=== PATIENT | male | born 1955 | race Caucasian/White ===

== ENCOUNTER 2020-10-07 14:16 | Inpatient (IN) | payer OTHER, MEDICARE ==
[2020-10-07] MEDS ORDERED: SODIUM CHLORIDE 0.9% 500 ML 500 ML IV STA (14:44)
[2020-10-07] MEDS ORDERED: VANCOMYCIN 1,000 MG in SODIUM CHLORIDE 0.9% 250 ML IVPB STA (14:44)
[2020-10-07] MEDS ORDERED: VANCOMYCIN IV PER PHARMACY 1 EACH MISC MISCELLANE PRN (14:48)
[2020-10-07] MEDS ORDERED: VANCOMYCIN 2,000 MG in SODIUM CHLORIDE 0.9% 500 ML 500 ML IVPB STA (14:48)
[2020-10-07 15:37] LABS: Basophils # (A) 0.1 k/uL (0-0.2); Basophils % (A) 1 %; Eosinophils % (A) 0 %; HCT 45.3 % (39.0-53.0); HGB 15.1 gm/dL (13.0-17.5); Lymphocytes # (A) 2.2 k/uL (1.0-4.8); Lymphocytes % (A) 24 %; MCH 28.9 pg (25.0-35.0); MCHC 33.3 g/dL (31.0-37.0); MCV 86.9 fL (80.0-100.0); Mean Platelet Volume 7.7; Monocytes # (A) 0.6 k/uL (0-1.0); Monocytes % (A) 7 %; Neutrophils # (A) 6.2 k/uL (1.3-7.7); Neutrophils % (A) 67 %; Platelet Count 166 k/uL (150-450); RBC 5.22 m/uL (4.30-5.90); RDW 14.3 % (11.5-15.5); WBC 9.3 k/uL (3.8-10.6)
[2020-10-07 15:47] LABS: ALT 37 U/L (4-49); AST 39 U/L (17-59); African American GFR (CKD) >90 (>60 ml/min/1.73 sqM); Albumin 3.3 g/dL (3.5-5.0); Alkaline Phosphatase 93 U/L (38-126); Anion Gap 6 mmol/L; Blood Urea Nitrogen 9 mg/dL (9-20); Calcium 8.8 mg/dL (8.4-10.2); Carbon Dioxide 26 mmol/L (22-30); Chloride 105 mmol/L (98-107); Glucose 232 mg/dL (74-99); Magnesium 1.8 mg/dL (1.6-2.3); Non-African American GFR(CKD) >90 (>60 ml/min/1.73 sqM); Potassium 4.2 mmol/L (3.5-5.1); Sodium 137 mmol/L (137-145); Total Bilirubin 1.1 mg/dL (0.2-1.3); Total Protein 6.6 g/dL (6.3-8.2)
[2020-10-07 15:53] LABS: INR 1.3 (<1.2); Partial Thromboplastin Time 25.1 sec (22.0-30.0)
--- NOTE | 2020-10-07 15:55 | XR ---
EXAMINATION TYPE: XR chest 1V portable DATE OF EXAM: 10/07/2020 COMPARISON: Chest x-ray 09/06/2010 HISTORY: Difficulty breathing TECHNIQUE: Single frontal view of the chest is obtained. FINDINGS: The heart is enlarged. There is abnormal density at the right lung base with obscured righ t hemidiaphragm. No pneumothorax. There are overlying leads. Minimal patchy basilar density on the le ft also noted. There is prominence and central vascularity, interstitium. IMPRESSION: Correlate for basilar pneumonia and associated effusion. Cardiomegaly, congestive failur e not excluded.
[2020-10-07 16:09] LABS: D-Dimer 4.25 mg/L FEU (<0.60)
--- NOTE | 2020-10-07 17:05 | CT ---
EXAMINATION TYPE: CT angio chest DATE OF EXAM: 10/07/2020 4:40 PM COMPARISON: Same-day radiograph. HISTORY: Elevated d-dimer. SOB CT DLP: 775 mGycm Automated exposure control for dose reduction was used. CONTRAST: CTA scan of the thorax is performed with IV Contrast, patient injected with 100 mL of Isovue 370, pul monary embolism protocol. MIP images are created and reviewed. FINDINGS: LUNGS: There are moderate right and small left pleural effusions with accompanying hazy opacities in the right middle and lower lobes. No pneumothorax. There is moderate centrilobular emphysema. MEDIASTINUM: There is satisfactory enhancement of the pulmonary artery and its branches, there is no CT evidence for pulmonary embolism. There are several scattered enlarged mediastinal lymph nodes wi th index lesion measuring 1.5 cm in the prevascular station. There is mild cardiomegaly. No pericar dial effusion is seen. There is mild thoracic aorta and moderate to advanced coronary atherosclerotic disease. OTHER: There is trace perihepatic fluid. IMPRESSION: MODERATE RIGHT AND SMALL LEFT PLEURAL EFFUSIONS WITH RIGHT BASILAR ATELECTASIS VERSUS INFILTRATE. FIN DINGS ARE ATYPICAL OF COVID PNEUMONIA. Trace perihepatic fluid. No acute PE. Nonspecific mediastinal lymphadenopathy.
--- NOTE | 2020-10-07 17:43 | ED ---
General Adult HPI - General Chief complaint: Shortness of Breath Stated complaint: L Leg Wound,SOB Time Seen by Provider: 10/07/20 14:29 Source: patient Mode of arrival: wheelchair Limitations: no limitations - History of Present Illness Initial comments: Patient presents with a couple issues. The first is that he was sent here by the health clinic for redness of the lower extremities. He has evidence of sialitis. He has no fevers or chills. He has no chest pain. He also complains of shortness of breath. He has no belly or back pain. He has no nausea or vomiting. He has no focal weakness. He has no lightheadedness or dizziness. - Related Data Home Medications Medication Instructions Recorded Confirmed Albuterol Sulfate [Ventolin HFA] 2 puff INHALATION RT-QID PRN 10/07/20 10/07/20 Apixaban [Eliquis] 5 mg PO BID 10/07/20 10/07/20 Aspirin 81 mg PO DAILY 10/07/20 10/07/20 Atorvastatin Calcium [Lipitor] 20 mg PO HS 10/07/20 10/07/20 Carvedilol [Coreg] 25 mg PO BID 10/07/20 10/07/20 Empagliflozin [Jardiance] 25 mg PO DAILY 10/07/20 10/07/20 Furosemide [Lasix] 20 mg PO Q48H 10/07/20 10/07/20 Furosemide [Lasix] 40 mg PO Q48H 10/07/20 10/07/20 Isosorbide Mononitrate ER [Imdur] 30 mg PO DAILY 10/07/20 10/07/20 glipiZIDE [Glucotrol] 5 mg PO BID 10/07/20 10/07/20 lisinopriL [Zestril] 20 mg PO BID 10/07/20 10/07/20 metFORMIN HCL 1,000 mg PO BID 10/07/20 10/07/20 Allergies Allergy/AdvReac Type Severity Reaction Status Date / Time No Known Allergies Allergy Verified 10/07/20 15:41 Review of Systems ROS Statement: Those systems with pertinent positive or pertinent negative responses have been documented in the HPI. ROS Other: All systems not noted in ROS Statement are negative. Past Medical History Past Medical History: Atrial Fibrillation, Coronary Artery Disease (CAD), Diabetes Mellitus, Hyperlipidemia, Hypertension, Osteoarthritis (OA) History of Any Multi-Drug Resistant Organisms: None Reported Past Surgical History: No Surgical Hx Reported Past Psychological History: No Psychological Hx Reported Smoking Status: Current every day smoker Past Alcohol Use History: None Reported Past Drug Use History: Marijuana General Exam Limitations: no limitations General appearance: alert, in no apparent distress Head exam: Present: atraumatic, normocephalic, normal inspection Eye exam: Present: normal appearance, PERRL, EOMI. Absent: scleral icterus, conjunctival injection, periorbital swelling ENT exam: Present: normal exam, mucous membranes moist Neck exam: Present: normal inspection. Absent: tenderness, meningismus, lymphadenopathy Respiratory exam: Present: normal lung sounds bilaterally. Absent: respiratory distress, wheezes, rales, rhonchi, stridor Cardiovascular Exam: Present: tachycardia, normal heart sounds. Absent: systolic murmur, diastolic murmur, rubs, gallop, clicks GI/Abdominal exam: Present: soft, normal bowel sounds. Absent: distended, tenderness, guarding, rebound, rigid Extremities exam: Present: normal inspection, full ROM, normal capillary refill. Absent: tenderness, pedal edema, joint swelling, calf tenderness Back exam: Present: normal inspection Neurological exam: Present: alert, oriented X3, CN II-XII intact Psychiatric exam: Present: normal affect, normal mood Skin exam: Present: erythema, other (Evidence of infection, and also an open wound of the left leg, evidence of infection on the right leg) Course Vital Signs 10/07/20 10/07/20 10/07/20 14:21 15:33 17:04 Temperature 98.4 F Pulse Rate 126 H 120 H 121 H Respiratory 24 22 20 Rate Blood Pressure 197/113 151/104 153/108 O2 Sat by Pulse 91 L 96 98 Oximetry EKG Findings - EKG Comments: EKG Findings:: Twelve-lead EKG shows ventricular rate 123 bpm, no P waves are appreciated, no ST elevation or depression, interpreted by me as tachycardia. Medical Decision Making - Medical Decision Making Patient has cellulitis in the legs. I sent blood cultures. I ordered IV antibiotics. I obtained a CT of the chest to evaluate for PE. It is negative. Patient will be admitted to the hospital. - Lab Data Result diagrams: 10/07/20 15:16 10/07/20 15:16 Lab Results 10/07/20 10/07/20 10/07/20 Range/Units 15:16 15:16 15:16 WBC 9.3 (3.8-10.6) k/uL RBC 5.22 (4.30-5.90) m/uL Hgb 15.1 (13.0-17.5) gm/dL Hct 45.3 (39.0-53.0) % MCV 86.9 (80.0-100.0) fL MCH 28.9 (25.0-35.0) pg MCHC 33.3 (31.0-37.0) g/dL RDW 14.3 (11.5-15.5) % Plt Count 166 (150-450) k/uL MPV 7.7 Neutrophils % 67 % Lymphocytes % 24 % Monocytes % 7 % Eosinophils % 0 % Basophils % 1 % Neutrophils # 6.2 (1.3-7.7) k/uL Lymphocytes # 2.2 (1.0-4.8) k/uL Monocytes # 0.6 (0-1.0) k/uL Eosinophils # 0.0 (0-0.7) k/uL Basophils # 0.1 (0-0.2) k/uL PT 13.0 H (9.0-12.0) sec INR 1.3 H (<1.2) APTT 25.1 (22.0-30.0) sec D-Dimer 4.25 H (<0.60) mg/L FEU Sodium 137 (137-145) mmol/L Potassium 4.2 (3.5-5.1) mmol/L Chloride 105 (98-107) mmol/L Carbon Dioxide 26 (22-30) mmol/L Anion Gap 6 mmol/L BUN 9 (9-20) mg/dL Creatinine 0.68 (0.66-1.25) mg/dL Est GFR (CKD-EPI)AfAm >90 (>60 ml/min/1.73 sqM) Est GFR (CKD-EPI)NonAf >90 (>60 ml/min/1.73 sqM) Glucose 232 H (74-99) mg/dL Plasma Lactic Acid Quinn (0.7-2.0) mmol/L Calcium 8.8 (8.4-10.2) mg/dL Magnesium 1.8 (1.6-2.3) mg/dL Total Bilirubin 1.1 (0.2-1.3) mg/dL AST 39 (17-59) U/L ALT 37 (4-49) U/L Alkaline Phosphatase 93 (38-126) U/L Troponin I (0.000-0.034) ng/mL NT-Pro-B Natriuret Pep pg/mL Total Protein 6.6 (6.3-8.2) g/dL Albumin 3.3 L (3.5-5.0) g/dL 10/07/20 10/07/20 10/07/20 Range/Units 15:16 15:16 15:16 WBC (3.8-10.6) k/uL RBC (4.30-5.90) m/uL Hgb (13.0-17.5) gm/dL Hct (39.0-53.0) % MCV (80.0-100.0) fL MCH (25.0-35.0) pg MCHC (31.0-37.0) g/dL RDW (11.5-15.5) % Plt Count (150-450) k/uL MPV Neutrophils % % Lymphocytes % % Monocytes % % Eosinophils % % Basophils % % Neutrophils # (1.3-7.7) k/uL Lymphocytes # (1.0-4.8) k/uL Monocytes # (0-1.0) k/uL Eosinophils # (0-0.7) k/uL Basophils # (0-0.2) k/uL PT (9.0-12.0) sec INR (<1.2) APTT (22.0-30.0) sec D-Dimer (<0.60) mg/L FEU Sodium (137-145) mmol/L Potassium (3.5-5.1) mmol/L Chloride (98-107) mmol/L Carbon Dioxide (22-30) mmol/L Anion Gap mmol/L BUN (9-20) mg/dL Creatinine (0.66-1.25) mg/dL Est GFR (CKD-EPI)AfAm (>60 ml/min/1.73 sqM) Est GFR (CKD-EPI)NonAf (>60 ml/min/1.73 sqM) Glucose (74-99) mg/dL Plasma Lactic Acid Quinn 1.6 (0.7-2.0) mmol/L Calcium (8.4-10.2) mg/dL Magnesium (1.6-2.3) mg/dL Total Bilirubin (0.2-1.3) mg/dL AST (17-59) U/L ALT (4-49) U/L Alkaline Phosphatase (38-126) U/L Troponin I 0.025 (0.000-0.034) ng/mL NT-Pro-B Natriuret Pep 3320 pg/mL Total Protein (6.3-8.2) g/dL Albumin (3.5-5.0) g/dL Disposition Clinical Impression: Cellulitis Disposition: ADMITTED IP TO THIS HOSP Condition: Fair Is patient prescribed a controlled substance at d/c from ED?: No Referrals: [facility],Clinic [Primary Care Provider] - 1-2 days
[2020-10-07] MEDS ORDERED: ACETAMINOPHEN TAB 325 MG TAB PO PRN (17:45)
[2020-10-07] MEDS ORDERED: ONDANSETRON 4 MG/2 ML VIAL IVP PRN (17:45)
[2020-10-07] MEDS ORDERED: NALOXONE 0.4 MG/ML 1 ML VIAL IV PRN (17:45)
[2020-10-07] MEDS ORDERED: TEMAZEPAM 15 MG CAP PO PRN (17:45)
[2020-10-07] MEDS ORDERED: MAG HYDROX/AL HYDROX/SIMETH 30 ML CUP PO PRN (17:45)
[2020-10-07] MEDS ORDERED: MORPHINE SULFATE 4 MG/ML SYRINGE IV PRN (17:45)
[2020-10-07] MEDS ORDERED: ALBUTEROL NEBULIZED 2.5 MG/3 ML INHALATION PRN (17:47)
[2020-10-07] MEDS ORDERED: FUROSEMIDE 40 MG TAB PO SCH (18:00)
--- NOTE | 2020-10-07 18:21 | P.HPIM ---
History of Present Illness Pleasant 65-year-old male came in with complains of redness in the left lower x- ray patient has a skin breakdown on the saenz area and has a stage II ulcer in that area. Patient does have local is of temperature and redness patient denied any history of MRSA. Patient does have history of atrial fibrillation patient is sinus rhythm but sinus tachycardic at this time. Patient says his heart rate is always on the high side. Patient denied any shortness of breath does have history of COPD does wear oxygen he doesn't know how much onset he wears does have wheezing on exam denied any cough chest x-ray did not show any significant abnormality except for pleural effusion patient has a left-sided pleural effusion on the CAT scan as well moderate size pleural effusion. Patient is on anticoagulation with Eliquis. Unsure whether this pleural effusion is acute or chronic Review of Systems REVIEW OF SYSTEMS: CONSTITUTIONAL: No fever, no malaise, no fatigue. HEENT: No recent visual problems or hearing problems. Denied any sore throat. CARDIOVASCULAR: No chest pain, orthopnea, PND, no palpitations, no syncope. PULMONARY: No shortness of breath, no cough, no hemoptysis. GASTROINTESTINAL: No diarrhea, no nausea, no vomiting, no abdominal pain. NEUROLOGICAL: No headaches, no weakness, no numbness. HEMATOLOGICAL: Denies any bleeding or petechiae. GENITOURINARY: Denies any burning micturition, frequency, or urgency. MUSCULOSKELETAL/RHEUMATOLOGICAL: Denies any joint pain, swelling, or any muscle pain. ENDOCRINE: Denies any polyuria or polydipsia. The rest of the 14-point review of systems is negative. Past Medical History Past Medical History: Atrial Fibrillation, Coronary Artery Disease (CAD), Diabetes Mellitus, Hyperlipidemia, Hypertension, Osteoarthritis (OA) History of Any Multi-Drug Resistant Organisms: None Reported Past Surgical History: No Surgical Hx Reported Past Psychological History: No Psychological Hx Reported Smoking Status: Current every day smoker Past Alcohol Use History: None Reported Past Drug Use History: Marijuana Medications and Allergies Home Medications Medication Instructions Recorded Confirmed Type Albuterol Sulfate [Ventolin HFA] 2 puff INHALATION RT-QID PRN 10/07/20 10/07/20 History Apixaban [Eliquis] 5 mg PO BID 10/07/20 10/07/20 History Aspirin 81 mg PO DAILY 10/07/20 10/07/20 History Atorvastatin Calcium [Lipitor] 20 mg PO HS 10/07/20 10/07/20 History Carvedilol [Coreg] 25 mg PO BID 10/07/20 10/07/20 History Empagliflozin [Jardiance] 25 mg PO DAILY 10/07/20 10/07/20 History Furosemide [Lasix] 20 mg PO Q48H 10/07/20 10/07/20 History Furosemide [Lasix] 40 mg PO Q48H 10/07/20 10/07/20 History Isosorbide Mononitrate ER [Imdur] 30 mg PO DAILY 10/07/20 10/07/20 History glipiZIDE [Glucotrol] 5 mg PO BID 10/07/20 10/07/20 History lisinopriL [Zestril] 20 mg PO BID 10/07/20 10/07/20 History metFORMIN HCL 1,000 mg PO BID 10/07/20 10/07/20 History Allergies Allergy/AdvReac Type Severity Reaction Status Date / Time No Known Allergies Allergy Verified 10/07/20 15:41 Physical Exam Vitals: Vital Signs Temp Pulse Resp BP Pulse Ox 10/07/20 17:04 121 H 20 153/108 98 10/07/20 15:33 120 H 22 151/104 96 10/07/20 14:21 98.4 F 126 H 24 197/113 91 L Intake and Output 10/07/20 10/07/20 10/07/20 06:59 14:59 22:59 Other: Weight 136.078 kg PHYSICAL EXAMINATION: GENERAL: The patient is alert and oriented x3, not in any acute distress. Well developed, well nourished. HEENT: Pupils are round and equally reacting to light. EOMI. No scleral icterus. No conjunctival pallor. Normocephalic, atraumatic. No pharyngeal erythema. No thyromegaly. CARDIOVASCULAR: S1 and S2 present. No murmurs, rubs, or gallops. PULMONARY: Expiratory wheezing on exam ABDOMEN: Soft, nontender, nondistended, normoactive bowel sounds. No palpable organomegaly. MUSCULOSKELETAL: No joint swelling or deformity. EXTREMITIES: No cyanosis, clubbing, does have bilateral nonpitting pedal edema is to be chronic NEUROLOGICAL: Gross neurological examination did not reveal any focal deficits. SKIN: chronic venous stasis stasis dermatosis with the left-sided redness cellulitis at the stage II ulcer in the anterior saenz area on the left leg. Results CBC & Chem 7: 10/07/20 15:16 10/07/20 15:16 Labs: Abnormal Lab Results - Last 24 Hours (Table) 10/07/20 10/07/20 Range/Units 15:16 15:16 PT 13.0 H (9.0-12.0) sec INR 1.3 H (<1.2) D-Dimer 4.25 H (<0.60) mg/L FEU Glucose 232 H (74-99) mg/dL Albumin 3.3 L (3.5-5.0) g/dL Assessment and Plan Plan: -Cellulitis of the left lower extremity: Patient denied any history of MRSA and patient was started on ceftezolin, patient has an ulcer on the left and patient area which will need local wound care. -COPD with mild acute exacerbation patient has chronic hypercapnic respiratory failure and uses support to 3 L of oxygen at home which will be continued patient will be started on inhaled steroids and continue with the breathing treatments Left-sided pleural effusion etiology is not. Patient may need diagnostic thoracentesis, pulmonology will be consulted -Elevated d-dimer is secondary to infection rule out pulmonary embolism -Type 2 diabetes mellitus elevated blood sugars patient will be resumed on home regimen along with sliding scale insulin patient appears to have uncontrolled blood sugars -Atrial fibrillation patient is presently sinus tachycardic: Patient will be resumed on home medications will monitor continue with anticoagulation, this need to be held if patient needs paracentesis - coronary artery disease -hypertension
--- NOTE | 2020-10-07 19:47 | US ---
EXAMINATION TYPE: US venous doppler duplex LE DATE OF EXAM: 10/07/2020 5:44 PM COMPARISON: NONE CLINICAL HISTORY: pain and swelling. Bilateral leg pain and swelling x 1 year, patient on blood thinn ers SIDE PERFORMED: Bilateral TECHNIQUE: The lower extremity deep venous system is examined utilizing real time linear array sonog gaby with graded compression, doppler sonography and color-flow sonography. VESSELS IMAGED: Common Femoral Vein Deep Femoral Vein Greater Saphenous Vein * Femoral Vein Popliteal Vein Small Saphenous Vein * Proximal Calf Veins (* superficial vessels) Right Leg: Appears negative for DVT Left Leg: Appears negative for DVT IMPRESSION: No evidence of DVT in the bilateral lower extremities.
[2020-10-07] MEDS: IPRATROPIUM-ALBUTEROL 3 ML NEB INHALATION SCH (20:19)
[2020-10-07] MEDS: SYMBICORT 160-4.5 MCG INHALER INHALATION SCH (20:20)
[2020-10-07 23:54] LABS: Glucose,Whole Blood 161 mg/dL (75-99)
[2020-10-08] MEDS ORDERED: VANCOMYCIN 2,000 MG in SODIUM CHLORIDE 0.9% 500 ML 500 ML IVPB SCH ×2
[2020-10-08] MEDS: ATORVASTATIN 20 MG TAB PO SCH ×2 (00:04→21:06)
[2020-10-08] MEDS: APIXABAN 5 MG TAB PO SCH ×2 (00:04→08:06)
[2020-10-08] MEDS: traMADol 50 MG TAB PO PRN ×2 (00:04→20:01)
[2020-10-08] MEDS: carvediloL 12.5 MG TAB PO SCH ×2 (00:04→08:11)
[2020-10-08] MEDS: lisinopriL 20 MG TAB PO SCH ×2 (00:04→08:06)
[2020-10-08] MEDS: INSULIN ASPART (NovoLOG) 100 UNIT/ML VIAL SQ SCH ×5 (00:06→20:25)
[2020-10-08 07:28] LABS: HCT 44.8 % (39.0-53.0); HGB 14.7 gm/dL (13.0-17.5); Hypochromasia Slight; MCHC 32.8 g/dL (31.0-37.0); MCV 88.4 fL (80.0-100.0); Mean Platelet Volume 7.9; Platelet Count 184 k/uL (150-450); RBC 5.07 m/uL (4.30-5.90); RDW 14.2 % (11.5-15.5); WBC 7.5 k/uL (3.8-10.6)
[2020-10-08 07:30] LABS: Glucose,Whole Blood 215 mg/dL (75-99)
[2020-10-08] MEDS: ISOSORBIDE MONONITRATE ER 30 MG TAB.ER.24H PO SCH (08:06)
[2020-10-08] MEDS: metFORMIN 500 MG TAB PO SCH ×2 (08:06→18:10)
[2020-10-08] MEDS: glipiZIDE 5 MG TAB PO SCH ×2 (08:07→18:10)
[2020-10-08] MEDS: SYMBICORT 160-4.5 MCG INHALER INHALATION SCH ×2 (08:16→20:53)
[2020-10-08] MEDS: IPRATROPIUM-ALBUTEROL 3 ML NEB INHALATION SCH ×4 (08:16→20:53)
[2020-10-08] MEDS ORDERED: ASPIRIN 81 MG PO SCH (09:00)
[2020-10-08 11:28] LABS: Glucose,Whole Blood 146 mg/dL (75-99)
[2020-10-08 12:24] LABS: African American GFR (CKD) 91.1 (60.0-200.0); Anion Gap 3.3 mmol/L (4.00-12.00); Calcium 8.7 mg/dL (8.7-10.3); Carbon Dioxide 27.7 mmol/L (21.6-31.8); Non-African American GFR(CKD) 78.6 (60.0-200.0); Potassium 4.3 mmol/L (3.5-5.5)
--- NOTE | 2020-10-08 13:09 | US ---
EXAMINATION TYPE: US chest DATE OF EXAM: 10/08/2020 COMPARISON: NONE CLINICAL HISTORY: Markings for thoracentesis by pulmonary staff. TECHNIQUE: Targeted ultrasound of the posterior lower bilateral hemithoraces EXAM MEASUREMENTS: Right Pleural Effusion pocket size: 13.1 cm Right skin surface to fluid distance: 4.1 cm Left Pleural Effusion pocket size: 3.6 cm Left skin surface to fluid distance: 3.8 cm Right side marked for possible thoracentesis outside the dept. Left side not marked for possible thoracentesis outside the dept. Pulmonologists are able to review the images in the patient?s EMR. IMPRESSIONS: Right and left pleural effusions
--- NOTE | 2020-10-08 13:49 | P.CNPUL ---
History of Present Illness Consult date: 10/08/20 Requesting physician: Yo Joya Reason for consult: dyspnea, COPD, hypoxemia, pleural effusion, abnormal CXR/CT Chief complaint: Shortness of breath. History of present illness: 65-year-old male who presented to the emergency department on 10/07/2020, at 1416. The patient had a number of issues when he went to the emergency room including an infection in his lower extremities, and possible cellulitis, as well as some shortness of breath. He denied any chest pain or chest discomfort. He also denied any nausea, vomiting, diarrhea, or abdominal pain. He denied all genitourinary complaints. Currently, the patient is receiving supplemental oxygen. I believe we were consulted because of a pleural effusion. The patient apparently used to be seen at the [facility] in [place], but more recently was transferred up to the [facility] in [place]. He apparently has not yet established himself with the physician. He has a history of atrial fibrillation, coronary artery disease, diabetes, hyperlipidemia, hypertension, DJD, and COPD. He also has a history of chronic hypoxemic respiratory failure. The patient continues to smoke cigarettes. He is currently on a blood thinner for his atrial fibrillati on. We will order an ultrasound of the chest to see if there is fluid worth draining. Review of Systems REVIEW OF SYSTEMS: CONSTITUTIONAL: [Negative.] NEUROLOGIC: [ Negative.] HEENT: [ Negative.] CARDIAC: [Negative.] PULMONARY: Shortness of breath. GI: [Negative.] : [Negative.] RHEUMATOLOGIC: [ Negative.] IMMUNOLOGIC: [ Negative.] ENDOCRINE: [Negative. ] DERMATOLOGIC: Cellulitis, and nonhealing wounds/ulcers to the lower extremities. Past Medical History Past Medical History: Atrial Fibrillation, Coronary Artery Disease (CAD), Diabetes Mellitus, Hyperlipidemia, Hypertension, Osteoarthritis (OA) History of Any Multi-Drug Resistant Organisms: None Reported Past Surgical History: No Surgical Hx Reported Smoking Status: Current every day smoker Medications and Allergies Home Medications Medication Instructions Recorded Confirmed Type Albuterol Sulfate [Ventolin HFA] 2 puff INHALATION RT-QID PRN 10/07/20 10/07/20 History Apixaban [Eliquis] 5 mg PO BID 10/07/20 10/07/20 History Aspirin 81 mg PO DAILY 10/07/20 10/07/20 History Atorvastatin Calcium [Lipitor] 20 mg PO HS 10/07/20 10/07/20 History Carvedilol [Coreg] 25 mg PO BID 10/07/20 10/07/20 History Empagliflozin [Jardiance] 25 mg PO DAILY 10/07/20 10/07/20 History Furosemide [Lasix] 20 mg PO Q48H 10/07/20 10/07/20 History Furosemide [Lasix] 40 mg PO Q48H 10/07/20 10/07/20 History Isosorbide Mononitrate ER [Imdur] 30 mg PO DAILY 10/07/20 10/07/20 History glipiZIDE [Glucotrol] 5 mg PO BID 10/07/20 10/07/20 History lisinopriL [Zestril] 20 mg PO BID 10/07/20 10/07/20 History metFORMIN HCL 1,000 mg PO BID 10/07/20 10/07/20 History Allergies Allergy/AdvReac Type Severity Reaction Status Date / Time No Known Allergies Allergy Verified 10/07/20 15:41 Physical Exam Osteopathic Statement: *. No significant issues noted on an osteopathic structural exam other than those noted in the History and Physical/Consult. Vitals: Vital Signs Temp Pulse Pulse Resp BP BP Pulse Ox 10/08/20 11:00 97.7 F 117 H 18 95/58 92 L 10/08/20 08:25 100 10/08/20 08:16 100 10/08/20 03:38 97.8 F 117 H 16 127/81 92 L 10/08/20 02:00 16 10/07/20 23:25 93 L 10/07/20 23:23 98.0 F 122 H 16 144/100 89 L 10/07/20 23:07 110 H 20 139/81 96 10/07/20 20:52 116 H 20 131/89 97 10/07/20 20:21 122 H 10/07/20 18:16 98.2 F 118 H 20 149/97 97 10/07/20 17:04 121 H 20 153/108 98 10/07/20 15:33 120 H 22 151/104 96 10/07/20 14:21 98.4 F 126 H 24 197/113 91 L Intake and Output 10/07/20 10/08/20 10/08/20 22:59 06:59 14:59 Intake Total 640 Balance 640 Intake: Intake, IV Titration 50 Amount ceFAZolin 2 gm In Sodium 50 Chloride 0.9% 50 ml @ 100 mls/hr IVPB Q8H [facility] Rx#: [id number] Oral 590 Other: Voiding Method Toilet # Voids 1 Weight 136.078 kg 136.078 kg No acute distress, oriented 3. Currently on 2 L nasal cannula. HEENT examination is grossly unremarkable. Mucous membranes are moist. No oral lesions. Neck supple. Full range of motion. No adenopathy thyromegaly or neck vein distention. Cardiovascular examination reveals irregular rhythm and rate. S1-S2 normal. No S3 or S4. No discernible murmur noted. Heart rate is 117 bpm Lungs reveal crackles at the bases. There is diminished breath sounds at the right base. There is dullness at the right base. No rhonchi. No wheezes. Abdomen soft bowel sounds are heard. No masses or tenderness. Extremities reveal some redness and erythema, and the lesion on the left leg is wrapped. In addition, there is edema to the lower extremities. Skin is without rash or lesion. Neurologic examination is brief but nonfocal. Results - Laboratory Findings CBC and BMP: 10/08/20 07:05 10/08/20 07:05 PT/INR, D-dimer PT 13.0 sec (9.0-12.0) H 10/07/20 15:16 INR 1.3 (<1.2) H 10/07/20 15:16 D-Dimer 4.25 mg/L FEU (<0.60) H 10/07/20 15:16 Abnormal lab findings: Abnormal Labs 10/07/20 10/07/20 10/07/20 15:16 15:16 23:47 PT 13.0 H INR 1.3 H D-Dimer 4.25 H Anion Gap BUN/Creatinine Ratio Glucose 232 H POC Glucose (mg/dL) 161 H Albumin 3.3 L 10/08/20 10/08/20 10/08/20 07:05 07:18 11:17 PT INR D-Dimer Anion Gap 3.30 L BUN/Creatinine Ratio 11.00 L Glucose 239 H POC Glucose (mg/dL) 215 H 146 H Albumin - Diagnostic Findings Chest x-ray: image reviewed CT scan - chest: image reviewed Assessment and Plan Assessment: Moderate right-sided pleural effusion, which may be more chronic in nature as the patient is not overwhelmingly short of breath. Chronic atrial fibrillation, with rapid ventricular response. Rule out congestive heart failure. Probable COPD, from previous heavy tobacco use. Lower extremity cellulitis and nonhealing ulcer/wound. Ongoing tobacco use with nicotine addiction. History of hyperlipidemia. Diabetes mellitus. History of CAD. Essential hypertension. Plan: Plan dated 10/08/2020. The patient's ultrasound showed a 13.1 cm pocket on the right side. I will discontinue his Eliquis. We will plan on doing a thoracentesis tomorrow. We will continue to follow this patient. Currently, he looks relatively stable to me. The effusion may relate to underlying congestive heart failure secondary to his atrial fibrillation. Additional recommendations and suggestions are forthcoming. The patient will need antibiotics, for his cellulitis, and nonh ealing ulcer. Prognosis is guarded. Time with Patient: Greater than 30
--- NOTE | 2020-10-08 14:44 | P.PN ---
Subjective 65-year-old male came in with complains of redness in the left lower x-ray patient has a skin breakdown on the saenz area and has a stage II ulcer in that area. Patient does have local is of temperature and redness patient denied any history of MRSA. Patient does have history of atrial fibrillation patient is sinus rhythm but sinus tachycardic at this time. Patient says his heart rate is always on the high side. Patient denied any shortness of breath does have history of COPD does wear oxygen he doesn't know how much onset he wears does mccabe ve wheezing on exam denied any cough chest x-ray did not show any significant abnormality except for pleural effusion patient has a left-sided pleural effusion on the CAT scan as well moderate size pleural effusion. Patient is on anticoagulation with Eliquis. Unsure whether this pleural effusion is acute or chronic. 10/08/2020 Patient's cellulitis in the left leg significantly improved. Patient had an ultrasound for pleural effusion on the left side. Patient will undergo diagnostic thoracentesis tomorrow anti-correlation is being held patient will be started on IV Lasix although clinically patient doesn't have any JVD because she is pleural effusion and elevated BNP last started him on IV Lasix and the CT that improves his a creatinine and pleural effusion. Patient is hypotensive ON THE LISINOPRIL TO 10 MG DAILY FROM 20 TWICE A DAY AND PATIENT WILL BE SWITCHED TO METOPROLOL INSTEAD OF COREG. Constitutional: Denied any fatigue denied any fever. Cardio vascular: denied any chest pain, palpitations Gastrointestinal denied any nausea vomiting Pulmonary: Denied any shortness of breath cough Neurologic denied any new focal deficits All inpatient medications were reviewed and appropriate changes in these medications as dictated in the interval history and assessment and plan. Objective - Vital Signs Vital signs: Vital Signs Temp 97.7 F 10/08/20 11:00 Pulse 117 H 10/08/20 11:00 Resp 18 10/08/20 11:00 BP 95/58 10/08/20 11:00 Pulse Ox 92 L 10/08/20 11:00 Intake & Output 10/07/20 10/08/20 10/08/20 18:59 06:59 18:59 Intake Total 640 Balance 640 Weight 136.078 kg 136.078 kg Intake: Intake, IV Titration 50 Amount ceFAZolin 2 gm In Sodium 50 Chloride 0.9% 50 ml @ 100 mls/hr IVPB Q8H [facility] Rx#: [id number] Oral 590 Other: Voiding Method Toilet # Voids 1 - Exam PHYSICAL EXAMINATION: GENERAL: The patient is alert and oriented x3, not in any acute distress. Well developed, well nourished. HEENT: Pupils are round and equally reacting to light. EOMI. No scleral icterus. No conjunctival pallor. Normocephalic, atraumatic. No pharyngeal erythema. No thyromegaly. CARDIOVASCULAR: S1 and S2 present. No murmurs, rubs, or gallops. PULMONARY: Wheezing completely resolved good air entry into bilateral lung gallardo ABDOMEN: Soft, nontender, nondistended, normoactive bowel sounds. No palpable organomegaly. MUSCULOSKELETAL: No joint swelling or deformity. EXTREMITIES: No cyanosis, clubbing, does have bilateral nonpitting pedal edema is to be chronic NEUROLOGICAL: Gross neurological examination did not reveal any focal deficits. SKIN: chronic venous stasis stasis dermatosis with the left foot redness and pain improved cellulitis improved - Labs CBC & Chem 7: 10/08/20 07:05 10/08/20 07:05 Labs: Abnormal Lab Results - Last 24 Hours (Table) 10/07/20 10/07/20 10/07/20 Range/Units 15:16 15:16 23:47 PT 13.0 H (9.0-12.0) sec INR 1.3 H (<1.2) D-Dimer 4.25 H (<0.60) mg/L FEU Anion Gap (4.00-12.00) mmol/L BUN/Creatinine Ratio (12.00-20.00) Ratio Glucose 232 H (74-99) mg/dL POC Glucose (mg/dL) 161 H (75-99) mg/dL Albumin 3.3 L (3.5-5.0) g/dL 10/08/20 10/08/20 10/08/20 Range/Units 07:05 07:18 11:17 PT (9.0-12.0) sec INR (<1.2) D-Dimer (<0.60) mg/L FEU Anion Gap 3.30 L (4.00-12.00) mmol/L BUN/Creatinine Ratio 11.00 L (12.00-20.00) Ratio Glucose 239 H (74-99) mg/dL POC Glucose (mg/dL) 215 H 146 H (75-99) mg/dL Albumin (3.5-5.0) g/dL Assessment and Plan Plan: -Cellulitis of the left lower extremity: Patient denied any history of MRSA and patient will be on ceftezolin, patient has an ulcer on the left and patient area which will need local wound care. -COPD with mild acute exacerbation patient has chronic hypercapnic respiratory failure , COPD improved patient is on 2 L of oxygen now Left-sided pleural effusion etiology is not can be secondary to chronic diastolic dysfunction with acute exacerbation. Patient may need diagnostic thoracentesis, pulmonology will be consulted From congestive failure and diastolic dysfunction with possibility of mild acute exacerbation -Elevated d-dimer is secondary to infection rule out pulmonary embolism -Type 2 diabetes mellitus. Well controlled blood sugars and present regimen continued on present regimen -Atrial fibrillation patient is presently sinus tachycardic: Patient was switched to metoprolol - coronary artery disease -hypertension
[2020-10-08 16:56] LABS: Glucose,Whole Blood 93 mg/dL (75-99)
[2020-10-08] MEDS ORDERED: FUROSEMIDE 20 MG TAB PO SCH (18:00)
[2020-10-08 19:55] LABS: Glucose,Whole Blood 144 mg/dL (75-99)
[2020-10-08 20:25] LABS: Glucose,Whole Blood 136 mg/dL (75-99)
[2020-10-08] MEDS: METOPROLOL TARTRATE 50 MG TAB PO SCH (21:06)
[2020-10-08] MEDS: FUROSEMIDE 10 MG/ML 4 ML VIAL IV SCH (21:06)
[2020-10-09] MEDS: IPRATROPIUM-ALBUTEROL 3 ML NEB INHALATION SCH ×4 (05:49→20:03)
[2020-10-09 07:21] LABS: Glucose,Whole Blood 119 mg/dL (75-99)
[2020-10-09] MEDS: INSULIN ASPART (NovoLOG) 100 UNIT/ML VIAL SQ SCH ×4 (07:22→20:36)
[2020-10-09] MEDS: SYMBICORT 160-4.5 MCG INHALER INHALATION SCH ×2 (07:23→20:03)
[2020-10-09] MEDS: METOPROLOL TARTRATE 50 MG TAB PO SCH ×2 (08:19→20:36)
[2020-10-09] MEDS: ISOSORBIDE MONONITRATE ER 30 MG TAB.ER.24H PO SCH (08:20)
[2020-10-09] MEDS: metFORMIN 500 MG TAB PO SCH ×2 (08:20→17:47)
[2020-10-09] MEDS: lisinopriL 10 MG TAB PO SCH (08:20)
[2020-10-09] MEDS: glipiZIDE 5 MG TAB PO SCH ×2 (08:21→17:47)
[2020-10-09] MEDS: FUROSEMIDE 10 MG/ML 4 ML VIAL IV SCH ×2 (08:21→20:37)
[2020-10-09 11:38] LABS: Glucose,Whole Blood 150 mg/dL (75-99)
--- NOTE | 2020-10-09 11:43 | XR ---
EXAMINATION TYPE: XR chest 1V portable DATE OF EXAM: 10/09/2020 COMPARISON: Prior chest x-ray and chest CT 10/07/2020 HISTORY: Pleural effusions TECHNIQUE: Single frontal view of the chest is obtained. FINDINGS: Findings similar to prior exam. The right hemidiaphragm is obscured, there is blunting the costophrenic angle. The heart is enlarged. No evident pneumothorax. Patchy basilar density present r ight greater than left. IMPRESSION: Right pleural effusion and associated atelectasis versus pneumonia greater than left, th ere is underlying emphysema.
--- NOTE | 2020-10-09 12:00 | P.PN ---
Subjective 65-year-old male came in with complains of redness in the left lower x-ray patient has a skin breakdown on the saenz area and has a stage II ulcer in that area. Patient does have local is of temperature and redness patient denied any history of MRSA. Patient does have history of atrial fibrillation patient is sinus rhythm but sinus tachycardic at this time. Patient says his heart rate is always on the high side. Patient denied any shortness of breath does have history of COPD does wear oxygen he doesn't know how much onset he wears does mccabe ve wheezing on exam denied any cough chest x-ray did not show any significant abnormality except for pleural effusion patient has a left-sided pleural effusion on the CAT scan as well moderate size pleural effusion. Patient is on anticoagulation with Eliquis. Unsure whether this pleural effusion is acute or chronic. 10/08/2020 Patient's cellulitis in the left leg significantly improved. Patient had an ultrasound for pleural effusion on the left side. Patient will undergo diagnostic thoracentesis tomorrow anti-correlation is being held patient will be started on IV Lasix although clinically patient doesn't have any JVD because she is pleural effusion and elevated BNP last started him on IV Lasix and the CT that improves his a creatinine and pleural effusion. Patient is hypotensive ON THE LISINOPRIL TO 10 MG DAILY FROM 20 TWICE A DAY AND PATIENT WILL BE SWITCHED TO METOPROLOL INSTEAD OF COREG. 10/09/2020 Patient does have bilateral pleural effusions continue with IV fluids repeat the chest x-ray is being obtained. Patient pleural effusion is significant on the right side.patient will undergo thoracentesis today. Constitutional: Denied any fatigue denied any fever. Cardio vascular: denied any chest pain, palpitations Gastrointestinal denied any nausea vomiting Pulmonary: Denied any shortness of breath cough Neurologic denied any new focal deficits All inpatient medications were reviewed and appropriate changes in these medications as dictated in the interval history and assessment and plan. Objective - Vital Signs Vital signs: Vital Signs Temp 98.2 F 10/09/20 10:53 Pulse 92 10/09/20 11:12 Resp 17 10/09/20 10:53 BP 127/86 10/09/20 10:53 Pulse Ox 95 10/09/20 10:53 Intake & Output 10/08/20 10/09/20 10/09/20 18:59 06:59 18:59 Intake Total 590 Balance 590 Intake: Oral 590 Other: Voiding Method Toilet Toilet Toilet # Voids 2 - Exam PHYSICAL EXAMINATION: GENERAL: The patient is alert and oriented x3, not in any acute distress. Well developed, well nourished. HEENT: Pupils are round and equally reacting to light. EOMI. No scleral icterus. No conjunctival pallor. Normocephalic, atraumatic. No pharyngeal erythema. No thyromegaly. CARDIOVASCULAR: S1 and S2 present. No murmurs, rubs, or gallops. PULMONARY: Wheezing completely resolved good air entry into bilateral lung gallardo ABDOMEN: Soft, nontender, nondistended, normoactive bowel sounds. No palpable organomegaly. MUSCULOSKELETAL: No joint swelling or deformity. EXTREMITIES: No cyanosis, clubbing, does have bilateral nonpitting pedal edema is to be chronic NEUROLOGICAL: Gross neurological examination did not reveal any focal deficits. SKIN: chronic venous stasis stasis dermatosis with the left foot redness and pain improved cellulitis improved - Labs CBC & Chem 7: 10/08/20 07:05 10/08/20 07:05 Labs: Abnormal Lab Results - Last 24 Hours (Table) 10/08/20 10/08/20 10/08/20 Range/Units 07:05 19:54 20:23 Anion Gap 3.30 L (4.00-12.00) mmol/L BUN/Creatinine Ratio 11.00 L (12.00-20.00) Ratio Glucose 239 H (70-110) mg/dL POC Glucose (mg/dL) 144 H 136 H (75-99) mg/dL 10/09/20 10/09/20 Range/Units 07:19 11:29 Anion Gap (4.00-12.00) mmol/L BUN/Creatinine Ratio (12.00-20.00) Ratio Glucose (70-110) mg/dL POC Glucose (mg/dL) 119 H 150 H (75-99) mg/dL Microbiology - Last 24 Hours (Table) 10/07/20 15:16 Blood Culture - Preliminary Blood No Growth after 24 hours 10/07/20 15:16 Blood Culture - Preliminary Blood No Growth after 24 hours Assessment and Plan Plan: -Cellulitis of the left lower extremity: Patient denied any history of MRSA and patient will be on ceftezolin, patient has an ulcer on the left and patient area which will need local wound care.admitted improvement cellulitis -COPD with mild acute exacerbation patient has chronic hypercapnic respiratory failure , COPD improved patient is on 2 L of oxygen now Left-sided pleural effusion probably secondary to chronic diastolic dysfunction with acute exacerbation. Patient may need diagnostic thoracentesis, patient will undergo thoracentesis today both therapeutic and diagnostic From congestive failure and diastolic dysfunction with possibility of mild acute exacerbation -Elevated d-dimer is secondary to infection rule out pulmonary embolism -Type 2 diabetes mellitus. Well controlled blood sugars and present regimen continued on present regimen -Atrial fibrillation patient is presently sinus tachycardic: Patient was switched to metoprolol - coronary artery disease -hypertension
--- NOTE | 2020-10-09 14:35 | XR ---
EXAMINATION TYPE: XR chest 1V portable DATE OF EXAM: 10/09/2020 COMPARISON: Earlier same day. HISTORY: Status post right thoracentesis. TECHNIQUE: Single frontal view of the chest is obtained. FINDINGS: There is decreased right pleural effusion with trace residual and adjacent opacity. No pne umothorax seen. The cardiac silhouette size is mildly enlarged. The osseous structures are intact. IMPRESSION: Decreased right pleural effusion postthoracentesis with trace residual. No pneumothorax.
--- NOTE | 2020-10-09 15:02 | P.PN ---
Subjective Progress Note Date: 10/09/20 Principal diagnosis: Right-sided pleural effusion, dyspnea 65-year-old male who presented to the emergency department on 10/07/2020, at 1416. The patient had a number of issues when he went to the emergency room including an infection in his lower extremities, and possible cellulitis, as well as some shortness of breath. He denied any chest pain or chest discomfort. He also denied any nausea, vomiting, diarrhea, or abdominal pain. He denied all genitourinary complaints. Currently, the patient is receiving supplemental oxygen. I believe we were consulted because of a pleural effusion. The patient apparently used to be seen at the CT in [place], but more recently was transferred up to the CT in [place]. He apparently has not yet established himself with the physician. He has a history of atrial fibrillation, coronary artery disease, diabetes, hyperlipidemia, hypertension, DJD, and COPD. He also has a history of chronic hypoxemic respiratory failure. The patient continues to smoke cigarettes. He is currently on a blood thinner for his atrial fibrillation. We will order an ultrasound of the chest to see if there is fluid worth draining. The patient is seen today 10/09/2020 in follow-up on the regular medical floor. He is currently sitting up at the bedside. Awake and alert in no acute distress. He is having some orthopnea. Maintaining good O2 saturations in the 90s on 2 L/m per nasal cannula. Ultrasound of the chest did reveal a 13 cm pocket on the right. He did undergo thoracentesis today with 2.3 L of cloudy yellow fluid removed. Fluid analysis pending. Follow-up chest x-ray reveals residual effusion. No pneumothorax. Remains on Symbicort, DuoNeb inhalations. Antibiotics in the form of cefazolin. Objective - Vital Signs Vital signs: Vital Signs Temp 98.2 F 10/09/20 10:53 Pulse 92 10/09/20 11:12 Resp 17 10/09/20 10:53 BP 127/86 10/09/20 10:53 Pulse Ox 95 10/09/20 10:53 Intake & Output 10/08/20 10/09/20 10/09/20 18:59 06:59 18:59 Intake Total 590 Balance 590 Intake: Oral 590 Other: Voiding Method Toilet Toilet Toilet # Voids 2 - Exam GENERAL EXAM: Alert, pleasant obese 65-year-old gentleman, on 2 L nasal cannula, comfortable in no apparent distress. HEAD: Normocephalic. EYES: Normal reaction of pupils, equal size. NOSE: Clear with pink turbinates. THROAT: No erythema or exudates. NECK: No masses, no JVD. CHEST: No chest wall deformity. LUNGS: Equal air entry with crackles, dullness in the right base. CVS: S1 and S2 normal with no audible murmur, regular rhythm. ABDOMEN: No hepatosplenomegaly, normal bowel sounds, no guarding or rigidity. SPINE: No scoliosis or deformity SKIN: No rashes CENTRAL NERVOUS SYSTEM: No focal deficits, tone is normal in all 4 extremities. EXTREMITIES: Dressing to the left lower extremity dry and intact. There is no peripheral edema. No clubbing, no cyanosis. Peripheral pulses are intact. - Labs CBC & Chem 7: 10/08/20 07:05 10/08/20 07:05 Labs: Abnormal Lab Results - Last 24 Hours (Table) 10/08/20 10/08/20 10/09/20 Range/Units 19:54 20:23 07:19 POC Glucose (mg/dL) 144 H 136 H 119 H (75-99) mg/dL 10/09/20 Range/Units 11:29 POC Glucose (mg/dL) 150 H (75-99) mg/dL Microbiology - Last 24 Hours (Table) 10/07/20 15:16 Blood Culture - Preliminary Blood No Growth after 24 hours 10/07/20 15:16 Blood Culture - Preliminary Blood No Growth after 24 hours Assessment and Plan Assessment: 1 Moderate right-sided pleural effusion, which may be more chronic in nature, status post thoracentesis with 2.3 L of cloudy yellow fluid removed on 10/09/2020. 2 Chronic atrial fibrillation, with rapid ventricular response. 3 Rule out congestive heart failure. 4 Probable COPD, from previous heavy tobacco use. 5 Lower extremity cellulitis and nonhealing ulcer/wound. 6 Ongoing tobacco use with nicotine addiction. 7 History of hyperlipidemia. 8 Diabetes mellitus. 9 History of CAD. 10 Essential hypertension. Plan: The patient was seen and evaluated by Dr. Irwin Right-sided thoracentesis performed with 2.3 L of cloudy yellow fluid removed Fluid analysis Urinalysis, cytology pending Follow-up chest x-ray with residual effusion, no pneumothorax Resume Eliquis Continue Symbicort, DuoNeb inhalations, IV diuretics Continue cefazolin We will continue to follow I, the cosigning physician, performed a history & physical examination of the patient. Lungs sounds with crackles in the right base, diminished. Maintaining good O2 saturations in the 90s on 2 L/m per nasal cannula. I discussed the assessment and plan of care with my nurse practitioner, Lillian Beaulieu. I attest to the above note as dictated by her.
[2020-10-09 15:15] LABS: Appearance,BF Clear; Color,BF Yellow; Nucleated Cells, Body Fluid 350 /uL; RBC, Body Fluid 968 /uL
[2020-10-09 15:26] LABS: Mononuclear WBC,Body Fluid 88 %; Polynuclear WBC,Body Fluid 12 %; Total Cells Counted,Body Fluid 100
--- NOTE | 2020-10-09 15:39 | PCN ---
PROCEDURE NOTE PROCEDURE PERFORMED: Right-sided thoracentesis. PREOP DIAGNOSIS: Right pleural effusion. POSTOP DIAGNOSIS: Right sided pleural effusion. OPERATORS: Dr. Irwin and Dr. Beaulieu. There was informed consent and universal timeout. Indication Pleural effusion. A time-out was completed verifying correct patient, procedure, site, positioning , and implant (s) or special equipment if applicable. Ultrasound guidance was/was not used and appropriate fluid pocket was identified and marked. Patient was positioned, prepped and draped in usual sterile fashion. Lidocaine was used to anesthetize the area. A Thoracentesis catheter was introduced into the pleural space and fluid was removed. Blood loss was none. A chest x-ray was ordered to evaluate for pneumothorax. Total Fluid Removed: 2.3 L Color of Fluid: Yellow Fluid: Was sent for appropriate laboratory tests. Patient tolerated the procedure well and there were no complications. There was no immediate complication. The patient tolerated the procedure well. The fluid will be sent for analysis. A chest x-ray was ordered to rule out pneumothorax. There was no immediate complication. MMODL / IJN: [id number] /
[2020-10-09 17:35] LABS: Glucose,Whole Blood 67 mg/dL (75-99)
[2020-10-09 17:50] LABS: Glucose,Whole Blood 95 mg/dL (75-99)
[2020-10-09 20:11] LABS: Glucose,Whole Blood 177 mg/dL (75-99)
[2020-10-09] MEDS: ATORVASTATIN 20 MG TAB PO SCH (20:36)
[2020-10-09] MEDS: APIXABAN 5 MG TAB PO SCH (20:36)
[2020-10-10 00:12] LABS: Glucose, BF Source Pleural Fluid; Glucose, Body Fluid 139 mg/dL; LDH, Body Fluid Source Pleural Fluid; Total Protein, Body Fluid 1310 mg/dL
[2020-10-10] MEDS: SYMBICORT 160-4.5 MCG INHALER INHALATION SCH (07:14)
[2020-10-10] MEDS: IPRATROPIUM-ALBUTEROL 3 ML NEB INHALATION SCH ×2 (07:14→11:32)
[2020-10-10 07:17] LABS: Glucose,Whole Blood 155 mg/dL (75-99)
[2020-10-10] MEDS: lisinopriL 10 MG TAB PO SCH (07:52)
[2020-10-10] MEDS: INSULIN ASPART (NovoLOG) 100 UNIT/ML VIAL SQ SCH ×2 (07:52→12:09)
[2020-10-10] MEDS: metFORMIN 500 MG TAB PO SCH (07:53)
[2020-10-10] MEDS: METOPROLOL TARTRATE 50 MG TAB PO SCH (07:53)
[2020-10-10] MEDS: ISOSORBIDE MONONITRATE ER 30 MG TAB.ER.24H PO SCH (07:53)
[2020-10-10] MEDS: FUROSEMIDE 10 MG/ML 4 ML VIAL IV SCH (07:53)
[2020-10-10] MEDS: APIXABAN 5 MG TAB PO SCH (07:53)
[2020-10-10] MEDS: glipiZIDE 5 MG TAB PO SCH (07:54)
[2020-10-10 11:22] LABS: Glucose,Whole Blood 145 mg/dL (75-99)
[2020-10-10 11:44] VITALS: BP 124/89; PULSE 67; RESP 17; TEMP 97.3
--- NOTE | 2020-10-10 15:09 | P.DS ---
Providers Date of admission: 10/10/20 07:51 Attending physician: Ant Álvarez Consults: 10/07/20 18:15 Consult Physician Routine Consulting Provider: Crow Cho Consult Reason/Comments: Right-sided pleural effusion Do you want consulting provider notified?: Yes Primary care physician: [facility] Course: 65-year-old male came in with complains of redness in the left lower x-ray patient has a skin breakdown on the saenz area and has a stage II ulcer in that area. Patient does have local is of temperature and redness patient denied any history of MRSA. Patient does have history of atrial fibrillation patient is sinus rhythm but sinus tachycardic at this time. Patient says his heart rate is always on the high side. Patient denied any shortness of breath does have history of COPD does wear oxygen he doesn't know how much onset he wears does have wheezing on exam denied any cough chest x-ray did not show any significant abnormality except for pleural effusion patient has a left-sided pleural effusion on the CAT scan as well moderate size pleural effusion. Patient is on anticoagulation with Eliquis. Unsure whether this pleural effusion is acute or chronic. 10/08/2020 Patient's cellulitis in the left leg significantly improved. Patient had an ultrasound for pleural effusion on the left side. Patient will undergo diagnostic thoracentesis tomorrow anti-correlation is being held patient will be started on IV Lasix although clinically patient doesn't have any JVD because she is pleural effusion and elevated BNP last started him on IV Lasix and the CT that improves his a creatinine and pleural effusion. Patient is hypotensive ON THE LISINOPRIL TO 10 MG DAILY FROM 20 TWICE A DAY AND PATIENT WILL BE SWITCHED TO METOPROLOL INSTEAD OF COREG. 10/09/2020 Patient does have bilateral pleural effusions continue with IV fluids repeat the chest x-ray is being obtained. Patient pleural effusion is significant on the right side.patient will undergo thoracentesis today. 10/10/2020 Patient underwent paracentesis with removal of around 2.3 L of fluid results of the pleural fluid analysis is still pending. PHYSICAL EXAMINATION: GENERAL: The patient is alert and oriented x3, not in any acute distress. Well developed, well nourished. HEENT: Pupils are round and equally reacting to light. EOMI. No scleral icterus. No conjunctival pallor. Normocephalic, atraumatic. No pharyngeal erythema. No thyromegaly. CARDIOVASCULAR: S1 and S2 present. No murmurs, rubs, or gallops. PULMONARY: Wheezing completely resolved good air entry into bilateral lung gallardo ABDOMEN: Soft, nontender, nondistended, normoactive bowel sounds. No palpable organomegaly. MUSCULOSKELETAL: No joint swelling or deformity. EXTREMITIES: No cyanosis, clubbing, does have bilateral nonpitting pedal edema is to be chronic NEUROLOGICAL: Gross neurological examination did not reveal any focal deficits. SKIN: chronic venous stasis stasis dermatosis with the left foot redness and pain improved cellulitis improved Assessment and Plan Plan: -Cellulitis of the left lower extremity: Significant improvement with ceftezolin, patient will be discharged on Keflex for 4 more days -COPD with mild acute exacerbation patient has chronic hypercapnic respiratory failure , she is not requiring any oxygen at this time Left-sided pleural effusion probably secondary to chronic diastolic dysfunction with acute exacerbation. And underwent a diagnostic and therapeutic thoracentesis with removal of around 2.3 L of fluid after which patient felt much better - congestive failure and diastolic dysfunction with acute exacerbation patient Lasix dose will be increased to 40 twice a day, and repeat basic metabolic profile will be obtained in 2-3 days results to be faxed to PCP -Elevated d-dimer is secondary to infection ruled out pulmonary embolism -Type 2 diabetes mellitus. Well controlled blood sugars -Atrial fibrillation patient is presently sinus tachycardic: Patient was switched to metoprolol - coronary artery disease -hypertension Patient Condition at Discharge: Fair Plan - Discharge Summary New Discharge Prescriptions: New Metoprolol Tartrate [Lopressor] 100 mg PO BID #60 tab Budesonide-Formot 160-4.5 Mcg [Symbicort 160-4.5 Mcg Inhaler] 2 puff INHALATION RT-BID #1 inhaler Cephalexin [Keflex] 500 mg PO Q6HR 4 Days #16 cap Continue Albuterol Sulfate [Ventolin HFA] 2 puff INHALATION RT-QID PRN PRN Reason: Shortness Of Breath Apixaban [Eliquis] 5 mg PO BID Aspirin 81 mg PO DAILY Atorvastatin Calcium [Lipitor] 20 mg PO HS Empagliflozin [Jardiance] 25 mg PO DAILY glipiZIDE [Glucotrol] 5 mg PO BID Isosorbide Mononitrate ER [Imdur] 30 mg PO DAILY metFORMIN HCL 1,000 mg PO BID Changed Furosemide [Lasix] 40 mg PO BID #0 lisinopriL [Zestril] 10 mg PO DAILY #0 Discontinued Carvedilol [Coreg] 25 mg PO BID Furosemide [Lasix] 20 mg PO Q48H Discharge Medication List Albuterol Sulfate [Ventolin HFA] 2 puff INHALATION RT-QID PRN 10/07/20 [History] Apixaban [Eliquis] 5 mg PO BID 10/07/20 [History] Aspirin 81 mg PO DAILY 10/07/20 [History] Atorvastatin Calcium [Lipitor] 20 mg PO HS 10/07/20 [History] Empagliflozin [Jardiance] 25 mg PO DAILY 10/07/20 [History] Isosorbide Mononitrate ER [Imdur] 30 mg PO DAILY 10/07/20 [History] glipiZIDE [Glucotrol] 5 mg PO BID 10/07/20 [History] metFORMIN HCL 1,000 mg PO BID 10/07/20 [History] Budesonide-Formot 160-4.5 Mcg [Symbicort 160-4.5 Mcg Inhaler] 2 puff INHALATION RT-BID #1 inhaler 10/10/20 [Rx] Cephalexin [Keflex] 500 mg PO Q6HR 4 Days #16 cap 10/10/20 [Rx] Furosemide [Lasix] 40 mg PO BID #0 10/10/20 [Rx] Metoprolol Tartrate [Lopressor] 100 mg PO BID #60 tab 10/10/20 [Rx] lisinopriL [Zestril] 10 mg PO DAILY #0 10/10/20 [Rx] Follow up Appointment(s)/Referral(s): [facility],Clinic [Primary Care Provider] - 3 Days (PLEASE CALL FOR APPOINTMENT ON 10/11/20, (OFFICE CLOSED TODAY 10/10/20 FOR ML)) Ambulatory/Diagnostic Orders: Basic Metabolic Panel [LAB.AMB] Time Frame: 3 Days, Location: None Selected Patient Instructions/Handouts: Cellulitis (DC), Type 2 Diabetes in Adults: New Diagnosis (DC), Pleural Effusion (DC), Thoracentesis (DC) Activity/Diet/Wound Care/Special Instructions: Continue dry dressings on the open ulcer on left saenz once per day and as needed if soiled. ok to shower with antibacterial soap. Discharge Disposition: HOME SELF-CARE
== END 2020-10-10 13:35 | disposition home or self-care (01) | DRG 292 ==
LOC: EC 14:16 → 6NMEDSUR 17:45 → OBSVTOIN 10-10 07:51
PROVIDERS: ADMIT Internal Medicine; ATTEND Internal Medicine
PROC: 0W993ZX Drainage of Right Pleural Cavity, Percutaneous Approach, Diagnostic (ICD-10-PCS; principal; 2020-10-09)
DX: I11.0 Hypertensive heart disease with heart failure (principal); J44.1 Chronic obstructive pulmonary disease with (acute) exacerbation; J90 Pleural effusion, not elsewhere classified; I48.20 Chronic atrial fibrillation, unspecified; J96.12 Chronic respiratory failure with hypercapnia; L03.116 Cellulitis of left lower limb; J96.11 Chronic respiratory failure with hypoxia; I50.33 Acute on chronic diastolic (congestive) heart failure; E11.65 Type 2 diabetes mellitus with hyperglycemia; E78.5 Hyperlipidemia, unspecified; F17.210 Nicotine dependence, cigarettes, uncomplicated; I25.10 Atherosclerotic heart disease of native coronary artery without angina pectoris; K11.20 Sialoadenitis, unspecified; Z79.01 Long term (current) use of anticoagulants; Z79.4 Long term (current) use of insulin; Z79.82 Long term (current) use of aspirin; Z79.899 Other long term (current) drug therapy; M19.90 Unspecified osteoarthritis, unspecified site
CPT/HCPCS: 36415; 71045; 71275; 76604; 80048; 80053; 82945; 83605; 83615; 83735; 83880; 84157; 84484; 85025; 85027; 85379; 85610; 85730; 87040; 87070; 87205; 87635; 88108; 88305; 89050; 93005; 93970; 94640; 96365; 96366; 96367; 99285

== ENCOUNTER 2020-11-15 11:59 | Inpatient (IN) | payer OTHER, MEDICARE ==
[2020-11-15 13:29] LABS: Basophils % (A) 0 %; Eosinophils # (A) 0.1 k/uL (0-0.7); Eosinophils % (A) 1 %; HCT 44.6 % (39.0-53.0); HGB 14.4 gm/dL (13.0-17.5); Lymphocytes # (A) 1.7 k/uL (1.0-4.8); Lymphocytes % (A) 21 %; MCH 28.4 pg (25.0-35.0); MCHC 32.4 g/dL (31.0-37.0); MCV 87.6 fL (80.0-100.0); Mean Platelet Volume 8.5; Monocytes # (A) 0.6 k/uL (0-1.0); Monocytes % (A) 8 %; Neutrophils # (A) 5.4 k/uL (1.3-7.7); Neutrophils % (A) 68 %; Platelet Count 151 k/uL (150-450); RBC 5.09 m/uL (4.30-5.90); RDW 15.3 % (11.5-15.5); WBC 7.9 k/uL (3.8-10.6)
--- NOTE | 2020-11-15 13:30 | XR ---
EXAMINATION TYPE: XR chest 2V DATE OF EXAM: 11/15/2020 COMPARISON: 10/09/2020 TECHNIQUE: PA and lateral views submitted. HISTORY: Shortness of breath FINDINGS: Bilateral consolidation and small effusion. Heart enlarged. Diffuse interstitial pattern. Arthropathy of the shoulders. No pneumothorax. IMPRESSION: 1. Bilateral infiltrate and pleural effusion stable. Mild underlying venous congestion not excluded. Correlate clinically.
--- NOTE | 2020-11-15 13:34 | US ---
EXAMINATION TYPE: US scrotum with doppler. Grayscale and color Doppler Duplex imaging performed of t phong scrotum. DATE OF EXAM: 11/15/2020 COMPARISON: NONE CLINICAL HISTORY: scrotal edema. Difficult exam due to scrotal swelling EXAM MEASUREMENTS: TESTICLES: Right Testicle: 5.0 x 3.4 x 3.1 cm Left Testicle: 5.2 x 3.5 x 3.7 cm EPIDIDYMIS HEAD: Right Epididymis: Unable to visualize Left Epididymis: Unable to visualize Doppler performed to assess for testicular vascularity; good bilateral color flow and waveforms are s een. There is no evidence of testicular torsion. Presence of hydroceles: Yes, bilaterally Presence of varicoceles: Not seen Severe scrotal swelling IMPRESSION: 1. Severe scrotal edema. Correlate for infectious etiology. The epididymis could not be visualized. S mall bilateral hydroceles.
[2020-11-15 13:40] LABS: INR 1.2 (<1.2); Prothrombin Time 12.3 sec (9.0-12.0)
[2020-11-15 13:44] LABS: ALT 29 U/L (4-49); AST 34 U/L (17-59); African American GFR (CKD) >90 (>60 ml/min/1.73 sqM); Albumin 3.5 g/dL (3.5-5.0); Alkaline Phosphatase 111 U/L (38-126); Anion Gap 9 mmol/L; Blood Urea Nitrogen 16 mg/dL (9-20); Calcium 8.9 mg/dL (8.4-10.2); Carbon Dioxide 28 mmol/L (22-30); Chloride 98 mmol/L (98-107); Glucose 321 mg/dL (74-99); Magnesium 1.6 mg/dL (1.6-2.3); Non-African American GFR(CKD) >90 (>60 ml/min/1.73 sqM); Potassium 3.7 mmol/L (3.5-5.1); Sodium 135 mmol/L (137-145); Total Protein 6.6 g/dL (6.3-8.2)
[2020-11-15] MEDS ORDERED: FUROSEMIDE 10 MG/ML 4 ML VIAL IV STA (14:35)
[2020-11-15] MEDS ORDERED: HYDROmorphone 0.5 MG/0.5 ML SYRINGE IVP STA (14:36)
[2020-11-15] MEDS ORDERED: NALOXONE 0.4 MG/ML 1 ML VIAL IV PRN (14:37)
--- NOTE | 2020-11-15 14:50 | ED ---
Male Urogenital HPI - General Chief complaint: Urogenital Stated complaint: Swollen testicles Time Seen by Provider: 11/15/20 12:09 Source: patient, family Mode of arrival: wheelchair Limitations: no limitations - History of Present Illness Initial comments: 65-year-old male presenting today for chief complaint of scrotal edema 2 weeks, worsening dyspnea 2 weeks. Patient states that he has had scrotal edema for the past 2 weeks he states they're very large she states her about the size of a softball if not larger. Patient states that he has had some worsening short of breath on exertion even walking a few steps he experiences dyspnea. Patient states he has been sleeping with a few pillows at night. Patient states he is on Lasix and has been compliant. Patient denies any hemoptysis unilateral leg swelling he denies any chest pressure sharp stabbing chest pains or back pain he states he does have some left flank pain that has been on and off for the past 2 weeks as well. Patient denies any fevers chills general malaise or warmness/les ions to the testicles. Patient denies dysuria urgency frequency additional complaints of any recent system negative upon arrival patient appears well and nontoxic however he is hypoxic mildly at 92% with a heart rate of 111 - Related Data Home Medications Medication Instructions Recorded Confirmed Albuterol Sulfate [Ventolin HFA] 2 puff INHALATION RT-QID PRN 10/07/20 10/07/20 Apixaban [Eliquis] 5 mg PO BID 10/07/20 10/07/20 Aspirin 81 mg PO DAILY 10/07/20 10/07/20 Atorvastatin Calcium [Lipitor] 20 mg PO HS 10/07/20 10/07/20 Empagliflozin [Jardiance] 25 mg PO DAILY 10/07/20 10/07/20 Isosorbide Mononitrate ER [Imdur] 30 mg PO DAILY 10/07/20 10/07/20 glipiZIDE [Glucotrol] 5 mg PO BID 10/07/20 10/07/20 metFORMIN HCL 1,000 mg PO BID 10/07/20 10/07/20 Previous Rx's Medication Instructions Recorded Budesonide-Formot 160-4.5 Mcg 2 puff INHALATION RT-BID #1 inhaler 10/10/20 [Symbicort 160-4.5 Mcg Inhaler] Cephalexin [Keflex] 500 mg PO Q6HR 4 Days #16 cap 10/10/20 Furosemide [Lasix] 40 mg PO BID #0 10/10/20 Metoprolol Tartrate [Lopressor] 100 mg PO BID #60 tab 10/10/20 lisinopriL [Zestril] 10 mg PO DAILY #0 10/10/20 Allergies Allergy/AdvReac Type Severity Reaction Status Date / Time No Known Allergies Allergy Verified 11/15/20 12:03 Review of Systems ROS Statement: Those systems with pertinent positive or pertinent negative responses have been documented in the HPI. ROS Other: All systems not noted in ROS Statement are negative. Past Medical History Past Medical History: Atrial Fibrillation, Coronary Artery Disease (CAD), Diabetes Mellitus, Hyperlipidemia, Hypertension, Osteoarthritis (OA) History of Any Multi-Drug Resistant Organisms: None Reported Past Surgical History: No Surgical Hx Reported Past Psychological History: No Psychological Hx Reported Smoking Status: Current every day smoker Past Alcohol Use History: None Reported Past Drug Use History: None Reported General Exam - General Exam Comments Initial Comments: General: The patient is awake and alert, in no distress Eye: +3 mm pupils are equal, round and reactive to light, extra-ocular movements are intact. No nystagmus. There is normal conjunctiva bilaterally. No signs of icterus. Ears, nose, mouth and throat: There are moist mucous membranes and no oral lesions. Neck: The neck is supple, there is no tenderness or JVD. Cardiovascular: There is a regular rate and rhythm. No murmur, rub or gallop is appreciated. Respiratory: Respirations are mildly labored, breath sounds are equal. No wheezes, stridor. Base rales and rhonci noted. Gastrointestinal: Soft, non-distended, non-tender abdomen without masses or organomegaly noted. There is no rebound or guarding present. Anisarca apperance of flanks, L>R. Musculoskeletal: Normal ROM, no tenderness. Strength 5/5. Sensation intact. Radial and DP pulses equal bilaterally 2+. Neurological: A&O x 3. CN II-XII intact grossly, There are no obvious motor or sensory deficits. Coordination appears grossly intact. Speech is normal. Skin: Skin is warm and dry and no rashes or lesions are noted. Large softball size testicles, if not large, non erythematous, no warnth/flesh color. no lesions. Ulceration on LE b/l. No swelling. Tight shiny skin. Psychiatric: Cooperative, appropriate mood & affect, normal judgment. Limitations: no limitations Course Vital Signs 11/15/20 12:03 Temperature 98.5 F Pulse Rate 111 H Respiratory 18 Rate Blood Pressure 137/88 O2 Sat by Pulse 92 L Oximetry Medical Decision Making - Medical Decision Making 65yo male presenting for cc of scrotal edema. concerning for heart failure on exam. on ROS complaining of dyspnea/orthopnea. BNP significantly elevated. b/l effusions. patient troponin (-). EKG no specific findings. Patient case dis cussed with Dr. Rea who is agreeable to admission> Dr. Álvarez accepted and evaluated patient in ER, agreeable to impression of heart failure, would like patient on lasix drip. Patient agreeable to admission. - Lab Data Result diagrams: 11/15/20 12:45 11/15/20 12:45 Lab Results 11/15/20 11/15/20 11/15/20 Range/Units 12:45 12:45 12:45 WBC 7.9 (3.8-10.6) k/uL RBC 5.09 (4.30-5.90) m/uL Hgb 14.4 (13.0-17.5) gm/dL Hct 44.6 (39.0-53.0) % MCV 87.6 (80.0-100.0) fL MCH 28.4 (25.0-35.0) pg MCHC 32.4 (31.0-37.0) g/dL RDW 15.3 (11.5-15.5) % Plt Count 151 (150-450) k/uL MPV 8.5 Neutrophils % 68 % Lymphocytes % 21 % Monocytes % 8 % Eosinophils % 1 % Basophils % 0 % Neutrophils # 5.4 (1.3-7.7) k/uL Lymphocytes # 1.7 (1.0-4.8) k/uL Monocytes # 0.6 (0-1.0) k/uL Eosinophils # 0.1 (0-0.7) k/uL Basophils # 0.0 (0-0.2) k/uL PT 12.3 H (9.0-12.0) sec INR 1.2 H (<1.2) APTT 25.0 (22.0-30.0) sec Sodium 135 L (137-145) mmol/L Potassium 3.7 (3.5-5.1) mmol/L Chloride 98 (98-107) mmol/L Carbon Dioxide 28 (22-30) mmol/L Anion Gap 9 mmol/L BUN 16 (9-20) mg/dL Creatinine 0.67 (0.66-1.25) mg/dL Est GFR (CKD-EPI)AfAm >90 (>60 ml/min/1.73 sqM) Est GFR (CKD-EPI)NonAf >90 (>60 ml/min/1.73 sqM) Glucose 321 H (74-99) mg/dL Calcium 8.9 (8.4-10.2) mg/dL Magnesium 1.6 (1.6-2.3) mg/dL Total Bilirubin 1.0 (0.2-1.3) mg/dL AST 34 (17-59) U/L ALT 29 (4-49) U/L Alkaline Phosphatase 111 (38-126) U/L Troponin I (0.000-0.034) ng/mL NT-Pro-B Natriuret Pep pg/mL Total Protein 6.6 (6.3-8.2) g/dL Albumin 3.5 (3.5-5.0) g/dL 11/15/20 11/15/20 Range/Units 12:45 12:45 WBC (3.8-10.6) k/uL RBC (4.30-5.90) m/uL Hgb (13.0-17.5) gm/dL Hct (39.0-53.0) % MCV (80.0-100.0) fL MCH (25.0-35.0) pg MCHC (31.0-37.0) g/dL RDW (11.5-15.5) % Plt Count (150-450) k/uL MPV Neutrophils % % Lymphocytes % % Monocytes % % Eosinophils % % Basophils % % Neutrophils # (1.3-7.7) k/uL Lymphocytes # (1.0-4.8) k/uL Monocytes # (0-1.0) k/uL Eosinophils # (0-0.7) k/uL Basophils # (0-0.2) k/uL PT (9.0-12.0) sec INR (<1.2) APTT (22.0-30.0) sec Sodium (137-145) mmol/L Potassium (3.5-5.1) mmol/L Chloride (98-107) mmol/L Carbon Dioxide (22-30) mmol/L Anion Gap mmol/L BUN (9-20) mg/dL Creatinine (0.66-1.25) mg/dL Est GFR (CKD-EPI)AfAm (>60 ml/min/1.73 sqM) Est GFR (CKD-EPI)NonAf (>60 ml/min/1.73 sqM) Glucose (74-99) mg/dL Calcium (8.4-10.2) mg/dL Magnesium (1.6-2.3) mg/dL Total Bilirubin (0.2-1.3) mg/dL AST (17-59) U/L ALT (4-49) U/L Alkaline Phosphatase (38-126) U/L Troponin I <0.012 (0.000-0.034) ng/mL NT-Pro-B Natriuret Pep 7150 pg/mL Total Protein (6.3-8.2) g/dL Albumin (3.5-5.0) g/dL Disposition Clinical Impression: CHF exacerbation, Scrotal edema, Pleural effusion, Anisocoria Disposition: ADMITTED IP TO THIS [facility] Condition: Stable Is patient prescribed a controlled substance at d/c from ED?: No Referrals: [facility],Clinic [Primary Care Provider] - 1-2 days Time of Disposition: 14:58 Decision to Admit Reason: Admit from EC Decision Date: 11/15/20 Decision Time: 14:58
[2020-11-15] MEDS: FUROSEMIDE 100 MG in SODIUM CHLORIDE 0.9% 90 ML IV SCH ×2 (15:16→20:59)
[2020-11-15 15:35] LABS: Appearance,Urine Clear (Clear); Bacteria,Urine Rare /hpf; Bilirubin,Urine Negative (Negative); Blood,Urine Negative (Negative); Color,Urine Yellow; Glucose,Urine (UA) 4+ (Negative); Ketones,Urine Negative (Negative); Leukocyte Esterase,Urine Large (Negative); Mucus,Urine Rare /hpf; Nitrite,Urine Negative (Negative); PH, Urine 6.5 (5.0-8.0); Protein,Urine 2+ (Negative); RBC,Urine 5 /hpf (0-5); Squamous Epithelial Cell,Urine 1 /hpf (0-4); WBC,Urine 104 /hpf (0-5)
--- NOTE | 2020-11-15 15:53 | P.HPIM ---
History of Present Illness 65-year-old male came in with comments of scrotal edema which is going on for 2 weeks, patient has extensive anasarca with the edema of the skin extending up to the chest area with extensive swelling of bilateral lower extremities. Patient was treated for right-sided pleural effusion during his last hospital admission and removed about 2 L of fluid at that time. Patient was diagnosed with chronic diastolic dysfunction although echocardiac exam is not available. Patient does have history of COPD. Patient had a scrotal ultrasound which is showing significant swelling chest x-ray bilateral pleural effusions. Patient is also complaining of musculoskeletal chest pains secondary to stretching of skin. Patient is definitely volume overloaded at this time liver enzymes are within normal limits INR is 1.2. She does have history of atrial fibrillation on Eliquis. Does have history of coronary artery disease does have history of COPD continues to smoke. Patient has an elevated BNP of around 7000 Review of Systems REVIEW OF SYSTEMS: CONSTITUTIONAL: No fever, no malaise, no fatigue. HEENT: No recent visual problems or hearing problems. Denied any sore throat. CARDIOVASCULAR: No chest pain, orthopnea, PND, no palpitations, no syncope. PULMONARY: No shortness of breath, no cough, no hemoptysis. GASTROINTESTINAL: No diarrhea, no nausea, no vomiting, no abdominal pain. NEUROLOGICAL: No headaches, no weakness, no numbness. HEMATOLOGICAL: Denies any bleeding or petechiae. GENITOURINARY: Denies any burning micturition, frequency, or urgency. MUSCULOSKELETAL/RHEUMATOLOGICAL: Denies any joint pain, swelling, or any muscle pain. ENDOCRINE: Denies any polyuria or polydipsia. The rest of the 14-point review of systems is negative. Past Medical History Past Medical History: Atrial Fibrillation, Coronary Artery Disease (CAD), Diabetes Mellitus, Hyperlipidemia, Hypertension, Osteoarthritis (OA) History of Any Multi-Drug Resistant Organisms: None Reported Past Surgical History: No Surgical Hx Reported Past Psychological History: No Psychological Hx Reported Smoking Status: Current every day smoker Past Alcohol Use History: None Reported Past Drug Use History: None Reported Medications and Allergies Home Medications Medication Instructions Recorded Confirmed Type Albuterol Sulfate [Ventolin HFA] 2 puff INHALATION RT-QID PRN 10/07/20 10/07/20 History Apixaban [Eliquis] 5 mg PO BID 10/07/20 10/07/20 History Aspirin 81 mg PO DAILY 10/07/20 10/07/20 History Atorvastatin Calcium [Lipitor] 20 mg PO HS 10/07/20 10/07/20 History Empagliflozin [Jardiance] 25 mg PO DAILY 10/07/20 10/07/20 History Isosorbide Mononitrate ER [Imdur] 30 mg PO DAILY 10/07/20 10/07/20 History glipiZIDE [Glucotrol] 5 mg PO BID 10/07/20 10/07/20 History metFORMIN HCL 1,000 mg PO BID 10/07/20 10/07/20 History Budesonide-Formot 160-4.5 Mcg 2 puff INHALATION RT-BID #1 inhaler 10/10/20 Rx [Symbicort 160-4.5 Mcg Inhaler] Cephalexin [Keflex] 500 mg PO Q6HR 4 Days #16 cap 10/10/20 Rx Furosemide [Lasix] 40 mg PO BID #0 10/10/20 10/07/20 Rx Metoprolol Tartrate [Lopressor] 100 mg PO BID #60 tab 10/10/20 Rx lisinopriL [Zestril] 10 mg PO DAILY #0 10/10/20 10/07/20 Rx Allergies Allergy/AdvReac Type Severity Reaction Status Date / Time No Known Allergies Allergy Verified 11/15/20 12:03 Physical Exam Vitals: Vital Signs Temp Pulse Resp BP Pulse Ox 11/15/20 12:03 98.5 F 111 H 18 137/88 92 L Intake and Output 11/15/20 11/15/20 11/15/20 06:59 14:59 22:59 Other: Weight 135.624 kg PHYSICAL EXAMINATION: GENERAL: The patient is alert and oriented x3, not in any acute distress. Well d eveloped, well nourished. HEENT: Pupils are round and equally reacting to light. EOMI. No scleral icterus. No conjunctival pallor. Normocephalic, atraumatic. No pharyngeal erythema. No thyromegaly. CARDIOVASCULAR: S1 and S2 present. No murmurs, rubs, or gallops. PULMONARY: Chest is clear to auscultation, no wheezing or crackles. ABDOMEN: Soft, nontender, nondistended, normoactive bowel sounds. No palpable organomegaly. MUSCULOSKELETAL: No joint swelling or deformity. EXTREMITIES: No cyanosis, clubbing, she and has extensive edema of both legs scrotal edema abdominal wall edema edema extending up to the chest. Patient also has elevated JVD NEUROLOGICAL: Gross neurological examination did not reveal any focal deficits. SKIN: No rashes. Results CBC & Chem 7: 11/15/20 12:45 11/15/20 12:45 Labs: Abnormal Lab Results - Last 24 Hours (Table) 11/15/20 11/15/20 11/15/20 Range/Units 12:45 12:45 15:20 PT 12.3 H (9.0-12.0) sec INR 1.2 H (<1.2) Sodium 135 L (137-145) mmol/L Glucose 321 H (74-99) mg/dL Urine Protein 2+ H (Negative) Urine Glucose (UA) 4+ H (Negative) Ur Leukocyte Esterase Large H (Negative) Urine WBC 104 H (0-5) /hpf Urine Bacteria Rare H (None) /hpf Urine Mucus Rare H (None) /hpf Assessment and Plan Plan: -Volume overload most probably right-sided heart failure along with congestive heart failure chronic diastolic dysfunction. Along an echocardiogram patient will be started on IV Lasix drip. Patient has extensive scrotal edema secondary to volume overload -Atrial fibrillation: Presently lately atrial flutter with 2 is to 1 conduction patient will be resumed on his home regimen. Continue with anticoagulation. Patient will be resumed on his medications once medications are verified -History of COPD without any significant acute exacerbation at this time -type 2 diabetes mellitus: Elevated uncontrolled blood sugars start him on home regimen titrate depending on the blood sugars -Hypomagnesemia magnesium will be replaced -Hypertension -Hyperlipidemia -DVT prophylaxis patient will be started on Eliquis
[2020-11-15 17:36] LABS: Glucose,Whole Blood 315 mg/dL (75-99)
[2020-11-15] MEDS: INSULIN ASPART (NovoLOG) 100 UNIT/ML VIAL SQ SCH ×2 (17:38→20:36)
[2020-11-15] MEDS: MAGNESIUM SULFATE-D5W PMX 1 GM in DEXTROSE/WATER 1 100ML.BAG IVPB SCH ×2 (17:39→18:51)
[2020-11-15 20:27] LABS: Glucose,Whole Blood 127 mg/dL (75-99)
[2020-11-15] MEDS: METOPROLOL TARTRATE 50 MG TAB PO SCH (20:58)
[2020-11-15] MEDS: APIXABAN 5 MG TAB PO SCH (20:59)
[2020-11-15] MEDS: glipiZIDE 5 MG TAB PO SCH (20:59)
[2020-11-16] MEDS: FUROSEMIDE 100 MG in SODIUM CHLORIDE 0.9% 90 ML IV SCH ×2 (05:08→20:02)
[2020-11-16 06:26] LABS: Glucose,Whole Blood 122 mg/dL (75-99)
[2020-11-16] MEDS: INSULIN ASPART (NovoLOG) 100 UNIT/ML VIAL SQ SCH ×4 (06:26→20:09)
[2020-11-16] MEDS: APIXABAN 5 MG TAB PO SCH ×2 (07:51→20:13)
[2020-11-16] MEDS: glipiZIDE 5 MG TAB PO SCH ×2 (07:51→20:12)
[2020-11-16] MEDS: METOPROLOL TARTRATE 50 MG TAB PO SCH ×2 (07:52→20:12)
[2020-11-16 08:48] LABS: African American GFR (CKD) >90 (>60 ml/min/1.73 sqM); Anion Gap 7 mmol/L; Blood Urea Nitrogen 16 mg/dL (9-20); Carbon Dioxide 36 mmol/L (22-30); Chloride 95 mmol/L (98-107); Glucose 168 mg/dL (74-99); Magnesium 1.7 mg/dL (1.6-2.3); Non-African American GFR(CKD) >90 (>60 ml/min/1.73 sqM); Potassium 3.4 mmol/L (3.5-5.1); Sodium 138 mmol/L (137-145)
[2020-11-16] MEDS ORDERED: ALBUTEROL NEBULIZED 2.5 MG/3 ML INHALATION PRN (09:07)
[2020-11-16] MEDS ORDERED: Magnesium Replacement Protocol 1 EACH MISC MISCELLANE PRN (09:52)
[2020-11-16] MEDS ORDERED: Potassium Replacement Protocol 1 EACH MISC MISCELLANE PRN (09:52)
[2020-11-16 10:02] LABS: T4, Free (Free Thyroxine) 1.51 ng/dL (0.78-2.19)
[2020-11-16] MEDS: ASPIRIN 81 MG PO SCH (10:02)
[2020-11-16] MEDS: lisinopriL 10 MG TAB PO SCH (10:02)
[2020-11-16] MEDS: ISOSORBIDE MONONITRATE ER 30 MG TAB.ER.24H PO SCH (10:02)
[2020-11-16] MEDS: SPIRONOLACTONE 25 MG TAB PO SCH (10:02)
[2020-11-16] MEDS: MAGNESIUM SULFATE-D5W PMX 1 GM in DEXTROSE/WATER 1 100ML.BAG IVPB SCH ×2 (10:05→11:44)
[2020-11-16] MEDS: POTASSIUM CHLORIDE ER 20 MEQ TAB.ER PO SCH ×2 (10:05→11:45)
--- NOTE | 2020-11-16 10:05 | ECHOF ---
Referral Reason:Congestive heart failure MEASUREMENTS -------- HEIGHT: 160.0 cm WEIGHT: 135.6 kg BP: RVIDd: 3.8 cm (< 3.3) IVSd: 1.2 cm (0.6 - 1.1) LVIDd: 4.9 cm (3.9 - 5.3) LVPWd: 1.4 cm (0.6 - 1.1) IVSs: 1.6 cm LVIDs: 4.4 cm LVPWs: 2.0 cm LAESV Index (A-L): 30.30 ml/m Ao Diam: 2.6 cm (2.0 - 3.7) AV Cusp: 0.9 cm (1.5 - 2.6) LA Diam: 4.5 cm (2.7 - 3.8) AV maxP.38 mmHg AV meanP.82 mmHg AR PHT: 573 ms RAP: 20.00 mmHg RVSP: 74.08 mmHg FINDINGS -------- Atrial fibrillation. This was a technically good study. The left ventricular size is normal. There is mild concentric left ventricular hypertrophy. There is severe global hypokinesis of LV . Overall left ventricular systolic function is severely impair ed with, an EF between 20 - 25 %. Left ventricular fillimg pressure cannot be estimated due to Atri al fibrillation. The right ventricle is mild to moderately enlarged. LA is midly dilated 29-33ml/m2. RA appears enlarged. Aortic valve is trileaflet and is moderately thickened. There is mild aortic regurgitation. There is moderate aortic stenosis present. Peak/mean gradient across the Aortic Valve is 36.38mmHg / 20. 82mmHg. Cannot rule out vegetation. The mitral valve is normal. Moderate mitral regurgitation is present. The tricuspid valve appears structurally normal. Moderate tricuspid regurgitation present. There is severe pulmonary hypertension. The right ventricular systolic pressure, as measured by Doppler, is 74.08mmHg. There is no pulmonic regurgitation present. The aortic root size is normal. The inferior vena cava is dilated with no significant inspiratory collapse which is consistent estima walter right atrial pressure of >20 mmHg. There is a small, generalized pericardial effusion present. CONCLUSIONS -------- 1. Atrial fibrillation. 2. The left ventricular size is normal. 3. There is mild concentric left ventricular hypertrophy. 4. There is severe global hypokinesis of LV . 5. Overall left ventricular systolic function is severely impaired with, an EF between 20 - 25 %. 6. Left ventricular fillimg pressure cannot be estimated due to Atrial fibrillation. 7. The right ventricle is mild to moderately enlarged. 8. LA is midly dilated 29-33ml/m2. 9. RA appears enlarged. 10. Aortic valve is trileaflet and is moderately thickened. 11. There is mild aortic regurgitation. 12. There is moderate aortic stenosis present. 13. Peak/mean gradient across the Aortic Valve is 36.38mmHg / 20.82mmHg. 14. Cannot rule out vegetation. 15. Moderate mitral regurgitation is present. 16. Moderate tricuspid regurgitation present. 17. There is severe pulmonary hypertension. 18. The right ventricular systolic pressure, as measured by Doppler, is 74.08mmHg. 19. The inferior vena cava is dilated with no significant inspiratory collapse which is consistent es timated right atrial pressure of >20 mmHg. 20. There is a small, generalized pericardial effusion present. BEHAVIOUR SUPPORT TEACHER: Eli Kuo RDCS
--- NOTE | 2020-11-16 11:10 | P.PN ---
Subjective 65-year-old male came in with significant anasarca is on IV Lasix drip echo was obtained which showed ejection fraction of around 20-25% cardiology is following the patient and patient had significant urine output patient is hypokalemic secondary to diuresis which will be replaced. Creatinine went up from 0.600 0.8. Blood sugars are well controlled. Patient is bit tachycardic, appears to be in atrial flutter. Patient is being diuresed at this time anasarca is bit better compared to yesterday. She also feels much better compared to yesterday Constitutional: Denied any fatigue denied any fever. Cardio vascular: denied any chest pain, palpitations Gastrointestinal denied any nausea vomiting Pulmonary: Mentioned in HPI Neurologic denied any new focal deficits All inpatient medications were reviewed and appropriate changes in these me dications as dictated in the interval history and assessment and plan. Objective - Vital Signs Vital signs: Vital Signs Temp 98 F 11/16/20 07:48 Pulse 116 H 11/16/20 07:48 Resp 18 11/16/20 07:48 BP 144/94 11/16/20 07:48 Pulse Ox 97 11/16/20 07:48 Intake & Output 11/15/20 11/16/20 11/16/20 18:59 06:59 18:59 Intake Total 798.667 Output Total 300 Balance 498.667 Weight 135.624 kg 123.5 kg Intake: Intake, IV Titration 138.667 Amount Furosemide 100 mg In 138.667 Sodium Chloride 0.9% 90 ml @ 10 MG/HR 10 mls/hr IV .Q10H PENDING SALE TO [facility] Rx#: [id number] Oral 660 Output: Urine 300 Other: Voiding Method Urinal Urinal # Voids 1 # Bowel Movements 1 - Exam PHYSICAL EXAMINATION: GENERAL: The patient is alert and oriented x3, not in any acute distress. Well developed, well nourished. HEENT: Pupils are round and equally reacting to light. EOMI. No scleral icterus. No conjunctival pallor. Normocephalic, atraumatic. No pharyngeal erythema. No thyromegaly. CARDIOVASCULAR: S1 and S2 present. No murmurs, rubs, or gallops. PULMONARY: Chest is clear to auscultation, no wheezing or crackles. ABDOMEN: Soft, nontender, nondistended, normoactive bowel sounds. No palpable or ganomegaly. MUSCULOSKELETAL: No joint swelling or deformity. EXTREMITIES: No cyanosis, clubbing, she and has extensive edema of both legs scrotal edema abdominal wall edema edema extending up to the chest. Patient also has elevated JVD chest wall edema is better seen in that area is bit better to NEUROLOGICAL: Gross neurological examination did not reveal any focal deficits. SKIN: No rashes. - Labs CBC & Chem 7: 11/15/20 12:45 11/16/20 07:33 Labs: Abnormal Lab Results - Last 24 Hours (Table) 11/15/20 11/15/20 11/15/20 Range/Units 12:45 12:45 15:20 PT 12.3 H (9.0-12.0) sec INR 1.2 H (<1.2) Sodium 135 L (137-145) mmol/L Potassium (3.5-5.1) mmol/L Chloride (98-107) mmol/L Carbon Dioxide (22-30) mmol/L Glucose 321 H (74-99) mg/dL POC Glucose (mg/dL) (75-99) mg/dL TSH (0.465-4.680) mIU/L Urine Protein 2+ H (Negative) Urine Glucose (UA) 4+ H (Negative) Ur Leukocyte Esterase Large H (Negative) Urine WBC 104 H (0-5) /hpf Urine Bacteria Rare H (None) /hpf Urine Mucus Rare H (None) /hpf 11/15/20 11/15/20 11/16/20 Range/Units 17:34 20:25 06:24 PT (9.0-12.0) sec INR (<1.2) Sodium (137-145) mmol/L Potassium (3.5-5.1) mmol/L Chloride (98-107) mmol/L Carbon Dioxide (22-30) mmol/L Glucose (74-99) mg/dL POC Glucose (mg/dL) 315 H 127 H 122 H (75-99) mg/dL TSH (0.465-4.680) mIU/L Urine Protein (Negative) Urine Glucose (UA) (Negative) Ur Leukocyte Esterase (Negative) Urine WBC (0-5) /hpf Urine Bacteria (None) /hpf Urine Mucus (None) /hpf 11/16/20 11/16/20 Range/Units 07:33 07:33 PT (9.0-12.0) sec INR (<1.2) Sodium (137-145) mmol/L Potassium 3.4 L (3.5-5.1) mmol/L Chloride 95 L (98-107) mmol/L Carbon Dioxide 36 H (22-30) mmol/L Glucose 168 H (74-99) mg/dL POC Glucose (mg/dL) (75-99) mg/dL TSH 0.201 L (0.465-4.680) mIU/L Urine Protein (Negative) Urine Glucose (UA) (Negative) Ur Leukocyte Esterase (Negative) Urine WBC (0-5) /hpf Urine Bacteria (None) /hpf Urine Mucus (None) /hpf Assessment and Plan Plan: -Congestive heart failure: Chronic systolic dysfunction with acute exacerbation patient had an echocardiogram which showed ejection fraction of around 20-25% patient will be continued on on IV Lasix drip. Patient has extensive scrotal edema secondary to volume overload -Atrial fibrillation: Presently lately atrial flutter with 2 is to 1 conduction patient will be resumed on his home regimen. Continue with anticoagulation. He shouldn't is presently in a flutter -History of COPD without any significant acute exacerbation at this time -type 2 diabetes mellitus: Sugars are better controlled on present regimen which will be continued -Hypomagnesemia magnesium will be replaced -Hypertension -Hyperlipidemia -DVT prophylaxis patient will be started on Eliquis
[2020-11-16] MEDS ORDERED: ADENOSINE 3 MG/ML 2 ML VIAL IVP ONE ×2 (11:36→11:42)
[2020-11-16 11:57] LABS: Glucose,Whole Blood 207 mg/dL (75-99)
--- NOTE | 2020-11-16 11:57 | P.CONS ---
History of Present Illness - Reason for Consult Consult date: 11/16/20 wound care - History of Present Illness This is a 65-year-old gentleman being seen on [address] for nonhealing ulceration to the left lower extremity. Patient states that the ulcerations have been there for approximately 4 weeks. He has just been covering them. Patient states that the ulceration*as blisters that then break open. Patient does have history of venous insufficiency with lower extremity edema. Patient does not utilize compression garments He states that they are too difficult to put on. Patients past medical history significant for atrial fibrillation, coronary artery disease, diabetes mellitus, hyperlipidemia, hypertension, osteoarthritis, sleep apnea. He is a current every day smoker. Review Of Systems: Constitutional: No fever, no chills, no night sweats. No weight change. No weakness, fatigue or lethargy. No daytime sleepiness. Integumentary:reports wounds, no lesions. No rash or pruritus. No unusual bruising. No change in hair or nails. Physical exam: General Appearance: Alert, cooperative, no distress, appears stated age. Skin: Left lower extremity anterior aspect is a full-thickness ulceration with fat layer exposure etiology venous insufficiency, ulceration has significant slough throughout the wound bed measuring approximately 1.5 x 1.5 x 0.1 cm serious moderate drainage noted at site, periwound shows erythema dry scaly. Left posterior lower extremity full-thickness ulceration with fat layer exposure, wound edges are attached to the wound base, minimal stenosis gr anulation noted to the wound bed, Slough and nonviable tissue throughout the wound base, no tunneling or undermining noted measuring approximately 2x2 x 0.1 cm moderate amount of serous drainage noted all other Skin color, texture, tugor normal, no rashes or lesions. Neurologic: Alert oriented x3 Assessment/plan: 1. Nonhealing ulceration left lower extremity calf with fat layer exposure. Apply honey alginate, saline moistened gauze, dry gauze, rolled gauze and secure with paper tape change Saturday. Apply Maximus wrap. Elevate legs above heart 30 minutes 3 times a day. Avoid standing for long periods of time. Patient would benefit from outpatient advance wound care we would be happy to see him in the wound care center upon discharge. 2. Nonhealing ulceration with fatty layer exposure left lower extremity anterior aspect. As noted above 3. Diabetes with skin ulcer 4. Nicotine dependence. Smoking cessation discussed 5. Venous insufficiency. Discussed with patient the importance of compression. Thank you for the consultation any questions please contact the wound care center DNP note has been reviewed and discussed with Dr. Kaufman and the impression and plan of care has been directed as dictated. Past Medical History Past Medical History: Atrial Fibrillation, Coronary Artery Disease (CAD), Diabetes Mellitus, Hyperlipidemia, Hypertension, Osteoarthritis (OA), Sleep Apnea/CPAP/BIPAP History of Any Multi-Drug Resistant Organisms: None Reported Past Surgical History: No Surgical Hx Reported Past Psychological History: No Psychological Hx Reported Smoking Status: Current every day smoker Past Alcohol Use History: None Reported Past Drug Use History: None Reported Medications and Allergies Home Medications Medication Instructions Recorded Confirmed Type Albuterol Sulfate [Ventolin HFA] 2 puff INHALATION RT-QID PRN 10/07/20 11/15/20 History Apixaban [Eliquis] 5 mg PO BID 10/07/20 11/15/20 History Aspirin 81 mg PO DAILY 10/07/20 11/15/20 History Atorvastatin Calcium [Lipitor] 20 mg PO HS 10/07/20 11/15/20 History Empagliflozin [Jardiance] 25 mg PO DAILY 10/07/20 11/15/20 History Isosorbide Mononitrate ER [Imdur] 30 mg PO DAILY 10/07/20 11/15/20 History metFORMIN HCL 1,000 mg PO BID 10/07/20 11/15/20 History Budesonide-Formot 160-4.5 Mcg 2 puff INHALATION RT-BID #1 inhaler 10/10/20 Rx [Symbicort 160-4.5 Mcg Inhaler] Furosemide [Lasix] 40 mg PO BID #0 10/10/20 11/15/20 Rx Metoprolol Tartrate [Lopressor] 100 mg PO BID #60 tab 10/10/20 11/15/20 Rx lisinopriL [Zestril] 10 mg PO DAILY #0 10/10/20 11/15/20 Rx glipiZIDE [Glucotrol] 10 mg PO BID-W/MEALS 11/15/20 11/15/20 History Allergies Allergy/AdvReac Type Severity Reaction Status Date / Time No Known Allergies Allergy Verified 11/15/20 12:03 Physical Exam Vitals: Vital Signs Temp Pulse Pulse Resp BP BP Pulse Ox 11/16/20 07:48 98 F 116 H 18 144/94 97 11/16/20 03:26 117 H 17 126/83 98 11/16/20 00:00 118 H 17 111/74 94 L 11/15/20 20:00 98.3 F 119 H 20 116/82 94 L 11/15/20 17:58 110 H 16 105/79 97 11/15/20 16:43 97 16 124/82 99 11/15/20 12:03 98.5 F 111 H 18 137/88 92 L Intake and Output 11/15/20 11/16/20 11/16/20 22:59 06:59 14:59 Intake Total 57.167 741.5 240 Output Total 300 Balance -242.833 741.5 240 Intake: Intake, IV Titration 57.167 81.5 Amount Furosemide 100 mg In 57.167 81.5 Sodium Chloride 0.9% 90 ml @ 10 MG/HR 10 mls/hr IV .Q10H [facility] Rx#: [id number] Oral 660 240 Output: Urine 300 Other: Voiding Method Urinal Urinal Urinal # Voids 1 3 # Bowel Movements 1 Weight 135.624 kg 123.5 kg Results CBC & Chem 7: 11/15/20 12:45 11/16/20 07:33 Labs: Abnormal Lab Results - Last 24 Hours (Table) 11/15/20 11/15/20 11/15/20 Range/Units 12:45 12:45 15:20 PT 12.3 H (9.0-12.0) sec INR 1.2 H (<1.2) Sodium 135 L (137-145) mmol/L Potassium (3.5-5.1) mmol/L Chloride (98-107) mmol/L Carbon Dioxide (22-30) mmol/L Glucose 321 H (74-99) mg/dL POC Glucose (mg/dL) (75-99) mg/dL TSH (0.465-4.680) mIU/L Urine Protein 2+ H (Negative) Urine Glucose (UA) 4+ H (Negative) Ur Leukocyte Esterase Large H (Negative) Urine WBC 104 H (0-5) /hpf Urine Bacteria Rare H (None) /hpf Urine Mucus Rare H (None) /hpf 02/11/15/20 11/16/20 Range/Units 17:34 20:25 06:24 PT (9.0-12.0) sec INR (<1.2) Sodium (137-145) mmol/L Potassium (3.5-5.1) mmol/L Chloride (98-107) mmol/L Carbon Dioxide (22-30) mmol/L Glucose (74-99) mg/dL POC Glucose (mg/dL) 315 H 127 H 122 H (75-99) mg/dL TSH (0.465-4.680) mIU/L Urine Protein (Negative) Urine Glucose (UA) (Negative) Ur Leukocyte Esterase (Negative) Urine WBC (0-5) /hpf Urine Bacteria (None) /hpf Urine Mucus (None) /hpf 11/16/20 11/16/20 Range/Units 07:33 07:33 PT (9.0-12.0) sec INR (<1.2) Sodium (137-145) mmol/L Potassium 3.4 L (3.5-5.1) mmol/L Chloride 95 L (98-107) mmol/L Carbon Dioxide 36 H (22-30) mmol/L Glucose 168 H (74-99) mg/dL POC Glucose (mg/dL) (75-99) mg/dL TSH 0.201 L (0.465-4.680) mIU/L Urine Protein (Negative) Urine Glucose (UA) (Negative) Ur Leukocyte Esterase (Negative) Urine WBC (0-5) /hpf Urine Bacteria (None) /hpf Urine Mucus (None) /hpf
--- NOTE | 2020-11-16 12:48 | P.CRDCN ---
History of Present Illness History of present illness: HISTORY OF PRESENTING ILLNESS This is a pleasant [65]-year-old male past medical history significant for atrial fibrillation, coronary artery disease, type 2 diabetes, hyperlipidemia, hypertension, COPD, and current every day smoker(smokes one pack every 3 days). Patient states that he's been diagnosed with a heart murmur and had an TX in the 1970s. He denies ever having a cardiac catheterization or stent placement. He denies being told he has had heart failure. He was being seen at [facility] and recently transitioned to the [facility]. 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 We have been asked to see in consultation for congestive heart failure. Patient is seen and examined resting in chair. States he's been having scrotal edema which has increased over the last 2 weeks and shortness of breath on exertion he is experiencing shortness of breath doing daily activ ities. He states 2 weeks ago his scrotum "looked normal". Patient states he has been sleeping in a chair stating he cannot sleep laying flat in his bed due to shortness of breath. He states this has been going on for years. He's currently on 3 L O2 and wears 3-5 L O2 at home. Patient states he's been drinking 4 L of water a day because he's been having increased thirst. He is currently on Eliquis, Lasix and states he has been compliant. Patient endorses bilateral lower extremity swelling and pain. Patient denies change in diet, does not eat foods high in sodium. Denies alcohol use, chest pain, palpitations, fever, abdominal pain, nausea, vomiting, dysuria. Laboratory data reviewed, [Renal f unction normal, troponin negative, BNP 7150 (Previous 3320 on 09/2020), INR 1.2, K 3.4, Mag, 1.7, Blood glucose 321, TSH 0.20, Free T4, 1.51] Vital signs [BP 144/94, heart rate is 116, afebrile, 97% on 3 L O2.] He is maintained on a Lasix drip and has had a 12kg weight decrease from yesterday. Last admission 10/07/2020, Patient presented with shortness of breath and redness in the lower extremity. Workup revealed a moderate right-sided pleural effusion. Pulmonary was consulted and a thoracentesis was performed with 2.3 L removed. Patient's Lasix was increased to 40mg BID. DIAGNOSTICS EKG reveals [Atrial tachycardia with 2:1 conduction, non specific ST-T wave changes ]. Telemetry tracings indicate [Atrial tachycardia vs atypical Atrial flutter ]. Chest xray [Bilateral infiltrate and pleural effusion stable. Mild underlying venous congestion. Heart enlarged]. Current cardiac medications include [Lasix drip, Eliquis 5mg BID, atorvastatin 20mg nightly, Lisinopril 10mg daily, Lopressor 100mg BID]. TTE 11/15/20 revealed EF between 20-25%, mild concentric ventricular hypertrophy, severe global hypokinesis of LV, Atrial fibrillation, Right ventricle is mild to moderately enlarged, RA appears enlarged, mild arotic regurgitation, moderate aortic stenosis, severe pulmonary hypertension, moderate mitral regurgitation and moderate tricuspid regurgitation. Cannot rule out vegetation. REVIEW OF SYSTEMS At the time of my exam: CONSTITUTIONAL: Denies fever or chills. CARDIOVASCULAR: Endorses shortness of breath, orthopnea, Denies chest pain, PND or palpitations. RESPIRATORY: Denies cough. GASTROINTESTINAL: Denies abdominal pain, diarrhea, constipation, nausea or vomiting. MUSCULOSKELETAL: Denies myalgias. NEUROLOGIC: Denies numbness, tingling, headache or weakness. ENDOCRINE: Endorses fatigue, increased weight change and polydipsia. Denies polyurina. GENITOURINARY: Denies burning, hematuria or urgency with micturation. HEMATOLOGIC: Denies history of anemia or bleeding. PHYSICAL EXAMINATION Blood pressure [144/94] heart rate [116] afebrile and maintaining oxygen saturation on [3L O2]. CONSTITUTIONAL: No apparent distress. HEENT: Head is normocephalic. Pupils are equal, round. Sclerae anicteric. Mucous membranes of the mouth are moist. + JVD. No carotid bruit. CHEST EXAMINATION: RLL diminished with mild crackles. No chest wall tenderness is noted on palpation or with deep breathing. HEART EXAMINATION: Regular rate and rhythm. S1, S2 heard. No murmurs, gallops or rub. ABDOMEN: Edema present,Soft, nontender. Positive bowel sounds. EXTREMITIES: 2+ radial pulses, 1+ bilateral dorsipedal pulses, +2 bilateral lower extremity pitting edema. NEUROLOGIC EXAMINATION: Patient is awake, alert and oriented x3. ASSESSMENT [Chronic Persistent Atrial Fibrillation Heart Failure with Reduced Ejection fraction Coronary Artery Disease Type 2 Diabetes Hyperlipidemia Hypertension COPD Atrial Tachycardia Cardiomyopathy- Suspect tachycardia induced, unsure if non-ischemic or ischemic PLAN [-Continue Diuresis with Lasix -Resume Lisinopril -Start Spirnolactone -Continue ASA and Atorvastatin -Continue Eliquis -Replace electrolytes per protocol, follow electrolytes in the morning -I/Os, Daily weights, 1.5 L fluid restriction -Will obtain records from [facility] and [facility] ] Nurse Practitioner note has been reviewed, I agree with a documented findings and plan of care. Patient was seen and examined. Past Medical History Past Medical History: Atrial Fibrillation, Coronary Artery Disease (CAD), Diabetes Mellitus, Hyperlipidemia, Hypertension, Osteoarthritis (OA), Sleep Apnea/CPAP/BIPAP History of Any Multi-Drug Resistant Organisms: None Reported Past Surgical History: No Surgical Hx Reported Past Psychological History: No Psychological Hx Reported Smoking Status: Current every day smoker Past Alcohol Use History: None Reported Past Drug Use History: None Reported Medications and Allergies Home Medications Medication Instructions Recorded Confirmed Type Albuterol Sulfate [Ventolin HFA] 2 puff INHALATION RT-QID PRN 10/07/20 11/15/20 History Apixaban [Eliquis] 5 mg PO BID 10/07/20 11/15/20 History Aspirin 81 mg PO DAILY 10/07/20 11/15/20 History Atorvastatin Calcium [Lipitor] 20 mg PO HS 10/07/20 11/15/20 History Empagliflozin [Jardiance] 25 mg PO DAILY 10/07/20 11/15/20 History Isosorbide Mononitrate ER [Imdur] 30 mg PO DAILY 10/07/20 11/15/20 History metFORMIN HCL 1,000 mg PO BID 10/07/20 11/15/20 History Budesonide-Formot 160-4.5 Mcg 2 puff INHALATION RT-BID #1 inhaler 10/10/20 11/15/20 Rx [Symbicort 160-4.5 Mcg Inhaler] Furosemide [Lasix] 40 mg PO BID #0 10/10/20 11/15/20 Rx Metoprolol Tartrate [Lopressor] 100 mg PO BID #60 tab 10/10/20 11/15/20 Rx lisinopriL [Zestril] 10 mg PO DAILY #0 10/10/20 11/15/20 Rx glipiZIDE [Glucotrol] 10 mg PO BID-W/MEALS 11/15/20 11/15/20 History Allergies Allergy/AdvReac Type Severity Reaction Status Date / Time No Known Allergies Allergy Verified 11/15/20 12:03 Physical Exam Vitals: Vital Signs Temp Pulse Pulse Resp BP BP Pulse Ox 11/16/20 07:48 98 F 116 H 18 144/94 97 11/16/20 03:26 117 H 17 126/83 98 11/16/20 00:00 118 H 17 111/74 94 L 11/15/20 20:00 98.3 F 119 H 20 116/82 94 L 11/15/20 17:58 110 H 16 105/79 97 11/15/20 16:43 97 16 124/82 99 11/15/20 12:03 98.5 F 111 H 18 137/88 92 L Intake and Output 11/15/20 11/16/20 11/16/20 22:59 06:59 14:59 Intake Total 57.167 741.5 Output Total 300 Balance -242.833 741.5 Intake: Intake, IV Titration 57.167 81.5 Amount Furosemide 100 mg In 57.167 81.5 Sodium Chloride 0.9% 90 ml @ 10 MG/HR 10 mls/hr IV .Q10H [facility] Rx#: [id number] Oral 660 Output: Urine 300 Other: Voiding Method Urinal Urinal # Voids 1 # Bowel Movements 1 Weight 135.624 kg 123.5 kg Results 11/15/20 12:45 11/16/20 07:33 Cardiac Enzymes 11/15/20 11/15/20 Range/Units 12:45 12:45 AST 34 (17-59) U/L Troponin I <0.012 (0.000-0.034) ng/mL Coagulation 11/15/20 Range/Units 12:45 PT 12.3 H (9.0-12.0) sec APTT 25.0 (22.0-30.0) sec CBC 11/15/20 Range/Units 12:45 WBC 7.9 (3.8-10.6) k/uL RBC 5.09 (4.30-5.90) m/uL Hgb 14.4 (13.0-17.5) gm/dL Hct 44.6 (39.0-53.0) % Plt Count 151 (150-450) k/uL Comprehensive Metabolic Panel 11/15/20 Range/Units 12:45 Sodium 135 L (137-145) mmol/L Potassium 3.7 (3.5-5.1) mmol/L Chloride 98 (98-107) mmol/L Carbon Dioxide 28 (22-30) mmol/L BUN 16 (9-20) mg/dL Creatinine 0.67 (0.66-1.25) mg/dL Glucose 321 H (74-99) mg/dL Calcium 8.9 (8.4-10.2) mg/dL AST 34 (17-59) U/L ALT 29 (4-49) U/L Alkaline Phosphatase 111 (38-126) U/L Total Protein 6.6 (6.3-8.2) g/dL Albumin 3.5 (3.5-5.0) g/dL Current Medications Generic Name Dose Route Start Last Admin Trade Name Freq PRN Reason Stop Dose Admin Apixaban 5 mg 11/15/20 21:00 11/16/20 07:51 Apixaban 5 Mg Tab PO 5 mg BID SAMANTHA Administration Glipizide 5 mg 11/15/20 21:00 11/16/20 07:51 Glipizide 5 Mg Tab PO 5 mg BID SAMANTHA Administration Furosemide 100 mg/ Sodium 100 mls @ 10 mls/hr 11/15/20 15:30 11/16/20 05:08 Chloride IV 10 mg/hr .Q10H SAMANTHA 10 mls/hr Administration 10 MG/HR Insulin Aspart 0 unit 11/15/20 17:30 11/16/20 06:26 Insulin Aspart (Novolog) 100 Unit/Ml Vial SQ Not Given ACHS [facility] Protocol Metoprolol Tartrate 100 mg 11/15/20 21:00 11/16/20 07:52 Metoprolol Tartrate 50 Mg Tab PO 100 mg BID SAMANTHA Administration Naloxone HCl 0.2 mg 11/15/20 14:37 Naloxone 0.4 Mg/Ml 1 Ml Vial IV Q2M PRN Opioid Reversal Intake and Output 11/15/20 11/16/20 11/16/20 22:59 06:59 14:59 Intake Total 57.167 741.5 Output Total 300 Balance -242.833 741.5 Intake: Intake, IV Titration 57.167 81.5 Amount Furosemide 100 mg In 57.167 81.5 Sodium Chloride 0.9% 90 ml @ 10 MG/HR 10 mls/hr IV .Q10H [facility] Rx#: [id number] Oral 660 Output: Urine 300 Other: Voiding Method Urinal Urinal # Voids 1 # Bowel Movements 1 Weight 135.624 kg 123.5 kg 11/15/20 12:45 11/15/20 12:45
[2020-11-16 16:31] LABS: Glucose,Whole Blood 171 mg/dL (75-99)
[2020-11-16 20:09] LABS: Glucose,Whole Blood 136 mg/dL (75-99)
[2020-11-16] MEDS: ATORVASTATIN 20 MG TAB PO SCH (20:13)
[2020-11-16] MEDS: SYMBICORT 160-4.5 MCG INHALER INHALATION SCH (20:49)
[2020-11-16] MEDS: HYDROcodone/APAP 5-325MG 1 EACH TAB PO PRN (23:24)
[2020-11-17] MEDS: HYDROcodone/APAP 5-325MG 1 EACH TAB PO PRN ×2 (06:01→19:00)
[2020-11-17 06:07] LABS: Glucose,Whole Blood 152 mg/dL (75-99)
[2020-11-17] MEDS: INSULIN ASPART (NovoLOG) 100 UNIT/ML VIAL SQ SCH ×4 (06:24→20:55)
[2020-11-17] MEDS: SYMBICORT 160-4.5 MCG INHALER INHALATION SCH ×2 (08:00→21:34)
[2020-11-17] MEDS: METOPROLOL TARTRATE 50 MG TAB PO SCH ×2 (09:04→20:55)
[2020-11-17] MEDS: ASPIRIN 81 MG PO SCH (09:04)
[2020-11-17] MEDS: APIXABAN 5 MG TAB PO SCH ×2 (09:04→20:55)
[2020-11-17] MEDS: SPIRONOLACTONE 25 MG TAB PO SCH (09:04)
[2020-11-17] MEDS: glipiZIDE 5 MG TAB PO SCH ×2 (09:04→20:55)
[2020-11-17] MEDS: lisinopriL 10 MG TAB PO SCH (09:04)
[2020-11-17] MEDS: ISOSORBIDE MONONITRATE ER 30 MG TAB.ER.24H PO SCH (09:04)
[2020-11-17 09:44] LABS: Potassium 3.7 mmol/L (3.5-5.1)
[2020-11-17 09:45] LABS: African American GFR (CKD) >90 (>60 ml/min/1.73 sqM); Anion Gap 6 mmol/L; Blood Urea Nitrogen 18 mg/dL (9-20); Carbon Dioxide 39 mmol/L (22-30); Chloride 92 mmol/L (98-107); Glucose 183 mg/dL (74-99); Magnesium 1.7 mg/dL (1.6-2.3); Non-African American GFR(CKD) >90 (>60 ml/min/1.73 sqM); Sodium 137 mmol/L (137-145)
--- NOTE | 2020-11-17 10:45 | P.PN ---
Subjective 65-year-old male came in with significant anasarca is on IV Lasix drip echo was obtained which showed ejection fraction of around 20-25% cardiology is following the patient and patient had significant urine output patient is hypokalemic secondary to diuresis which will be replaced. Creatinine went up from 0.600 0.8. Blood sugars are well controlled. Patient is bit tachycardic, appears to be in atrial flutter. Patient is being diuresed at this time anasarca is bit better compared to yesterday. She also feels much better compared to yesterday 11/17/2020 Patient continues to diet is well 3 history of significant scrotal edema although pedal edema and abdominal wall edema significantly improved her TSH is mildly low but T4 is within normal limits probably sick euthyroid syndrome. Patient remains tachycardic. Patient blood pressure is low because of which the Lasix drip was cut down to 5 mg/h Constitutional: Denied any fatigue denied any fever. Cardio vascular: denied any chest pain, palpitations Gastrointestinal denied any nausea vomiting Pulmonary: Mentioned in HPI Neurologic denied any new focal deficits All inpatient medications were reviewed and appropriate changes in these medications as dictated in the interval history and assessment and plan. Objective - Vital Signs Vital signs: Vital Signs Temp 98.4 F 11/17/20 09:00 Pulse 119 H 11/17/20 09:00 Resp 18 11/17/20 09:00 BP 99/66 11/17/20 09:00 Pulse Ox 98 11/17/20 09:00 Intake & Output 11/16/20 11/17/20 11/17/20 18:59 06:59 18:59 Intake Total 480 100 240 Balance 480 100 240 Weight 123.5 kg 117.6 kg Intake: Intake, IV Titration 100 Amount Furosemide 100 mg In 100 Sodium Chloride 0.9% 90 ml @ 10 MG/HR 10 mls/hr IV .Q10H [facility] Rx#: [id number] Oral 480 240 Other: Voiding Method Urinal Urinal # Voids 3 1 - Exam PHYSICAL EXAMINATION: GENERAL: The patient is alert and oriented x3, not in any acute distress. Well developed, well nourished. HEENT: Pupils are round and equally reacting to light. EOMI. No scleral icterus. No conjunctival pallor. Normocephalic, atraumatic. No pharyngeal erythema. No thyromegaly. CARDIOVASCULAR: S1 and S2 present. No murmurs, rubs, or gallops. PULMONARY: Chest is clear to auscultation, no wheezing or crackles. ABDOMEN: Soft, nontender, nondistended, normoactive bowel sounds. No palpable organomegaly. MUSCULOSKELETAL: No joint swelling or deformity. EXTREMITIES: No cyanosis, clubbing, still has scrotal edema but significant improvement in pedal edema and abdominal wall chest wall edema. Secondary to skin stretching improved NEUROLOGICAL: Gross neurological examination did not reveal any focal deficits. SKIN: No rashes. - Labs CBC & Chem 7: 11/15/20 12:45 11/17/20 08:18 Labs: Abnormal Lab Results - Last 24 Hours (Table) 11/16/20 11/16/20 11/16/20 Range/Units 07:33 11:55 16:29 Chloride (98-107) mmol/L Carbon Dioxide (22-30) mmol/L Glucose (74-99) mg/dL POC Glucose (mg/dL) 207 H 171 H (75-99) mg/dL Hemoglobin A1c 11.1 H (4.0-6.0) % 11/16/20 11/17/20 11/17/20 Range/Units 20:08 06:07 08:18 Chloride 92 L (98-107) mmol/L Carbon Dioxide 39 H (22-30) mmol/L Glucose 183 H (74-99) mg/dL POC Glucose (mg/dL) 136 H 152 H (75-99) mg/dL Hemoglobin A1c (4.0-6.0) % Assessment and Plan Plan: -Congestive heart failure: Chronic systolic dysfunction with acute exacerbation patient had an echocardiogram which showed ejection fraction of around 20-25% patient will be continued on on IV Lasix drip. Patient has extensive scrotal edema secondary to volume overload -Atrial fibrillation: Presently lately atrial flutter with 2 is to 1 conduction patient will be resumed on his home regimen. Continue with anticoagulation. He shouldn't is presently in a flutter -History of COPD without any significant acute exacerbation at this time -type 2 diabetes mellitus: Sugars are better controlled on present regimen which will be continued -Hypomagnesemia magnesium was replaced -Hypertension -Hyperlipidemia -DVT prophylaxis patient will be started on Eliquis
[2020-11-17 11:33] LABS: Glucose,Whole Blood 126 mg/dL (75-99)
[2020-11-17] MEDS: FUROSEMIDE 100 MG in SODIUM CHLORIDE 0.9% 90 ML IV SCH (12:12)
--- NOTE | 2020-11-17 12:45 | P.PN ---
Subjective This is a pleasant 65-year-old male past medical history significant for atrial fibrillation, coronary artery disease, type 2 diabetes, hyperlipidemia, hypertension, COPD, and current every day smoker(smokes one pack every 3 days). Patient states that he's been diagnosed with a heart murmur and had an PR in the 1970s. He denies ever having a cardiac catheterization or stent placement. He denies being told he has had heart failure, but has been told he had "weak heart muscle". He has been told about a cardioversion option in the past. He was being seen at [facility] and recently transitioned to the [facility]. He does not follow with a cyber analyst. We have been asked to see in consultation for congestive heart failure. Patient is seen and examined resting in chair. Endorses SOB has improved from admission. No significant change in scrotal edema. Patient with 6kg weight decrease from yesterday. Denies chest pain, palpitations, fever, abdominal pain, nausea, vomiting, dysuria. Laboratory data reviewed, Renal function normal, Na 137, K 3.7, Mag, 1.7, Hgb A1C- 11.1, TSH 0.20, Free T4, 1.51 Vital signs BP 9 9/66, heart rate is 119, afebrile, 98% on 3 L O2. He is maintained on a Lasix drip. Per RN overnight, Lasix drip decreased to 5mg/hr for hypotension BP 90s/60s. DIAGNOSTICS EKG reveals [Atrial tachycardia with 2:1 conduction, non specific ST-T wave changes . Telemetry tracings indicate Atrial tachycardia vs atypical Atrial flutter . Chest xray: Bilateral infiltrate and pleural effusion stable. Mild underlying venous congestion. Heart enlarged. Current cardiac medications include Lasix drip, Eliquis 5mg BID, atorvastatin 20mg nightly, Lisinopril 10mg daily, Lopressor 100mg BID. TTE 11/15/20 revealed EF between 20-25%, mild concentric ventricular hypertrophy, severe global hypokinesis of LV, Atrial fibrillation, Right ventricle is mild to moderately enlarged, RA appears enlarged, mild arotic regurgitation, moderate aortic stenosis, severe pulmonary hypertension, moderate mitral regurgitation and moderate tricuspid regurgitation. Cannot rule out vegetation. REVIEW OF SYSTEMS At the time of my exam: CONSTITUTIONAL: Denies fever or chills. CARDIOVASCULAR: Endorses shortness of breath-improving, orthopnea, Denies chest pain, PND or palpitations. RESPIRATORY: Denies cough. GASTROINTESTINAL: Denies abdominal pain, diarrhea, constipation, nausea or vomiting. MUSCULOSKELETAL: Denies myalgias. NEUROLOGIC: Denies numbness, tingling, headache or weakness. ENDOCRINE: Endorses fatigue, increased weight change and polydipsia. Denies polyurina. GENITOURINARY: Denies burning, hematuria or urgency with micturation. HEMATOLOGIC: Denies history of anemia or bleeding. PHYSICAL EXAMINATION Blood pressure [144/94] heart rate [116] afebrile and maintaining oxygen saturation on [3L O2]. CONSTITUTIONAL: No apparent distress. HEENT: Head is normocephalic. Pupils are equal, round. Sclerae anicteric. Mucous membranes of the mouth are moist. + JVD. No carotid bruit. CHEST EXAMINATION: Bilateral bases diminished, other lung gallardo clear to auscultation bilaterally No chest wall tenderness is noted on palpation or with deep breathing. HEART EXAMINATION: Regular rate and rhythm. S1, S2 heard. systolic ejection murmur best heard, right sternal border. gallops or rub. ABDOMEN: Edema present,Soft, nontender. Positive bowel sounds. EXTREMITIES: 2+ radial pulses, 1+ bilateral dorsipedal pulses, +2 bilateral lower extremity pitting edema- R > L . Non healing ulceration LLE calf- covered with gauze and tape. NEUROLOGIC EXAMINATION: Patient is awake, alert and oriented x3. ASSESSMENT Chronic Persistent Atrial Fibrillation Heart Failure with Reduced Ejection fraction Coronary Artery Disease Venous Insufficiency Type 2 Diabetes Hyperlipidemia Hypertension COPD Atrial Tachycardia Cardiomyopathy- Suspect tachycardia induced, unsure if non-ischemic or ischemic PLAN -Continuing to try to obtain records from [facility] and [facility]- We are unsure of what his previous Echo results, rhythm patient has been in and what ischemic workup the patient has had in the past and want to confirm with old records for cardiac plan. Because patient has a reduced EF 20-25%, severe global hyp okiniesis of LV, and patient continues to be in atrial tachycardia vs atypical atrial flutter patient could be a candidate for ablation in the future. -Continue diuresis- IV Lasix drip discontinued and Lasix 40mg TID started -Continue Lisinopril, Spirnolactone, ASA Atorvastatin, and Eliquis -Replace electrolytes per protocol, follow renal function and electrolytes in the morning -I/Os, Daily weights, 1.5 L fluid restriction Objective - Vital Signs Vital signs: Vital Signs Temp 98.4 F 11/17/20 09:00 Pulse 119 H 11/17/20 09:00 Resp 18 11/17/20 09:00 BP 99/66 11/17/20 09:00 Pulse Ox 98 11/17/20 09:00 Intake & Output 11/16/20 11/17/20 11/17/20 18:59 06:59 18:59 Intake Total 480 100 240 Balance 480 100 240 Weight 123.5 kg 117.6 kg Intake: Intake, IV Titration 100 Amount Furosemide 100 mg In 100 Sodium Chloride 0.9% 90 ml @ 10 MG/HR 10 mls/hr IV .Q10H [facility] Rx#: [id number] Oral 480 240 Other: Voiding Method Urinal # Voids 3 1 - Labs CBC & Chem 7: 11/15/20 12:45 11/17/20 08:18 Labs: Abnormal Lab Results - Last 24 Hours (Table) 11/16/20 11/16/20 11/16/20 Range/Units 07:33 07:33 11:55 POC Glucose (mg/dL) 207 H (75-99) mg/dL Hemoglobin A1c 11.1 H (4.0-6.0) % TSH 0.201 L (0.465-4.680) mIU/L 11/16/20 11/16/20 11/17/20 Range/Units 16:29 20:08 06:07 POC Glucose (mg/dL) 171 H 136 H 152 H (75-99) mg/dL Hemoglobin A1c (4.0-6.0) % TSH (0.465-4.680) mIU/L
[2020-11-17 16:44] LABS: Glucose,Whole Blood 256 mg/dL (75-99)
[2020-11-17] MEDS: FUROSEMIDE 10 MG/ML 4 ML VIAL IV SCH ×2 (17:12→23:06)
[2020-11-17 20:47] LABS: Glucose,Whole Blood 175 mg/dL (75-99)
[2020-11-17] MEDS: ATORVASTATIN 20 MG TAB PO SCH (20:55)
[2020-11-18] MEDS: HYDROcodone/APAP 5-325MG 1 EACH TAB PO PRN ×3 (04:45→18:45)
[2020-11-18 06:28] LABS: Glucose,Whole Blood 131 mg/dL (75-99)
[2020-11-18] MEDS: INSULIN ASPART (NovoLOG) 100 UNIT/ML VIAL SQ SCH ×4 (06:29→20:13)
[2020-11-18 07:46] LABS: African American GFR (CKD) >90 (>60 ml/min/1.73 sqM); Anion Gap 6 mmol/L; Blood Urea Nitrogen 23 mg/dL (9-20); Calcium 9.2 mg/dL (8.4-10.2); Carbon Dioxide 35 mmol/L (22-30); Chloride 95 mmol/L (98-107); Glucose 131 mg/dL (74-99); Non-African American GFR(CKD) >90 (>60 ml/min/1.73 sqM); Potassium 3.4 mmol/L (3.5-5.1); Sodium 136 mmol/L (137-145)
[2020-11-18] MEDS ORDERED: Potassium Replacement Protocol 1 EACH MISC MISCELLANE PRN (07:48)
[2020-11-18] MEDS: ASPIRIN 81 MG PO SCH (08:20)
[2020-11-18] MEDS: FUROSEMIDE 10 MG/ML 4 ML VIAL IV SCH ×3 (08:20→23:03)
[2020-11-18] MEDS: METOPROLOL TARTRATE 50 MG TAB PO SCH ×2 (08:21→20:13)
[2020-11-18] MEDS: lisinopriL 10 MG TAB PO SCH (08:21)
[2020-11-18] MEDS: POTASSIUM CHLORIDE ER 20 MEQ TAB.ER PO SCH ×2 (08:21→11:27)
[2020-11-18] MEDS: APIXABAN 5 MG TAB PO SCH ×2 (08:21→20:12)
[2020-11-18] MEDS: ISOSORBIDE MONONITRATE ER 30 MG TAB.ER.24H PO SCH (08:21)
[2020-11-18] MEDS: glipiZIDE 5 MG TAB PO SCH ×2 (08:21→20:13)
[2020-11-18] MEDS: SPIRONOLACTONE 25 MG TAB PO SCH (08:21)
[2020-11-18] MEDS: SYMBICORT 160-4.5 MCG INHALER INHALATION SCH ×2 (08:42→19:24)
[2020-11-18 11:47] LABS: Glucose,Whole Blood 139 mg/dL (75-99)
--- NOTE | 2020-11-18 14:00 | P.PN ---
Subjective Subjective This is a pleasant 65-year-old male past medical history significant for atrial fibrillation, coronary artery disease, type 2 diabetes, hyperlipidemia, hypertension, COPD, and current every day smoker(smokes one pack every 3 days). Patient states that he's been diagnosed with a heart murmur and had an NH in the 1970s. He denies ever having a cardiac catheterization or stent placement. He denies being told he has had heart failure, but has been told he had "weak heart muscle". He has been told about a cardioversion option in the past. He was being seen at [facility] and recently transitioned to the [facility]. 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 We have been asked to see in consultation for congestive heart failure. 11/18/20: Patient is seen and examined resting in chair. Endorses continued scrotal swelling and pain. States shortness of breath has greatly improved. No significant change in scrotal edema. Improvement in lower extremity edema: 1+ pitting edema in bilateral lower extremities. Patient with no weight change from yesterday. Denies chest pain, palpitations, fever, abdominal pain, nausea, vomiting, dysuria. Laboratory data reviewed, Renal function normal, Na 136, K 3.4 (replaced this AM), sCr 0.73 Vital signs BP 100/54, heart rate is 116, afebrile, 98% on room EKG reveals [Atrial tachycardia with 2:1 conduction, non specific ST-T wave changes . Telemetry tracings indicate Atrial tachycardia vs atypical Atrial flutter . Chest xray: Bilateral infiltrate and pleural effusion stable. Mild underlying venous congestion. Heart enlarged. Current cardiac medications include Lasix drip, Eliquis 5mg BID, atorvastatin 20mg nightly, Lisinopril 10mg daily, Lopressor 100mg BID. TTE 11/15/20 revealed EF between 20-25%, mild concentric ventricular hypertrophy, severe global hypokinesis of LV, Atrial fibrillation, Right ventricle is mild to moderately enlarged, RA appears enlarged, mild arotic regurgitation, moderate aortic stenosis, severe pulmonary hypertension, moderate mitral regurgitation and moderate tricuspid regurgitation. Cannot rule out vegetation. PHYSICAL EXAMINATION CONSTITUTIONAL: No apparent distress. HEENT: Head is normocephalic. Pupils are equal, round. Sclerae anicteric. Mucous membranes of the mouth are moist. + JVD. No carotid bruit. CHEST EXAMINATION: Lungs clear to auscultation bilaterally. No chest wall tenderness is noted on palpation or with deep breathing. HEART EXAMINATION: Regular rate and rhythm. S1, S2 heard. systolic ejection murmur best heard, left sternal border. gallops or rub. ABDOMEN: Soft, nontender. Positive bowel sounds. EXTREMITIES: 2+ radial pulses, 1+ bilateral dorsipedal pulses, +1 bilateral lower extremity pitting edema- R > L . Non healing ulceration LLE calf- covered with gauze and tape. NEUROLOGIC EXAMINATION: Patient is awake, alert and oriented x3. ASSESSMENT Congestive Heart Failure - HFrEF- Suspect tachycardia induced, unsure if non- ischemic or ischemic Venous Insufficiency Type 2 Diabetes Hyperlipidemia Hypertension COPD Atrial Tachycardia PLAN -Continue diuresis- IV Lasix 40mg TID -Unable to receive records from [facility] and [facility]- We are unsure of what his previous Echo results, rhythm patient has been in and what ischemic workup the patient has had in the past and want to confirm with old records for cardiac plan. Because patient has a reduced EF 20-25%, severe global hypokiniesis of LV, and patient continues to be in atrial tachycardia vs atypical atrial flutter patient could be a candidate for ablation in the future. -Continue Lisinopril, Spirnolactone, ASA Atorvastatin, and Eliquis -Replace electrolytes per protocol, follow renal function and electrolytes in the morning -I/Os, Daily weights, 1.5 L fluid restriction Objective - Vital Signs Vital signs: Vital Signs Temp 98.4 F 11/18/20 08:20 Pulse 118 H 11/18/20 08:20 Resp 18 11/18/20 08:20 BP 105/65 11/18/20 08:20 Pulse Ox 97 11/18/20 08:20 Intake & Output 11/17/20 11/18/20 11/18/20 18:59 06:59 18:59 Intake Total 720 240 Output Total 600 Balance 720 -360 Weight 117.8 kg Intake: Oral 720 240 Output: Urine 600 Other: Voiding Method Urinal Urinal - Labs CBC & Chem 7: 11/15/20 12:45 11/18/20 07:13 Labs: Abnormal Lab Results - Last 24 Hours (Table) 11/17/20 11/17/20 11/17/20 Range/Units 08:18 11:31 16:42 Sodium (137-145) mmol/L Potassium (3.5-5.1) mmol/L Chloride 92 L (98-107) mmol/L Carbon Dioxide 39 H (22-30) mmol/L BUN (9-20) mg/dL Glucose 183 H (74-99) mg/dL POC Glucose (mg/dL) 126 H 256 H (75-99) mg/dL 11/17/20 11/18/20 11/18/20 Range/Units 20:46 06:26 07:13 Sodium 136 L (137-145) mmol/L Potassium 3.4 L (3.5-5.1) mmol/L Chloride 95 L (98-107) mmol/L Carbon Dioxide 35 H (22-30) mmol/L BUN 23 H (9-20) mg/dL Glucose 131 H (74-99) mg/dL POC Glucose (mg/dL) 175 H 131 H (75-99) mg/dL
--- NOTE | 2020-11-18 16:28 | P.PN ---
Subjective 65-year-old male came in with significant anasarca is on IV Lasix drip echo was obtained which showed ejection fraction of around 20-25% cardiology is following the patient and patient had significant urine output patient is hypokalemic secondary to diuresis which will be replaced. Creatinine went up from 0.600 0.8. Blood sugars are well controlled. Patient is bit tachycardic, appears to be in atrial flutter. Patient is being diuresed at this time anasarca is bit better compared to yesterday. She also feels much better compared to yesterday 11/17/2020 Patient continues to diet is well 3 history of significant scrotal edema although pedal edema and abdominal wall edema significantly improved her TSH is mildly low but T4 is within normal limits probably sick euthyroid syndrome. Patient remains tachycardic. Patient blood pressure is low because of which the Lasix drip was cut down to 5 mg/h 11/18/2020 Patient is on IV Lasix now this can you done IV Lasix drip. Patient still has significant swelling of the scrotum. Serum sodium started going down. Patient meets tachycardic Constitutional: Denied any fatigue denied any fever. Cardio vascular: denied any chest pain, palpitations Gastrointestinal denied any nausea vomiting Pulmonary: Mentioned in HPI Neurologic denied any new focal deficits All inpatient medications were reviewed and appropriate changes in these medications as dictated in the interval history and assessment and plan. Objective - Vital Signs Vital signs: Vital Signs Temp 97.5 F L 11/18/20 15:44 Pulse 117 H 11/18/20 15:44 Resp 18 11/18/20 15:44 BP 112/70 11/18/20 15:44 Pulse Ox 95 11/18/20 15:44 Intake & Output 11/17/20 11/18/20 11/18/20 18:59 06:59 18:59 Intake Total 720 240 720 Output Total 600 Balance 720 -360 720 Weight 117.8 kg 117.8 kg Intake: Oral 720 240 720 Output: Urine 600 Other: Voiding Method Urinal Urinal Urinal - Exam PHYSICAL EXAMINATION: GENERAL: The patient is alert and oriented x3, not in any acute distress. Well developed, well nourished. HEENT: Pupils are round and equally reacting to light. EOMI. No scleral icterus. No conjunctival pallor. Normocephalic, atraumatic. No pharyngeal erythema. No thyromegaly. CARDIOVASCULAR: S1 and S2 present. No murmurs, rubs, or gallops. PULMONARY: Chest is clear to auscultation, no wheezing or crackles. ABDOMEN: Soft, nontender, nondistended, normoactive bowel sounds. No palpable organomegaly. MUSCULOSKELETAL: No joint swelling or deformity. EXTREMITIES: No cyanosis, clubbing, still has scrotal edema but significant improvement in pedal edema and abdominal wall chest wall edema. Secondary to skin stretching improved NEUROLOGICAL: Gross neurological examination did not reveal any focal deficits. SKIN: No rashes. - Labs CBC & Chem 7: 11/15/20 12:45 11/18/20 07:13 Labs: Abnormal Lab Results - Last 24 Hours (Table) 11/17/20 11/17/20 11/18/20 Range/Units 16:42 20:46 06:26 Sodium (137-145) mmol/L Potassium (3.5-5.1) mmol/L Chloride (98-107) mmol/L Carbon Dioxide (22-30) mmol/L BUN (9-20) mg/dL Glucose (74-99) mg/dL POC Glucose (mg/dL) 256 H 175 H 131 H (75-99) mg/dL 11/18/20 11/18/20 Range/Units 07:13 11:30 Sodium 136 L (137-145) mmol/L Potassium 3.4 L (3.5-5.1) mmol/L Chloride 95 L (98-107) mmol/L Carbon Dioxide 35 H (22-30) mmol/L BUN 23 H (9-20) mg/dL Glucose 131 H (74-99) mg/dL POC Glucose (mg/dL) 139 H (75-99) mg/dL Assessment and Plan Plan: -Congestive heart failure: Chronic systolic dysfunction with acute exacerbation patient had an echocardiogram which showed ejection fraction of around 20-25% patient will be continued on on IV . Patient has extensive scrotal edema secondary to volume overload -Atrial fibrillation: Presently lately atrial flutter with 2 is to 1 conduction patient will be resumed on his home regimen. Continue with anticoagulation. He shouldn't is presently in a flutter -History of COPD without any significant acute exacerbation at this time -type 2 diabetes mellitus: Sugars are better controlled on present regimen which will be continued -Hypomagnesemia magnesium was replaced -Hypertension -Hyperlipidemia -DVT prophylaxis patient will be started on Eliquis
[2020-11-18 17:04] LABS: Glucose,Whole Blood 213 mg/dL (75-99)
[2020-11-18 20:01] LABS: Glucose,Whole Blood 173 mg/dL (75-99)
[2020-11-18] MEDS: ATORVASTATIN 20 MG TAB PO SCH (20:13)
[2020-11-19 06:17] LABS: Glucose,Whole Blood 203 mg/dL (75-99)
[2020-11-19] MEDS: INSULIN ASPART (NovoLOG) 100 UNIT/ML VIAL SQ SCH ×4 (06:28→20:23)
[2020-11-19 08:13] LABS: African American GFR (CKD) >90 (>60 ml/min/1.73 sqM); Anion Gap 6 mmol/L; Blood Urea Nitrogen 23 mg/dL (9-20); Calcium 9.4 mg/dL (8.4-10.2); Carbon Dioxide 35 mmol/L (22-30); Chloride 96 mmol/L (98-107); Glucose 172 mg/dL (74-99); Magnesium 1.9 mg/dL (1.6-2.3); Non-African American GFR(CKD) >90 (>60 ml/min/1.73 sqM); Potassium 3.9 mmol/L (3.5-5.1); Sodium 137 mmol/L (137-145)
[2020-11-19] MEDS: SYMBICORT 160-4.5 MCG INHALER INHALATION SCH ×2 (08:43→21:37)
[2020-11-19] MEDS: FUROSEMIDE 10 MG/ML 4 ML VIAL IV SCH ×3 (09:15→22:55)
[2020-11-19] MEDS: SPIRONOLACTONE 25 MG TAB PO SCH (09:16)
[2020-11-19] MEDS: ASPIRIN 81 MG PO SCH (09:16)
[2020-11-19] MEDS: ISOSORBIDE MONONITRATE ER 30 MG TAB.ER.24H PO SCH (09:16)
[2020-11-19] MEDS: glipiZIDE 5 MG TAB PO SCH ×2 (09:16→20:28)
[2020-11-19] MEDS: METOPROLOL TARTRATE 50 MG TAB PO SCH ×2 (09:16→20:28)
[2020-11-19] MEDS: APIXABAN 5 MG TAB PO SCH ×2 (09:16→20:28)
[2020-11-19] MEDS: lisinopriL 10 MG TAB PO SCH (10:48)
[2020-11-19] MEDS: HYDROcodone/APAP 5-325MG 1 EACH TAB PO PRN ×2 (10:48→20:31)
[2020-11-19 11:48] LABS: Glucose,Whole Blood 158 mg/dL (75-99)
--- NOTE | 2020-11-19 12:35 | P.PN ---
Subjective Progress Note Date: 11/19/20 65-year-old male came in with significant anasarca is on IV Lasix drip echo was obtained which showed ejection fraction of around 20-25% cardiology is following the patient and patient had significant urine output patient is hypokalemic secondary to diuresis which will be replaced. Creatinine went up from 0.600 0.8. Blood sugars are well controlled. Patient is bit tachycardic, appears to be in atrial flutter. Patient is being diuresed at this time anasarca is bit better compared to yesterday. She also feels much better compared to yesterday 11/17/2020 Patient continues to diet is well 3 history of significant scrotal edema although pedal edema and abdominal wall edema significantly improved her TSH is mildly low but T4 is within normal limits probably sick euthyroid syndrome. Patient remains tachycardic. Patient blood pressure is low because of which the Lasix drip was cut down to 5 mg/h 11/18/2020 Patient is on IV Lasix now this can you done IV Lasix drip. Patient still has significant swelling of the scrotum. Serum sodium started going down. Patient meets tachycardic 11/19/2020 Patient continues on IV push Lasix, drip is been discontinued. Scrotal edema is improving, good urine output, which is significantly down since time of admission. Electrolytes within normal limits, creatinine stable. Constitutional: Denied any fatigue denied any fever. Cardio vascular: denied any chest pain, palpitations Gastrointestinal denied any nausea vomiting Pulmonary: Mentioned in HPI Neurologic denied any new focal deficits All inpatient medications were reviewed and appropriate changes in these medications as dictated in the interval history and assessment and plan. Objective - Vital Signs Vital signs: Vital Signs Temp 96.4 F L 11/19/20 09:00 Pulse 119 H 11/19/20 09:00 Resp 18 11/19/20 09:00 BP 114/72 11/19/20 09:00 Pulse Ox 96 11/19/20 09:00 Intake & Output 11/18/20 11/19/20 11/19/20 18:59 06:59 18:59 Intake Total 1080 1020 360 Output Total 500 Balance 1080 520 360 Weight 117.8 kg 118.8 kg Intake: Oral 1080 1020 360 Output: Urine 500 Other: Voiding Method Urinal Toilet Toilet Urinal Urinal # Voids 1 - Exam HYSICAL EXAMINATION: GENERAL: The patient is alert and oriented x3, not in any acute distress. Well developed, well nourished. HEENT: Pupils are round and equally reacting to light. EOMI. No scleral icterus. No conjunctival pallor. Normocephalic, atraumatic. No pharyngeal erythema. No thyromegaly. CARDIOVASCULAR: S1 and S2 present. No murmurs, rubs, or gallops. PULMONARY: Chest is clear to auscultation, no wheezing or crackles. ABDOMEN: Soft, nontender, nondistended, normoactive bowel sounds. No palpable organomegaly. MUSCULOSKELETAL: No joint swelling or deformity. GENITOURINARY: Improving scrotal edema EXTREMITIES: No cyanosis, clubbing, still has scrotal edema but significant improvement in pedal edema and abdominal wall chest wall edema. Secondary to skin stretching improved NEUROLOGICAL: Gross neurological examination did not reveal any focal deficits. SKIN: No rashes. - Labs CBC & Chem 7: 11/15/20 12:45 11/19/20 06:45 Labs: Abnormal Lab Results - Last 24 Hours (Table) 11/18/20 11/18/20 11/19/20 Range/Units 16:50 20:00 06:16 Chloride (98-107) mmol/L Carbon Dioxide (22-30) mmol/L BUN (9-20) mg/dL Glucose (74-99) mg/dL POC Glucose (mg/dL) 213 H 173 H 203 H (75-99) mg/dL 11/19/20 11/19/20 Range/Units 06:45 11:45 Chloride 96 L (98-107) mmol/L Carbon Dioxide 35 H (22-30) mmol/L BUN 23 H (9-20) mg/dL Glucose 172 H (74-99) mg/dL POC Glucose (mg/dL) 158 H (75-99) mg/dL Assessment and Plan Assessment: -Congestive heart failure: Chronic systolic dysfunction with acute exacerbation patient had an echocardiogram which showed ejection fraction of around 20-25% patient will be continued, maintain IV Lasix, is off drip. -Atrial fibrillation: Presently lately atrial flutter with 2 is to 1 conduction patient will be resumed on his home regimen. Maintain anticoagulation. -type 2 diabetes mellitus: Sugars are better controlled on present regimen which will be continued -Hypomagnesemia,repleted -Hyperlipidemia -DVT prophylaxis patient will be started on Eliquis
--- NOTE | 2020-11-19 12:37 | PN ---
PROGRESS NOTE Mr. Santana is a 65-year-old male with a history of cardiomyopathy who presented with worsening dyspnea and severe scrotal edema. He is feeling better this morning, although he continued to be dyspneic. He denies any chest pain. He denies any dizziness. He denies any palpitations. I reviewed the data from the [facility]. In the [facility] in 2018 had normal systolic function. In June of 2020, he had severe cardiomyopathy and he had arrhythmia that probably is atrial tachycardia. He denies any dizziness or palpitation. He denies any nausea. He continues to have difficulty laying supine. He continues to be at this time on Eliquis 5 mg twice a day, aspirin once a day, Lipitor 20 mg daily, furosemide 40 mg IV Q 8 hours, isosorbide mononitrate 30 mg daily, lisinopril 10 mg daily, metoprolol tartrate 100 mg twice a day, spironolactone 25 mg daily. PHYSICAL EXAMINATION: VITAL SIGNS: Blood pressure 114/70 with the heart rate that remains 115-120. LUNGS: With few crackles at the bases no wheezes. HEART: Tachycardic S1, S2. No S3 with systolic murmur. ABDOMEN: Soft, nontender. EXTREMITIES: +1 edema. LAB DATA: Lab data revealed BUN and creatinine 23 and 0.71. Potassium is 3.9. His magnesium is 1.9. His urine output remains good. IMPRESSION: 1. Evidence of severe cardiomyopathy of unclear etiology that has been diagnosed in June, could be related to tachycardia induced cardiomyopathy. 2. Atrial tachycardia with 2:1 conduction. 3. Severe congestive heart failure with severely impaired systolic function. 4. History of chronic tobacco use. 5. Nonhealing ulcer in the lower extremity. RECOMMENDATION: From the cardiac standpoint, I will continue IV diuretics for another 24 hours. The patient would require cardiac catheterization to rule out obstructive coronary disease. If there is no obstructive disease then consider ablation to try to restore sinus mechanism and improve left ventricular systolic function. The patient at this time could not lay supine. We will see how he is doing by tomorrow. Otherwise, that may need to be postponed until he is stabilized. I have discussed those findings with the patient and he is in full understanding and agreement. MMODL / IJN: [id number] /
[2020-11-19 16:57] LABS: Glucose,Whole Blood 189 mg/dL (75-99)
[2020-11-19 20:06] LABS: Glucose,Whole Blood 146 mg/dL (75-99)
[2020-11-19] MEDS: ATORVASTATIN 20 MG TAB PO SCH (20:28)
[2020-11-20] MEDS: HYDROcodone/APAP 5-325MG 1 EACH TAB PO PRN ×3 (04:13→21:16)
[2020-11-20 06:09] LABS: Glucose,Whole Blood 136 mg/dL (75-99)
[2020-11-20] MEDS: INSULIN ASPART (NovoLOG) 100 UNIT/ML VIAL SQ SCH ×4 (06:10→20:15)
[2020-11-20 07:50] LABS: African American GFR (CKD) >90 (>60 ml/min/1.73 sqM); Anion Gap 9 mmol/L; Blood Urea Nitrogen 27 mg/dL (9-20); Calcium 9.6 mg/dL (8.4-10.2); Carbon Dioxide 29 mmol/L (22-30); Chloride 99 mmol/L (98-107); Glucose 114 mg/dL (74-99); Non-African American GFR(CKD) >90 (>60 ml/min/1.73 sqM); Potassium 3.9 mmol/L (3.5-5.1); Sodium 137 mmol/L (137-145)
[2020-11-20] MEDS: FUROSEMIDE 10 MG/ML 4 ML VIAL IV SCH ×3 (07:55→23:35)
[2020-11-20] MEDS: ISOSORBIDE MONONITRATE ER 30 MG TAB.ER.24H PO SCH (07:55)
[2020-11-20] MEDS: SPIRONOLACTONE 25 MG TAB PO SCH (07:55)
[2020-11-20] MEDS: glipiZIDE 5 MG TAB PO SCH ×2 (07:55→21:16)
[2020-11-20] MEDS: ASPIRIN 81 MG PO SCH (07:55)
[2020-11-20] MEDS: lisinopriL 10 MG TAB PO SCH (07:55)
[2020-11-20] MEDS: METOPROLOL TARTRATE 50 MG TAB PO SCH ×2 (07:55→21:16)
[2020-11-20] MEDS: APIXABAN 5 MG TAB PO SCH (07:55)
[2020-11-20] MEDS: SYMBICORT 160-4.5 MCG INHALER INHALATION SCH ×2 (08:06→19:03)
[2020-11-20] MEDS ORDERED: NITROGLYCERIN SL TABS 0.4 MG TAB SUBLINGUAL PRN (10:27)
[2020-11-20] MEDS ORDERED: ATORVASTATIN 80 MG TAB PO STA (10:27)
[2020-11-20] MEDS ORDERED: SODIUM CHLORIDE 0.9% 1,000 ML in EMPTY BAG 1 BAG IV ONE (10:27)
[2020-11-20] MEDS ORDERED: ASPIRIN 325 MG TAB PO STA (10:27)
[2020-11-20] MEDS ORDERED: ALPRAZolam 0.25 MG TAB PO PRN (10:27)
[2020-11-20 11:40] LABS: Glucose,Whole Blood 149 mg/dL (75-99)
--- NOTE | 2020-11-20 11:40 | PN ---
PROGRESS NOTE Mr. Santana is a 65-year-old male who presented with symptoms of his severe fluid overload, was found to have severe cardiomyopathy and evidence of atrial tachycardia with 2:1 conduction. He is feeling better today. He continues to be in atrial tachycardia with 2:1 conduction. He had severely impaired systolic function by echocardiography at the [facility] in June of last year and was being evaluated to undergo cardiac catheterization. He denies any dizziness or palpitation. He denies any nausea. He continues to be on Eliquis 5 mg twice a day, aspirin once a day, Lipitor 20 mg daily, furosemide 40 mg IV q.8 hours, isosorbide mononitrate 30 mg daily, lisinopril 10 mg daily, metoprolol 100 mg twice a day, spironolactone 25 mg daily. PHYSICAL EXAMINATION: Blood pressure 107/60 with a heart rate of 118. LUNGS: No rales. HEART: Tachycardic S1, S2. No S3 with systolic murmur. ABDOMEN: Soft and nontender. EXTREMITIES: +2 edema bilaterally. LAB DATA: Lab data revealed BUN and creatinine 27 and 0.71, potassium 3.9. IMPRESSION: 1. Severe cardiomyopathy of unclear etiology. 2. Atrial tachycardia with 2:1 conduction. 3. Symptoms of congestive heart failure with impaired systolic function. 4. History of chronic tobacco use. 5. Nonhealing ulcer of the lower extremity. RECOMMENDATION: I discussed with the patient the issue of cardiac catheterization and the rationale behind it. He is in agreement. We will proceed with the cardiac catheterization tomorrow to further assess his status and guide his treatment. The risks as well as the complication were discussed with him. If there is no evidence of obstructive coronary disease, then we will proceed with evaluation for restoring sinus mechanism probably by ablation or cardioversion depending on his status. MMODL / IJN: [id number] /
--- NOTE | 2020-11-20 12:16 | P.PN ---
Subjective Progress Note Date: 11/20/20 65-year-old male came in with significant anasarca is on IV Lasix drip echo was obtained which showed ejection fraction of around 20-25% cardiology is following the patient and patient had significant urine output patient is hypokalemic secondary to diuresis which will be replaced. Creatinine went up from 0.600 0.8. Blood sugars are well controlled. Patient is bit tachycardic, appears to be in atrial flutter. Patient is being diuresed at this time anasarca is bit better compared to yesterday. She also feels much better compared to yesterday 11/17/2020 Patient continues to diet is well 3 history of significant scrotal edema although pedal edema and abdominal wall edema significantly improved her TSH is mildly low but T4 is within normal limits probably sick euthyroid syndrome. Patient remains tachycardic. Patient blood pressure is low because of which the Lasix drip was cut down to 5 mg/h 11/18/2020 Patient is on IV Lasix now this can you done IV Lasix drip. Patient still has significant swelling of the scrotum. Serum sodium started going down. Patient meets tachycardic 11/19/2020 Patient continues on IV push Lasix, drip is been discontinued. Scrotal edema is improving, good urine output, which is significantly down since time of admission. Electrolytes within normal limits, creatinine stable. 11/20/2020 Scrotal swelling improving, continues diuresis with IV Lasix 40 twice a day. On 3 L nasal cannula saturating above 90%. Creatinine stable 0.71. Constitutional: Denied any fatigue denied any fever. Cardio vascular: denied any chest pain, palpitations Gastrointestinal denied any nausea vomiting Pulmonary: Mentioned in HPI : scrotal edema improving Neurologic denied any new focal deficits All inpatient medications were reviewed and appropriate changes in these medications as dictated in the interval history and assessment and plan. Objective - Vital Signs Vital signs: Vital Signs Temp 96.6 F L 11/20/20 07:43 Pulse 118 H 11/20/20 07:43 Resp 18 11/20/20 07:43 BP 107/65 11/20/20 07:43 Pulse Ox 98 11/20/20 07:43 Intake & Output 11/19/20 11/20/20 11/20/20 18:59 06:59 18:59 Intake Total 960 780 480 Balance 960 780 480 Weight 118.7 kg Intake: Oral 960 780 480 Other: Voiding Method Toilet Toilet Toilet Urinal Urinal # Voids 1 # Bowel Movements 1 - Exam HYSICAL EXAMINATION: GENERAL: The patient is alert and oriented x3, not in any acute distress. Well developed, well nourished. HEENT: Pupils are round and equally reacting to light. EOMI. No scleral icterus. No conjunctival pallor. Normocephalic, atraumatic. No pharyngeal erythema. No thyromegaly. CARDIOVASCULAR: S1 and S2 present. No murmurs, rubs, or gallops. PULMONARY: Chest is clear to auscultation, no wheezing or crackles. ABDOMEN: Soft, nontender, nondistended, normoactive bowel sounds. No palpable organomegaly. MUSCULOSKELETAL: No joint swelling or deformity. GENITOURINARY: Improving scrotal edema EXTREMITIES: No cyanosis, clubbing, still has scrotal edema but significant improvement in pedal edema and abdominal wall chest wall edema. Secondary to skin stretching improved NEUROLOGICAL: Gross neurological examination did not reveal any focal deficits. SKIN: No rashes. - Labs CBC & Chem 7: 11/15/20 12:45 11/20/20 07:03 Labs: Abnormal Lab Results - Last 24 Hours (Table) 11/19/20 11/19/20 11/20/20 Range/Units 16:55 20:04 06:07 BUN (9-20) mg/dL Glucose (74-99) mg/dL POC Glucose (mg/dL) 189 H 146 H 136 H (75-99) mg/dL 11/20/20 11/20/20 Range/Units 07:03 11:39 BUN 27 H (9-20) mg/dL Glucose 114 H (74-99) mg/dL POC Glucose (mg/dL) 149 H (75-99) mg/dL Assessment and Plan Assessment: -Congestive heart failure: Chronic systolic dysfunction with acute exacerbation patient had an echocardiogram which showed ejection fraction of around 20-25% patient will be continued, maintain IV Lasix, is off drip. -Atrial tachycardia: Presently lately atrial flutter with 2 is to 1 conduction patient will be resumed on his home regimen. Maintain anticoagulation. -type 2 diabetes mellitus: Sugars are better controlled on present regimen which will be continued -Hypomagnesemia,repleted -Hyperlipidemia -DVT prophylaxis patient will be started on Eliquis
[2020-11-20 17:01] LABS: Glucose,Whole Blood 223 mg/dL (75-99)
[2020-11-20 20:12] LABS: Glucose,Whole Blood 116 mg/dL (75-99)
[2020-11-20] MEDS: ATORVASTATIN 20 MG TAB PO SCH (21:15)
[2020-11-20] MEDS: ALPRAZolam 0.5 MG TAB PO PRN (21:16)
[2020-11-21] MEDS ORDERED: SODIUM CHLORIDE 0.9% 1,000 ML IV SCH ×2 (00:01→08:45)
[2020-11-21] MEDS ORDERED: ATORVASTATIN 80 MG TAB PO ONE (06:00)
[2020-11-21] MEDS ORDERED: ASPIRIN 325 MG TAB PO ONE (06:00)
[2020-11-21 06:02] LABS: Glucose,Whole Blood 146 mg/dL (75-99)
[2020-11-21] MEDS: INSULIN ASPART (NovoLOG) 100 UNIT/ML VIAL SQ SCH ×4 (06:38→21:39)
[2020-11-21] MEDS ORDERED: HEPARIN SODIUM,PORCINE 2,500 UNIT in SODIUM CHLORIDE 0.9% 250 ML IRRIGATION PRN (07:00)
[2020-11-21] MEDS ORDERED: HEPARIN SODIUM,PORCINE 10,000 UNIT in SODIUM CHLORIDE 0.9% 1,000 ML IRRIGATION PRN (07:00)
[2020-11-21] MEDS ORDERED: VERAPAMIL 2.5 MG/ML 2 ML AMP ONE (07:10)
[2020-11-21] MEDS ORDERED: LIDOCAINE 1% INJ 10MG/ML (20 ML MDV) ONE (07:10)
[2020-11-21] MEDS ORDERED: IV FLUID CONTINUATION 1,000 ML IV ONE (07:16)
[2020-11-21] MEDS ORDERED: fentaNYL (PF) 50 MCG/ML 2 ML AMP ONE (07:40)
[2020-11-21] MEDS ORDERED: HEPARIN SODIUM 1,000 UN/ML (10ML VL) ONE (07:40)
[2020-11-21] MEDS ORDERED: MIDAZOLAM 2 MG/2 ML VIAL IVP ONE ×2 (07:55→07:57)
[2020-11-21] MEDS ORDERED: LIDOCAINE 1% INJ 10MG/ML (20 ML MDV) SQ ONE (07:55)
[2020-11-21] MEDS ORDERED: fentaNYL (PF) 50 MCG/ML 2 ML AMP IVP ONE (07:55)
[2020-11-21] MEDS ORDERED: VERAPAMIL SYRINGE (5 MG/10 ML) INTRAARTER ONE (07:57)
[2020-11-21] MEDS: FUROSEMIDE 10 MG/ML 4 ML VIAL IV SCH ×3 (08:10→23:17)
[2020-11-21] MEDS: glipiZIDE 5 MG TAB PO SCH ×2 (08:11→21:38)
[2020-11-21] MEDS ORDERED: HEPARIN SODIUM 1,000 UN/ML (10ML VL) IV ONE (08:15)
[2020-11-21] MEDS ORDERED: IOPAMIDOL-370 125ML BTL INJ ONE (08:20)
[2020-11-21 08:22] LABS: O2 Sat Blood Gas 64.3 %
[2020-11-21 08:25] LABS: O2 Sat Blood Gas 62.9 %
[2020-11-21] MEDS ORDERED: RX INFO: IV CONTRAST WAS GIVEN 1 EACH MISC MISCELLANE PRN (08:38)
[2020-11-21] MEDS: SYMBICORT 160-4.5 MCG INHALER INHALATION SCH ×2 (08:43→20:56)
[2020-11-21] MEDS: SPIRONOLACTONE 25 MG TAB PO SCH (09:01)
[2020-11-21] MEDS: METOPROLOL TARTRATE 50 MG TAB PO SCH ×2 (09:01→21:38)
[2020-11-21] MEDS: lisinopriL 10 MG TAB PO SCH ×2 (09:01→21:38)
[2020-11-21] MEDS: AMIODARONE 200 MG TAB PO SCH ×2 (09:01→21:38)
[2020-11-21] MEDS: HYDROcodone/APAP 5-325MG 1 EACH TAB PO PRN ×3 (09:10→21:43)
--- NOTE | 2020-11-21 09:18 | CC ---
CARDIAC CATHETERIZATION REPORT Mr. Santana is a 65-year-old male with known history of chronic tobacco use, who presented with symptoms of congestive heart failure was found to have evidence of atrial tachycardia with 2:1 conduction as well as evidence of severe cardiomyopathy. His cardiomyopathy was documented in June of last year at the [facility]. In view of that, recommendation was made regarding cardiac catheterization. The procedure, risks, and complications were discussed with the patient who is in full understanding and agreement. PROCEDURE: Patient was brought to laborer hoisting in a fasting semi-sedated state after receiving fentanyl and Benadryl and achieving moderate conscious sedated state. Using Xylocaine anesthesia and Seldinger technique a 6-[place]anese sheath was introduced in the right radial artery. The right basilic intravenous access was exchanged to a 6-Guyanese sheath over a wire. Subsequently right heart catheterization was performed using [place]-Demetria catheter. Multiple pressures and samples were obtained. Cardiac output by thermodilution was calculated. Following that, selective right and left coronary angiography performed using 5-Guyanese 3.5 bend right and left Josue catheter. Multiple views of the coronary artery including hemiaxial views obtained. Following that, the 5-Guyanese tight pigtail catheter was introduced in the left ventricle and pressures were calculated. Following that, catheter and sheath were removed. Hemostasis was obtained with deployment of a TR band on the right radial artery and removal of the right basilic vein access and compression was placed. Following that, patient was returned to his room in stable condition. There was no immediate complication. Of note, the patient received 5000 units of intravenous heparin as well as intra-arterial verapamil. There was no immediate complication. FINDINGS: HEMODYNAMICS: Right atrial saturation is 64%. Pulmonary arterial saturation 63%. Femoral arterial saturation 94%. Pulmonary systolic pressure of 50 with a diastolic of 22 with a mean of 34 mmHg. Pulmonary capillary wedge pressure V-wave of 22 with a mean of 20 mmHg. Right ventricle systolic pressure is 50 with an end-diastolic of 10. Right atrial V-wave of 11 with a mean of 10 mmHg. Left ventricular end-diastolic pressure is 14-20 mmHg. Cardiac output by thermodilution 5 L/minute with an index 2.1 L/minute. FLUOROSCOPY: There was severe calcification involving the left anterior descending artery. LEFT MAIN: This is a large-sized vessel, bifurcating into left circumflex, left anterior descending artery. Left main coronary artery has no evidence of high- grade stenosis . LEFT ANTERIOR DESCENDING ARTERY: This is a large-sized vessel reaching to the apex with a wraparound apex segment giving rise to 2 large diagonal branches. The left anterior descending artery in the mid segment has 20% to 30% plaque. The rest of the vessel has no high-grade stenosis. LEFT CIRCUMFLEX: This is a large dominant vessel giving rise to 2 small obtuse marginal branches. The third obtuse marginal branch is large in caliber, Subsequently bifurcating PDA and posterolateral segment and branches. The left circumflex proximally has a 20% plaque. The rest of the vessel has no high-grade stenosis. RIGHT CORONARY ARTERY: This is a nondominant vessel, small in caliber, giving rise to an acute marginal branch that branches distally. A small branch is subtotally occluded with minimal antegrade flow. The rest of the vessel has intimal disease without any evidence of high-grade stenosis. LEFT VENTRICULOGRAM: Left ventriculogram was not performed. CONCLUSION: 1. Calcified coronary arteries. 2. Mild triple-vessel coronary disease. 3. Moderate pulmonary hypertension. RECOMMENDATION: In view of finding anatomy, I recommend continue medical therapy with aggressive coronary risk modifications that has been initiated and patient will be evaluated to undergo a MARSHALL guided cardioversion trying to restore sinus mechanism to improve his cardiomyopathy. Otherwise, if it is not successful, then he will be evaluated for ablation. Those findings and recommendation were discussed with the patient and he is in full understanding and agreement. Duration of deep sedation is 27 minutes. MMODL / IJN: [id number] / MTDD
[2020-11-21 10:33] LABS: African American GFR (CKD) >90 (>60 ml/min/1.73 sqM); Anion Gap 9 mmol/L; Blood Urea Nitrogen 28 mg/dL (9-20); Calcium 9.2 mg/dL (8.4-10.2); Carbon Dioxide 28 mmol/L (22-30); Chloride 101 mmol/L (98-107); Glucose 115 mg/dL (74-99); Non-African American GFR(CKD) >90 (>60 ml/min/1.73 sqM); Potassium 3.9 mmol/L (3.5-5.1); Sodium 138 mmol/L (137-145)
[2020-11-21 11:47] LABS: Glucose,Whole Blood 127 mg/dL (75-99)
--- NOTE | 2020-11-21 14:19 | P.PN ---
Subjective This is a pleasant 65-year-old male past medical history significant for atrial fibrillation, coronary artery disease, type 2 diabetes, hyperlipidemia, hypertension, COPD, and current every day smoker(smokes one pack every 3 days). Patient states that he's been diagnosed with a heart murmur and had an [place] in the 1970s. He denies ever having a cardiac catheterization or stent placement. He denies being told he has had heart failure, but has been told he had "weak heart muscle". He has been told about a cardioversion option in the past. He was being seen at [facility] and recently transitioned to the [facility]. He does not follow with a online facilitator. We have been asked to see in consultation for congestive heart failure. 11/21/20: Patient is seen and examined resting in chair after cardiac catheterization with Dr. Forrest. He continues to be in atrial tachycardia with 2:1 conduction. Old records from [place] in 06/2020 revealed severely impaired systolic function and was being evaluated to undergo cardiac catheterization. States shortness of breath has greatly improved. Improvement in lower extremity edema and scrotal edema. Breathing improved, on room air. Denies chest pain, palpitations, fever, abdominal pain, nausea, vomiting, dysuria. He continues to be on Eliquis 5mg BID, aspirin once a day, lipitor 20mg daily, furosemide 40mg IV Q8hr, isosorbide mononitrate 30mg daily, lisinopril 10mg daily, metoprolol 100mg BID, sprionolactone 25mg daily. Laboratory data reviewed, Sodium 138, potassium 3.9, sCr 0.69. Vital signs, BP 103/76 HR 110, RR 14, spO2 95% on room air, afebrile. Cardiac Cath today revealed calcified coronary arteries, non-obstructive mild triple vessel coronary disease, moderately pulmonary hypertension. PHYSICAL EXAMINATION CONSTITUTIONAL: No apparent distress. HEENT: Head is normocephalic. Pupils are equal, round. Sclerae anicteric. Mucous membranes of the mouth are moist. no JVD No carotid bruit. CHEST EXAMINATION: Lungs clear to auscultation bilaterally. No chest wall tenderness is noted on palpation or with deep breathing. HEART EXAMINATION: Tachycardic, S1, S2 heard. no gallops or rub. ABDOMEN: Soft, nontender. Positive bowel sounds. EXTREMITIES: 2+ radial pulses, 1+ bilateral dorsipedal pulses, +2 bilateral lower extremity pitting edema- R > L . Non healing ulceration LLE calf- covered with gauze and tape. NEUROLOGIC EXAMINATION: Patient is awake, alert and oriented x3. ASSESSMENT Congestive Heart Failure - HFrEF- unclear etiology, Suspect tachycardia induced, unsure if non-ischemic or ischemic Venous Insufficiency Type 2 Diabetes Hyperlipidemia Hypertension COPD Atrial Tachycardia with 2:1 conduction Coronary Artery Disease, mild nonobstructive triple-vessel disease PLAN -Plan for MARSHALL guided cardioversion tomorrow to restore sinus mechanism to improve his cardiomyopathy. If unsuccessful, then he will be evaluated for an ablation. -Start amiodarone 400mg BID -Continue diuresis- IV Lasix 40mg TID -Continue Lisinopril, Spirnolactone, ASA, Atorvastatin, and Eliquis -Replace electrolytes per protocol, follow renal function and electrolytes in the morning -I/Os, Daily weights, 1.5 L fluid restriction Objective - Vital Signs Vital signs: Vital Signs Temp 98.0 F 11/21/20 08:38 Pulse 110 H 11/21/20 13:14 Resp 14 11/21/20 13:14 BP 103/76 11/21/20 12:23 Pulse Ox 95 11/21/20 11:23 Intake & Output 11/20/20 11/21/20 11/21/20 18:59 06:59 18:59 Intake Total 840 50 Output Total 300 Balance 540 50 Weight 118.3 kg Intake: IV 50 Oral 840 Output: Urine 300 Other: Voiding Method Toilet Toilet Toilet Urinal Urinal Urinal # Voids 2 - Labs CBC & Chem 7: 11/15/20 12:45 11/21/20 08:48 Labs: Abnormal Lab Results - Last 24 Hours (Table) 11/20/20 11/20/20 11/21/20 Range/Units 16:57 20:10 06:01 BUN (9-20) mg/dL Glucose (74-99) mg/dL POC Glucose (mg/dL) 223 H 116 H 146 H (75-99) mg/dL 11/21/20 11/21/20 Range/Units 08:48 11:37 BUN 28 H (9-20) mg/dL Glucose 115 H (74-99) mg/dL POC Glucose (mg/dL) 127 H (75-99) mg/dL
[2020-11-21] MEDS: ALPRAZolam 0.5 MG TAB PO PRN ×2 (15:11→21:43)
[2020-11-21 16:51] LABS: Glucose,Whole Blood 180 mg/dL (75-99)
[2020-11-21 20:00] LABS: Glucose,Whole Blood 138 mg/dL (75-99)
[2020-11-21] MEDS: ATORVASTATIN 20 MG TAB PO SCH (21:38)
[2020-11-21] MEDS: APIXABAN 5 MG TAB PO SCH (21:38)
[2020-11-22 05:58] LABS: Glucose,Whole Blood 161 mg/dL (75-99)
[2020-11-22] MEDS ORDERED: ePHEDrine SULFATE/0.9% NACL/PF 50 MG/5 ML SYRINGE IV ONE (07:08)
[2020-11-22] MEDS ORDERED: LIDOCAINE 1% INJ 10MG/ML (20 ML MDV) ONE (07:08)
[2020-11-22] MEDS ORDERED: PROPOFOL 10 MG/ML 20 ML VIAL IV ONE (07:08)
[2020-11-22] MEDS ORDERED: LACTATED RINGERS 1,000 ML IV ONE (07:14)
[2020-11-22] MEDS ORDERED: BENZOCAINE SPRAY 1 CAN MUCOUS MEM ONE (07:15)
[2020-11-22] MEDS: INSULIN ASPART (NovoLOG) 100 UNIT/ML VIAL SQ SCH ×4 (07:29→20:20)
[2020-11-22] MEDS: FUROSEMIDE 10 MG/ML 4 ML VIAL IV SCH ×4 (07:29→20:23)
[2020-11-22] MEDS: SYMBICORT 160-4.5 MCG INHALER INHALATION SCH ×2 (07:34→18:54)
--- NOTE | 2020-11-22 08:31 | P.PN ---
Subjective Progress Note Date: 11/21/20 65-year-old male came in with significant anasarca is on IV Lasix drip echo was obtained which showed ejection fraction of around 20-25% cardiology is following the patient and patient had significant urine output patient is hypokalemic secondary to diuresis which will be replaced. Creatinine went up from 0.600 0.8. Blood sugars are well controlled. Patient is bit tachycardic, appears to be in atrial flutter. Patient is being diuresed at this time anasarca is bit better compared to yesterday. She also feels much better compared to yesterday 11/17/2020 Patient continues to diet is well 3 history of significant scrotal edema although pedal edema and abdominal wall edema significantly improved her TSH is mildly low but T4 is within normal limits probably sick euthyroid syndrome. Patient remains tachycardic. Patient blood pressure is low because of which the Lasix drip was cut down to 5 mg/h 11/18/2020 Patient is on IV Lasix now this can you done IV Lasix drip. Patient still has significant swelling of the scrotum. Serum sodium started going down. Patient meets tachycardic 11/19/2020 Patient continues on IV push Lasix, drip is been discontinued. Scrotal edema is improving, good urine output, which is significantly down since time of admission. Electrolytes within normal limits, creatinine stable. 11/20/2020 Scrotal swelling improving, continues diuresis with IV Lasix 40 twice a day. On 3 L nasal cannula saturating above 90%. Creatinine stable 0.71. 11/21/2020 Patient is seen and evaluated in follow-up early maintained on IV Lasix and continues to have scrotal edema which is slightly improved. Patient states he has been urinating often and the testicular swelling has gotten better. Current sodium is 138, potassium is 3.9, BUN is 28, creatinine is 0.69. Patient is being seen and evaluated by cardiology and underwent cardiac catheterization which showed calcified coronary arteries, mild triple-vessel coronary artery disease, moderate pulmonary hypertension. Patient is scheduled to undergo MARSHALL guided cardioversion in the morning with the possibility of ablation if cardioversion is unsuccessful. Patient is up and walking the room with no increased shortness of breath, chest pain, or palpitations noted. Constitutional: Denied any fatigue denied any fever. Cardio vascular: denied any chest pain, palpitations Gastrointestinal denied any nausea vomiting Pulmonary: Denies shortness of breath or cough : scrotal edema improving Neurologic denied any new focal deficits All inpatient medications were reviewed and appropriate changes in these medications as dictated in the interval history and assessment and plan. Objective - Vital Signs Vital signs: Vital Signs Temp 98.0 F 11/21/20 08:38 Pulse 105 H 11/21/20 09:08 Resp 16 11/21/20 09:08 BP 95/80 11/21/20 09:08 Pulse Ox 100 11/21/20 09:08 Intake & Output 11/20/20 11/21/20 11/21/20 18:59 06:59 18:59 Intake Total 840 50 Output Total 300 Balance 540 50 Weight 118.3 kg Intake: IV 50 Oral 840 Output: Urine 300 Other: Voiding Method Toilet Toilet Urinal Urinal # Voids 2 - Exam GENERAL: The patient is alert and oriented x3, not in any acute distress. Well developed, well nourished. Temp is 98F, pulse is 110, respirations are 14, blood pressure is 116/79, oxygen saturation is 100% on 3 L via nasal cannula. HEENT: Pupils are round and equally reacting to light. EOMI. No scleral icterus. No conjunctival pallor. Normocephalic, atraumatic. No pharyngeal erythema. No thyromegaly. CARDIOVASCULAR: S1 and S2 muffled PULMONARY: Diminished breath sounds bilaterally with some scattered rhonchi noted ABDOMEN: Soft, nontender, nondistended, normoactive bowel sounds. No palpable organomegaly. MUSCULOSKELETAL: No joint swelling or deformity. GENITOURINARY: Improving scrotal edema EXTREMITIES: No cyanosis, clubbing, still has scrotal edema but significant improvement in pedal edema and abdominal wall chest wall edema. Secondary to skin stretching improved NEUROLOGICAL: Gross neurological examination did not reveal any focal deficits. SKIN: No rashes. - Labs CBC & Chem 7: 11/15/20 12:45 11/21/20 08:48 Labs: Abnormal Lab Results - Last 24 Hours (Table) 11/20/20 11/20/20 11/21/20 Range/Units 16:57 20:10 06:01 BUN (9-20) mg/dL Glucose (74-99) mg/dL POC Glucose (mg/dL) 223 H 116 H 146 H (75-99) mg/dL 11/21/20 11/21/20 Range/Units 08:48 11:37 BUN 28 H (9-20) mg/dL Glucose 115 H (74-99) mg/dL POC Glucose (mg/dL) 127 H (75-99) mg/dL Assessment and Plan Assessment: -Congestive heart failure: Chronic systolic dysfunction with acute exacerbation, most recent EF is 20-25% -Atrial tachycardia: Presently atrial flutter with 2 to 1 conduction -type 2 diabetes mellitus -Hypomagnesemia -Hyperlipidemia -DVT prophylaxis Recommendations and discussion: Recommend to continue with current medications, management, and symptomatic treatment. Patient is maintained on IV Lasix push and will continue at this time. Diuresing well. Patient underwent cardiac catheterization as mentioned previously and is scheduled to undergo MARSHALL with cardioversion with the possibility of ablation and cardiology following closely. Patient's most recent echo showed an ejection fraction of 20-25%. Due to multiple complex medical issues, prognosis is guarded. Further recommendations to follow.
[2020-11-22] MEDS: lisinopriL 10 MG TAB PO SCH ×2 (08:32→23:22)
[2020-11-22] MEDS ORDERED: ASPIRIN 81 MG PO SCH (09:00)
[2020-11-22] MEDS: METOPROLOL TARTRATE 50 MG TAB PO SCH ×2 (09:05→23:22)
[2020-11-22] MEDS: SODIUM CHLORIDE 0.9% 1,000 ML IV SCH (09:06)
[2020-11-22] MEDS: AMIODARONE 200 MG TAB PO SCH ×2 (09:09→20:22)
[2020-11-22] MEDS: glipiZIDE 5 MG TAB PO SCH ×2 (09:09→20:22)
[2020-11-22] MEDS: SPIRONOLACTONE 25 MG TAB PO SCH (09:09)
[2020-11-22] MEDS: APIXABAN 5 MG TAB PO SCH ×2 (09:09→20:22)
[2020-11-22] MEDS: HYDROcodone/APAP 5-325MG 1 EACH TAB PO PRN ×2 (09:12→20:23)
--- NOTE | 2020-11-22 09:36 | ECHOT ---
TRANSESOPHAGEAL ECHOCARDIOGRAM INDICATION: Atrial tachycardia. PROCEDURE: After explaining the procedure to the patient, its risks and the complications, his blood pressure, heart rate, O2 saturation were monitored. The throat was sprayed with Cetacaine. He received sedation per Anesthesia Department. Subsequently, the probe was introduced into the esophagus without difficulty. Images were obtained. The probe was removed. There was no immediate complication. FINDINGS: Biatrial enlargement was noted. Left atrial appendage is normal. Left ventricular size is dilated with severe global hypokinesis, estimated ejection fraction 20% to 25%. The aortic valve revealed mild fibrocalcific change with aortic cusp with preserved opening. The mitral valve appears to be normal. Tricuspid valve is normal. Descending thoracic aorta appears to be normal. No pericardial effusion was noted. Contrast bubble study revealed no shunting across the interatrial septum. Doppler pulse wave and color Doppler obtained and revealed moderate mitral and tricuspid regurgitation with mild aortic regurgitation. There was no shunting by color Doppler study. CONCLUSION: 1. Biatrial enlargement. 2. Dilated left ventricle with severe global hypokinesis. 3. Moderate mitral and tricuspid regurgitation with mild aortic regurgitation. 4. Mild aortic sclerosis. 5. Normal appearance of the descending thoracic aorta. MMODL / IJN: [id number] /
--- NOTE | 2020-11-22 09:40 | CE ---
CARDIAC ELECTROPHYSIOLOGY REPORT CARDIOVERSION PROCEDURE NOTE: INDICATION: Atrial tachycardia. PROCEDURE: After explaining the procedure to the patient, its risks and the complications, his blood pressure, heart rate, O2 saturation was monitored. After obtaining sedated state and performing transesophageal echocardiogram, a synchronized biphasic cardioversion using 200 joules was performed with presybeterian of normal sinus rhythm. There was no immediate complication. ARTI / DARIUS: [id number] /
[2020-11-22 10:48] LABS: African American GFR (CKD) >90 (>60 ml/min/1.73 sqM); Anion Gap 8 mmol/L; Blood Urea Nitrogen 33 mg/dL (9-20); Calcium 9.3 mg/dL (8.4-10.2); Carbon Dioxide 29 mmol/L (22-30); Chloride 101 mmol/L (98-107); Glucose 186 mg/dL (74-99); Non-African American GFR(CKD) 85 (>60 ml/min/1.73 sqM); Potassium 4.3 mmol/L (3.5-5.1); Sodium 138 mmol/L (137-145)
[2020-11-22 10:51] VITALS: BMI 31.6
[2020-11-22 11:53] LABS: Glucose,Whole Blood 142 mg/dL (75-99)
--- NOTE | 2020-11-22 15:02 | P.PN ---
Subjective This is a pleasant 65-year-old male past medical history significant for atrial fibrillation, coronary artery disease, type 2 diabetes, hyperlipidemia, hypertension, COPD, and current every day smoker(smokes one pack every 3 days). Patient states that he's been diagnosed with a heart murmur and had an [place] in the 1970s. He denies ever having a cardiac catheterization or stent placement. He denies being told he has had heart failure, but has been told he had "weak heart muscle". He has been told about a cardioversion option in the past. He was being seen at [facility] and recently transitioned to the [facility]. 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 We have been asked to see in consultation for congestive heart failure. 2D Echo on 11/15/20 revealed EF 20-25%, moderate aortic stenosis, mild aortic regurgitation, moderate mitral regurtiation, moderate tricuspid regurgitation, severe pulmonary hypertension, 11/21/20: Patient underwent cardiac catheterization with Dr. Forrest. Cardiac Cath today revealed calcified coronary arteries, non-obstructive mild triple vessel coronary disease, moderately pulmonary hypertension. He continued to be in atrial tachycardia with 2:1 conduction. Old records from [place] in 06/2020 revealed severely impaired systolic function and was being evaluated to undergo cardiac catheterization. 11/22/20: Patient underwent successful MARSHALL cardioversion with Dr. Forrest. Patient is seen and examined in the chair, resting comfortably, in no acute distress. States he "feels woozy". This AM 0800 patient's BP 85/59 heart rate 70s. Patient given 250 mL normal saline bolus with improvement in blood pressure 91/54. Continued improvement in lower extremity edema and scrotal edema. Denies chest pain, palpitations, fever, abdominal pain, nausea, vomiting, dysuria. Laboratory data reviewed, Sodium 138, potassium 4.3, sCr 0.94. Vital signs, BP 100/58 HR 76, RR 16, spO2 98% on 2L O2 nasal cannula, afebrile. Telemetry- patient in normal sinus rhythm HR 70s. He continues to be on Eliquis 5mg BID, lipitor 20mg nightly, furosemide 40mg IV Q8hr, lisinopril 10mg daily, metoprolol tartrate 100mg BID, sprionolactone 25mg daily. PHYSICAL EXAMINATION CONSTITUTIONAL: No apparent distress. HEENT: Head is normocephalic. Pupils are equal, round. Sclerae anicteric. Mucous membranes of the mouth are moist. no JVD No carotid bruit. CHEST EXAMINATION: Lungs clear to auscultation bilaterally. No chest wall tenderness is noted on palpation or with deep breathing. HEART EXAMINATION: Regular rate and rhythm, S1, S2 heard. systolic murmur heard at apex. no gallops or rub. ABDOMEN: Soft, nontender. Positive bowel sounds. EXTREMITIES: 2+ radial pulses, 1+ bilateral dorsipedal pulses, +1 bilateral l ower extremity pitting edema- R > L . Right Radial cath site- clean dry and open to air. SKIN: Non healing ulceration LLE calf- open to air. NEUROLOGIC EXAMINATION: Patient is awake, alert and oriented x3. ASSESSMENT Congestive Heart Failure - HFrEF- unclear etiology, Suspect tachycardia induced Venous Insufficiency Type 2 Diabetes Hyperlipidemia History of Hypertension- Hypotensive this morning. Most likely related to anesthesia from MARSHALL cardioversion. COPD Atrial Tachycardia with 2:1 conduction s/p MARSHALL cardioverison with successful conversion to sinus mechanism on 11/21/20 Coronary Artery Disease, mild nonobstructive triple-vessel disease PLAN -Continue ACEI- Lisinopril as tolerated- (held this AM due to hypotension) -Continue beta arleth- metoprolol tartrate as tolerated (held this AM due to hypotension) -Stopped Amiodarone 400mg BID and Started Amiodarone 200mg BID -Continue Eliquis 5mg BID -Stopped aspirin -Continue Statin- Lipitor 20mg nightly -Continue diuresis- IV Lasix 40mg TID as tolerated (held this AM due to hypotension) -Replace electrolytes per protocol, follow renal function and electrolytes in the morning -I/Os, Daily weights, 1.5 L fluid restriction Objective - Vital Signs Vital signs: Vital Signs Temp 97.0 F L 11/22/20 12:00 Pulse 76 11/22/20 13:36 Resp 16 11/22/20 13:36 BP 100/58 11/22/20 12:00 Pulse Ox 98 11/22/20 12:00 Intake & Output 11/21/20 11/22/20 11/22/20 18:59 06:59 18:59 Intake Total 1670 10 480 Output Total 625 Balance 1670 -615 480 Weight 115 kg 115 kg Intake: IV 50 10 Invasive Line 4 10 Oral 1620 480 Output: Urine 625 Other: Voiding Method Toilet Toilet Toilet Urinal Urinal Urinal # Voids 2 1 2 - Labs CBC & Chem 7: 11/15/20 12:45 11/22/20 10:00 Labs: Abnormal Lab Results - Last 24 Hours (Table) 11/21/20 11/21/20 11/22/20 Range/Units 16:48 19:59 05:56 BUN (9-20) mg/dL Glucose (74-99) mg/dL POC Glucose (mg/dL) 180 H 138 H 161 H (75-99) mg/dL 11/22/20 11/22/20 Range/Units 10:00 11:52 BUN 33 H (9-20) mg/dL Glucose 186 H (74-99) mg/dL POC Glucose (mg/dL) 142 H (75-99) mg/dL
--- NOTE | 2020-11-22 16:13 | P.PN ---
Subjective Progress Note Date: 11/22/20 65-year-old male came in with significant anasarca is on IV Lasix drip echo was obtained which showed ejection fraction of around 20-25% cardiology is following the patient and patient had significant urine output patient is hypokalemic secondary to diuresis which will be replaced. Creatinine went up from 0.600 0.8. Blood sugars are well controlled. Patient is bit tachycardic, appears to be in atrial flutter. Patient is being diuresed at this time anasarca is bit better compared to yesterday. She also feels much better compared to yesterday 11/17/2020 Patient continues to diet is well 3 history of significant scrotal edema although pedal edema and abdominal wall edema significantly improved her TSH is mildly low but T4 is within normal limits probably sick euthyroid syndrome. Patient remains tachycardic. Patient blood pressure is low because of which the Lasix drip was cut down to 5 mg/h 11/18/2020 Patient is on IV Lasix now this can you done IV Lasix drip. Patient still has significant swelling of the scrotum. Serum sodium started going down. Patient meets tachycardic 11/19/2020 Patient continues on IV push Lasix, drip is been discontinued. Scrotal edema is improving, good urine output, which is significantly down since time of admission. Electrolytes within normal limits, creatinine stable. 11/20/2020 Scrotal swelling improving, continues diuresis with IV Lasix 40 twice a day. On 3 L nasal cannula saturating above 90%. Creatinine stable 0.71. 11/21/2020 Patient is seen and evaluated in follow-up early maintained on IV Lasix and continues to have scrotal edema which is slightly improved. Patient states he has been urinating often and the testicular swelling has gotten better. Current sodium is 138, potassium is 3.9, BUN is 28, creatinine is 0.69. Patient is being seen and evaluated by cardiology and underwent cardiac catheterization which showed calcified coronary arteries, mild triple-vessel coronary artery disease, moderate pulmonary hypertension. Patient is scheduled to undergo MARSHALL guided cardioversion in the morning with the possibility of ablation if cardioversion is unsuccessful. Patient is up and walking the room with no increased shortness of breath, chest pain, or palpitations noted. 11/22/2020 Patient is seen in follow-up this morning and currently underwent a MARSHALL with cardioversion with Dr. Forrest showing biatrial enlargement, dilated left ventricle with severe global hypokinesis, moderate mitral and tricuspid regurgitation with mild aortic regurgitation, mild aortic sclerosis, normal appearance of the descending thoracic aorta. Patient underwent synchronized biphasic cardioversion using 200 J with mosque of normal sinus. Patient is seen currently sitting up in the chair stating he is short of breath and having some dizziness and is currently maintained on 2 L of oxygen via nasal cannula. Blood pressures on the lower side. IV Lasix was held. Patient continues to have scrotal swelling although states has improved. Instructed the patient to elevate the testicles while at rest. Constitutional: Denied any fatigue denied any fever. Cardio vascular: denied any chest pain, palpitations Gastrointestinal denied any nausea vomiting Pulmonary: Reports shortness of breath : scrotal edema improving Neurologic denied any new focal deficits, reports some dizziness with standing All inpatient medications were reviewed and appropriate changes in these medications as dictated in the interval history and assessment and plan. Active Medications Hydrocodone Bitart/Acetaminophen (Hydrocodone/Apap 5-325mg 1 Each Tab) 1 each PO Q6HR PRN PRN Reason: Pain Last Admin: 11/22/20 09:12 Dose: 1 each Documented by: Albuterol Sulfate (Albuterol Nebulized 2.5 Mg/3 Ml) 2.5 mg INHALATION RT-QID PRN PRN Reason: Shortness Of Breath Alprazolam (Alprazolam 0.25 Mg Tab) 0.25 mg PO Q6HR PRN PRN Reason: Mild Anxiety Alprazolam (Alprazolam 0.5 Mg Tab) 0.5 mg PO Q6HR PRN PRN Reason: Moderate Anxiety Last Admin: 11/21/20 21:43 Dose: 0.5 mg Documented by: Amiodarone HCl (Amiodarone 200 Mg Tab) 200 mg PO BID [facility] Last Admin: 11/22/20 09:09 Dose: 200 mg Documented by: Apixaban (Apixaban 5 Mg Tab) 5 mg PO BID [facility] Last Admin: 11/22/20 09:09 Dose: 5 mg Documented by: Atorvastatin Calcium (Atorvastatin 20 Mg Tab) 20 mg PO [facility] Last Admin: 11/21/20 21:38 Dose: 20 mg Documented by: Budesonide/Formoterol Fumarate (Symbicort 160-4.5 Mcg Inhaler) 2 puff INHALATION RT-BID [facility] Last Admin: 11/22/20 07:34 Dose: Not Given Documented by: Furosemide (Furosemide 10 Mg/Ml 4 Ml Vial) 40 mg IV Q8HR [facility] Last Admin: 11/22/20 09:06 Dose: Not Given Documented by: Glipizide (Glipizide 5 Mg Tab) 5 mg PO BID [facility] Last Admin: 11/22/20 09:09 Dose: 5 mg Documented by: Sodium Chloride (Saline 0.9%) 1,000 mls @ 20 mls/hr IV .Q24H [facility] Last Admin: 11/22/20 09:06 Dose: Not Given Documented by: Insulin Aspart (Insulin Aspart (Novolog) 100 Unit/Ml Vial) 0 unit SQ ACHS [facility]; Protocol Last Admin: 11/22/20 13:50 Dose: Not Given Documented by: Lisinopril (Lisinopril 10 Mg Tab) 10 mg PO BID [facility] Last Admin: 11/22/20 08:32 Dose: Not Given Documented by: Metoprolol Tartrate (Metoprolol Tartrate 50 Mg Tab) 100 mg PO BID [facility] Last Admin: 11/22/20 09:05 Dose: Not Given Documented by: Miscellaneous Information (Potassium Replacement Protocol 1 Each Misc) 1 each MISCELLANE DAILY PRN; Protocol PRN Reason: Per Protocol Miscellaneous Information (Magnesium Replacement Protocol 1 Each Misc) 1 each MISCELLANE DAILY PRN; Protocol PRN Reason: Per Protocol Miscellaneous Information (Potassium Replacement Protocol 1 Each Misc) 1 each MISCELLANE DAILY PRN; Protocol PRN Reason: Per Protocol Miscellaneous Information (Rx Info: Iv Contrast Was Given 1 Each Misc) 1 each MISCELLANE DAILY PRN PRN Reason: Per Protocol Stop: 11/23/20 08:38 Naloxone HCl (Naloxone 0.4 Mg/Ml 1 Ml Vial) 0.2 mg IV Q2M PRN PRN Reason: Opioid Reversal Nitroglycerin (Nitroglycerin Sl Tabs 0.4 Mg Tab) 0.4 mg SUBLINGUAL Q5M PRN PRN Reason: Chest Pain Empagliflozin [ Jardiance] 25 Mg Tablet 25 mg PO DAILY [facility] Last Admin: 11/22/20 08:47 Dose: Not Given Documented by: Spironolactone (Spironolactone 25 Mg Tab) 25 mg PO DAILY [facility] Last Admin: 11/22/20 09:09 Dose: 25 mg Documented by: Objective - Vital Signs Vital signs: Vital Signs Temp 96.9 F L 11/21/20 16:00 Pulse 75 11/22/20 08:15 Resp 18 11/22/20 08:15 BP 91/54 11/22/20 08:15 Pulse Ox 100 11/22/20 08:15 Intake & Output 11/21/20 11/22/20 11/22/20 18:59 06:59 18:59 Intake Total 1670 10 500 Output Total 625 Balance 1670 -615 500 Weight 115 kg Intake: IV 50 10 500 Invasive Line 4 10 Oral 1620 Output: Urine 625 Other: Voiding Method Toilet Toilet Urinal Urinal # Voids 2 1 - Exam GENERAL: The patient is alert and oriented x3, not in any acute distress. Well developed, well nourished. Temp is 97.0F, pulse is 76, respirations are 16, blood pressure is 100/58, oxygen saturation is 98% on 2 L via nasal cannula. HEENT: Pupils are round and equally reacting to light. EOMI. No scleral icterus. No conjunctival pallor. Normocephalic, atraumatic. No pharyngeal erythema. No thyromegaly. CARDIOVASCULAR: S1 and S2 muffled PULMONARY: Diminished breath sounds bilaterally with some scattered rhonchi noted ABDOMEN: Soft, nontender, nondistended, normoactive bowel sounds. No palpable organomegaly. MUSCULOSKELETAL: No joint swelling or deformity. GENITOURINARY: Improving scrotal edema EXTREMITIES: No cyanosis, clubbing, still has scrotal edema but significant improvement in pedal edema and abdominal wall chest wall edema. Secondary to skin stretching improved NEUROLOGICAL: Gross neurological examination did not reveal any focal deficits. SKIN: No rashes. - Labs CBC & Chem 7: 11/15/20 12:45 11/22/20 10:00 Labs: Abnormal Lab Results - Last 24 Hours (Table) 11/21/20 11/21/20 11/21/20 Range/Units 08:48 11:37 16:48 BUN 28 H (9-20) mg/dL Glucose 115 H (74-99) mg/dL POC Glucose (mg/dL) 127 H 180 H (75-99) mg/dL 11/21/20 11/22/20 Range/Units 19:59 05:56 BUN (9-20) mg/dL Glucose (74-99) mg/dL POC Glucose (mg/dL) 138 H 161 H (75-99) mg/dL Assessment and Plan Assessment: -Congestive heart failure: Chronic systolic dysfunction with acute exacerbation, most recent EF is 20-25% -Status post MARSHALL with synchronized cardioversion with 200 J to normal sinus rhythm -Atrial tachycardia: Presently atrial flutter with 2 to 1 conduction, improved secondary to above -type 2 diabetes mellitus -Hypomagnesemia -Hyperlipidemia -DVT prophylaxis Recommendations and discussion: Recommend to continue with current medications, management, and symptomatic treatment. Patient is maintained on IV Lasix push and will continue at this time. IV Lasix being held due to low blood pressures. Diuresing well. Testicular swelling also improving. Patient recently underwent cardiac catheterization as mentioned previously and underwent MARSHALL with successful cardioversion. cardiology following closely. Due to multiple complex medical issues, prognosis is guarded. Further recommendations to follow. Possible discharge in 24-48 hours.
[2020-11-22 16:53] LABS: Glucose,Whole Blood 258 mg/dL (75-99)
[2020-11-22 19:38] LABS: Glucose,Whole Blood 145 mg/dL (75-99)
[2020-11-22] MEDS: ATORVASTATIN 20 MG TAB PO SCH (20:23)
[2020-11-22] MEDS: ALPRAZolam 0.5 MG TAB PO PRN (23:25)
[2020-11-23 06:00] LABS: Glucose,Whole Blood 88 mg/dL (75-99)
[2020-11-23] MEDS: INSULIN ASPART (NovoLOG) 100 UNIT/ML VIAL SQ SCH ×4 (06:54→20:35)
[2020-11-23 07:42] LABS: Calcium 9.4 mg/dL (8.4-10.2); Potassium 4.1 mmol/L (3.5-5.1)
[2020-11-23] MEDS: SYMBICORT 160-4.5 MCG INHALER INHALATION SCH ×2 (07:51→19:55)
[2020-11-23] MEDS: FUROSEMIDE 10 MG/ML 4 ML VIAL IV SCH (09:13)
[2020-11-23] MEDS: APIXABAN 5 MG TAB PO SCH ×2 (09:14→20:22)
[2020-11-23] MEDS: HYDROcodone/APAP 5-325MG 1 EACH TAB PO PRN ×2 (09:14→16:30)
[2020-11-23] MEDS: SPIRONOLACTONE 25 MG TAB PO SCH (09:14)
[2020-11-23] MEDS: AMIODARONE 200 MG TAB PO SCH ×2 (09:14→20:22)
[2020-11-23] MEDS: glipiZIDE 5 MG TAB PO SCH ×2 (09:14→20:22)
[2020-11-23] MEDS: SODIUM CHLORIDE 0.9% 1,000 ML IV SCH (09:15)
[2020-11-23] MEDS: lisinopriL 10 MG TAB PO SCH ×2 (09:21→20:22)
[2020-11-23] MEDS: METOPROLOL TARTRATE 50 MG TAB PO SCH ×2 (09:21→20:21)
[2020-11-23 11:59] LABS: Glucose,Whole Blood 217 mg/dL (75-99)
--- NOTE | 2020-11-23 12:33 | P.PN ---
<JuanbethanylorenaloreTabitha - Last Filed: 11/23/20 12:08> Subjective This is a pleasant 65-year-old male past medical history significant for atrial fibrillation, coronary artery disease, type 2 diabetes, hyperlipidemia, hypertension, COPD, and current every day smoker(smokes one pack every 3 days). Patient states that he's been diagnosed with a heart murmur and had an [place] in the 1970s. He denies ever having a cardiac catheterization or stent placement. He denies being told he has had heart failure, but has been told he had "weak heart muscle". He has been told about a cardioversion option in the past. He was being seen at [facility] and recently transitioned to the [facility]. 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 We have been asked to see in consultation for congestive heart failure. 2D Echo on 11/15/20 revealed EF 20-25%, moderate aortic stenosis, mild aortic regurgitation, moderate mitral regurtiation, moderate tricuspid regurgitation, severe pulmonary hypertension, 11/21/20: Patient underwent cardiac catheterization with Dr. Forrest. Cardiac Cath today revealed calcified coronary arteries, non-obstructive mild triple vessel coronary disease, moderately pulmonary hypertension. He continued to be in atri al tachycardia with 2:1 conduction. Old records from [place] in 06/2020 revealed severely impaired systolic function and was being evaluated to undergo cardiac catheterization. 11/22/20: Patient underwent successful MARSHALL cardioversion with Dr. Forrest. Patient is seen and examined in the chair, resting comfortably, in no acute distress. States he "feels woozy". This AM 0800 patient's BP 85/59 heart rate 70s. Patient given 250 mL normal saline bolus with improvement in blood pressure 91/54. 11/23/20: Patient seen and examined in the bedside chair, resting comfortably, in no acute distress. Patient states he is feeling well, intermittent shortness of breath with ambulating. Continues to have bilateral LE 2+ pitting edema and scrotal edema. Laboratory data reviewed, Sodium 168, potassium 4.1, sCr 1.05.BP improved today, continues to be hypotensive. BP 105/64 HR 82, afebrile, 100% of 4L nasal cannula. Telemetry reviewed- patient continues to be in sinus rhythm HR 70s-80s- 11/22 morning patient had a short run of atrial tachycardia, 1.5 sec pause. He continues to be on Eliquis 5mg BID, lipitor 20mg nightly, furosemide 40mg IV Q8hr, lisinopril 10mg daily, metoprolol tartrate 100mg BID, sprionolactone 25mg daily. PHYSICAL EXAMINATION CONSTITUTIONAL: No apparent distress. HEENT: Head is normocephalic. Pupils are equal, round. Sclerae anicteric. Mucous membranes of the mouth are moist. no JVD No carotid bruit. CHEST EXAMINATION: Lungs clear to auscultation bilaterally. No chest wall tenderness is noted on palpation or with deep breathing. HEART EXAMINATION: Regular rate and rhythm, S1, S2 heard. systolic murmur heard at apex. no gallops or rub. ABDOMEN: Soft, nontender. Positive bowel sounds. EXTREMITIES: 2+ radial pulses, 1+ bilateral dorsipedal pulses, +1-2 bilateral lower extremity pitting edema- R > L . Right Radial cath site- clean dry, skin intact and open to air. SKIN: Non healing ulceration LLE saenz- with purulent/serosanguinous drainage open to air. NEUROLOGIC EXAMINATION: Patient is awake, alert and oriented x3. ASSESSMENT Congestive Heart Failure - HFrEF- unclear etiology, Suspect tachycardia induced Venous Insufficiency Type 2 Diabetes Hyperlipidemia History of Hypertension- Hypotensive during this admission COPD on chronic O2 at home Atrial Tachycardia with 2:1 conduction s/p MARSHALL cardioverison with successful conversion to sinus mechanism on 11/21/20 Coronary Artery Disease, mild nonobstructive triple-vessel disease PLAN -Continue ACEI- Lisinopril as tolerated- (held this AM due to hypotension- updated hold parameters if patient's SBP <90) -Continue beta arleth- metoprolol tartrate as tolerated (held this AM due to hypotension updated hold parameters if patient's SBP <90, HR <55) -Continue Amiodarone 200mg BID -Continue Eliquis 5mg BID -Continue Statin- Lipitor 20mg nightly -Continue diuresis- IV Lasix 40mg TID today as tolerated- will continue to assess need for further diuresis. -Replace electrolytes per protocol, follow renal function and electrolytes in the morning -I/Os, Daily weights, 1.5 L fluid restriction Objective - Vital Signs Vital signs: Vital Signs Temp 98.4 F 11/23/20 11:27 Pulse 82 11/23/20 11:27 Resp 18 11/23/20 11:27 BP 105/64 11/23/20 11:27 Pulse Ox 100 11/23/20 11:27 Intake & Output 11/22/20 11/23/20 11/23/20 18:59 06:59 18:59 Intake Total 600 418 240 Balance 600 418 240 Weight 115 kg 117.8 kg Intake: Oral 600 418 240 Other: Voiding Method Toilet Toilet Toilet Urinal Urinal Urinal # Voids 2 1 - Labs CBC & Chem 7: 11/15/20 12:45 11/23/20 06:31 Labs: Abnormal Lab Results - Last 24 Hours (Table) 11/22/20 11/22/20 11/23/20 Range/Units 16:52 19:36 06:31 Sodium 136 L (137-145) mmol/L BUN 41 H (9-20) mg/dL Glucose 108 H (74-99) mg/dL POC Glucose (mg/dL) 258 H 145 H (75-99) mg/dL 11/23/20 Range/Units 11:57 Sodium (137-145) mmol/L BUN (9-20) mg/dL Glucose (74-99) mg/dL POC Glucose (mg/dL) 217 H (75-99) mg/dL <Jimbo Pryor - Last Filed: 11/23/20 14:05> Subjective Acute on chronic systolic heart failure. Tranistion to oral diuretics and if st ill with good urine outpt, likely DC home tomorrow. Jimbo Pryor, Objective - Vital Signs Vital signs: Vital Signs Temp 98.4 F 11/23/20 11:27 Pulse 82 11/23/20 11:27 Resp 18 11/23/20 11:27 BP 105/64 11/23/20 11:27 Pulse Ox 100 11/23/20 11:27 Intake & Output 11/22/20 11/23/20 11/23/20 18:59 06:59 18:59 Intake Total 600 418 240 Balance 600 418 240 Weight 115 kg 117.8 kg Intake: Oral 600 418 240 Other: Voiding Method Toilet Toilet Toilet Urinal Urinal Urinal # Voids 2 1 - Labs CBC & Chem 7: 11/15/20 12:45 11/23/20 06:31 Labs: Abnormal Lab Results - Last 24 Hours (Table) 11/22/20 11/22/20 11/23/20 Range/Units 16:52 19:36 06:31 Sodium 136 L (137-145) mmol/L BUN 41 H (9-20) mg/dL Glucose 108 H (74-99) mg/dL POC Glucose (mg/dL) 258 H 145 H (75-99) mg/dL 11/23/20 Range/Units 11:57 Sodium (137-145) mmol/L BUN (9-20) mg/dL Glucose (74-99) mg/dL POC Glucose (mg/dL) 217 H (75-99) mg/dL
--- NOTE | 2020-11-23 15:10 | P.PN ---
Subjective Progress Note Date: 11/23/20 65-year-old male came in with significant anasarca is on IV Lasix drip echo was obtained which showed ejection fraction of around 20-25% cardiology is following the patient and patient had significant urine output patient is hypokalemic secondary to diuresis which will be replaced. Creatinine went up from 0.600 0.8. Blood sugars are well controlled. Patient is bit tachycardic, appears to be in atrial flutter. Patient is being diuresed at this time anasarca is bit better compared to yesterday. She also feels much better compared to yesterday 11/17/2020 Patient continues to diet is well 3 history of significant scrotal edema although pedal edema and abdominal wall edema significantly improved her TSH is mildly low but T4 is within normal limits probably sick euthyroid syndrome. Patient remains tachycardic. Patient blood pressure is low because of which the Lasix drip was cut down to 5 mg/h 11/18/2020 Patient is on IV Lasix now this can you done IV Lasix drip. Patient still has significant swelling of the scrotum. Serum sodium started going down. Patient meets tachycardic 11/19/2020 Patient continues on IV push Lasix, drip is been discontinued. Scrotal edema is improving, good urine output, which is significantly down since time of admission. Electrolytes within normal limits, creatinine stable. 11/20/2020 Scrotal swelling improving, continues diuresis with IV Lasix 40 twice a day. On 3 L nasal cannula saturating above 90%. Creatinine stable 0.71. 11/21/2020 Patient is seen and evaluated in follow-up early maintained on IV Lasix and continues to have scrotal edema which is slightly improved. Patient states he has been urinating often and the testicular swelling has gotten better. Current sodium is 138, potassium is 3.9, BUN is 28, creatinine is 0.69. Patient is being seen and evaluated by cardiology and underwent cardiac catheterization which showed calcified coronary arteries, mild triple-vessel coronary artery disease, moderate pulmonary hypertension. Patient is scheduled to undergo MARSHALL guided cardioversion in the morning with the possibility of ablation if cardioversion is unsuccessful. Patient is up and walking the room with no increased shortness of breath, chest pain, or palpitations noted. 11/22/2020 Patient is seen in follow-up this morning and currently underwent a MARSHALL with cardioversion with Dr. Forrest showing biatrial enlargement, dilated left ventricle with severe global hypokinesis, moderate mitral and tricuspid regurgitation with mild aortic regurgitation, mild aortic sclerosis, normal appearance of the descending thoracic aorta. Patient underwent synchronized biphasic cardioversion using 200 J with buddhist of normal sinus. Patient is seen currently sitting up in the chair stating he is short of breath and having some dizziness and is currently maintained on 2 L of oxygen via nasal cannula. Blood pressures on the lower side. IV Lasix was held. Patient continues to have scrotal swelling although states has improved. Instructed the patient to elevate the testicles while at rest. 11/23/2020 Patient is seen and evaluated in follow-up currently sitting up at the side of the bed continues to have lower extremity edema although slightly improved. Patient continues to have extreme testicular swelling noted although states has improved. Patient is urinating with no difficulties. Patient maintained on IV Lasix and will continue at this time with the possibility of transitioning to oral Lasix tomorrow. This was discussed with cardiology. Patient is currently found on exam on room air and states that he uses oxygen intermittently. Patient continues to have some dyspnea with exertion and will put it back on as needed. Patient's left lower extremity medial wound with drainage noted and will obtain wound culture. Patient states he has been on antibiotics for this area patient does have wound care following and has been doing dressing changes. Patient denies any chest pain, shortness of breath at rest, or palpitations noted. Patient is afebrile. No reports of nausea or vomiting and patient is tolerating diet. Discussed with patient about discharge planning and states he lives at home alone although has people that come and check on him. Case management following and arranging for home care in the outpatient setting Constitutional: Denied any fatigue denied any fever. Cardio vascular: denied any chest pain, palpitations Gastrointestinal denied any nausea vomiting Pulmonary: Reports shortness of breath : scrotal edema improving Neurologic denied any new focal deficits All inpatient medications were reviewed and appropriate changes in these medications as dictated in the interval history and assessment and plan. Active Medications Hydrocodone Bitart/Acetaminophen (Hydrocodone/Apap 5-325mg 1 Each Tab) 1 each PO Q6HR PRN PRN Reason: Pain Last Admin: 11/23/20 09:14 Dose: 1 each Documented by: Albuterol Sulfate (Albuterol Nebulized 2.5 Mg/3 Ml) 2.5 mg INHALATION RT-QID PRN PRN Reason: Shortness Of Breath Alprazolam (Alprazolam 0.25 Mg Tab) 0.25 mg PO Q6HR PRN PRN Reason: Mild Anxiety Alprazolam (Alprazolam 0.5 Mg Tab) 0.5 mg PO Q6HR PRN PRN Reason: Moderate Anxiety Last Admin: 11/22/20 23:25 Dose: 0.5 mg Documented by: Amiodarone HCl (Amiodarone 200 Mg Tab) 200 mg PO BID REPLACED BY [facility] Last Admin: 11/23/20 09:14 Dose: 200 mg Documented by: Apixaban (Apixaban 5 Mg Tab) 5 mg PO BID REPLACED BY [facility] Last Admin: 11/23/20 09:14 Dose: 5 mg Documented by: Atorvastatin Calcium (Atorvastatin 20 Mg Tab) 20 mg PO HS REPLACED BY [facility] Last Admin: 11/22/20 20:23 Dose: 20 mg Documented by: Budesonide/Formoterol Fumarate (Symbicort 160-4.5 Mcg Inhaler) 2 puff INHALATION RT-BID REPLACED BY [facility] Last Admin: 11/23/20 07:51 Dose: 2 puff Documented by: Furosemide (Furosemide 40 Mg Tab) 40 mg PO BID@0900,1600 REPLACED BY [facility] Glipizide (Glipizide 5 Mg Tab) 5 mg PO BID REPLACED BY [facility] Last Admin: 11/23/20 09:14 Dose: 5 mg Documented by: Sodium Chloride (Saline 0.9%) 1,000 mls @ 20 mls/hr IV .Q24H REPLACED BY [facility] Last Admin: 11/23/20 09:15 Dose: 20 mls/hr Documented by: Insulin Aspart (Insulin Aspart (Novolog) 100 Unit/Ml Vial) 0 unit SQ ACHS REPLACED BY [facility]; Protocol Last Admin: 11/23/20 12:44 Dose: 4 unit Documented by: Lisinopril (Lisinopril 10 Mg Tab) 10 mg PO BID REPLACED BY [facility] Last Admin: 11/23/20 09:21 Dose: Not Given Documented by: Metoprolol Tartrate (Metoprolol Tartrate 50 Mg Tab) 100 mg PO BID REPLACED BY [facility] Last Admin: 11/23/20 09:21 Dose: Not Given Documented by: Miscellaneous Information (Potassium Replacement Protocol 1 Each Misc) 1 each MISCELLANE DAILY PRN; Protocol PRN Reason: Per Protocol Miscellaneous Information (Magnesium Replacement Protocol 1 Each Misc) 1 each MISCELLANE DAILY PRN; Protocol PRN Reason: Per Protocol Miscellaneous Information (Potassium Replacement Protocol 1 Each Misc) 1 each MISCELLANE DAILY PRN; Protocol PRN Reason: Per Protocol Naloxone HCl (Naloxone 0.4 Mg/Ml 1 Ml Vial) 0.2 mg IV Q2M PRN PRN Reason: Opioid Reversal Nitroglycerin (Nitroglycerin Sl Tabs 0.4 Mg Tab) 0.4 mg SUBLINGUAL Q5M PRN PRN Reason: Chest Pain Empagliflozin [ Jardiance] 25 Mg Tablet 25 mg PO DAILY REPLACED BY [facility] Last Admin: 11/23/20 09:20 Dose: Not Given Documented by: Spironolactone (Spironolactone 25 Mg Tab) 25 mg PO DAILY REPLACED BY [facility] Last Admin: 11/23/20 09:14 Dose: 25 mg Documented by: Objective - Vital Signs Vital signs: Vital Signs Temp 98.4 F 11/23/20 11:27 Pulse 82 11/23/20 11:27 Resp 18 11/23/20 11:27 BP 105/64 11/23/20 11:27 Pulse Ox 100 11/23/20 11:27 Intake & Output 11/22/20 11/23/20 11/23/20 18:59 06:59 18:59 Intake Total 600 418 240 Balance 600 418 240 Weight 115 kg 117.8 kg Intake: Oral 600 418 240 Other: Voiding Method Toilet Toilet Toilet Urinal Urinal Urinal # Voids 2 1 - Exam GENERAL: The patient is alert and oriented x3, not in any acute distress. Well developed, well nourished. Temp is 98.2F, pulse is 80, respirations are 18, blood pressure is 90/58, oxygen saturation is 99% on 4 L via nasal cannula. HEENT: Pupils are round and equally reacting to light. EOMI. No scleral icterus. No conjunctival pallor. Normocephalic, atraumatic. No pharyngeal erythema. No thyromegaly. CARDIOVASCULAR: S1 and S2 muffled PULMONARY: Diminished breath sounds bilaterally with some scattered rhonchi noted ABDOMEN: Soft, nontender, nondistended, normoactive bowel sounds. No palpable organomegaly. MUSCULOSKELETAL: No joint swelling or deformity. GENITOURINARY: Improving scrotal edema EXTREMITIES: No cyanosis, clubbing, still has scrotal edema but significant improvement in pedal edema. Left lower extremity medial aspect of the saenz has a quarter-sized wound that appears to have scabbed over although the center is draining purulent matter NEUROLOGICAL: Gross neurological examination did not reveal any focal deficits. SKIN: No rashes. - Labs CBC & Chem 7: 11/15/20 12:45 11/23/20 06:31 Labs: Abnormal Lab Results - Last 24 Hours (Table) 11/22/20 11/22/20 11/23/20 Range/Units 16:52 19:36 06:31 Sodium 136 L (137-145) mmol/L BUN 41 H (9-20) mg/dL Glucose 108 H (74-99) mg/dL POC Glucose (mg/dL) 258 H 145 H (75-99) mg/dL 11/23/20 Range/Units 11:57 Sodium (137-145) mmol/L BUN (9-20) mg/dL Glucose (74-99) mg/dL POC Glucose (mg/dL) 217 H (75-99) mg/dL Assessment and Plan Assessment: -Congestive heart failure: Chronic systolic dysfunction with acute exacerbation, most recent EF is 20-25% -Status post MARSHALL with synchronized cardioversion with 200 J to normal sinus rhythm -Atrial tachycardia: Presently atrial flutter with 2 to 1 conduction, improved secondary to above -Left leg wound medial aspect with scabbing noted and purulent drainage from the center -type 2 diabetes mellitus -Hypomagnesemia -Hyperlipidemia -DVT prophylaxis Recommendations and discussion: Recommend to continue with current medications, management, and symptomatic treatment. Patient is maintained on IV Lasix push and will continue at this time. Diuresing well. Testicular swelling also improving. Discussed with cardiology about transitioning to oral Lasix and will continue to monitor vital signs and labs closely and monitor swelling as well. Patient recently underwent cardiac catheterization as mentioned previously and underwent MARSHALL with successful cardioversion. Cardiology following closely. Patient does have a wound on the medial aspect of the left saenz and will obtain a culture as there is purulent drainage noted in the center. Due to multiple complex medical issues, prognosis is guarded. Further recommendations to follow. Possible discharge in 24 hours.
[2020-11-23] MEDS: FUROSEMIDE 40 MG TAB PO SCH (16:22)
[2020-11-23 16:29] LABS: Glucose,Whole Blood 336 mg/dL (75-99)
[2020-11-23 20:13] LABS: Glucose,Whole Blood 110 mg/dL (75-99)
[2020-11-23] MEDS: ATORVASTATIN 20 MG TAB PO SCH (20:22)
[2020-11-24 06:10] LABS: Glucose,Whole Blood 195 mg/dL (75-99)
[2020-11-24] MEDS: HYDROcodone/APAP 5-325MG 1 EACH TAB PO PRN (06:22)
[2020-11-24] MEDS: INSULIN ASPART (NovoLOG) 100 UNIT/ML VIAL SQ SCH ×2 (06:24→12:55)
[2020-11-24] MEDS: SYMBICORT 160-4.5 MCG INHALER INHALATION SCH (07:41)
[2020-11-24 08:35] VITALS: RESP 19
[2020-11-24] MEDS: glipiZIDE 5 MG TAB PO SCH (08:57)
[2020-11-24] MEDS: AMIODARONE 200 MG TAB PO SCH (08:57)
[2020-11-24] MEDS: FUROSEMIDE 40 MG TAB PO SCH (08:57)
[2020-11-24] MEDS: APIXABAN 5 MG TAB PO SCH (08:58)
[2020-11-24] MEDS: SPIRONOLACTONE 25 MG TAB PO SCH (08:58)
[2020-11-24] MEDS: SODIUM CHLORIDE 0.9% 1,000 ML IV SCH (08:58)
[2020-11-24] MEDS: METOPROLOL TARTRATE 50 MG TAB PO SCH (09:03)
[2020-11-24 11:41] LABS: Glucose,Whole Blood 145 mg/dL (75-99)
--- NOTE | 2020-11-24 13:46 | P.DS ---
Providers Date of admission: 11/15/20 14:23 Expected date of discharge: 11/24/20 Attending physician: Ant Álvarez Consults: 11/15/20 14:38 Consult Physician Routine Consulting Provider: Jake York Consult Reason/Comments: scrotal edema, CHF Do you want consulting provider notified?: Yes Primary care physician: [facility] Hospital Course: Final diagnosis -Congestive heart failure: Chronic systolic dysfunction with acute exacerbation, most recent EF is 20-25% -Status post MARSHALL with synchronized cardioversion with 200 J to normal sinus rhythm -Atrial tachycardia: Presently atrial flutter with 2 to 1 conduction, improved secondary to above -Left leg wound medial aspect with scabbing noted and purulent drainage from the center -type 2 diabetes mellitus -Hypomagnesemia -Hyperlipidemia -DVT prophylaxis -Full code Discharge disposition Patient is being discharged in a stable condition with guarded prognosis to home and will continue with home care with [facility] and outpatient setting. Patient will follow-up with Dr. Ruiz in the outpatient setting upon discharge. Patient also instructed to follow-up with Dr. Lon conde in 1-2 weeks. Total time taken is greater than 35 minutes. Hospital course This is a 65-year-old male who was recently admitted with significant anasarca along with tachycardia and atrial flutter and was being closely monitored. She was seen and evaluated by cardiology and maintained on IV Lasix with recent transition to oral Lasix and will continue upon discharge. Patient continues to have testicular swelling and instructed the patient to continue to elevate while at rest along with lower extremities. Wound culture was obtained on the left saenz medial wound and is currently pending. Patient has been receiving wound care and will continue the outpatient setting. Patient will be going home with home care upon discharge. Patient normally follows at [facility] although is requesting to seek treatment and providers here in [place]. Patient provided with information and refer to Dr. Ruiz for follow-up on discharge. Will also follow-up with Dr. Forrest cardiology as he has been doing so. During hospitalization patient underwent a MARSHALL with cardioversion and was successful and is currently normal sinus. Patient is instructed to obtain a blood pressure cuff and monitor blood pressure daily and keep a diary for primary care follow- up. Patient also instructed to avoid tobacco and alcohol use. Currently no reports of chest pain, shortness of breath, or palpitations. Patient is afebrile. No reports of nausea or vomiting and patient is tolerating diet. Patient will be going home today. Guarded prognosis. On exam vital signs are stable. Cardio S1, S2 are muffled. Respiratory system shows diminished breath sounds at the bases with no wheezing or rhonchi noted. Abdomen is soft and nontender. Nervous system shows no focal deficits. Please refer to medication reconciliation sheet for a list of medications. Patient Condition at Discharge: Stable Plan - Discharge Summary Discharge Rx Participant: Yes New Discharge Prescriptions: New Spironolactone [Aldactone] 25 mg PO DAILY 30 Days #30 tab Amiodarone [Cordarone] 200 mg PO BID 30 Days #60 tab glipiZIDE [Glucotrol] 5 mg PO BID 30 Days #60 tab HYDROcodone/APAP 5-325MG [[place] 5-325] 1 each PO Q6HR PRN #10 tab PRN Reason: Pain Continue Albuterol Sulfate [Ventolin HFA] 2 puff INHALATION RT-QID PRN PRN Reason: Shortness Of Breath Apixaban [Eliquis] 5 mg PO BID Atorvastatin Calcium [Lipitor] 20 mg PO HS Empagliflozin [Jardiance] 25 mg PO DAILY metFORMIN HCL 1,000 mg PO BID Metoprolol Tartrate [Lopressor] 100 mg PO BID #60 tab Budesonide-Formot 160-4.5 Mcg [Symbicort 160-4.5 Mcg Inhaler] 2 puff INHALATION RT-BID #1 inhaler Furosemide [Lasix] 40 mg PO BID #0 Changed lisinopriL [Zestril] 10 mg PO BID 30 Days #60 cap Discontinued Aspirin 81 mg PO DAILY Isosorbide Mononitrate ER [Imdur] 30 mg PO DAILY glipiZIDE [Glucotrol] 10 mg PO BID-W/MEALS Discharge Medication List Albuterol Sulfate [Ventolin HFA] 2 puff INHALATION RT-QID PRN 10/07/20 [History] Apixaban [Eliquis] 5 mg PO BID 10/07/20 [History] Atorvastatin Calcium [Lipitor] 20 mg PO HS 10/07/20 [History] Empagliflozin [Jardiance] 25 mg PO DAILY 10/07/20 [History] metFORMIN HCL 1,000 mg PO BID 10/07/20 [History] Budesonide-Formot 160-4.5 Mcg [Symbicort 160-4.5 Mcg Inhaler] 2 puff INHALATION RT-BID #1 inhaler 10/10/20 [Rx] Furosemide [Lasix] 40 mg PO BID #0 10/10/20 [Rx] Metoprolol Tartrate [Lopressor] 100 mg PO BID #60 tab 10/10/20 [Rx] Amiodarone [Cordarone] 200 mg PO BID 30 Days #60 tab 11/24/20 [Rx] HYDROcodone/APAP 5-325MG [[place] 5-325] 1 each PO Q6HR PRN #10 tab 11/24/20 [Rx] Spironolactone [Aldactone] 25 mg PO DAILY 30 Days #30 tab 11/24/20 [Rx] glipiZIDE [Glucotrol] 5 mg PO BID 30 Days #60 tab 11/24/20 [Rx] lisinopriL [Zestril] 10 mg PO BID 30 Days #60 cap 11/24/20 [Rx] Follow up Appointment(s)/Referral(s): Bacilio Forrest MD [STAFF PHYSICIAN] - 2 Weeks (office will call with appointment date and time) Tho Ruiz MD [REFERRING] - 1-2 Days Sonia Ron [NON-STAFF] - Patient Instructions/Handouts: *Surgery [facility] - After Heart Catheterization - Rn New Graduate Instructions, Heart Failure (DC) Activity/Diet/Wound Care/Special Instructions: [facility] - please send patient home with some wound care supplies to get him through for a few days until home care can see him Activity Limited until follow-up Follow-up with primary care provider upon discharge Cardiology outpatient Continue to elevate lower extremities and testicles while at rest Repeat labs in 2-3 days to monitor kidney functions Continue with home care in the outpatient setting Continue to follow fluid restriction of 1500 mL per day Continue with diabetic heart healthy diet Monitor blood sugars before meals and at bedtime and keep the diary for primary care follow-up Discharge Disposition: HOME WITH HOME HEALTH SERVICES
[2020-11-24 13:50] VITALS: BP 127/79; PULSE 55; TEMP 98.1
--- NOTE | 2020-11-24 14:04 | P.PN ---
Subjective This is a pleasant 65-year-old male past medical history significant for atrial fibrillation, coronary artery disease, type 2 diabetes, hyperlipidemia, hypertension, COPD, and current every day smoker(smokes one pack every 3 days). Patient states that he's been diagnosed with a heart murmur and had an ID in the 1970s. He denies ever having a cardiac catheterization or stent placement. He denies being told he has had heart failure, but has been told he had "weak heart muscle". He has been told about a cardioversion option in the past. He was being seen at [facility] and recently transitioned to the [facility]. 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 We have been asked to see in consultation for congestive heart failure. 2D Echo on 11/15/20 revealed EF 20-25%, moderate aortic stenosis, mild aortic regurgitation, moderate mitral regurtiation, moderate tricuspid regurgitation, severe pulmonary hypertension, 11/21/20: Patient underwent cardiac catheterization with Dr. Forrest. Cardiac Cath today revealed calcified coronary arteries, non-obstructive mild triple vessel coronary disease, moderately pulmonary hypertension. He continued to be in atrial tachycardia with 2:1 conduction. Old records from [place] in 06/2020 revealed severely impaired systolic function and was being evaluated to undergo cardiac catheterization. 11/22/20: Patient underwent successful MARSHALL cardioversion with Dr. Forrest. Patient is seen and examined in the chair, resting comfortably, in no acute distress. States he "feels woozy". This AM 0800 patient's BP 85/59 heart rate 70s. Patient given 250 mL normal saline bolus with improvement in blood pressure 91/54. 11/24/20: Patient seen and examined in the bedside chair, resting comfortably, in no acute distress. Patient states he is feeling well, no complaints. Patient is hypotensive, MAP maintained >65. Telemetry reviewed- patient continues to be in sinus rhythm HR 60s-70s, occassionally sinus bradycardia in 50s, but patient is asymptomatic. He is maintained on Eliquis 5mg BID, lipitor 20mg nightly, furosemide 40mg PO BID, lisinopril 10mg daily, metoprolol tartrate 100mg BID, sprionolactone 25mg daily. PHYSICAL EXAMINATION CONSTITUTIONAL: No apparent distress. HEENT: Head is normocephalic. Pupils are equal, round. Sclerae anicteric. Mucous membranes of the mouth are moist. no JVD No carotid bruit. CHEST EXAMINATION: Lungs clear to auscultation bilaterally. No chest wall te nderness is noted on palpation or with deep breathing. HEART EXAMINATION: Regular rate and rhythm, S1, S2 heard. systolic murmur heard at apex. no gallops or rub. ABDOMEN: Soft, nontender. Positive bowel sounds. EXTREMITIES: 2+ radial pulses, 1+ bilateral dorsipedal pulses, +1-2 bilateral lower extremity pitting edema- R > L . Right Radial cath site- clean dry, skin intact and open to air. SKIN: Non healing ulceration LLE saenz- with purulent/serosanguinous drainage open to air. NEUROLOGIC EXAMINATION: Patient is awake, alert and oriented x3. ASSESSMENT Acute on chronic Congestive Heart Failure - HFrEF- unclear etiology, Suspect tachycardia induced Venous Insufficiency Type 2 Diabetes Hyperlipidemia History of Hypertension- Hypotensive during this admission COPD Atrial Tachycardia with 2:1 conduction s/p MARSHALL cardioverison with successful conversion to sinus mechanism on 11/21/20 Coronary Artery Disease, mild nonobstructive triple-vessel disease PLAN -Ok to discharge from cardiology perspective. Would continue Lisinopril 10mg BID, metoprolol tartrate 100mg BID with patient not symptomatic and with MAP >65. Continue spironolactone 25mg daily, Amiodarone 200mg BID, Eliquis 5mg BID, Statin- Lipitor 20mg nightly, PO Lasix 40mg BID -Patient will follow up with Dr. Forrest outpatient. Objective - Vital Signs Vital signs: Vital Signs Temp 97.1 F L 11/24/20 08:00 Pulse 54 L 11/24/20 09:01 Resp 19 11/24/20 08:00 BP 95/55 11/24/20 08:00 Pulse Ox 94 L 11/24/20 08:00 Intake & Output 11/23/20 11/24/20 11/24/20 18:59 06:59 18:59 Intake Total 480 240 Output Total 300 Balance 480 -60 Weight 116.3 kg Intake: Oral 480 240 Output: Urine 300 Other: Voiding Method Toilet Toilet Toilet Urinal Urinal Urinal # Voids 1 5 - Labs CBC & Chem 7: 11/15/20 12:45 11/23/20 06:31 Labs: Abnormal Lab Results - Last 24 Hours (Table) 11/23/20 11/23/20 11/24/20 Range/Units 16:28 20:12 06:08 POC Glucose (mg/dL) 336 H 110 H 195 H (75-99) mg/dL 11/24/20 Range/Units 11:38 POC Glucose (mg/dL) 145 H (75-99) mg/dL Microbiology - Last 24 Hours (Table) 11/23/20 16:25 Gram Stain - Preliminary Leg - Left Wound Culture - Preliminary 11/23/20 16:25 Anaerobic Culture - Preliminary Leg - Left
[2020-11-24] MEDS: lisinopriL 10 MG TAB PO SCH (14:12)
== END 2020-11-24 14:34 | disposition home health service (06) | DRG 287 ==
LOC: EC 11:59 → 3SCARD 14:23
PROVIDERS: ADMIT Internal Medicine; ATTEND Internal Medicine
DX: I11.0 Hypertensive heart disease with heart failure (principal); L97.922 Non-pressure chronic ulcer of unspecified part of left lower leg with fat layer exposed; I47.1 Supraventricular tachycardia; I48.19 Other persistent atrial fibrillation; I48.92 Unspecified atrial flutter; I45.89 Other specified conduction disorders; I50.43 Acute on chronic combined systolic (congestive) and diastolic (congestive) heart failure; I70.0 Atherosclerosis of aorta; I87.2 Venous insufficiency (chronic) (peripheral); J44.9 Chronic obstructive pulmonary disease, unspecified; E11.622 Type 2 diabetes mellitus with other skin ulcer; E78.5 Hyperlipidemia, unspecified; E83.42 Hypomagnesemia; Z71.6 Tobacco abuse counseling; F17.210 Nicotine dependence, cigarettes, uncomplicated; H57.02 Anisocoria; Z20.822 Contact with and (suspected) exposure to COVID-19; I08.3 Combined rheumatic disorders of mitral, aortic and tricuspid valves; I25.10 Atherosclerotic heart disease of native coronary artery without angina pectoris; I25.2 Old myocardial infarction; I27.29 Other secondary pulmonary hypertension; I42.9 Cardiomyopathy, unspecified; Z99.81 Dependence on supplemental oxygen; I95.9 Hypotension, unspecified; M19.90 Unspecified osteoarthritis, unspecified site; N50.89 Other specified disorders of the male genital organs; Z79.01 Long term (current) use of anticoagulants; Z79.51 Long term (current) use of inhaled steroids; Z79.82 Long term (current) use of aspirin; Z79.84 Long term (current) use of oral hypoglycemic drugs; Z79.899 Other long term (current) drug therapy
CPT/HCPCS: 36415; 71046; 76870; 80048; 80053; 81001; 82810; 83036; 83735; 83880; 84439; 84443; 84484; 85018; 85025; 85610; 85730; 87070; 87075; 87205; 87635; 92960; 93005; 93306; 93312; 93320; 93325; 93460; 93975; 94640; 94760; 96365; 96366; 96372; 96375; 99285

== ENCOUNTER 2020-12-03 18:52 | Emergency (ER) | payer MEDICARE, OTHER ==
[2020-12-03 19:04] VITALS: RESP 18; TEMP 98.7
[2020-12-03] MEDS ORDERED: NITROGLYCERIN SL TABS 0.4 MG TAB SUBLINGUAL STA (19:48)
[2020-12-03 19:57] LABS: Anisocytosis Slight; Basophils # (A) 0.1 k/uL (0-0.2); Basophils % (A) 1 %; Eosinophils # (A) 0.1 k/uL (0-0.7); Eosinophils % (A) 1 %; HCT 41.7 % (39.0-53.0); HGB 13.6 gm/dL (13.0-17.5); Lymphocytes # (A) 2.3 k/uL (1.0-4.8); Lymphocytes % (A) 25 %; MCH 28.2 pg (25.0-35.0); MCHC 32.7 g/dL (31.0-37.0); MCV 86.4 fL (80.0-100.0); Mean Platelet Volume 7.7; Monocytes # (A) 0.6 k/uL (0-1.0); Monocytes % (A) 6 %; Neutrophils # (A) 6.1 k/uL (1.3-7.7); Neutrophils % (A) 66 %; Platelet Count 170 k/uL (150-450); RBC 4.83 m/uL (4.30-5.90); RDW 16.4 % (11.5-15.5); WBC 9.2 k/uL (3.8-10.6)
[2020-12-03 20:06] LABS: Potassium 4.2 mmol/L (3.5-5.1)
[2020-12-03 20:07] LABS: ALT 20 U/L (4-49); AST 26 U/L (17-59); African American GFR (CKD) >90 (>60 ml/min/1.73 sqM); Albumin 3.6 g/dL (3.5-5.0); Alkaline Phosphatase 90 U/L (38-126); Anion Gap 7 mmol/L; Blood Urea Nitrogen 12 mg/dL (9-20); Calcium 8.9 mg/dL (8.4-10.2); Carbon Dioxide 26 mmol/L (22-30); Chloride 106 mmol/L (98-107); Glucose 103 mg/dL (74-99); Magnesium 1.8 mg/dL (1.6-2.3); Non-African American GFR(CKD) >90 (>60 ml/min/1.73 sqM); Sodium 139 mmol/L (137-145); Total Bilirubin 0.8 mg/dL (0.2-1.3); Total Protein 6.6 g/dL (6.3-8.2)
--- NOTE | 2020-12-03 20:08 | XR ---
EXAMINATION TYPE: XR chest 2V DATE OF EXAM: 12/03/2020 COMPARISON: 11/15/2020 HISTORY: Chest pain TECHNIQUE: FINDINGS: Heart is enlarged. There is mild pulmonary vascular congestion. There is blunting of the co stophrenic angles and more on the right side. There are chest leads. Bony thorax is intact. IMPRESSION: Mild congestive heart failure. Chronic bilateral pleural effusions without change. Stable cardiomegaly.
--- NOTE | 2020-12-03 20:15 | ED ---
Chest Pain HPI - General Chief Complaint: Chest Pain Stated Complaint: Chest pain Time Seen by Provider: 12/03/20 19:33 Source: patient Mode of arrival: wheelchair Limitations: no limitations - History of Present Illness Initial Comments: Patient is a 65-year-old male, history of heart disease, recent cardioversion for A. fib, presenting to the emergency Department with complaints of chest pain and shortness of breath that started earlier this afternoon. Patient states initially his pain started in his left arm, stated it lasted about 15 minutes an d then subsided. Then patient returned about an hour ago along with shortness of breath so he decided to come in to the ER. He was recently discharged from this hospital after undergoing a cardioversion for A. fib. Patient states ever since then he has been short of breath with exertion, fatigue and just feels overall drained. Patient states he feels a little bit more short of breath than usual, he is supposed to be on 3 L of oxygen during the day. Patient states currently his chest pain is about 1/10. He denies any recent fever or chills, no belly pain, no nausea or vomiting. He denies any other complaints at this time. Upon arrival to the ER, his pulse is 51, 94% on room air, 98.8 temp, 161/83 BP. - Related Data Home Medications Medication Instructions Recorded Confirmed Albuterol Sulfate [Ventolin HFA] 2 puff INHALATION RT-QID PRN 10/07/20 11/15/20 Apixaban [Eliquis] 5 mg PO BID 10/07/20 11/15/20 Atorvastatin Calcium [Lipitor] 20 mg PO HS 10/07/20 11/15/20 Empagliflozin [Jardiance] 25 mg PO DAILY 10/07/20 11/15/20 metFORMIN HCL 1,000 mg PO BID 10/07/20 11/15/20 Previous Rx's Medication Instructions Recorded Budesonide-Formot 160-4.5 Mcg 2 puff INHALATION RT-BID #1 inhaler 10/10/20 [Symbicort 160-4.5 Mcg Inhaler] Furosemide [Lasix] 40 mg PO BID #0 10/10/20 Metoprolol Tartrate [Lopressor] 100 mg PO BID #60 tab 10/10/20 Amiodarone [Cordarone] 200 mg PO BID 30 Days #60 tab 11/24/20 HYDROcodone/APAP 5-325MG [[place] 1 each PO Q6HR PRN #10 tab 11/24/20 5-325] Spironolactone [Aldactone] 25 mg PO DAILY 30 Days #30 tab 11/24/20 glipiZIDE [Glucotrol] 5 mg PO BID 30 Days #60 tab 11/24/20 lisinopriL [Zestril] 10 mg PO BID 30 Days #60 cap 11/24/20 Allergies Allergy/AdvReac Type Severity Reaction Status Date / Time No Known Allergies Allergy Verified 12/03/20 19:04 Review of Systems ROS Statement: Those systems with pertinent positive or pertinent negative responses have been documented in the HPI. ROS Other: All systems not noted in ROS Statement are negative. EKG Findings - EKG Comments: EKG Findings:: Sinus bradycardia, nonspecific ST and T-wave abnormalities, no signs of acute ischemia. This is similar to a previous EKG on 11/22/2020. Ventricular rate 58, MA interval 172, QTC 464. Past Medical History Past Medical History: Atrial Fibrillation, Coronary Artery Disease (CAD), Diabetes Mellitus, Hyperlipidemia, Hypertension, Osteoarthritis (OA), Sleep Apnea/CPAP/BIPAP History of Any Multi-Drug Resistant Organisms: None Reported Past Surgical History: No Surgical Hx Reported Past Psychological History: No Psychological Hx Reported Smoking Status: Current every day smoker Past Alcohol Use History: None Reported Past Drug Use History: None Reported General Exam - General Exam Comments Initial Comments: GENERAL: Patient is well-developed and well-nourished. Patient is nontoxic and in no acute distress. HEAD: Atraumatic, normocephalic. EYES: Pupils equal round and reactive to light, extraocular movements intact, sclera anicteric, conjunctiva are normal. Eyelids were unremarkable. ENT: TMs normal, nares patent, oropharynx clear without exudates. Moist mucous membranes. NECK: Normal range of motion, supple without lymphadenopathy or JVD. LUNGS: Unlabored respirations. Breath sounds clear to auscultation bilaterally and equal. No wheezes rales or rhonchi. HEART: Regular rate and rhythm without murmurs, rubs or gallops. ABDOMEN: Soft, nontender, normoactive bowel sounds. No guarding, no rebound. No masses appreciated. : Deferred MUSCULOSKELETAL: Normal extremities with adequate strength and normal range of motion, no pitting or edema. No clubbing or cyanosis. NEUROLOGICAL: Patient is alert and oriented x 3. Motor and sensory are also intact. Cranial nerves II through XII grossly intact. Symmetrical smile. Normal speech, normal gait. PSYCH: Normal mood, normal affect. SKIN: Warm, Dry, normal turgor. Mild cellulitis of the left lower leg, this is chronic in nature per patient. Limitations: no limitations Course Vital Signs 12/03/20 12/03/20 12/03/20 19:00 21:33 22:45 Temperature 98.7 F Pulse Rate 51 L 59 L 61 Respiratory 18 18 18 Rate Blood Pressure 161/83 176/79 158/68 O2 Sat by Pulse 94 L 94 L 95 Oximetry Chest Pain [facility] Patient is a 65-year-old male with history of heart disease, recent cardioversion for A. fib, presenting for chest pain as been intermittent since this afternoon as well as increase in shortness of breath. He is supposed to be on 3 L of oxygen at home, he tries to keep it on. He has been fatigued, having does not since his discharge 2 weeks ago after the cardioversion. His heel shaver is Dr. Forrest. His vital signs are stable upon arrival. EKG shows no signs of an acute ischemia. Lab work reveals a normal white count, stable hemoglobin. D-dimer is elevated at 2.39, kidney function is stable, troponin is normal, BNP is 5600. CT chest and she'll reveals no evidence of PE, pleural effusions with pulmonary infiltrates and atelectasis without change. Patient's vital signs remained stable. Patient did have an increase in chest pain throughout his stay, did give him some morphine which did help. I discussed with patient I given his current symptoms I strongly recommended admission for cardiac consult. Patient states he just wants to go home and rest. He states he has a follow-up with his heel shaver in a few days. I discussed the risk of going home including , patient still is not wanting to stay in the hospital and wishes to go home. Patient will sign out AMA. I strongly urged patient to follow up with his heel shaver. Strict return parameters were discussed with the patient and he verbalized understanding. Case discussed with Dr. Esposito. Disposition Clinical Impression: Chest pain, Weakness, Dyspnea Disposition: Left Against Medical Advice Instructions (If sedation given, give patient instructions): Chest Pain (ED) Additional Instructions: Please return to the Emergency Department if symptoms worsen or any other concerns. Is patient prescribed a controlled substance at d/c from ED?: No Referrals: [facility],Clinic [Primary Care Provider] - 1-2 days
[2020-12-03 20:23] LABS: INR 1.2 (<1.2); Partial Thromboplastin Time 26.2 sec (22.0-30.0); Prothrombin Time 12.3 sec (9.0-12.0)
[2020-12-03 20:29] LABS: D-Dimer 2.39 mg/L FEU (<0.60)
[2020-12-03] MEDS ORDERED: MORPHINE SULFATE 2 MG/ML SYRINGE IVP ONE (21:20)
--- NOTE | 2020-12-03 21:22 | CT ---
EXAMINATION TYPE: CT chest angio for PE DATE OF EXAM: 12/03/2020 COMPARISON: 10/07/2020 HISTORY: Chest pain, dyspnea and elevated d-dimer. CT DLP: 829.6 mGycm Automated exposure control for dose reduction was used. CONTRAST: Performed with IV Contrast, patient injected with 100ml mL of Isovue 370. Images obtained from the thoracic inlet to the diaphragm with IV contrast and 3-D post processed imag es. There are bilateral pleural effusions and larger on the right side. Thoracic aorta is intact. There i s no aneurysm or dissection. There is normal contrast opacification of the pulmonary arteries. There are no filling defects. There is infiltrate and atelectasis right lower lobe. There is mild atelectas is left posterior lung base. There are a few bilateral bronchial lymph nodes that measure up to 1 cm. There are a few mediastinal lymph nodes that measure up to 1.5 cm. The bony thorax is intact. IMPRESSION: Pleural effusions with basilar pulmonary infiltrates and atelectasis without change. Mild mediastinal adenopathy. Mild bronchial adenopathy. Adenopathy unchanged. No evidence of pulmonary embolism.
[2020-12-03 22:56] VITALS: BP 158/68; PULSE 61
== END 2020-12-03 22:45 | disposition left against medical advice (07) ==
LOC: EC 18:52
DX: R53.1 Weakness (principal); R07.9 Chest pain, unspecified; R06.00 Dyspnea, unspecified; E11.9 Type 2 diabetes mellitus without complications; E78.5 Hyperlipidemia, unspecified; F17.200 Nicotine dependence, unspecified, uncomplicated; I11.0 Hypertensive heart disease with heart failure; I25.10 Atherosclerotic heart disease of native coronary artery without angina pectoris; I48.91 Unspecified atrial fibrillation; I50.9 Heart failure, unspecified; M19.90 Unspecified osteoarthritis, unspecified site; Z79.01 Long term (current) use of anticoagulants; Z79.51 Long term (current) use of inhaled steroids; Z79.84 Long term (current) use of oral hypoglycemic drugs
CPT/HCPCS: 36415; 93005; 85379; 83880; 80053; 83735; 84484; 85025; 85610; 85730; 71046; 71275; 99285; 96374; J2270; Q9967

== ENCOUNTER 2022-01-12 15:14 | Inpatient (IN) | payer OTHER, MEDICARE ==
[2022-01-12 15:22] LABS: Glucose,Whole Blood 305 mg/dL (75-99)
[2022-01-12] MEDS ORDERED: SODIUM CHLORIDE 0.9% 1,000 ML IV ONE ×2 (15:22→16:19)
[2022-01-12] MEDS ORDERED: AMIODARONE 360 MG in DEXTROSE 5% IN WATER 200 ML IV ONE ×2 (15:45)
[2022-01-12] MEDS ORDERED: DEXTROSE 5% IN WATER 100 ML with AMIODARONE 150 MG IV ONE (15:45)
[2022-01-12 15:47] LABS: Appearance,Urine Clear (Clear); Bacteria,Urine Rare /hpf; Bilirubin,Urine Negative (Negative); Blood,Urine Moderate (Negative); Color,Urine Yellow; Glucose,Urine (UA) 4+ (Negative); Leukocyte Esterase,Urine Negative (Negative); Mucus,Urine Moderate /hpf; Nitrite,Urine Negative (Negative); PH, Urine 5.5 (5.0-8.0); Protein,Urine 1+ (Negative); RBC,Urine 3 /hpf (0-5); Squamous Epithelial Cell,Urine 1 /hpf (0-4); Urobilinogen,Urine <2.0 mg/dL (<2.0); WBC,Urine 1 /hpf (0-5)
[2022-01-12 15:50] LABS: Specific Gravity,Urine 1.048 (1.001-1.035)
[2022-01-12 15:54] LABS: Ketones,Urine 4+ (Negative)
[2022-01-12 16:01] LABS: Basophils % (A) 0 %; Eosinophils % (A) 0 %; HCT 46.1 % (39.0-53.0); HGB 14.9 gm/dL (13.0-17.5); Lymphocytes # (A) 1.5 k/uL (1.0-4.8); Lymphocytes % (A) 7 %; MCH 29.4 pg (25.0-35.0); MCHC 32.2 g/dL (31.0-37.0); MCV 91.2 fL (80.0-100.0); Monocytes # (A) 0.8 k/uL (0-1.0); Monocytes % (A) 4 %; Neutrophils # (A) 18.1 k/uL (1.3-7.7); Neutrophils % (A) 87 %; Platelet Count 310 k/uL (150-450); RBC 5.05 m/uL (4.30-5.90); RDW 13.4 % (11.5-15.5); WBC 20.7 k/uL (3.8-10.6)
[2022-01-12 16:03] LABS: Amphetamine Screen,Urine Not Detected (NotDetected); Barbiturate Screen,Urine Not Detected (NotDetected); Benzodiazepines Screen,Urine Not Detected (NotDetected); Cocaine Screen,Urine Detected (NotDetected); Methadone Screen, Urine Not Detected (NotDetected); Opiate Screen,Urine Not Detected (NotDetected); Oxycodone Screen, Urine Not Detected (NotDetected); Phencyclidine Screen,Urine Not Detected (NotDetected); Tricyclic Antidepressant,Urine Not Detected (NotDetected); Urn Cannabinoid Scrn Not Detected (NotDetected)
[2022-01-12 16:10] LABS: ALT 46 U/L (4-49); AST 74 U/L (17-59); Acetaminophen <10.0 ug/mL; African American GFR (CKD) >90 (>60 ml/min/1.73 sqM); Albumin 3.4 g/dL (3.5-5.0); Alcohol <10 mg/dL; Alkaline Phosphatase 95 U/L (38-126); Blood Urea Nitrogen 33 mg/dL (9-20); Calcium 9.3 mg/dL (8.4-10.2); Carbon Dioxide 25 mmol/L (22-30); Glucose 319 mg/dL (74-99); INR 1.2 (<1.2); Non-African American GFR(CKD) >90 (>60 ml/min/1.73 sqM); Partial Thromboplastin Time 23.1 sec (22.0-30.0); Salicylate <1.0 mg/dL; Total Bilirubin 1.4 mg/dL (0.2-1.3); Total Protein 6.9 g/dL (6.3-8.2)
--- NOTE | 2022-01-12 16:22 | ED ---
Altered Mental Status HPI - General Chief Complaint: Altered Mental Status Stated Complaint: Unresponsive Time Seen by Provider: 01/12/22 15:14 Source: EMS Mode of arrival: EMS Limitations: altered mental status - History of Present Illness Initial Comments: 66-year-old male presents to the emergency Department minimally responsive. EMS provided the history and state that his family called EMS. They do live with him. They state that he had been altered for the past 3 days. EMS was unable to get any additional history as to his last known well. They did report that last week he had a fall. Unknown if there is head injury. EMS was sent to the house and assisted him in getting up. Patient was refusing to come to the hospital. EMS noted that he had a rapid heart rate of 160. He appeared have significant left-sided deficits. No history of stroke. He is a known diabetic. Unknown when he took his last medications. No known fevers. The remainder of the HPI is limited due to the patient's current status - Related Data Home Medications Medication Instructions Recorded Confirmed No Known Home Medications 01/12/22 01/12/22 Allergies Allergy/AdvReac Type Severity Reaction Status Date / Time No Known Allergies Allergy Verified 01/12/22 17:53 Review of Systems ROS Statement: Those systems with pertinent positive or pertinent negative responses have been documented in the HPI. ROS Other: All systems not noted in ROS Statement are negative. Past Medical History Past Medical History: Atrial Fibrillation, Coronary Artery Disease (CAD), Diabetes Mellitus, Hyperlipidemia, Hypertension, Osteoarthritis (OA), Sleep Apnea/CPAP/BIPAP History of Any Multi-Drug Resistant Organisms: None Reported Past Surgical History: No Surgical Hx Reported Past Psychological History: No Psychological Hx Reported Smoking Status: Current every day smoker Past Alcohol Use History: None Reported Past Drug Use History: None Reported - Past Family History Father Family Medical History: Diabetes Mellitus Additional Family Medical History / Comment(s): Father lost his leg to DM complications General Exam Limitations: altered mental status General appearance: lethargic, other (left heminelgect and hemiparesis) Head exam: Present: atraumatic, normocephalic, normal inspection ENT exam: Present: mucous membranes dry Neck exam: Present: normal inspection. Absent: tenderness, meningismus, lymphadenopathy Respiratory exam: Present: normal lung sounds bilaterally Cardiovascular Exam: Present: tachycardia, irregular rhythm GI/Abdominal exam: Present: soft Extremities exam: Absent: other (0/5 strength left upper and left lower extremity) Neurological exam: Present: altered, other (facial droop right. Follows both commands. significant dysarthria) Psychiatric exam: Present: flat affect Skin exam: Present: warm, dry, intact, normal color. Absent: rash Course Vital Signs 01/12/22 01/12/22 01/12/22 15:16 16:23 17:03 Temperature 98 F Pulse Rate 154 H 138 H 140 H Respiratory 22 23 22 Rate Blood Pressure 102/87 126/109 115/105 O2 Sat by Pulse 95 90 L 99 Oximetry 01/12/22 01/12/22 01/12/22 18:24 19:00 19:52 Temperature Pulse Rate 154 H 141 H 140 H Respiratory 24 24 24 Rate Blood Pressure 129/105 123/102 86/71 O2 Sat by Pulse 91 L 97 94 L Oximetry 01/12/22 01/12/22 20:00 20:35 Temperature Pulse Rate 138 H 141 H Respiratory 24 24 Rate Blood Pressure 107/94 108/90 O2 Sat by Pulse 96 98 Oximetry - Reevaluation(s) Reevaluation #1: Spoke with Dr. Irwin 01/12/22 16:22 Reevaluation #2: Dr. Irwin at bedside to evaluate patient 01/12/22 1645 Reevaluation #3: Spoke with Dr. Menendez. Spoke with ex-, only NOK listed. 01/12/22 17:05 Medical Decision Making - Medical Decision Making Upon arrival patient is placed into trauma 1. A thorough physical exam is performed. Patient does have a left kar-neglect and left-sided deficits with right facial droop. Last known well was 72 hours ago and therefore code stroke was not activated at this time. IV is established and laboratory studies are conducted. MT interval EKG demonstrates A. fib with a rapid ventricular rate. Review the patient's labs demonstrate that he is supposed to take amiodarone. Patient is placed on amiodarone drip. He is sent over for a CT of his head which demonstrates a right middle cerebral artery subacute infarct with some mass effect. Possible left posterior parietal subacute infarct. These results are communicated to me by the radiologist. I did call and speak with Dr. Irwin about the results. He does present to bedside to evaluate the patient. He does recommend rectal aspirin. I called and spoke with Dr. Menendez in regards to the patient. Imaging is reviewed by him. He recommends admission to our facility with neurology consultation. Patient is not TPA or craniectomy candidate at this time. I did review the patient's laboratory studies which demonstrate a white count of 20.7. Glucose high at 305. Troponin 0.102. UDS is positive for cocaine. Pharmacy staff is able to verify that the patient has not taken his medications in 3 months. Next of kin listed as the patient's ex-. She does present to the hospital and states that they still have a stable relationship. They have no children together, the patient's parents are . He does have siblings however the one brother is in fpc. No available additional family at this time. Ex- believes that the patient would not want to be on a ventilator however patient's is continued as a full code for now until additional family is able to be found. Patient is protecting his airway and therefore does not require intubation at this time. He is able to follow commands and has good strength on his right side. Patient is aware of the findings and will be admitted to the hospital for further neurology evaluation. I called and spoke with Dr. Phillip who admitted the patient and Dr. Irwin who will be the metalizer. - Lab Data Result diagrams: 01/14/22 07:42 01/14/22 07:42 Lab Results 01/12/22 01/12/22 01/12/22 Range/Units 15:20 15:28 15:28 WBC 20.7 H (3.8-10.6) k/uL RBC 5.05 (4.30-5.90) m/uL Hgb 14.9 (13.0-17.5) gm/dL Hct 46.1 (39.0-53.0) % MCV 91.2 (80.0-100.0) fL MCH 29.4 (25.0-35.0) pg MCHC 32.2 (31.0-37.0) g/dL RDW 13.4 (11.5-15.5) % Plt Count 310 (150-450) k/uL MPV 8.0 Neutrophils % 87 % Lymphocytes % 7 % Monocytes % 4 % Eosinophils % 0 % Basophils % 0 % Neutrophils # 18.1 H (1.3-7.7) k/uL Lymphocytes # 1.5 (1.0-4.8) k/uL Monocytes # 0.8 (0-1.0) k/uL Eosinophils # 0.0 (0-0.7) k/uL Basophils # 0.0 (0-0.2) k/uL PT 13.0 H (9.0-12.0) sec INR 1.2 H (<1.2) APTT 23.1 (22.0-30.0) sec Sodium (137-145) mmol/L Potassium (3.5-5.1) mmol/L Chloride (98-107) mmol/L Carbon Dioxide (22-30) mmol/L Anion Gap mmol/L BUN (9-20) mg/dL Creatinine (0.66-1.25) mg/dL Est GFR (CKD-EPI)AfAm (>60 ml/min/1.73 sqM) Est GFR (CKD-EPI)NonAf (>60 ml/min/1.73 sqM) Glucose (74-99) mg/dL POC Glucose (mg/dL) 305 H (75-99) mg/dL POC Glu Employee Communications Specialist ID [place] Calcium (8.4-10.2) mg/dL Total Bilirubin (0.2-1.3) mg/dL AST (17-59) U/L ALT (4-49) U/L Alkaline Phosphatase (38-126) U/L Ammonia (<30) umol/L Troponin I (0.000-0.034) ng/mL Total Protein (6.3-8.2) g/dL Albumin (3.5-5.0) g/dL TSH (0.465-4.680) mIU/L Free T4 (0.78-2.19) ng/dL Urine Color Urine Appearance (Clear) Urine pH (5.0-8.0) Ur Specific [place] (1.001-1.035) Urine Protein (Negative) Urine Glucose (UA) (Negative) Urine Ketones (Negative) Urine Blood (Negative) Urine Nitrite (Negative) Urine Bilirubin (Negative) Urine Urobilinogen (<2.0) mg/dL Ur Leukocyte Esterase (Negative) Urine RBC (0-5) /hpf Urine WBC (0-5) /hpf Ur Squamous Epith Cells (0-4) /hpf Urine Bacteria (None) /hpf Urine Mucus (None) /hpf Salicylates mg/dL Urine Opiates Screen (NotDetected) Ur Oxycodone Screen (NotDetected) Urine Methadone Screen (NotDetected) Ur Propoxyphene Screen (NotDetected) Acetaminophen ug/mL Ur Barbiturates Screen (NotDetected) U Tricyclic Antidepress (NotDetected) Ur Phencyclidine Scrn (NotDetected) Ur Amphetamines Screen (NotDetected) U Methamphetamines Scrn (NotDetected) U Benzodiazepines Scrn (NotDetected) Urine Cocaine Screen (NotDetected) U Marijuana (THC) Screen (NotDetected) Serum Alcohol mg/dL 01/12/22 01/12/22 01/12/22 Range/Units 15:28 15:28 15:28 WBC (3.8-10.6) k/uL RBC (4.30-5.90) m/uL Hgb (13.0-17.5) gm/dL Hct (39.0-53.0) % MCV (80.0-100.0) fL MCH (25.0-35.0) pg MCHC (31.0-37.0) g/dL RDW (11.5-15.5) % Plt Count (150-450) k/uL MPV Neutrophils % % Lymphocytes % % Monocytes % % Eosinophils % % Basophils % % Neutrophils # (1.3-7.7) k/uL Lymphocytes # (1.0-4.8) k/uL Monocytes # (0-1.0) k/uL Eosinophils # (0-0.7) k/uL Basophils # (0-0.2) k/uL PT (9.0-12.0) sec INR (<1.2) APTT (22.0-30.0) sec Sodium 141 (137-145) mmol/L Potassium 4.9 (3.5-5.1) mmol/L Chloride 106 (98-107) mmol/L Carbon Dioxide 25 (22-30) mmol/L Anion Gap 10 mmol/L BUN 33 H (9-20) mg/dL Creatinine 0.70 (0.66-1.25) mg/dL Est GFR (CKD-EPI)AfAm >90 (>60 ml/min/1.73 sqM) Est GFR (CKD-EPI)NonAf >90 (>60 ml/min/1.73 sqM) Glucose 319 H (74-99) mg/dL POC Glucose (mg/dL) (75-99) mg/dL POC Glu Employee Communications Specialist ID Calcium 9.3 (8.4-10.2) mg/dL Total Bilirubin 1.4 H (0.2-1.3) mg/dL AST 74 H (17-59) U/L ALT 46 (4-49) U/L Alkaline Phosphatase 95 (38-126) U/L Ammonia 13 (<30) umol/L Troponin I (0.000-0.034) ng/mL Total Protein 6.9 (6.3-8.2) g/dL Albumin 3.4 L (3.5-5.0) g/dL TSH <0.015 L (0.465-4.680) mIU/L Free T4 2.18 (0.78-2.19) ng/dL Urine Color Yellow Urine Appearance Clear (Clear) Urine pH 5.5 (5.0-8.0) Ur Specific [place] 1.048 H (1.001-1.035) Urine Protein 1+ H (Negative) Urine Glucose (UA) 4+ H (Negative) Urine Ketones 4+ H (Negative) Urine Blood Moderate H (Negative) Urine Nitrite Negative (Negative) Urine Bilirubin Negative (Negative) Urine Urobilinogen <2.0 (<2.0) mg/dL Ur Leukocyte Esterase Negative (Negative) Urine RBC 3 (0-5) /hpf Urine WBC 1 (0-5) /hpf Ur Squamous Epith Cells 1 (0-4) /hpf Urine Bacteria Rare H (None) /hpf Urine Mucus Moderate H (None) /hpf Salicylates <1.0 mg/dL Urine Opiates Screen Not Detected (NotDetected) Ur Oxycodone Screen Not Detected (NotDetected) Urine Methadone Screen Not Detected (NotDetected) Ur Propoxyphene Screen Not Detected (NotDetected) Acetaminophen <10.0 ug/mL Ur Barbiturates Screen Not Detected (NotDetected) U Tricyclic Antidepress Not Detected (NotDetected) Ur Phencyclidine Scrn Not Detected (NotDetected) Ur Amphetamines Screen Not Detected (NotDetected) U Methamphetamines Scrn Not Detected (NotDetected) U Benzodiazepines Scrn Not Detected (NotDetected) Urine Cocaine Screen Detected H (NotDetected) U Marijuana (THC) Screen Not Detected (NotDetected) Serum Alcohol <10 mg/dL 01/12/22 Range/Units 15:28 WBC (3.8-10.6) k/uL RBC (4.30-5.90) m/uL Hgb (13.0-17.5) gm/dL Hct (39.0-53.0) % MCV (80.0-100.0) fL MCH (25.0-35.0) pg MCHC (31.0-37.0) g/dL RDW (11.5-15.5) % Plt Count (150-450) k/uL MPV Neutrophils % % Lymphocytes % % Monocytes % % Eosinophils % % Basophils % % Neutrophils # (1.3-7.7) k/uL Lymphocytes # (1.0-4.8) k/uL Monocytes # (0-1.0) k/uL Eosinophils # (0-0.7) k/uL Basophils # (0-0.2) k/uL PT (9.0-12.0) sec INR (<1.2) APTT (22.0-30.0) sec Sodium (137-145) mmol/L Potassium (3.5-5.1) mmol/L Chloride (98-107) mmol/L Carbon Dioxide (22-30) mmol/L Anion Gap mmol/L BUN (9-20) mg/dL Creatinine (0.66-1.25) mg/dL Est GFR (CKD-EPI)AfAm (>60 ml/min/1.73 sqM) Est GFR (CKD-EPI)NonAf (>60 ml/min/1.73 sqM) Glucose (74-99) mg/dL POC Glucose (mg/dL) (75-99) mg/dL POC Glu Employee Communications Specialist ID Calcium (8.4-10.2) mg/dL Total Bilirubin (0.2-1.3) mg/dL AST (17-59) U/L ALT (4-49) U/L Alkaline Phosphatase (38-126) U/L Ammonia (<30) umol/L Troponin I 0.102 H* (0.000-0.034) ng/mL Total Protein (6.3-8.2) g/dL Albumin (3.5-5.0) g/dL TSH (0.465-4.680) mIU/L Free T4 (0.78-2.19) ng/dL Urine Color Urine Appearance (Clear) Urine pH (5.0-8.0) Ur Specific [place] (1.001-1.035) Urine Protein (Negative) Urine Glucose (UA) (Negative) Urine Ketones (Negative) Urine Blood (Negative) Urine Nitrite (Negative) Urine Bilirubin (Negative) Urine Urobilinogen (<2.0) mg/dL Ur Leukocyte Esterase (Negative) Urine RBC (0-5) /hpf Urine WBC (0-5) /hpf Ur Squamous Epith Cells (0-4) /hpf Urine Bacteria (None) /hpf Urine Mucus (None) /hpf Salicylates mg/dL Urine Opiates Screen (NotDetected) Ur Oxycodone Screen (NotDetected) Urine Methadone Screen (NotDetected) Ur Propoxyphene Screen (NotDetected) Acetaminophen ug/mL Ur Barbiturates Screen (NotDetected) U Tricyclic Antidepress (NotDetected) Ur Phencyclidine Scrn (NotDetected) Ur Amphetamines Screen (NotDetected) U Methamphetamines Scrn (NotDetected) U Benzodiazepines Scrn (NotDetected) Urine Cocaine Screen (NotDetected) U Marijuana (THC) Screen (NotDetected) Serum Alcohol mg/dL - EKG Data EKG Comments: EKG demonstrates A. fib with a rapid ventricular rate of 145. QRS 90. QTC of 373. Rate dependent ST depression Critical Care Time Critical Care Time: Yes Critical Care Time: 35 minutes for multiple consultations to neurology, neurosurgery, icu admission Disposition Clinical Impression: Acute encephalopathy, Atrial fibrillation with RVR, CVA (cerebral vascular accident), Hemiparesis, Leukocytosis, NSTEMI (non-ST elevated myocardial infarc tion), Cocaine use, Hyperglycemia Disposition: ADMITTED IP TO THIS [facility] Condition: Serious Is patient prescribed a controlled substance at d/c from ED?: No Decision to Admit Reason: Admit from EC Decision Date: 01/12/22 Decision Time: 18:11
--- NOTE | 2022-01-12 16:27 | CT ---
EXAMINATION TYPE: CT brain wo con DATE OF EXAM: 01/12/2022 COMPARISON: None HISTORY: Altered mental status CT DLP: 1107.4 mGycm Automated exposure control for dose reduction was used. Helical imaging through the brain. FINDINGS: Abnormal low attenuation, loss of dasilva-white differentiation present in the distribution of the right middle cerebral artery, there is mass effect on the right lateral ventricle, effacement of overlying sulci, low attenuation also present in the head of the caudate, difficult to exclude dense MCA sign. Cortical atrophy is present. There is no evident hemorrhage. 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 Calvarium is intact. Orbits show symmetric appearance. IMPRESSION: RIGHT MIDDLE CEREBRAL ARTERY SUBACUTE INFARCT WITH SOME MASS EFFECT, POSSIBLE LEFT POSTERIOR PARIETAL SUBACUTE INFARCT, CONSIDER EMBOLIC PHENOMENON. CHRONIC SMALL VESSEL ISCHEMIC CHANGES, CEREBROVASCULA R ACCIDENT DESCRIBED, PRELIMINARY REPORT COMMUNICATED TO DR. RAMAN by phone at the time of interpr etation
[2022-01-12 16:30] LABS: Anion Gap 10 mmol/L; Chloride 106 mmol/L (98-107); Potassium 4.9 mmol/L (3.5-5.1); Sodium 141 mmol/L (137-145)
--- NOTE | 2022-01-12 16:31 | XR ---
EXAMINATION TYPE: XR chest 2V DATE OF EXAM: 01/12/2022 COMPARISON: Chest x-ray 12/03/2020 HISTORY: Altered mental status TECHNIQUE: Frontal and lateral views of the chest are obtained. FINDINGS: The heart remains enlarged. There is improved aeration as compared to prior exam. No evide nt pneumothorax or pleural effusion. There are overlying leads. Patient is rotated. There may be some distal tracheal narrowing. There are coronary artery calcifications. IMPRESSION: There is improvement in aeration. Difficult to exclude tracheal narrowing. Rotated exam, suspect cardiomegaly.
[2022-01-12 17:20] LABS: T4, Free (Free Thyroxine) 2.18 ng/dL (0.78-2.19)
[2022-01-12] MEDS ORDERED: ASPIRIN 300 MG SUPP RECTAL STA (17:25)
--- NOTE | 2022-01-12 17:26 | CT ---
EXAMINATION TYPE: CT angio head neck CT DLP: 820.8 mGycm, Automated exposure control for dose reduction was used. DATE OF EXAM: 01/12/2022 5:06 PM COMPARISON: CT brain 2. CLINICAL INDICATION:Male, 66 years old with history of cva; TECHNIQUE: Axially acquired helical CT angiogram of the head and neck was obtained with contrast util izing 75 cc of Isovue-370 administered intravenously. Axial images are supplemented with 3D reconstru ctions which were post-processed at an independent workstation. NASCET criteria used. FINDINGS: CTA HEAD: No evidence of acute intracranial hemorrhage, mass effect, or midline shift. The ventricles, sulci, a nd cisterns are unremarkable. Redemonstration of right MCA territory infarct not significantly change d given differences in imaging technique. There is abrupt cut off of the right MCA M1 segment near/at its bifurcation best appreciated on serie s 405 image 21. Few other smaller likely distal branches are opacified. The visualized portions of the internal carotid arteries, anterior cerebral arteries, and posterior c erebral arteries are patent. The basilar and vertebral arteries are patent. CTA NECK: Right Carotid System: The common carotid artery and external carotid artery are patent. The carotid bifurcation demonstrate s calcified and noncalcified plaquing resulting in greater than greater than 90 % stenosis. The remai codie portions of the internal carotid artery demonstrate normal size without significant narrowing. Left Carotid System: The common carotid artery and external carotid artery are patent. The carotid bifurcation demonstrate s calcified and noncalcified plaquing resulting in greater than 90% stenosis and near occlusion. The remaining portions of the internal carotid artery demonstrate normal size without significant narrowi ng. Vertebral arteries are patent without evidence hemodynamically significant stenosis. There is a three-vessel aortic arch. The origins of the great vessels are patent. No evidence of hemo dynamically significant stenosis. There is a heterogenous appearing thyroid gland with multiple nodules. IMPRESSION: 1. Right MCA M1 segment abrupt cut off/filling defect from thrombus with associated right MCA territo ry infarct which is not significantly changed from prior CT brain. 2. Bilateral calcified and noncalcified plaquing at the carotid bifurcations resulting in greater 80% stenosis on the right and near occlusion on the left. 3. No evidence of dissection of the cervical internal carotid arteries or vertebral arteries. 4. Multinodular thyroid gland. Consider outpatient thyroid ultrasound if clinically warranted.
[2022-01-12] MEDS ORDERED: ATORVASTATIN 80 MG TAB PO STA (17:28)
--- NOTE | 2022-01-12 17:55 | P.CNNES ---
History of Present Illness Consult date: 01/12/22 Requesting physician: Latonya Alvarado Reason for Consult: stroke History of Present Illness: This is a 66-year-old gentleman with medical history of atrial fibrillation, coronary artery disease, diabetes mellitus, hypertension, hyperlipidemia, sleep apnea who presented emergency department on 01/12/2022 by EMS since the patient is minimally responsive. History is obtained from the ED team. Per the ED physician, the family notified the EMS that the patient has been altered for the last 3 days is seems she had a fall last week unknown if there is a head injury. Patient has been refusing to come to the hospital. Per the ED physician as well as the nurse is seems the patient has not filled up his the eliquis was for his atrial fibrillation (his pharmacy was contacted). During this hospital stay his urine drug screen was positive for cocaine. Per EMR patient supposed to be on was 5 mg 1 tablet twice a day, Lipitor 20 mg daily at bedtime. Also diabetic and blood pressure medication and it's reported that he supposed to be on amiodarone 200 mg 1 tablet twice a day. His CT of the head is reported as right middle cerebral artery subacute infarction was some mass effect, possible left posterior parietal subacute infarct, consider embolic phenomenon. Chronic small vessel ischemic changes at. As well as the patient has chronic inferior left occipital infarct with ex vacuo. Personally reviewed the CT of the head and I agree with the report by also felt that there could be the subacute over the left frontal as well as a small region. CT angiography of the head and neck was reported as right MCA M1 segment abrupt cutoff/filling defect from the thrombus with associated right MCA territory infarct which is not significant change from prior CT. Bilateral calcified and noncalcified plaque in at the carotid bifurcation resulting in greater than 80% stenosis in the right and near occlusion on the left. No evidence of dissection of the cervical internal carotid artery vertebral arteries. Multinodular thyroid gland. Patient did not receive IV PA since his last normal was at least 3 days out. And the risk outweigh the benefits of giving IV tpa. Other workup in the ED consisted of: Initial vital signs is a blood pressure of 102/87, heart rate of 154, respiratory of 22, temperature of 98.0 Fahrenheit axillary and pulse ox of 95% on 2 L of nasal cannula. Initial white blood cells 20.7 and it's the neutrophilic otherwise rest the rest of the CBC with differential is unremarkable The glucose on presentation is 319, AST of 74 ALT of 46, ammonia is 13. A TSH is less than the 0.015 but the free T4 is 2.18 Troponin is 0.102. Otherwise rest of chemistry panel is unremarkable. Urine drug changes positive for cocaine otherwise the rest is nondetected. The serum alcohol was less than 10. Review of Systems Review of system is limited by the prone positive and negative aspiration I Past Medical History Past Medical History: Atrial Fibrillation, Coronary Artery Disease (CAD), Diabetes Mellitus, Hyperlipidemia, Hypertension, Osteoarthritis (OA), Sleep Apnea/CPAP/BIPAP History of Any Multi-Drug Resistant Organisms: None Reported Past Surgical History: No Surgical Hx Reported Past Psychological History: No Psychological Hx Reported Smoking Status: Current every day smoker Past Alcohol Use History: None Reported Past Drug Use History: None Reported Medications and Allergies Home Medications Medication Instructions Recorded Confirmed Type No Known Home Medications 01/12/22 01/12/22 History Allergies Allergy/AdvReac Type Severity Reaction Status Date / Time No Known Allergies Allergy Verified 01/12/22 17:53 Physical Examination - Vital Signs Vital Signs: Vital Signs Temp Pulse Resp BP Pulse Ox 01/12/22 17:03 140 H 22 115/105 99 01/12/22 16:23 138 H 23 126/109 90 L 01/12/22 15:16 98 F 154 H 22 102/87 95 Intake and Output 01/12/22 01/12/22 01/12/22 06:59 14:59 22:59 Other: Weight 104.326 kg GENERAL: The patient is lying in bed and does not seem in acute distress. CHEST: The heart rate is regular rate rhythm. No murmurs to auscultation. LUNG: Clear to auscultation bilaterally no wheezing noted throughout. Not labored breathing. ABDOMEN/GI: Bowel sounds present in all 4 quadrants. No tenderness to palpation throughout. NEUROLOGICAL: Limited because of his condition. Higher mental function: The patient is drowsy but awakeable to voice. He is following simple commands. He is not vocalizing. Cranial nerves: The pupils are round (2mm), equal and reactive to light. Right gaze prefrence and does not cross midline. Left lower facial droop. Otherwise rest of cranial nerves could not be assessed. Motor: Gait is deferred. The strength is hard to assess individual muscle because of his condition. But moving the entire right better than left. Lifting the right above gravity. Is able to wiggle his toes on left foot but no movement appreciated. Decrease tone over the left. Normal bulk. Cerebellum: Unable to assess. Sensation: Unable to assess light touch. Reflexes (right/left): 1+ throughout. Plantars are mute bilaterally. Results - Laboratory Findings CBC and BMP: 01/12/22 15:28 01/12/22 15:28 Abnormal Lab Findings: Abnormal Labs 01/12/22 01/12/22 01/12/22 15:20 15:28 15:28 WBC 20.7 H Neutrophils # 18.1 H PT 13.0 H INR 1.2 H BUN Glucose POC Glucose (mg/dL) 305 H Total Bilirubin AST Troponin I Albumin TSH Ur Specific [place] Urine Protein Urine Glucose (UA) Urine Ketones Urine Blood Urine Bacteria Urine Mucus Urine Cocaine Screen 01/12/22 01/12/22 01/12/22 15:28 15: 15:28 WBC Neutrophils # PT INR BUN 33 H Glucose 319 H POC Glucose (mg/dL) Total Bilirubin 1.4 H AST 74 H Troponin I 0.102 H* Albumin 3.4 L TSH <0.015 L Ur Specific [place] 1.048 H Urine Protein 1+ H Urine Glucose (UA) 4+ H Urine Ketones 4+ H Urine Blood Moderate H Urine Bacteria Rare H Urine Mucus Moderate H Urine Cocaine Screen Detected H Assessment and Plan Assessment: Subacute ischemic stroke (over the right MCA predominately. Also reported as left parietal and I felt frontal). On examination has left sided weakness, right gaze preference, left facial droop. Last normal is at least 3 days ago. Etiology is embolic (has history of atrial fibrillation and seems non-compliant with medication) and in addition cocaine can induce stroke since can cause vasoconstriction. Right M1 occlusion Right carotid stenosis >80% per CTA and near occlusion on left. Atrial fibrillation and is suppose to be on Eliquis but per pharmacy has not filled up his medication for 3 months. History of old stroke over left occipital Positive for cocaine use Hypertension Hyperlipidemia Diabetes mellitus Sleep apnea Medication noncompliance Plan: I gave the patient aspirin 300 mg 1 time. If the patient is able to swallow then the will start the patient on the aspirin 325 and Plavix 75 mg daily. Loaded patient with Plavix 300mg once. I give the patient the loading dose of Lipitor 80 mg loading dose. We'll start the patient on the Lipitor 80 mg daily. Ordered 2-D echo, carotid duplex, lipid panel. I'll obtain a CT of the head repeat for tomorrow. Consulted vascular surgery team for the carotid stenosis Every 2 neuro- hour checks On cardiac monitoring PT OT and [employer] are consulted Avoid any hypotensive episode. Recommend patient to be in the ICU for close neurological monitoring We'll defer the rest of the medical management to the primary team For DVT flexes I started the patient on subcu heparin 5000 units every 12 hours. Patient condition is very guarded to critical. The plan discussed with the patient the ED physician and nurse. Thank you for consultation. Art Irwin M.D. Neuro-hospitalist Time with Patient: Greater than 30
[2022-01-12] MEDS ORDERED: NALOXONE 0.4 MG/ML 1 ML VIAL IV PRN (18:11)
[2022-01-12] MEDS: SODIUM CHLORIDE 0.9% 1,000 ML IV SCH (18:24)
[2022-01-12] MEDS ORDERED: CLOPIDOGREL 75 MG TAB PO STA (18:30)
[2022-01-12 20:46] LABS: Glucose,Whole Blood 270 mg/dL (75-99)
[2022-01-12] MEDS: HEPARIN SODIUM,PORCINE/PF 5,000 UNIT/0.5 ML SYRINGE SQ SCH (21:33)
[2022-01-12] MEDS ORDERED: AMIODARONE 450 MG in DEXTROSE 5% IN WATER 250 ML IV SCH ×2 (22:00)
[2022-01-12 23:31] LABS: Glucose,Whole Blood 289 mg/dL (75-99)
[2022-01-12 23:48] LABS: Chol/HDL Ratio 4.72 Ratio; LDL Cholesterol,Calculated 74.3 mg/dL (0.0-131.0)
[2022-01-13] MEDS ORDERED: INSULIN ASPART (NovoLOG) 100 UNIT/ML VIAL SQ SCH
[2022-01-13] MEDS: SODIUM CHLORIDE 0.9% 1,000 ML IV SCH ×5 (00:47→22:56)
--- NOTE | 2022-01-13 03:23 | P.HPIM ---
History of Present Illness H&P Date: 01/12/22 The patient is a 66-year-old male with a PMH of coronary artery disease, A. fib, severe systolic CHF with EF 20-25% on MARSHALL on 12/11, type II DM, hyperlipidemia, hypertension who was brought into the emergency room for altered mental status. The history was obtained from the ED physician in the chart as the patient was arousable but not answering any questions at the time of interview. As the ED p hysician, the patient's family had activated EMS and had reported to the EMS that the patient had been confused and sleeping over the past 2-3 days. The patient had reportedly had a fall at home without any known head injury. There were reports that the patient had reportedly not filled his Eliquis for his A. fib and had in general been noncompliant with his medications. The patient was also noted to have a significant left sided deficit by EMS. In the emergency room, he underwent an extensive evaluation with a head and neck CTA showing a right MCA infarct, no evidence of dissection, and bilateral carotid stenosis greater than 80% on the right and near occlusion on the left. CT brain had revealed the right MCA subacute infarct with some mass effect as well as a possible left posterior parietal subacute infarct suspected secondary to embolic phenomenon. Neurology was consulted and recommended Aspirin, Plavix, Lipitor, and further stroke evaluation. EKG had revealed A. fib with RVR 145 bpm with laboratory evaluation remarkable for troponin 0.102, urine toxicology positive for cocaine, and WBC count 20.7. Review of systems: Unable to obtain Physical examination: General: non toxic, no distress, appears at stated age, obese Derm: no unusual rashes/lesions no unusual ecchymoses, warm, dry Head: atraumatic, normocephalic, symmetric Eyes: EOMI, no lid lag, anicteric sclera, pupils equal round reactive to light ENT: Nose and ears atraumatic, no thrush, no pharyngeal erythema Neck: No thyromegaly, no cervical lymphadenopathy, trachea midline, supple Mouth: no lip lesion, mucus membranes moist Cardiovascular: Irregularly irregular, no murmur, positive posterior tibial pul se bilateral, no edema, capillary refill less than 2 seconds Lungs: Some scattered rhonchi, without wheezing or rales, no accessory muscle use Abdominal: soft, nontender to palpation, no guarding, no appreciable organomegaly, normal bowel sounds Ext: no gross muscle atrophy, no contractures, Neuro: Moving all extremities, awakens to tactile stimuli and makes eye contact, not answering any questions Assessment/plan Subacute MCA suspected embolic infarct with mass effect in patient noncompliant with anticoagulation for A. fib -Neurology recommendations appreciated -Continue with aspirin, Plavix, statin -Neurochecks -Echocardiogram -Vascular surgery consulted for carotid stenosis -PT and speech evaluations Afib with RVR -Amiodarone infusion -Cardiac monitoring -Cardiology consulted Chronic conditions: Coronary artery disease, A. fib, type II DM, hypertension, hyperlipidemia -Defer Eliquis anticoagulation to Cardioloy in setting of possible triple therapy -Insulin sliding scale and blood glucose monitoring -Continue with remaining home medications DVT prophylaxis -Eliquis The patient is admitted with an anticipated greater than 2 midnight stay for evaluation of Afib CODE STATUS: Full Code Discussed with: ROSENDO Anticipated discharge date: 01/[address]: [facility] Past Medical History Past Medical History: Atrial Fibrillation, Coronary Artery Disease (CAD), Diabetes Mellitus, Hyperlipidemia, Hypertension, Osteoarthritis (OA), Sleep Apnea/CPAP/BIPAP History of Any Multi-Drug Resistant Organisms: None Reported Past Surgical History: No Surgical Hx Reported Additional Past Surgical History / Comment(s): Ex- states Pt went for a "heart procedure a few years ago" but does not recall what was done Past Anesthesia/Blood Transfusion Reactions: No Reported Reaction Past Psychological History: No Psychological Hx Reported Smoking Status: Current every day smoker Past Alcohol Use History: None Reported Past Drug Use History: None Reported - Past Family History Father Family Medical History: Diabetes Mellitus Additional Family Medical History / Comment(s): Father lost his leg to DM complications Medications and Allergies Home Medications Medication Instructions Recorded Confirmed Type No Known Home Medications 01/12/22 01/12/22 History Allergies Allergy/AdvReac Type Severity Reaction Status Date / Time No Known Allergies Allergy Verified 01/12/22 17:53 Physical Exam Vitals: Vital Signs Temp Pulse Resp BP Pulse Ox 01/12/22 23:02 141 H 25 H 121/75 94 L 01/12/22 22:00 97.8 F 144 H 27 H 125/100 95 01/12/22 20:35 141 H 24 108/90 98 01/12/22 20:00 138 H 24 107/94 96 01/12/22 19:52 140 H 24 86/71 94 L 01/12/22 19:00 141 H 24 123/102 97 01/12/22 18:24 154 H 24 129/105 91 L 01/12/22 17:03 140 H 22 115/105 99 01/12/22 16:23 138 H 23 126/109 90 L 01/12/22 15:16 98 F 154 H 22 102/87 95 Intake and Output 01/12/22 01/12/22 01/13/22 14:59 22:59 06:59 Intake Total 130 130 Output Total 100 75 Balance 30 55 Intake: IV 130 130 0.9 130 130 Output: Urine 100 75 Other: Voiding Method Indwelling Catheter Indwelling Catheter Weight 107.6 kg Results CBC & Chem 7: 01/12/22 15:28 01/12/22 15:28 Labs: Abnormal Lab Results - Last 24 Hours (Table) 01/12/22 01/12/22 01/12/22 Range/Units 15:20 15:28 15:28 WBC 20.7 H (3.8-10.6) k/uL Neutrophils # 18.1 H (1.3-7.7) k/uL PT 13.0 H (9.0-12.0) sec INR 1.2 H (<1.2) BUN (9-20) mg/dL Glucose (74-99) mg/dL POC Glucose (mg/dL) 305 H (75-99) mg/dL Total Bilirubin (0.2-1.3) mg/dL AST (17-59) U/L Troponin I (0.000-0.034) ng/mL Albumin (3.5-5.0) g/dL TSH (0.465-4.680) mIU/L Ur Specific [place] (1.001-1.035) Urine Protein (Negative) Urine Glucose (UA) (Negative) Urine Ketones (Negative) Urine Blood (Negative) Urine Bacteria (None) /hpf Urine Mucus (None) /hpf Urine Cocaine Screen (NotDetected) 01/12/22 01/12/22 01/12/22 Range/Units 15:28 15:28 15:28 WBC (3.8-10.6) k/uL Neutrophils # (1.3-7.7) k/uL PT (9.0-12.0) sec INR (<1.2) BUN 33 H (9-20) mg/dL Glucose 319 H (74-99) mg/dL POC Glucose (mg/dL) (75-99) mg/dL Total Bilirubin 1.4 H (0.2-1.3) mg/dL AST 74 H (17-59) U/L Troponin I 0.102 H* (0.000-0.034) ng/mL Albumin 3.4 L (3.5-5.0) g/dL TSH <0.015 L (0.465-4.680) mIU/L Ur Specific [place] 1.048 H (1.001-1.035) Urine Protein 1+ H (Negative) Urine Glucose (UA) 4+ H (Negative) Urine Ketones 4+ H (Negative) Urine Blood Moderate H (Negative) Urine Bacteria Rare H (None) /hpf Urine Mucus Moderate H (None) /hpf Urine Cocaine Screen Detected H (NotDetected) 01/12/22 01/12/22 Range/Units 20:44 23:29 WBC (3.8-10.6) k/uL Neutrophils # (1.3-7.7) k/uL PT (9.0-12.0) sec INR (<1.2) BUN (9-20) mg/dL Glucose (74-99) mg/dL POC Glucose (mg/dL) 270 H 289 H (75-99) mg/dL Total Bilirubin (0.2-1.3) mg/dL AST (17-59) U/L Troponin I (0.000-0.034) ng/mL Albumin (3.5-5.0) g/dL TSH (0.465-4.680) mIU/L Ur Specific [place] (1.001-1.035) Urine Protein (Negative) Urine Glucose (UA) (Negative) Urine Ketones (Negative) Urine Blood (Negative) Urine Bacteria (None) /hpf Urine Mucus (None) /hpf Urine Cocaine Screen (NotDetected) Thrombosis Risk Factor Assmnt - Choose All That Apply Any of the Below Risk Factors Present?: Yes Each Factor Represents 1 point: Medical pt on bed rest, Obesity (BMI >25) Other Risk Factors: Yes Each Risk Factor Represents 2 Points: Age 61-74 years, Patient confined to bed Each Risk Factor Represents 5 Points: Stroke (< 1 month) Thrombosis Risk Factor Assessment Total Risk Factor Score: 11 Thrombosis Risk Factor Assessment Level: High Risk
[2022-01-13 06:39] LABS: Basophils # (A) 0.1 k/uL (0-0.2); Basophils % (A) 0 %; Eosinophils % (A) 0 %; HCT 48.8 % (39.0-53.0); HGB 15.1 gm/dL (13.0-17.5); Hypochromasia Slight; Lymphocytes # (A) 1.4 k/uL (1.0-4.8); Lymphocytes % (A) 6 %; MCH 29.3 pg (25.0-35.0); MCV 94.6 fL (80.0-100.0); Mean Platelet Volume 8.1; Monocytes # (A) 1.1 k/uL (0-1.0); Monocytes % (A) 5 %; Neutrophils # (A) 21.6 k/uL (1.3-7.7); Neutrophils % (A) 88 %; Platelet Count 270 k/uL (150-450); RBC 5.16 m/uL (4.30-5.90); WBC 24.4 k/uL (3.8-10.6)
[2022-01-13 06:41] LABS: Glucose,Whole Blood 211 mg/dL (75-99)
[2022-01-13] MEDS: INSULIN ASPART (NovoLOG) 100 UNIT/ML VIAL SQ SCH ×4 (06:47→20:11)
[2022-01-13 06:56] LABS: ALT 43 U/L (4-49); AST 61 U/L (17-59); African American GFR (CKD) >90 (>60 ml/min/1.73 sqM); Albumin 3.1 g/dL (3.5-5.0); Alkaline Phosphatase 84 U/L (38-126); Anion Gap 9 mmol/L; Blood Urea Nitrogen 28 mg/dL (9-20); Calcium 8.9 mg/dL (8.4-10.2); Carbon Dioxide 25 mmol/L (22-30); Chloride 113 mmol/L (98-107); Glucose 249 mg/dL (74-99); Non-African American GFR(CKD) >90 (>60 ml/min/1.73 sqM); Potassium 4.6 mmol/L (3.5-5.1); Sodium 147 mmol/L (137-145); Total Bilirubin 1.2 mg/dL (0.2-1.3); Total Protein 6.7 g/dL (6.3-8.2)
--- NOTE | 2022-01-13 07:50 | US ---
EXAMINATION TYPE: US carotid duplex BILAT DATE OF EXAM: 01/13/2022 COMPARISON: CTA 01/12/2022 CLINICAL HISTORY: carotid stenosis. stroke. ICU patient, unable to get history EXAM MEASUREMENTS: RIGHT: Peak Systolic Velocity (PSV) cm/sec ----- Right CCA: 17.4 ----- Right ICA: 0.0 ----- Right ECA: 139.2 ICA/CCA ratio: 0.0 RIGHT: End Diastole cm/sec ----- Right CCA: 0.0 ----- Right ICA: 0.0 ----- Right ECA: 9.1 LEFT: Peak Systolic Velocity (PSV) cm/sec ----- Left CCA: 43.3 ----- Left ICA: 122.1 ----- Left ECA: 106.0 ICA/CCA ratio: 2.8 LEFT: End Diastole cm/sec ----- Left CCA: 10.3 ----- Left ICA: 52.7 ----- Left ECA: 5.8 VERTEBRALS (direction of flow): Right Vertebral: Antegrade Left Vertebral: Antegrade Rhythm: Arrhythmia Severe plaque in bilateral bulbs. Unable to obtain flow in right ICA. Bilateral wall thickening. E levated right ECA velocity. Grayscale, color Doppler, spectral Doppler imaging performed of the carotid arteries. IMPRESSION: Right internal carotid artery occlusion. Cardiac arrhythmia is noted incidentally. Criteria for Assigning % of Stenosis / Diameter reduction (Estimation based on the indirect measurements of the internal carotid artery velocities (ICA PSV). 1. Normal (no stenosis)=ICA PSV < 125 cm/s: ratio < 2.0: ICA EDV<40 cm/s. 2. Less than 50% stenosis=ICA PSV < 125 cm/s: ratio < 2.0: ICA EDV<40 cm/s. 3. 50 to 69% stenosis=ICA PSV of 125 to 230 cm/s: ration 2.0 ? 4.0: ICA EDV 40-100 cm/s. 4. Greater than 70% stenosis to near occlusion= ICA PSV > 230 cm/s: ratio > 4.0: ICA EDV > 100 cm/s. 5. Near occlusion= ICA PSV velocities may be low or undetectable: variable ratio and ICA EDV. 6. Total occlusion=unable to detect flow.
[2022-01-13] MEDS ORDERED: ASPIRIN 325 MG TAB PO SCH (09:00)
[2022-01-13] MEDS: CLOPIDOGREL 75 MG TAB PO SCH (09:13)
[2022-01-13] MEDS: HEPARIN SODIUM,PORCINE/PF 5,000 UNIT/0.5 ML SYRINGE SQ SCH ×2 (09:14→20:11)
--- NOTE | 2022-01-13 09:46 | P.CNPUL ---
History of Present Illness Consult date: 01/13/22 Requesting physician: Marcela Freed Reason for consult: other (Critical care management) Chief complaint: Altered mental status History of present illness: This is a 66-year-old male patient with a history of atrial fibrillation, coronary artery disease, diabetes mellitus, hypertension, hyper lipidemia, chronic and ongoing tobacco dependence. He was brought into the emergency room yesterday after being found minimally responsive. Apparently had altered mental status for the past 3 days. EMS was sent to the house to assist getting him up after a fall. The patient was refusing to come to the hospital. EMS and noted a rapid heart rate of 160 and significant left-sided deficits. He was brought in for the same. Computed tomography scan of the brain revealed a right middle cerebral artery subacute infarct with some mass effect, possible left posterior parietal subacute infarct, consider embolic phenomenon. Chronic small vessel ischemic changes, CVA as described. CT angiogram revealed a right MCA M1 segment of breath cough/filling defect from thrombus with associated right MCA territory infarct. Bilateral calcification and noncalcified slight plaquing in the carotid bifurcations resulting in greater than 80% stenosis on the right and near occlusion on the left. Chest x-ray reveals cardiomegaly. No evidence of pneumothorax or pleural effusion. EKG revealed atrial fibrillation with a rapid ventricular response. Reticulocyte Dopplers revealed a right internal carotid artery occlusion. White count 24.4. Hemoglobin 815.1. Platelets 270. Sodium 147. Potassium 4.6. Chloride 113. BUN 28. Creatinine 0.59. Glucose 249. Troponin 0.10, 0.07. Echocardiogram pending. Urine drug screen positive for cocaine. The patient is seen today in consultation in the ICU. He is minimally responsive. He has significant left-sided weakness, right gaze preference, left facial droop. He is currently on partial rebreather mask at 35%. He remains in atrial fibrillation. He is currently on amiodarone at 0.5 mg/m. Review of Systems ROS unobtainable: due to mental status Past Medical History Past Medical History: Atrial Fibrillation, Coronary Artery Disease (CAD), Diabetes Mellitus, Hyperlipidemia, Hypertension, Osteoarthritis (OA), Sleep Apnea/CPAP/BIPAP History of Any Multi-Drug Resistant Organisms: None Reported Past Surgical History: No Surgical Hx Reported Additional Past Surgical History / Comment(s): Ex- states Pt went for a "heart procedure a few years ago" but does not recall what was done Past Anesthesia/Blood Transfusion Reactions: No Reported Reaction Past Psychological History: No Psychological Hx Reported Smoking Status: Current every day smoker Past Alcohol Use History: None Reported Past Drug Use History: None Reported - Past Family History Father Family Medical History: Diabetes Mellitus Additional Family Medical History / Comment(s): Father lost his leg to DM complications Medications and Allergies Home Medications Medication Instructions Recorded Confirmed Type No Known Home Medications 01/12/22 01/12/22 History Allergies Allergy/AdvReac Type Severity Reaction Status Date / Time No Known Allergies Allergy Verified 01/12/22 17:53 Physical Exam Vitals: Vital Signs Temp Pulse Resp BP Pulse Ox 01/13/22 09:00 138 H 28 H 126/90 92 L 01/13/22 08:00 99.2 F 158 H 29 H 118/84 91 L 01/13/22 07:00 145 H 27 H 118/84 93 L 01/13/22 06:00 98.4 F 133 H 25 H 158/92 92 L 01/13/22 05:00 147 H 28 H 131/96 94 L 01/13/22 04:00 97.6 F 133 H 28 H 112/92 96 01/13/22 03:00 129 H 26 H 115/93 93 L 01/13/22 02:00 130 H 25 H 141/99 92 L 01/13/22 01:00 146 H 27 H 139/81 91 L 01/13/22 00:23 94 L 01/13/22 00:01 97.9 F 137 H 24 121/75 94 L 01/12/22 23:02 141 H 25 H 121/75 94 L 01/12/22 22:00 97.8 F 144 H 27 H 125/100 95 01/12/22 20:35 141 H 24 108/90 98 01/12/22 20:00 138 H 24 107/94 96 01/12/22 19:52 140 H 24 86/71 94 L 01/12/22 19:00 141 H 24 123/102 97 01/12/22 18:24 154 H 24 129/105 91 L 01/12/22 17:03 140 H 22 115/105 99 01/12/22 16:23 138 H 23 126/109 90 L 01/12/22 15:16 98 F 154 H 22 102/87 95 Intake and Output 01/12/22 01/13/22 01/13/22 22:59 06:59 14:59 Intake Total 130 1170 293.2 Output Total 100 670 180 Balance 30 500 113.2 Intake: IV 130 1170 0.9 130 1170 Intake, IV Titration 293.2 Amount Amiodarone 450 mg In 33.2 Dextrose 5% in Water 250 ml @ 0.5 MG/MIN 16.667 mls/hr IV .Q15H [facility] Rx#: [id number] Sodium Chloride 0.9% 1, 260 000 ml @ 130 mls/hr IV . Q7H42M [facility] Rx#:[id number] Output: Urine 100 670 180 Other: Voiding Method Indwelling Catheter Indwelling Catheter Weight 107.6 kg 107.6 kg GENERAL EXAM: Arousable, drowsy 66-year-old male patient, on partial rebreather mask 35%, comfortable in no apparent distress. HEAD: Normocephalic. The left-sided lower facial droop. EYES: Normal reaction of pupils, equal size, 2 mm. Right gaze preference NOSE: Clear with pink turbinates. THROAT: No erythema or exudates. NECK: No masses, no JVD. CHEST: No chest wall deformity. LUNGS: Equal air entry with no crackles, wheeze, rhonchi or dullness. CVS: S1 and S2 normal with no audible murmur, regular rhythm. ABDOMEN: No hepatosplenomegaly, normal bowel sounds, no guarding or rigidity. SPINE: No scoliosis or deformity SKIN: No rashes CENTRAL NERVOUS SYSTEM: No focal deficits, tone is normal in all 4 extremities. EXTREMITIES: Left-sided weakness. There is no peripheral edema. No clubbing, no cyanosis. Peripheral pulses are intact. Results - Laboratory Findings CBC and BMP: 01/13/22 06:03 01/13/22 06:03 PT/INR, D-dimer PT 13.0 sec (9.0-12.0) H 01/12/22 15:28 INR 1.2 (<1.2) H 01/12/22 15:28 Abnormal lab findings: Abnormal Labs 01/12/22 01/12/22 01/12/22 15:20 15:28 15:28 WBC 20.7 H Neutrophils # 18.1 H Monocytes # PT 13.0 H INR 1.2 H Sodium Chloride BUN Creatinine Glucose POC Glucose (mg/dL) 305 H Total Bilirubin AST Troponin I Albumin HDL Cholesterol TSH Ur Specific [place] Urine Protein Urine Glucose (UA) Urine Ketones Urine Blood Urine Bacteria Urine Mucus Urine Cocaine Screen 01/12/22 01/12/22 01/12/22 15:28 15:28 15:28 WBC Neutrophils # Monocytes # PT INR Sodium Chloride BUN 33 H Creatinine Glucose 319 H POC Glucose (mg/dL) Total Bilirubin 1.4 H AST 74 H Troponin I 0.102 H* Albumin 3.4 L HDL Cholesterol TSH <0.015 L Ur Specific [place] 1.048 H Urine Protein 1+ H Urine Glucose (UA) 4+ H Urine Ketones 4+ H Urine Blood Moderate H Urine Bacteria Rare H Urine Mucus Moderate H Urine Cocaine Screen Detected H 01/12/22 01/12/22 01/12/22 18:38 20:44 23:29 WBC Neutrophils # Monocytes # PT INR Sodium Chloride BUN Creatinine Glucose POC Glucose (mg/dL) 270 H 289 H Total Bilirubin AST Troponin I Albumin HDL Cholesterol 26.90 L TSH Ur Specific [place] Urine Protein Urine Glucose (UA) Urine Ketones Urine Blood Urine Bacteria Urine Mucus Urine Cocaine Screen 01/12/22 01/13/22 01/13/22 23:53 06:03 06:03 WBC 24.4 H Neutrophils # 21.6 H Monocytes # 1.1 H PT INR Sodium 147 H Chloride 113 H BUN 28 H Creatinine 0.59 L Glucose 249 H POC Glucose (mg/dL) Total Bilirubin AST 61 H Troponin I 0.070 H* Albumin 3.1 L HDL Cholesterol TSH Ur Specific [place] Urine Protein Urine Glucose (UA) Urine Ketones Urine Blood Urine Bacteria Urine Mucus Urine Cocaine Screen 01/13/22 06:40 WBC Neutrophils # Monocytes # PT INR Sodium Chloride BUN Creatinine Glucose POC Glucose (mg/dL) 211 H Total Bilirubin AST Troponin I Albumin HDL Cholesterol TSH Ur Specific [place] Urine Protein Urine Glucose (UA) Urine Ketones Urine Blood Urine Bacteria Urine Mucus Urine Cocaine Screen - Diagnostic Findings Chest x-ray: image reviewed Assessment and Plan Assessment: 1 Acute subacute ischemic stroke involving the right MCA predominantly also some question of left parietal involvement. 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 Irwin spoke to the patient's ex- today No other family members numbers available He'll remain a full code May require intubation if unable to protect his airway Continue partial rebreather mask 35% O2 saturations in the 90s Cardiology consult for Fran baez RVR Vascular consult regarding carotid stenosis To be on Plavix, statin and aspirin if able to swallow We'll continue monitor closely here in the ICU We'll continue to follow and make further recommendations based on his clinical status I have personally seen and examined the patient, performed the documentation and the assessment and plan as written. Number of minutes spent on the visit: 20.
[2022-01-13] MEDS: DILTIAZEM 125 MG in SODIUM CHLORIDE 0.9% 100 ML IV SCH ×2 (09:53→16:26)
[2022-01-13] MEDS: ASPIRIN 300 MG SUPP RECTAL SCH (10:44)
--- NOTE | 2022-01-13 11:53 | P.CRDCN ---
History of Present Illness Consult date: 01/13/22 Consult reason: atrial fibrillation History of present illness: The patient is a 66-year-old male who previously followed with Dr. Forrest, who is currently admitted to the hospital with an acute CVA. The patient had been disoriented and confused over the course of 3 days prior to presenting to the hospital with left hemiparesis. He was found to have a subacute right MCA infarct, likely embolic, with some mass effect. He does have a history of EtOH and drug abuse, as well as noncompliance with his medication regimen. His local pharmacy was contacted today he had not been taking his Eliquis. CT of the brain shows subacute right MCA infarct with mass effect Chest x-ray shows coronary calcifications and cardiomegaly. No acute pulmonary disease EKG shows atrial fibrillation with RVR Telemetry since admission shows A. fib with RVR CT angiogram head and neck shows right MCA M1 segment occluded with thrombus with right MCA territory infarct Bilateral calcified plaquing of carotid bifurcations with greater than 80% stenosis on the right greater than 90% on the left REVIEW OF SYSTEMS: Limited due to mental status. Patient reports right shoulder and right leg pain. Denies difficulty breathing. PHYSICAL EXAMINATION: This 66year old male in moderate distress at the time of my examination. Appears agitated with labored breathing HEENT: Head is atraumatic, normocephalic. Conjunctivae are clear. Mucous membranes of the mouth are moist. Neck is supple. There is no jugular venous distention. CHEST EXAMINATION: Lungs are course to auscultation. No chest wall tenderness is noted on palpation. HEART EXAMINATION: Irrregular rate and rhythm. S1, S2 heard. unable to appreciate any murmurs or rubs with elevated heart rate. ABDOMEN: Soft. Bowel sounds are heard. No organomegaly noted. EXTREMITIES: +1 peripheral pulses with no evidence of peripheral edema and no calf tenderness noted. left-sided hemiparesis NEUROLOGIC EXAMINATION: Patient is confused. Alert and oriented 1 FINAL ASSESSMENT AND PLAN: Subacute MCA infarct, likely embolic A. fib with RVR, elevated heart rates, on Cardizem drip Coronary artery disease Hypertension Diabetes mellitus Dyslipidemia Medication noncompliance PLAN: Titrate Cardizem drip up to 15 mg per hour Anticoagulation to be determined by neurology based upon repeat neurological i ing Recommend palliative care with patient's multiple comorbid conditions and current clinical status Further recommendations will be based upon clinical course I am dictating on behalf of Dr Neel Chapman's history/physical and assessment/plan. Past Medical History Past Medical History: Atrial Fibrillation, Coronary Artery Disease (CAD), Diabetes Mellitus, Hyperlipidemia, Hypertension, Osteoarthritis (OA), Sleep Apnea/CPAP/BIPAP History of Any Multi-Drug Resistant Organisms: None Reported Past Surgical History: No Surgical Hx Reported Additional Past Surgical History / Comment(s): Ex- states Pt went for a "heart procedure a few years ago" but does not recall what was done Past Anesthesia/Blood Transfusion Reactions: No Reported Reaction Past Psychological History: No Psychological Hx Reported Smoking Status: Current every day smoker Past Alcohol Use History: None Reported Past Drug Use History: None Reported - Past Family History Father Family Medical History: Diabetes Mellitus Additional Family Medical History / Comment(s): Father lost his leg to DM c omplications Medications and Allergies Home Medications Medication Instructions Recorded Confirmed Type No Known Home Medications 01/12/22 01/12/22 History Allergies Allergy/AdvReac Type Severity Reaction Status Date / Time No Known Allergies Allergy Verified 01/12/22 17:53 Physical Exam Vitals: Vital Signs Temp Pulse Resp BP Pulse Ox 01/13/22 10:00 135 H 28 H 140/85 92 L 01/13/22 09:00 138 H 28 H 126/90 92 L 01/13/22 08:00 99.2 F 158 H 29 H 118/84 91 L 01/13/22 07:00 145 H 27 H 118/84 93 L 01/13/22 06:00 98.4 F 133 H 25 H 158/92 92 L 01/13/22 05:00 147 H 28 H 131/96 94 L 01/13/22 04:00 97.6 F 133 H 28 H 112/92 96 01/13/22 03:00 129 H 26 H 115/93 93 L 01/13/22 02:00 130 H 25 H 141/99 92 L 01/13/22 01:00 146 H 27 H 139/81 91 L 01/13/22 00:23 94 L 01/13/22 00:01 97.9 F 137 H 24 121/75 94 L 01/12/22 23:02 141 H 25 H 121/75 94 L 01/12/22 22:00 97.8 F 144 H 27 H 125/100 95 04/22/22 20:35 141 H 24 108/90 98 01/12/22 20:00 138 H 24 107/94 96 01/12/22 19:52 140 H 24 86/71 94 L 01/12/22 19:00 141 H 24 123/102 97 01/12/22 18:24 154 H 24 129/105 91 L 01/12/22 17:03 140 H 22 115/105 99 01/12/22 16:23 138 H 23 126/109 90 L 01/12/22 15:16 98 F 154 H 22 102/87 95 Intake and Output 01/12/22 01/13/22 01/13/22 22:59 06:59 14:59 Intake Total 130 1170 433.2 Output Total 100 670 250 Balance 30 500 183.2 Intake: IV 130 1170 0.9 130 1170 Intake, IV Titration 433.2 Amount Amiodarone 450 mg In 33.2 Dextrose 5% in Water 250 ml @ 0.5 MG/MIN 16.667 mls/hr IV .Q15H [facility] Rx#: [id number] Diltiazem 125 mg In 10 Sodium Chloride 0.9% 100 ml @ 10 MG/HR 10 mls/hr IV .[id number] [facility] Rx#: [id number] Sodium Chloride 0.9% 1, 390 000 ml @ 130 mls/hr IV . Q7H42M [facility] Rx#:[id number] Output: Urine 100 670 250 Other: Voiding Method Indwelling Catheter Indwelling Catheter Weight 107.6 kg 107.6 kg Results 01/13/22 06:03 01/13/22 06:03 Cardiac Enzymes 01/12/22 01/12/22 01/12/22 Range/Units 15:28 15:28 23:53 AST 74 H (17-59) U/L Troponin I 0.102 H* 0.070 H* (0.000-0.034) ng/mL 01/13/22 Range/Units 06:03 AST 61 H (17-59) U/L Troponin I (0.000-0.034) ng/mL Coagulation 01/12/22 Range/Units 15:28 PT 13.0 H (9.0-12.0) sec APTT 23.1 (22.0-30.0) sec Lipids 01/12/22 Range/Units 18:38 Triglycerides 129.00 (0.00-149.00) mg/dL Cholesterol 127.00 (0.00-200.00) mg/dL HDL Cholesterol 26.90 L (40.00-60.00) mg/dL Cholesterol/HDL Ratio 4.72 Ratio CBC 01/12/22 01/13/22 Range/Units 15:28 06:03 WBC 20.7 H 24.4 H (3.8-10.6) k/uL RBC 5.05 5.16 (4.30-5.90) m/uL Hgb 14.9 15.1 (13.0-17.5) gm/dL Hct 46.1 48.8 (39.0-53.0) % Plt Count 310 270 (150-450) k/uL Comprehensive Metabolic Panel 01/12/22 01/13/22 Range/Units 15:28 06:03 Sodium 141 147 H (137-145) mmol/L Potassium 4.9 4.6 (3.5-5.1) mmol/L Chloride 106 113 H (98-107) mmol/L Carbon Dioxide 25 25 (22-30) mmol/L BUN 33 H 28 H (9-20) mg/dL Creatinine 0.70 0.59 L (0.66-1.25) mg/dL Glucose 319 H 249 H (74-99) mg/dL Calcium 9.3 8.9 (8.4-10.2) mg/dL AST 74 H 61 H (17-59) U/L ALT 46 43 (4-49) U/L Alkaline Phosphatase 95 84 (38-126) U/L Total Protein 6.9 6.7 (6.3-8.2) g/dL Albumin 3.4 L 3.1 L (3.5-5.0) g/dL Current Medications Generic Name Dose Route Start Last Admin Trade Name Freq PRN Reason Stop Dose Admin Aspirin 300 mg 01/13/22 10:30 01/13/22 10:44 Aspirin 300 Mg Supp RECTAL 300 mg DAILY [facility] Administration Clopidogrel Bisulfate 75 mg 01/13/22 09:00 01/13/22 09:13 Clopidogrel 75 Mg Tab PO Not Given DAILY [facility] Heparin Sodium (Porcine) 5,000 unit 01/12/22 21:00 01/13/22 09:14 Heparin Sodium,Porcine/Pf 5,000 Unit/0.5 Ml Syringe SQ 5,000 unit Q12HR [facility] Administration Sodium Chloride 1,000 mls @ 130 mls/hr 01/12/22 16:30 01/13/22 04:00 Saline 0.9% IV 130 mls/hr .Q7H42M [facility] Administration Diltiazem HCl 125 mg/ Sodium 125 mls @ 10 mls/hr 01/13/22 10:00 01/13/22 09:53 Chloride IV 10 mg/hr .[id number] [facility] 10 mls/hr Administration 10 MG/HR Insulin Aspart 0 unit 01/13/22 07:30 01/13/22 06:47 Insulin Aspart (Novolog) 100 Unit/Ml Vial SQ 4 unit ACHS [facility] Administration Protocol Naloxone HCl 0.2 mg 01/12/22 18:11 Naloxone 0.4 Mg/Ml 1 Ml Vial IV Q2M PRN Opioid Reversal Intake and Output 01/12/22 01/13/22 01/13/22 22:59 06:59 14:59 Intake Total 130 1170 433.2 Output Total 100 670 250 Balance 30 500 183.2 Intake: IV 130 1170 0.9 130 1170 Intake, IV Titration 433.2 Amount Amiodarone 450 mg In 33.2 Dextrose 5% in Water 250 ml @ 0.5 MG/MIN 16.667 mls/hr IV .Q15H [facility] Rx#: [id number] Diltiazem 125 mg In 10 Sodium Chloride 0.9% 100 ml @ 10 MG/HR 10 mls/hr IV .[id number] [facility] Rx#: [id number] Sodium Chloride 0.9% 1, 390 000 ml @ 130 mls/hr IV . Q7H42M [facility] Rx#:[id number] Output: Urine 100 670 250 Other: Voiding Method Indwelling Catheter Indwelling Catheter Weight 107.6 kg 107.6 kg 01/13/22 06:03 01/13/22 06:03
[2022-01-13 11:55] LABS: Glucose,Whole Blood 193 mg/dL (75-99)
--- NOTE | 2022-01-13 14:24 | P.PN ---
Subjective Progress Note Date: 01/13/22 The patient is seen at bedside and per nurse he follows very few simple command and not verbalizing. He has failed his swallow test. Objective - Vital Signs Vital signs: Vital Signs Temp 99.2 F 01/13/22 08:00 Pulse 151 H 01/13/22 12:00 Resp 36 H 01/13/22 12:00 BP 142/111 01/13/22 12:00 Pulse Ox 90 L 01/13/22 12:00 Intake & Output 01/12/22 01/13/22 01/13/22 18:59 06:59 18:59 Intake Total 1300 713.2 Output Total 770 450 Balance 530 263.2 Weight 104.326 kg 107.6 kg 107.6 kg Intake: IV 1300 0.9 1300 Intake, IV Titration 713.2 Amount Amiodarone 450 mg In 33.2 Dextrose 5% in Water 250 ml @ 0.5 MG/MIN 16.667 mls/hr IV .Q15H SAMANTHA Rx#: [id number] Diltiazem 125 mg In 30 Sodium Chloride 0.9% 100 ml @ 10 MG/HR 10 mls/hr IV .[id number] SAMANTHA Rx#: [id number] Sodium Chloride 0.9% 1, 650 000 ml @ 130 mls/hr IV . Q7H42M SAMANTHA Rx#:[id number] Output: Urine 770 450 Other: Voiding Method Indwelling Catheter Indwelling Catheter - Exam GENERAL: The patient is lying in bed and does not seem in acute distress. NEUROLOGICAL: Limited because of his condition. Higher mental function: The patient is drowsy but awakeable to voice. He is following simple commands. He is not vocalizing. He is mute. Cranial nerves: The pupils are round (2mm), equal and reactive to light. Right gaze prefrence and does not cross midline. Left lower facial droop. Otherwise rest of cranial nerves could not be assessed. Motor: Gait is deferred. The strength is hard to assess individual muscle because of his condition. But moving the entire right side above gravity (upper > lower). Not moving left side. Decrease tone over the left. Normal bulk. Cerebellum: Unable to assess. Sensation: Unable to assess light touch. Reflexes (right/left): 1+ throughout. Plantars are mute bilaterally. NIH Stroke Scale Score: Level of consciousness 1 LOC questions 2 LOC commands 1 Best gaze 2 Visual gallardo 3 Facial palsy 2 Left motor arm 4 Right motor arm 0 Left motor leg 4 Right motor leg 0 Limb ataxia UA left Sensory 1 Best language 3 Dysarthria Unable to assess Extinction and inattention 1 Total NIHSS score: 25 WORK-UP: Lipid Panel: TG 129, Cholestrol 127, LDL 74 and HDL 26. TSH: <0.015 Free T4: 2.[address] of the head is reported as right middle cerebral artery subacute infarction was some mass effect, possible left posterior parietal subacute infarct, consider embolic phenomenon. Chronic small vessel ischemic changes at. As well as the patient has chronic inferior left occipital infarct with ex vacuo. Personally reviewed the CT of the head and I agree with the report by also felt that there could be the subacute over the left frontal as well as a small region. CT angiography of the head and neck was reported as right MCA M1 segment abrupt cutoff/filling defect from the thrombus with associated right MCA territory infarct which is not significant change from prior CT. Bilateral calcified and noncalcified plaque in at the carotid bifurcation resulting in greater than 80% stenosis in the right and near occlusion on the left. No evidence of dissection of the cervical internal carotid artery vertebral arteries. Multinodular thyroid gland. Carotid duplex: Is reported as right ICA occlusion. Cardiac arrhythmia is noted incidentally. - Labs CBC & Chem 7: 01/13/22 06:03 01/13/22 06:03 Labs: Abnormal Lab Results - Last 24 Hours (Table) 01/12/22 01/12/22 01/12/22 Range/Units 15:20 15:28 15:28 WBC 20.7 H (3.8-10.6) k/uL Neutrophils # 18.1 H (1.3-7.7) k/uL Monocytes # (0-1.0) k/uL PT 13.0 H (9.0-12.0) sec INR 1.2 H (<1.2) Sodium (137-145) mmol/L Chloride (98-107) mmol/L BUN (9-20) mg/dL Creatinine (0.66-1.25) mg/dL Glucose (74-99) mg/dL POC Glucose (mg/dL) 305 H (75-99) mg/dL Total Bilirubin (0.2-1.3) mg/dL AST (17-59) U/L Troponin I (0.000-0.034) ng/mL Albumin (3.5-5.0) g/dL HDL Cholesterol (40.00-60.00) mg/dL TSH (0.465-4.680) mIU/L Ur Specific [place] (1.001-1.035) Urine Protein (Negative) Urine Glucose (UA) (Negative) Urine Ketones (Negative) Urine Blood (Negative) Urine Bacteria (None) /hpf Urine Mucus (None) /hpf Urine Cocaine Screen (NotDetected) 01/12/22 01/12/22 01/12/22 Range/Units 15:28 15:28 15:28 WBC (3.8-10.6) k/uL Neutrophils # (1.3-7.7) k/uL Monocytes # (0-1.0) k/uL PT (9.0-12.0) sec INR (<1.2) Sodium (137-145) mmol/L Chloride (98-107) mmol/L BUN 33 H (9-20) mg/dL Creatinine (0.66-1.25) mg/dL Glucose 319 H (74-99) mg/dL POC Glucose (mg/dL) (75-99) mg/dL Total Bilirubin 1.4 H (0.2-1.3) mg/dL AST 74 H (17-59) U/L Troponin I 0.102 H* (0.000-0.034) ng/mL Albumin 3.4 L (3.5-5.0) g/dL HDL Cholesterol (40.00-60.00) mg/dL TSH <0.015 L (0.465-4.680) mIU/L Ur Specific [place] 1.048 H (1.001-1.035) Urine Protein 1+ H (Negative) Urine Glucose (UA) 4+ H (Negative) Urine Ketones 4+ H (Negative) Urine Blood Moderate H (Negative) Urine Bacteria Rare H (None) /hpf Urine Mucus Moderate H (None) /hpf Urine Cocaine Screen Detected H (NotDetected) 01/12/22 01/12/22 01/12/22 Range/Units 18:38 20:44 23:29 WBC (3.8-10.6) k/uL Neutrophils # (1.3-7.7) k/uL Monocytes # (0-1.0) k/uL PT (9.0-12.0) sec INR (<1.2) Sodium (137-145) mmol/L Chloride (98-107) mmol/L BUN (9-20) mg/dL Creatinine (0.66-1.25) mg/dL Glucose (74-99) mg/dL POC Glucose (mg/dL) 270 H 289 H (75-99) mg/dL Total Bilirubin (0.2-1.3) mg/dL AST (17-59) U/L Troponin I (0.000-0.034) ng/mL Albumin (3.5-5.0) g/dL HDL Cholesterol 26.90 L (40.00-60.00) mg/dL TSH (0.465-4.680) mIU/L Ur Specific [place] (1.001-1.035) Urine Protein (Negative) Urine Glucose (UA) (Negative) Urine Ketones (Negative) Urine Blood (Negative) Urine Bacteria (None) /hpf Urine Mucus (None) /hpf Urine Cocaine Screen (NotDetected) 01/12/22 01/13/22 01/13/22 Range/Units 23:53 06:03 06:03 WBC 24.4 H (3.8-10.6) k/uL Neutrophils # 21.6 H (1.3-7.7) k/uL Monocytes # 1.1 H (0-1.0) k/uL PT (9.0-12.0) sec INR (<1.2) Sodium 147 H (137-145) mmol/L Chloride 113 H (98-107) mmol/L BUN 28 H (9-20) mg/dL Creatinine 0.59 L (0.66-1.25) mg/dL Glucose 249 H (74-99) mg/dL POC Glucose (mg/dL) (75-99) mg/dL Total Bilirubin (0.2-1.3) mg/dL AST 61 H (17-59) U/L Troponin I 0.070 H* (0.000-0.034) ng/mL Albumin 3.1 L (3.5-5.0) g/dL HDL Cholesterol (40.00-60.00) mg/dL TSH (0.465-4.680) mIU/L Ur Specific [place] (1.001-1.035) Urine Protein (Negative) Urine Glucose (UA) (Negative) Urine Ketones (Negative) Urine Blood (Negative) Urine Bacteria (None) /hpf Urine Mucus (None) /hpf Urine Cocaine Screen (NotDetected) 01/13/22 01/13/22 Range/Units 06:40 11:54 WBC (3.8-10.6) k/uL Neutrophils # (1.3-7.7) k/uL Monocytes # (0-1.0) k/uL PT (9.0-12.0) sec INR (<1.2) Sodium (137-145) mmol/L Chloride (98-107) mmol/L BUN (9-20) mg/dL Creatinine (0.66-1.25) mg/dL Glucose (74-99) mg/dL POC Glucose (mg/dL) 211 H 193 H (75-99) mg/dL Total Bilirubin (0.2-1.3) mg/dL AST (17-59) U/L Troponin I (0.000-0.034) ng/mL Albumin (3.5-5.0) g/dL HDL Cholesterol (40.00-60.00) mg/dL TSH (0.465-4.680) mIU/L Ur Specific [place] (1.001-1.035) Urine Protein (Negative) Urine Glucose (UA) (Negative) Urine Ketones (Negative) Urine Blood (Negative) Urine Bacteria (None) /hpf Urine Mucus (None) /hpf Urine Cocaine Screen (NotDetected) Assessment and Plan Assessment: Subacute ischemic stroke (over the right MCA predominately. Also reported as left parietal and I felt frontal). On examination has left sided weakness, right gaze preference, left facial droop. Last normal is at least 3 days ago. Etiology is embolic (has history of atrial fibrillation and seems non-compliant with medication) and in addition cocaine can induce stroke since can cause vas oconstriction. Right M1 occlusion. No thrombectomy since outside window and risk outweigh benefit. Acute dysphagia due to above Right carotid stenosis >80% per CTA and near occlusion on left. But on carotid it is reported as Right ICA occlusion. Atrial fibrillation and is suppose to be on Eliquis but per pharmacy has not filled up his medication for 3 months. History of old stroke over left occipital Positive for cocaine use Hypertension Hyperlipidemia Diabetes mellitus Sleep apnea Medication noncompliance Plan: Because of his dysphagia will continue ASA 300mg rectally. Once able to swallow or NG/PEG tube can resume with ASA 325mg and Plavix 75mg daily and Lipitor 80mg qhs. Patient to have repeat CT head later today (around 5pm). If there is moderate to significant midline shift or compression then patient to receive IV Mannitol one dose and consider 3% hypertonic saline. Pending 2D echo. 2-D echo is pending. Consulted vascular surgery team for the carotid stenosis Every 2 neuro- hour checks On cardiac monitoring PT OT and HANDLE ASSEMBLER are consulted Avoid any hypotensive episode. Cardiology team is consulted by ICU team. We'll defer the rest of the medical management to the primary team For DVT prophylaxis: On subcu heparin 5000 units every 12 hours. Patient condition is critical. Prognosis appears poor. The plan discussed with the patient's ICU attending and nurse. Art Irwin M.D. Neuro-hospitalist Time with Patient: Less than 30
--- NOTE | 2022-01-13 14:27 | P.PN ---
Subjective Progress Note Date: 01/13/22 History of Present Illness H&P Date: 01/12/22 The patient is a 66-year-old male with a PMH of coronary artery disease, A. fib, severe systolic CHF with EF 20-25% on MARSHALL on 12/11, type II DM, hyperlipidemia, hypertension who was brought into the emergency room for altered mental status. The history was obtained from the ED physician in the chart as the patient was arousable but not answering any questions at the time of interview. As the ED physician, the patient's family had activated EMS and had reported to the EMS that the patient had been confused and sleeping over the past 2-3 days. The patient had reportedly had a fall at home without any known head injury. There were reports that the patient had reportedly not filled his Eliquis for his A. fib and had in general been noncompliant with his medications. The patient was also noted to have a significant left sided deficit by EMS. In the emergency room, he underwent an extensive evaluation with a head and neck CTA showing a right MCA infarct, no evidence of dissection, and bilateral carotid stenosis greater than 80% on the right and near occlusion on the left. CT brain had revealed the right MCA subacute infarct with some mass effect as well as a possible left posterior parietal subacute infarct suspected secondary to embolic phenomenon. Neurology was consulted and recommended Aspirin, Plavix, Lipitor, and further stroke evaluation. EKG had revealed A. fib with RVR 145 bpm with laboratory evaluation remarkable for troponin Interval history: Patient was examined at the bedside. He is lethargic and responds only by opening his eyes. Still and A. fib with RVR. He is currently on Ventimask satting 91%. Physical examination: General: Appears ill and older than her stated age. Patient is lethargic Derm: no unusual rashes/lesions no unusual ecchymoses, warm, dry Head: atraumatic, normocephalic, symmetric Eyes: EOMI, no lid lag, anicteric sclera, pupils equal round reactive to light ENT: Nose and ears atraumatic, no thrush, no pharyngeal erythema Neck: No thyromegaly, no cervical lymphadenopathy, trachea midline, supple Mouth: no lip lesion, mucus membranes moist Cardiovascular: Tachycardic, Irregularly irregular, no murmur, positive posterior tibial pulse bilateral, no edema, capillary refill less than 2 seconds Lungs: Some scattered rhonchi, without wheezing or rales, no accessory muscle use Abdominal: soft, nontender to palpation, no guarding, no appreciable organomegaly, normal bowel sounds Ext: no gross muscle atrophy, no contractures, Neuro: Unable to assess the patient secondary to his altered mental status. He is weak on the left-sided Assessment and plan: Subacute MCA suspected embolic infarct with mass effect in patient noncompliant with anticoagulation for A. fib -Neurology recommendations appreciated -Continue with aspirin, Plavix, statin -Neurochecks -Echocardiogram -Vascular surgery consulted for carotid stenosis -PT and speech evaluations Right carotid stenosis greater than 80% near-complete occlusion of the side Afib with RVR -Amiodarone infusion -Cardiac monitoring -Cardiology consulted Cocaine abuse Chronic medical condition: Coronary artery disease, A. fib, type II DM, hypertension, hyperlipidemia -Defer Eliquis anticoagulation to Cardioloy in setting of possible triple therapy -Insulin sliding scale and blood glucose monitoring DVT prophylaxis -Subcutaneous heparin CODE STATUS: Full Code Discussed with: RN Overall prognosis very poor. Objective - Vital Signs Vital signs: Vital Signs Temp 99.2 F 01/13/22 08:00 Pulse 163 H 01/13/22 14:00 Resp 29 H 01/13/22 14:00 BP 114/94 01/13/22 14:00 Pulse Ox 91 L 01/13/22 14:00 Intake & Output 01/12/22 01/13/22 01/13/22 18:59 06:59 18:59 Intake Total 1300 993.2 Output Total 770 525 Balance 530 468.2 Weight 104.326 kg 107.6 kg 107.6 kg Intake: IV 1300 0.9 1300 Intake, IV Titration 993.2 Amount Amiodarone 450 mg In 33.2 Dextrose 5% in Water 250 ml @ 0.5 MG/MIN 16.667 mls/hr IV .Q15H SAMANTHA Rx#: [id number] Diltiazem 125 mg In 50 Sodium Chloride 0.9% 100 ml @ 15 MG/HR 15 mls/hr IV .Q8H20M SAMANTHA Rx#: [id number] Sodium Chloride 0.9% 1, 910 000 ml @ 130 mls/hr IV . Q7H42M SAMANTHA Rx#:[id number] Output: Urine 770 525 Other: Voiding Method Indwelling Catheter Indwelling Catheter - Labs CBC & Chem 7: 01/13/22 06:03 01/13/22 06:03 Labs: Abnormal Lab Results - Last 24 Hours (Table) 01/12/22 01/12/22 01/12/22 Range/Units 15:20 15:28 15:28 WBC 20.7 H (3.8-10.6) k/uL Neutrophils # 18.1 H (1.3-7.7) k/uL Monocytes # (0-1.0) k/uL PT 13.0 H (9.0-12.0) sec INR 1.2 H (<1.2) Sodium (137-145) mmol/L Chloride (98-107) mmol/L BUN (9-20) mg/dL Creatinine (0.66-1.25) mg/dL Glucose (74-99) mg/dL POC Glucose (mg/dL) 305 H (75-99) mg/dL Total Bilirubin (0.2-1.3) mg/dL AST (17-59) U/L Troponin I (0.000-0.034) ng/mL Albumin (3.5-5.0) g/dL HDL Cholesterol (40.00-60.00) mg/dL TSH (0.465-4.680) mIU/L Ur Specific [place] (1.001-1.035) Urine Protein (Negative) Urine Glucose (UA) (Negative) Urine Ketones (Negative) Urine Blood (Negative) Urine Bacteria (None) /hpf Urine Mucus (None) /hpf Urine Cocaine Screen (NotDetected) 01/12/22 01/12/22 01/12/22 Range/Units 15:28 15:28 15:28 WBC (3.8-10.6) k/uL Neutrophils # (1.3-7.7) k/uL Monocytes # (0-1.0) k/uL PT (9.0-12.0) sec INR (<1.2) Sodium (137-145) mmol/L Chloride (98-107) mmol/L BUN 33 H (9-20) mg/dL Creatinine (0.66-1.25) mg/dL Glucose 319 H (74-99) mg/dL POC Glucose (mg/dL) (75-99) mg/dL Total Bilirubin 1.4 H (0.2-1.3) mg/dL AST 74 H (17-59) U/L Troponin I 0.102 H* (0.000-0.034) ng/mL Albumin 3.4 L (3.5-5.0) g/dL HDL Cholesterol (40.00-60.00) mg/dL TSH <0.015 L (0.465-4.680) mIU/L Ur Specific [place] 1.048 H (1.001-1.035) Urine Protein 1+ H (Negative) Urine Glucose (UA) 4+ H (Negative) Urine Ketones 4+ H (Negative) Urine Blood Moderate H (Negative) Urine Bacteria Rare H (None) /hpf Urine Mucus Moderate H (None) /hpf Urine Cocaine Screen Detected H (NotDetected) 01/12/22 01/12/22 01/12/22 Range/Units 18:38 20:44 23:29 WBC (3.8-10.6) k/uL Neutrophils # (1.3-7.7) k/uL Monocytes # (0-1.0) k/uL PT (9.0-12.0) sec INR (<1.2) Sodium (137-145) mmol/L Chloride (98-107) mmol/L BUN (9-20) mg/dL Creatinine (0.66-1.25) mg/dL Glucose (74-99) mg/dL POC Glucose (mg/dL) 270 H 289 H (75-99) mg/dL Total Bilirubin (0.2-1.3) mg/dL AST (17-59) U/L Troponin I (0.000-0.034) ng/mL Albumin (3.5-5.0) g/dL HDL Cholesterol 26.90 L (40.00-60.00) mg/dL TSH (0.465-4.680) mIU/L Ur Specific [place] (1.001-1.035) Urine Protein (Negative) Urine Glucose (UA) (Negative) Urine Ketones (Negative) Urine Blood (Negative) Urine Bacteria (None) /hpf Urine Mucus (None) /hpf Urine Cocaine Screen (NotDetected) 01/12/22 01/13/22 01/13/22 Range/Units 23:53 06:03 06:03 WBC 24.4 H (3.8-10.6) k/uL Neutrophils # 21.6 H (1.3-7.7) k/uL Monocytes # 1.1 H (0-1.0) k/uL PT (9.0-12.0) sec INR (<1.2) Sodium 147 H (137-145) mmol/L Chloride 113 H (98-107) mmol/L BUN 28 H (9-20) mg/dL Creatinine 0.59 L (0.66-1.25) mg/dL Glucose 249 H (74-99) mg/dL POC Glucose (mg/dL) (75-99) mg/dL Total Bilirubin (0.2-1.3) mg/dL AST 61 H (17-59) U/L Troponin I 0.070 H* (0.000-0.034) ng/mL Albumin 3.1 L (3.5-5.0) g/dL HDL Cholesterol (40.00-60.00) mg/dL TSH (0.465-4.680) mIU/L Ur Specific [place] (1.001-1.035) Urine Protein (Negative) Urine Glucose (UA) (Negative) Urine Ketones (Negative) Urine Blood (Negative) Urine Bacteria (None) /hpf Urine Mucus (None) /hpf Urine Cocaine Screen (NotDetected) 01/13/22 01/13/22 Range/Units 06:40 11:54 WBC (3.8-10.6) k/uL Neutrophils # (1.3-7.7) k/uL Monocytes # (0-1.0) k/uL PT (9.0-12.0) sec INR (<1.2) Sodium (137-145) mmol/L Chloride (98-107) mmol/L BUN (9-20) mg/dL Creatinine (0.66-1.25) mg/dL Glucose (74-99) mg/dL POC Glucose (mg/dL) 211 H 193 H (75-99) mg/dL Total Bilirubin (0.2-1.3) mg/dL AST (17-59) U/L Troponin I (0.000-0.034) ng/mL Albumin (3.5-5.0) g/dL HDL Cholesterol (40.00-60.00) mg/dL TSH (0.465-4.680) mIU/L Ur Specific [place] (1.001-1.035) Urine Protein (Negative) Urine Glucose (UA) (Negative) Urine Ketones (Negative) Urine Blood (Negative) Urine Bacteria (None) /hpf Urine Mucus (None) /hpf Urine Cocaine Screen (NotDetected)
[2022-01-13] MEDS ORDERED: DEXMEDETOMIDINE/0.9% NACL(PMX) 400 MCG in EMPTY BAG 1 BAG IV SCH (16:45)
[2022-01-13 17:31] LABS: Glucose,Whole Blood 217 mg/dL (75-99)
--- NOTE | 2022-01-13 18:17 | CT ---
EXAMINATION TYPE: CT brain wo con DATE OF EXAM: 01/13/2022 COMPARISON: 01/12/2022 HISTORY: ams CT DLP: 1350.4 mGycm Automated exposure control for dose reduction was used. There is large area of hypodensity involving the right cerebral hemisphere in the temporal lobe and e xtending into the parietal and posterior frontal lobes. There is effacement of the sulci. There is sl ight effacement of the right lateral ventricle. There is no evidence of intracranial hemorrhage. The calvarium is intact. There is evidence of old infarct in the medial left occipital lobe with hypodens ity measuring 3.5 x 2 cm. IMPRESSION: Large right hemisphere hypodensity and edema that could be subacute infarct with increasing mass effe ct compared to CT yesterday. No hemorrhage. There is low-density in the medial left occipital lobe co rtex consistent with old infarct with fluid density. Unchanged.
[2022-01-13 20:10] LABS: Glucose,Whole Blood 184 mg/dL (75-99)
[2022-01-13] MEDS ORDERED: ATORVASTATIN 80 MG TAB PO SCH (21:00)
[2022-01-13] MEDS ORDERED: propofoL 100 ML IV ONE (22:16)
--- NOTE | 2022-01-13 22:59 | XR ---
EXAMINATION TYPE: XR chest 1V portable DATE OF EXAM: 01/13/2022 COMPARISON: Yesterday HISTORY: Respiratory failure. TECHNIQUE: Single view FINDINGS: The endotracheal tube is 5 cm from the lauren. There is pulmonary interstitial and airspace edema in the lower lung gallardo. IMPRESSION: There are chest leads. Costophrenic angles are clear. Bony thorax is intact. IMPRESSION: There is some pulmonary interstitial and airspace edema which is the same or slightly worse than yest nitza.
[2022-01-13 23:56] LABS: ABG Base Excess 3.7 mmol/L; ABG HCO3 31 mmol/L (21-25); ABG Oxygen Saturation 99.3 % (94-97); ABG PCO2 68 mmHg (35-45); ABG PH 7.26 (7.35-7.45); ABG PO2 213 mmHg (83-108); ABG TCO2 33 mmol/L (19-24); Allen Test Performed? Yes
[2022-01-14 00:10] LABS: Glucose,Whole Blood 171 mg/dL (75-99)
[2022-01-14] MEDS: DILTIAZEM 125 MG in SODIUM CHLORIDE 0.9% 100 ML IV SCH ×4 (00:14→23:10)
[2022-01-14] MEDS: INSULIN ASPART (NovoLOG) 100 UNIT/ML VIAL SQ SCH ×5 (00:17→19:16)
[2022-01-14] MEDS: NOREPINEPHRINE 4 MG in SODIUM CHLORIDE 0.9% 250 ML IV SCH ×3 (02:05→16:06)
[2022-01-14 05:44] LABS: ABG Base Excess 3.8 mmol/L; ABG HCO3 30 mmol/L (21-25); ABG Oxygen Saturation 95.6 % (94-97); ABG PCO2 57 mmHg (35-45); ABG PH 7.33 (7.35-7.45); ABG PO2 82 mmHg (83-108); ABG TCO2 32 mmol/L (19-24); Allen Test Performed? Yes
[2022-01-14 05:49] LABS: Glucose,Whole Blood 195 mg/dL (75-99)
[2022-01-14] MEDS: ACETAMINOPHEN TAB 325 MG TAB PO PRN (05:55)
--- NOTE | 2022-01-14 07:05 | XR ---
EXAMINATION TYPE: XR chest 1V portable DATE OF EXAM: 01/14/2022 5:50 AM COMPARISON: Chest radiographs from 01/14/2023 TECHNIQUE: XR chest 1V portable Frontal view of the chest. CLINICAL INDICATION:Male, 66 years old with history of Tube placement; FINDINGS: Lungs/Pleura: Similar multifocal airspace opacities most pronounced in the right lower lung. No evide nce of pneumothorax or pleural effusion. Pulmonary vascularity: Unremarkable. Heart/mediastinum: Cardiomediastinal silhouette is enlarged and stable. Musculoskeletal: No acute osseous pathology. Lines/Tubes: Endotracheal tube with distal tip xx cm above the lauren Nasogastric tube with its distal tip and side-port projecting under the diaphragm. IMPRESSION: 1. Similar multifocal airspace opacities. 2. Stable support tubes.
--- NOTE | 2022-01-14 07:45 | P.GSCN ---
History of Present Illness Consult date: 01/14/22 Reason for Consult: Carotid stenosis. History of present illness: Patient is a 66-year-old male who presented to the emergency room on January 12. The patient lives at home with family. They reported a change in mental status. The patient apparently was refusing hospital care prior to this. He was found to be suffering left sided deficit. Apparently his symptoms have been ongoing for the 2-3 days prior to emergency room presentation. In the ER a computed tomography scan was performed demonstrating right middle cerebral artery occlusi on and associated ischemic changes. He was also found to have atrial fibrillation with rapid ventricular response. He did undergo CT angiogram which demonstrated severe bilateral carotid stenosis although the plaque was heavily calcified. Subsequently he did undergo carotid duplex imaging which d emonstrated findings consistent with a right ICA occlusion and by flow velocities no significant disease on the left. During the last 12 hours the patient became more somnolent and was apparently unable to protect his airway and the patient was subsequently intubated and remains intubated at this time. As such no direct history or physical examination of the patient is possible. Past Medical History Past Medical History: Atrial Fibrillation, Coronary Artery Disease (CAD), Diabetes Mellitus, Hyperlipidemia, Hypertension, Osteoarthritis (OA), Sleep Apnea/CPAP/BIPAP History of Any Multi-Drug Resistant Organisms: None Reported Past Surgical History: No Surgical Hx Reported Additional Past Surgical History / Comment(s): Ex- states Pt went for a "heart procedure a few years ago" but does not recall what was done Past Anesthesia/Blood Transfusion Reactions: No Reported Reaction Past Psychological History: No Psychological Hx Reported Smoking Status: Current every day smoker Past Alcohol Use History: None Reported Past Drug Use History: None Reported - Past Family History Father Family Medical History: Diabetes Mellitus Additional Family Medical History / Comment(s): Father lost his leg to DM complications Medications and Allergies Home Medications Medication Instructions Recorded Confirmed Type No Known Home Medications 01/12/22 01/12/22 History Allergies Allergy/AdvReac Type Severity Reaction Status Date / Time No Known Allergies Allergy Verified 01/12/22 17:53 Surgical - Exam Osteopathic Statement: *. No significant issues noted on an osteopathic structural exam other than those noted in the History and Physical/Consult. Vital Signs Temp Pulse Resp BP Pulse Ox 98 F 154 H 22 102/87 95 01/12/22 15:16 01/12/22 15:16 01/12/22 15:16 01/12/22 15:16 01/12/22 15:16 Patient is intubated and sedated. No useful history nor physical examination can be performed. Results - Labs 01/13/22 06:03 01/13/22 06:03 Abnormal Lab Results - Last 24 Hours (Table) 01/13/22 01/13/22 01/13/22 Range/Units 11:54 17:29 20:08 ABG pH (7.35-7.45) ABG pCO2 (35-45) mmHg ABG pO2 (83-108) mmHg ABG HCO3 (21-25) mmol/L ABG Total CO2 (19-24) mmol/L ABG O2 Saturation (94-97) % POC Glucose (mg/dL) 193 H 217 H 184 H (75-99) mg/dL 01/13/22 01/14/22 01/14/22 Range/Units 23:32 00:08 05:42 ABG pH 7.26 L 7.33 L (7.35-7.45) ABG pCO2 68 H 57 H (35-45) mmHg ABG pO2 213 H 82 L (83-108) mmHg ABG HCO3 31 H 30 H (21-25) mmol/L ABG Total CO2 33 H 32 H (19-24) mmol/L ABG O2 Saturation 99.3 H (94-97) % POC Glucose (mg/dL) 171 H (75-99) mg/dL 01/14/22 Range/Units 05:46 ABG pH (7.35-7.45) ABG pCO2 (35-45) mmHg ABG pO2 (83-108) mmHg ABG HCO3 (21-25) mmol/L ABG Total CO2 (19-24) mmol/L ABG O2 Saturation (94-97) % POC Glucose (mg/dL) 195 H (75-99) mg/dL Microbiology - Last 24 Hours (Table) 01/12/22 16:00 Blood Culture - Preliminary Blood No Growth after 24 hours 01/12/22 15:45 Blood Culture - Preliminary Blood No Growth after 24 hours - Imaging Additional studies: I personally reviewed the CTA and carotid duplex imaging studies. Assessment and Plan Assessment: #1: Severe bilateral carotid occlusive disease. The exact extent cannot be fully determined by the CTA and duplex studies as the plaque is extremely calcified although it appears the right ICA is occluded. #2: Recent downturn in overall medical condition requiring intubation. #3: History of atrial fibrillation with rapid ventricular response. #4: History of diabetes mellitus. Plan: Currently the patient is not a candidate for vascular intervention. Should the patient's overall medical condition improve we will be more than happy to reevaluate this patient. Time with Patient: Less than 30
[2022-01-14 08:07] LABS: Albumin 2.5 g/dL (3.5-5.0); Calcium 8.6 mg/dL (8.4-10.2); Magnesium 2.5 mg/dL (1.6-2.3); Potassium 4.6 mmol/L (3.5-5.1); Total Bilirubin 1.5 mg/dL (0.2-1.3); Total Protein 5.7 g/dL (6.3-8.2)
[2022-01-14 08:11] LABS: Basophils # (A) 0.1 k/uL (0-0.2); Basophils % (A) 0 %; Eosinophils % (A) 0 %; HCT 44.7 % (39.0-53.0); HGB 14.1 gm/dL (13.0-17.5); Hypochromasia Moderate; Lymphocytes # (A) 1.2 k/uL (1.0-4.8); Lymphocytes % (A) 4 %; MCH 30.7 pg (25.0-35.0); MCHC 31.6 g/dL (31.0-37.0); MCV 97.1 fL (80.0-100.0); Mean Platelet Volume 7.9; Monocytes # (A) 1.1 k/uL (0-1.0); Monocytes % (A) 4 %; Neutrophils # (A) 29.7 k/uL (1.3-7.7); Neutrophils % (A) 92 %; Platelet Count 236 k/uL (150-450); RBC 4.61 m/uL (4.30-5.90); RDW 13.7 % (11.5-15.5); WBC 32.4 k/uL (3.8-10.6)
[2022-01-14] MEDS: HEPARIN SODIUM,PORCINE/PF 5,000 UNIT/0.5 ML SYRINGE SQ SCH ×2 (09:08→20:15)
[2022-01-14] MEDS: CLOPIDOGREL 75 MG TAB PO SCH (09:08)
[2022-01-14] MEDS: CHLORHEXIDINE GLUCONATE 15 ML CUP MUCOUS MEM SCH ×2 (09:08→20:15)
[2022-01-14] MEDS ORDERED: DEXTROSE 5% IN WATER 1,000 ML IV ONE ×2 (09:16→19:00)
[2022-01-14] MEDS: ASPIRIN 300 MG SUPP RECTAL SCH (09:30)
[2022-01-14] MEDS ORDERED: CISATRACURIUM 2 MG/ML 5 ML VIAL IV ONE (10:34)
--- NOTE | 2022-01-14 11:15 | PCN ---
PROCEDURE NOTE PULMONARY/CRITICAL CARE PROGRESS NOTE: Placement of left subclavian triple-lumen catheter. PREOPERATIVE DIAGNOSIS: Administration of fluids and pressors. POSTOPERATIVE DIAGNOSIS: Administration of fluids and pressors. OPERATORS: 1. Dr. Irwin. 2. Dr. Beaulieu. PROCEDURE DESCRIPTION: There was informed consent and universal timeout was completed verifying correct patient, procedure, site, positioning, and implant(s) or special equipment if applicable. The patient was placed in a dependent position appropriate for triple-lumen catheter placement based on the vein to be cannulated. The patient's left shoulder was prepped and draped in sterile fashion. 1% Lidocaine was used to anesthetize the surrounding skin area. A triple-lumen 9F Cordis catheter was introduced into the left subclavian vein using Seldinger technique. The catheter was threaded smoothly over the guidewire and appropriate blood return was obtained. There was good blood return from all three ports. Each lumen of the catheter was evacuated of air and flushed with sterile saline. The catheter was then sutured in place to the skin and a sterile dressing applied by the nurse. Perfusion to the extremity distal to the point of catheter insertion was checked and found to be adequate. There was no immediate complication. MMODL / IJN: [id number] /
--- NOTE | 2022-01-14 11:15 | PCN ---
PROCEDURE NOTE PROCEDURE: Placement of right radial arterial line. OPERATORS: 1. Dr. Irwin. 2. Dr. Beaulieu. PREOPERATIVE DIAGNOSIS: Frequent blood draws and blood gas monitoring. POSTOPERATIVE DIAGNOSIS: Frequent blood draws and blood gas monitoring. PROCEDURE DESCRIPTION: There was informed consent and universal timeout was completed verifying correct patient, procedure, site, positioning, and implant(s) or special equipment if applicable. Arian's test was performed to ensure adequate perfusion. The patient's right wrist was prepped and draped in sterile fashion. 1% Lidocaine was used to anesthetize the area. An 18G Arrow arterial line was introduced into the right radial artery. The catheter was threaded over the guidewire and the needle was removed with appropriate pulsatile blood return. There was good blood return and waveform. Blood loss was minimal. The catheter was then sutured in place to the skin and a sterile dressing applied by the nurse. Perfusion to the extremity distal to the point of catheter insertion was checked and found to be adequate. The patient tolerated the procedure well and there were no immediate complications. MMODL / IJN: [id number] /
[2022-01-14 11:31] LABS: Glucose,Whole Blood 271 mg/dL (75-99)
--- NOTE | 2022-01-14 11:57 | P.PN ---
Subjective Progress Note Date: 01/14/22 This is a 66-year-old male patient with a history of atrial fibrillation, coronary artery disease, diabetes mellitus, hypertension, hyper lipidemia, chronic and ongoing tobacco dependence. He was brought into the emergency room yesterday after being found minimally responsive. Apparently had altered mental status for the past 3 days. EMS was sent to the house to assist getting him up after a fall. The patient was refusing to come to the hospital. EMS and noted a rapid heart rate of 160 and significant left-sided deficits. He was brought in for the same. Computed tomography scan of the brain revealed a right middle cerebral artery subacute infarct with some mass effect, possible left posterior parietal subacute infarct, consider embolic phenomenon. Chronic small vessel ischemic changes, CVA as described. CT angiogram revealed a right MCA M1 segment of breath cough/filling defect from thrombus with associated right MCA territory infarct. Bilateral calcification and noncalcified slight plaquing in the carotid bifurcations resulting in greater than 80% stenosis on the right and near occlusion on the left. Chest x-ray reveals cardiomegaly. No evidence of pneumothorax or pleural effusion. EKG revealed atrial fibrillation with a rapid ventricular response. Reticulocyte Dopplers revealed a right internal carotid artery occlusion. White count 24.4. Hemoglobin 815.1. Platelets 270. Sodium 147. Potassium 4.6. Chloride 113. BUN 28. Creatinine 0.59. Glucose 249. Troponin 0.10, 0.07. Echocardiogram pending. Urine drug screen positive for cocaine. The patient is seen today in consultation in the ICU. He is minimally responsive. He has significant left-sided weakness, right gaze preference, left facial droop. He is currently on partial rebreather mask at 35%. He remains in atrial fibrillation. He is currently on amiodarone at 0.5 mg/m. The patient is seen today 01/14/2022 in follow-up in the intensive care unit. He ended up continuing to deteriorate required intubation at approximately 10:30 last evening. He is currently on assist control mode at a rate of 26, tidal out of 450, FiO2 50% and a PEEP of 5. Morning blood gases revealed a PaO2 of 82, pCO2 57, pH 7.33. He remains in atrial fibrillation with a rapid ventricular response. He's on a Cardizem drip at 15 mg per hour. Sedated with propofol at 35 mcg/kg/m. He has normal saline running at 130 ML's per hour. He'll be initiated on vital AF at 10 MLS per hour. Chest x-ray continues to show multifocal airspace opacities more pronounced in the right lower lobe. No evidence of pneumothorax or pleural effusion. Endotracheal tube in position. Blood and sputum cultures are pending. White count 32.4. Hemoglobin 14.1. Platelets 236. Sodium 151. Potassium 4.6. Chloride 1:15. Bicarb 32. BUN 42. Creatinine 1.18. Glucose 248. AST 78. ALT 43. He is currently now 1.7 L positive balance. He is on heparin for DVT prophylaxis. The patient is febrile today with a temperature of 101.3. Suspected aspiration pneumonia. Zosyn was added. Objective - Vital Signs Vital signs: Vital Signs Temp 101.3 F H 01/14/22 08:00 Pulse 135 H 01/14/22 09:00 Resp 28 H 01/14/22 09:00 BP 93/66 01/14/22 09:00 Pulse Ox 93 L 01/14/22 09:00 Intake & Output 01/13/22 01/14/22 01/14/22 18:59 06:59 18:59 Intake Total 6625.749 8383.391 334.541 Output Total 730 960 75 Balance 841.000 849.391 259.541 Weight 107.6 kg 108.7 kg Intake: IV 1430 130 0.9 1430 130 Intake, IV Titration 1571.000 379.391 204.541 Amount Amiodarone 450 mg In 33.2 Dextrose 5% in Water 250 ml @ 0.5 MG/MIN 16.667 mls/hr IV .Q15H [facility] Rx#: [id number] Dexmedetomidine/0.9% NaCl 16.633 37.526 (Pmx) 400 mcg In Empty Bag 1 bag @ 0.4 MCG/KG/HR 10.76 mls/hr IV .Q9H18M [facility] Rx#:[id number] Diltiazem 125 mg In 91.167 137.459 104.541 Sodium Chloride 0.9% 100 ml @ 15 MG/HR 15 mls/hr IV .Q8H20M [facility] Rx#: [id number] Sodium Chloride 0.9% 1, 1430 130 000 ml @ 130 mls/hr IV . Q7H42M [facility] Rx#:[id number] propofoL 1,000 mg In 74.406 100 Empty Bag 1 bag @ 5 MCG/ KG/MIN 3.228 mls/hr IV . Q24H [facility]A Rx#:[id number] Output: Gastric Drainage 400 Urine 730 560 75 Other: Voiding Method Indwelling Catheter Indwelling Catheter - Exam GENERAL EXAM: Intubated, sedated 66-year-old male patient, on FiO2 of 50% and a PEEP of 5, comfortable in no apparent distress. HEAD: Normocephalic. EYES: Sluggish reaction of pupils, equal size. NOSE: Clear with pink turbinates. THROAT: Oral endotracheal and gastric tube secured in place. No erythema or exudates. NECK: No masses, no JVD. CHEST: No chest wall deformity. LUNGS: Equal air entry with bilateral rhonchi. CVS: S1 and S2 normal with no audible murmur, irregular rhythm. ABDOMEN: No hepatosplenomegaly, normal bowel sounds, no guarding or rigidity. SPINE: No scoliosis or deformity SKIN: No rashes CENTRAL NERVOUS SYSTEM: Sedated, tone is normal in all 4 extremities. EXTREMITIES: There is no peripheral edema. No clubbing, no cyanosis. Peripheral pulses are intact. - Labs CBC & Chem 7: 01/14/22 07:42 01/14/22 07:42 Labs: Abnormal Lab Results - Last 24 Hours (Table) 01/13/22 01/13/22 01/13/22 Range/Units 11:54 17:29 20:08 WBC (3.8-10.6) k/uL Neutrophils # (1.3-7.7) k/uL Monocytes # (0-1.0) k/uL ABG pH (7.35-7.45) ABG pCO2 (35-45) mmHg ABG pO2 (83-108) mmHg ABG HCO3 (21-25) mmol/L ABG Total CO2 (19-24) mmol/L ABG O2 Saturation (94-97) % Sodium (137-145) mmol/L Chloride (98-107) mmol/L Carbon Dioxide (22-30) mmol/L BUN (9-20) mg/dL Glucose (74-99) mg/dL POC Glucose (mg/dL) 193 H 217 H 184 H (75-99) mg/dL Magnesium (1.6-2.3) mg/dL Total Bilirubin (0.2-1.3) mg/dL AST (17-59) U/L Total Protein (6.3-8.2) g/dL Albumin (3.5-5.0) g/dL 01/13/22 01/14/22 01/14/22 Range/Units 23:32 00:08 05:42 WBC (3.8-10.6) k/uL Neutrophils # (1.3-7.7) k/uL Monocytes # (0-1.0) k/uL ABG pH 7.26 L 7.33 L (7.35-7.45) ABG pCO2 68 H 57 H (35-45) mmHg ABG pO2 213 H 82 L (83-108) mmHg ABG HCO3 31 H 30 H (21-25) mmol/L ABG Total CO2 33 H 32 H (19-24) mmol/L ABG O2 Saturation 99.3 H (94-97) % Sodium (137-145) mmol/L Chloride (98-107) mmol/L Carbon Dioxide (22-30) mmol/L BUN (9-20) mg/dL Glucose (74-99) mg/dL POC Glucose (mg/dL) 171 H (75-99) mg/dL Magnesium (1.6-2.3) mg/dL Total Bilirubin (0.2-1.3) mg/dL AST (17-59) U/L Total Protein (6.3-8.2) g/dL Albumin (3.5-5.0) g/dL 01/14/22 01/14/22 01/14/22 Range/Units 05:46 07:42 07:42 WBC 32.4 H (3.8-10.6) k/uL Neutrophils # 29.7 H (1.3-7.7) k/uL Monocytes # 1.1 H (0-1.0) k/uL ABG pH (7.35-7.45) ABG pCO2 (35-45) mmHg ABG pO2 (83-108) mmHg ABG HCO3 (21-25) mmol/L ABG Total CO2 (19-24) mmol/L ABG O2 Saturation (94-97) % Sodium 151 H (137-145) mmol/L Chloride 115 H (98-107) mmol/L Carbon Dioxide 32 H (22-30) mmol/L BUN 42 H (9-20) mg/dL Glucose 248 H (74-99) mg/dL POC Glucose (mg/dL) 195 H (75-99) mg/dL Magnesium 2.5 H (1.6-2.3) mg/dL Total Bilirubin 1.5 H (0.2-1.3) mg/dL AST 78 H (17-59) U/L Total Protein 5.7 L (6.3-8.2) g/dL Albumin 2.5 L (3.5-5.0) g/dL 01/14/22 Range/Units 11:29 WBC (3.8-10.6) k/uL Neutrophils # (1.3-7.7) k/uL Monocytes # (0-1.0) k/uL ABG pH (7.35-7.45) ABG pCO2 (35-45) mmHg ABG pO2 (83-108) mmHg ABG HCO3 (21-25) mmol/L ABG Total CO2 (19-24) mmol/L ABG O2 Saturation (94-97) % Sodium (137-145) mmol/L Chloride (98-107) mmol/L Carbon Dioxide (22-30) mmol/L BUN (9-20) mg/dL Glucose (74-99) mg/dL POC Glucose (mg/dL) 271 H (75-99) mg/dL Magnesium (1.6-2.3) mg/dL Total Bilirubin (0.2-1.3) mg/dL AST (17-59) U/L Total Protein (6.3-8.2) g/dL Albumin (3.5-5.0) g/dL Microbiology - Last 24 Hours (Table) 01/13/22 23:59 Sputum Culture - Preliminary Sputum 01/12/22 16:00 Blood Culture - Preliminary Blood No Growth after 24 hours 01/12/22 15:45 Blood Culture - Preliminary Blood No Growth after 24 hours Assessment and Plan Assessment: Acute subacute ischemic stroke involving the right MCA predominantly also some question of left parietal involvement. Morley to be secondary to new emboli from atrial fibrillation and possibly from cocaine. Follow-up computed tomography scan of the brain revealed a large right hemisphere hypodensity and edema that could be subacute infarct with increasing mass effect compared to previous CT. No hemorrhage. On 01/13/2022 at approximately 10:30 PM the patient required intubation and mechanical ventilation as he was unable to protect his airway. 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 Urine drug screen positive for cocaine Hypertension, history of Hyperlipidemia Diabetes mellitus Hyponatremia Leukocytosis Febrile illness with current temp 101.3 Plan: The patient was seen and evaluated Chest x-ray, ABGs and labs reviewed Discontinue normal saline and change to D5W at 100 ML's per hour Add DuoNeb inhalations every 4 hours Initiate tube feedings Obtain blood, sputum, urine cultures Obtain pro-calcitonin Add Zosyn Add free water 200 mL every 6 hours He'll remain a full code CT scan of the brain reviewed Neurology is on the case, consider mannitol drip We'll continue monitor closely here in the ICU Prognosis remains quite poor We'll continue to follow I have personally seen and examined the patient, performed the documentation and the assessment and plan as written. Number of minutes spent on the visit: 15.
--- NOTE | 2022-01-14 11:58 | P.PN ---
Subjective Progress Note Date: 01/14/22 This is Alessandro Monsalve NP, I'm dictating on behalf of Dr. Chapman's H&P and A&P. Patient was interviewed and examined. Patient is a 66-year-old male who initially presented with acute left hemiparesis and was found to have a subacute right MCA infarct with mass effect. Patient is now intubated. Patient initially was disoriented and confused, and has continued to demonstrate those patterns secondary to the infarct. History is heart rate was elevated, he was on Cardizem. Patient was noted to have in creasing respiratory distress, was subsequently intubated. Patient continues in atrial fibrillation on telemetry. GENERAL: Patient is intubated and sedated. NECK: Supple without JVD or thyromegaly. LUNGS: Breath sounds coarse to auscultation bilaterally. Respiration equal and unlabored. HEART: Accelerated rate and irregular rhythm without murmurs, rubs or gallops. S1 and S2 heard. EXTREMITIES: No edema. No clubbing or cyanosis. Peripheral pulses intact and strong. VITALS: Temp 101.3, pulse 129, respirations 29, blood pressure 104/85, O2 saturation 93% on mechanical ventilation TELEMETRY: Atrial fibrillation with rapid ventricular response LABS: White count 32.4, hemoglobin 14.1, platelets 236, sodium 151, potassium 4.6, B1 42, creatinine 1.18, calcium 2.5, IMPRESSION: Subacute MCA infarct, likely embolic A. fib with RVR, elevated heart rates, on Cardizem drip Coronary artery disease Hypertension Diabetes mellitus Dyslipidemia Medication noncompliance PLAN: Continue Cardizem at 15 mg per hour Recommend anticoagulation determined by neurology based on repeat imaging Recommend palliative care secondary to patient's multiple comorbid conditions, and current declining clinical status. We will sign off on this patient at this time. Please do not hesitate to reconsult us if further recommendations are needed. Objective - Vital Signs Vital signs: Vital Signs Temp 101.3 F H 01/14/22 08:00 Pulse 113 H 01/14/22 11:00 Resp 26 H 01/14/22 11:00 BP 120/63 01/14/22 11:00 Pulse Ox 92 L 01/14/22 11:00 Intake & Output 01/13/22 01/14/22 01/14/22 18:59 06:59 18:59 Intake Total 2836.960 9981.391 334.541 Output Total 730 960 75 Balance 841.000 849.391 259.541 Weight 107.6 kg 108.7 kg Intake: IV 1430 130 0.9 1430 130 Intake, IV Titration 1571.000 379.391 204.541 Amount Amiodarone 450 mg In 33.2 Dextrose 5% in Water 250 ml @ 0.5 MG/MIN 16.667 mls/hr IV .Q15H [facility] Rx#: [id number] Dexmedetomidine/0.9% NaCl 16.633 37.526 (Pmx) 400 mcg In Empty Bag 1 bag @ 0.4 MCG/KG/HR 10.76 mls/hr IV .Q9H18M [facility] Rx#:[id number] Diltiazem 125 mg In 91.167 137.459 104.541 Sodium Chloride 0.9% 100 ml @ 15 MG/HR 15 mls/hr IV .Q8H20M [facility] Rx#: [id number] Sodium Chloride 0.9% 1, 1430 130 000 ml @ 130 mls/hr IV . Q7H42M [facility] Rx#:[id number] propofoL 1,000 mg In 74.406 100 Empty Bag 1 bag @ 5 MCG/ KG/MIN 3.228 mls/hr IV . Q24H [facility] Rx#:[id number] Output: Gastric Drainage 400 Urine 730 560 75 Other: Voiding Method Indwelling Catheter Indwelling Catheter ABP, PAP, CO, CI - Last Documented Arterial Blood Pressure 104/56 - Labs CBC & Chem 7: 01/14/22 07:42 01/14/22 07:42 Labs: Abnormal Lab Results - Last 24 Hours (Table) 01/13/22 01/13/22 01/13/22 Range/Units 11:54 17:29 20:08 WBC (3.8-10.6) k/uL Neutrophils # (1.3-7.7) k/uL Monocytes # (0-1.0) k/uL ABG pH (7.35-7.45) ABG pCO2 (35-45) mmHg ABG pO2 (83-108) mmHg ABG HCO3 (21-25) mmol/L ABG Total CO2 (19-24) mmol/L ABG O2 Saturation (94-97) % Sodium (137-145) mmol/L Chloride (98-107) mmol/L Carbon Dioxide (22-30) mmol/L BUN (9-20) mg/dL Glucose (74-99) mg/dL POC Glucose (mg/dL) 193 H 217 H 184 H (75-99) mg/dL Magnesium (1.6-2.3) mg/dL Total Bilirubin (0.2-1.3) mg/dL AST (17-59) U/L Total Protein (6.3-8.2) g/dL Albumin (3.5-5.0) g/dL 01/13/22 01/14/22 01/14/22 Range/Units 23:32 00:08 05:42 WBC (3.8-10.6) k/uL Neutrophils # (1.3-7.7) k/uL Monocytes # (0-1.0) k/uL ABG pH 7.26 L 7.33 L (7.35-7.45) ABG pCO2 68 H 57 H (35-45) mmHg ABG pO2 213 H 82 L (83-108) mmHg ABG HCO3 31 H 30 H (21-25) mmol/L ABG Total CO2 33 H 32 H (19-24) mmol/L ABG O2 Saturation 99.3 H (94-97) % Sodium (137-145) mmol/L Chloride (98-107) mmol/L Carbon Dioxide (22-30) mmol/L BUN (9-20) mg/dL Glucose (74-99) mg/dL POC Glucose (mg/dL) 171 H (75-99) mg/dL Magnesium (1.6-2.3) mg/dL Total Bilirubin (0.2-1.3) mg/dL AST (17-59) U/L Total Protein (6.3-8.2) g/dL Albumin (3.5-5.0) g/dL 01/14/22 01/14/22 01/14/22 Range/Units 05:46 07:42 07:42 WBC 32.4 H (3.8-10.6) k/uL Neutrophils # 29.7 H (1.3-7.7) k/uL Monocytes # 1.1 H (0-1.0) k/uL ABG pH (7.35-7.45) ABG pCO2 (35-45) mmHg ABG pO2 (83-108) mmHg ABG HCO3 (21-25) mmol/L ABG Total CO2 (19-24) mmol/L ABG O2 Saturation (94-97) % Sodium 151 H (137-145) mmol/L Chloride 115 H (98-107) mmol/L Carbon Dioxide 32 H (22-30) mmol/L BUN 42 H (9-20) mg/dL Glucose 248 H (74-99) mg/dL POC Glucose (mg/dL) 195 H (75-99) mg/dL Magnesium 2.5 H (1.6-2.3) mg/dL Total Bilirubin 1.5 H (0.2-1.3) mg/dL AST 78 H (17-59) U/L Total Protein 5.7 L (6.3-8.2) g/dL Albumin 2.5 L (3.5-5.0) g/dL 01/14/22 Range/Units 11:29 WBC (3.8-10.6) k/uL Neutrophils # (1.3-7.7) k/uL Monocytes # (0-1.0) k/uL ABG pH (7.35-7.45) ABG pCO2 (35-45) mmHg ABG pO2 (83-108) mmHg ABG HCO3 (21-25) mmol/L ABG Total CO2 (19-24) mmol/L ABG O2 Saturation (94-97) % Sodium (137-145) mmol/L Chloride (98-107) mmol/L Carbon Dioxide (22-30) mmol/L BUN (9-20) mg/dL Glucose (74-99) mg/dL POC Glucose (mg/dL) 271 H (75-99) mg/dL Magnesium (1.6-2.3) mg/dL Total Bilirubin (0.2-1.3) mg/dL AST (17-59) U/L Total Protein (6.3-8.2) g/dL Albumin (3.5-5.0) g/dL Microbiology - Last 24 Hours (Table) 01/13/22 23:59 Sputum Culture - Preliminary Sputum 01/12/22 16:00 Blood Culture - Preliminary Blood No Growth after 24 hours 01/12/22 15:45 Blood Culture - Preliminary Blood No Growth after 24 hours
--- NOTE | 2022-01-14 12:07 | XR ---
EXAMINATION TYPE: XR chest 1V portable DATE OF EXAM: 01/14/2022 11:32 AM COMPARISON: Multiple radiographs, with the most recent on 01/14/2022 TECHNIQUE: XR chest 1V portable Frontal view of the chest. CLINICAL INDICATION:Male, 66 years old with history of S/P central line; FINDINGS: Lungs/Pleura: There is no evidence of pleural effusion, focal consolidation, or pneumothorax. Pulmonary vascularity: Unremarkable. Heart/mediastinum: Cardiomediastinal silhouette is enlarged and stable. Musculoskeletal: No acute osseous pathology. Lines/Tubes: Endotracheal tube with distal tip xx cm above the lauren Nasogastric tube with its distal tip and side-port projecting under the diaphragm. Interval placement of Left internal jugular central venous catheter with distal tip at the superior v luisa cava brachiocephalic vein junction. IMPRESSION: 1. Interval placement of left central venous catheter with tip in appropriate position. No evidence pneumothorax. 2. Similar multifocal airspace opacities given technique. 3. Endotracheal tube in stable position.
[2022-01-14] MEDS: IPRATROPIUM-ALBUTEROL 3 ML NEB INHALATION SCH ×4 (12:10→23:24)
--- NOTE | 2022-01-14 12:13 | CA ---
Transthoracic Echo Report Name: Luis Armando Santana Age: 66 Gender: M : 1955 Exam Date: 01/13/2022 08:02 Exam Location: [facility] Ht (in): 70 Wt (lb): 237 Ordering Physician: Art Irwin MD Attending/Referring Phys: Show Girl Inga Martinez RDCS Procedure CPT: Indications: stroke Cardiac Hx: Technical Quality: Fair Contrast 1: Total Dose (mL): Contrast 2: Total Dose (mL): MEASUREMENTS (Male / Female) Normal Values 2D ECHO LV Diastolic Diameter PLAX 4.7 cm 4.2 - 5.9 / 3.9 - 5.3 cm LV Systolic Diameter PLAX 4.4 cm IVS Diastolic Thickness 1.7 cm 0.6 - 1.0 / 0.6 - 0.9 cm LVPW Diastolic Thickness 1.7 cm 0.6 - 1.0 / 0.6 - 0.9 cm LV Relative Wall Thickness 0.7 RV Internal Dim ED PLAX 2.6 cm LA Volume 112.4 cm 18 - 58 / 22 - 52 cm DOPPLER AV Peak Velocity 371.2 cm/s AV Peak Gradient 55.1 mmHg AV Mean Velocity 306.9 cm/s AV Mean Gradient 41.6 mmHg AV Velocity Time Integral 61.3 cm TR Peak Velocity 389.8 cm/s TR Peak Gradient 60.8 mmHg Right Ventricular Systolic Press 63.8 mmHg FINDINGS Left Ventricle Severely increased septal wall thickness. Severely reduced global left ventricular systolic function. Left ventricular ejection fraction is estimated at 20 %. Patient is in A-fib with RVR. Right Ventricle Normal right ventricular size. Severe pulmonary hypertension. Right ventricular systolic pressure estimated at 64 mm hg. Right Atrium Mild right atrial dilatation. Left Atrium Severely increased left atrial volume. Mildly increased left atrial area. Mitral Valve Sjpzobfo-di-ibesri mitral regurgitation. Aortic Valve Pajredle-xg-qktlyf aortic stenosis with a peak gradient of 55 mmHg and a mean gradient of 42 mmHg. Tricuspid Valve Bwtohzds-nc-ssatcp tricuspid regurgitation. Pulmonic Valve Trace pulmonic regurgitation. Pericardium No pericardial effusion. Aorta Normal size aortic root and proximal ascending aorta. CONCLUSIONS Reduced LV systolic function Left ventricle hypertrophy Patient tachycardic, in atrial fibrillation Calcific aortic valve with reduced opening Previewed by: Dr. Neel Chapman MD (Electronically Signed) Final Date: 14 January 2022 12:12
--- NOTE | 2022-01-14 12:25 | P.PN ---
Subjective Progress Note Date: 01/14/22 The patient is seen at bedside and per his ICU nurse around 10:30pm yesterday patient was becoming apneic and had respiratory difficulties and as result was intubated and placed on ventilator. It seems that patient has no children and no family members except for his ex- . Patient is on IV Propofol 35mcg/kg/min. Objective - Vital Signs Vital signs: Vital Signs Temp 101.3 F H 01/14/22 08:00 Pulse 120 H 01/14/22 12:11 Resp 26 H 01/14/22 11:00 BP 120/63 01/14/22 11:00 Pulse Ox 92 L 01/14/22 11:00 Intake & Output 01/13/22 01/14/22 01/14/22 18:59 06:59 18:59 Intake Total 5068.626 8563.391 869.373 Output Total 730 960 335 Balance 841.000 849.391 534.373 Weight 107.6 kg 108.7 kg Intake: IV 1430 660 0.9 1430 260 Dextrose 5% in Water 1, 400 000 ml @ 100 mls/hr IV . Q10H [facility] Rx#:[id number] Intake, IV Titration 1571.000 379.391 209.373 Amount Amiodarone 450 mg In 33.2 Dextrose 5% in Water 250 ml @ 0.5 MG/MIN 16.667 mls/hr IV .Q15H [facility] Rx#: [id number] Dexmedetomidine/0.9% NaCl 16.633 37.526 (Pmx) 400 mcg In Empty Bag 1 bag @ 0.4 MCG/KG/HR 10.76 mls/hr IV .Q9H18M [facility] Rx#:[id number] Diltiazem 125 mg In 91.167 137.459 104.541 Sodium Chloride 0.9% 100 ml @ 15 MG/HR 15 mls/hr IV .Q8H20M [facility] Rx#: [id number] Norepinephrine 4 mg In 4.832 Sodium Chloride 0.9% 250 ml @ 0.05 MCG/KG/MIN 20. 707 mls/hr IV .[id number] [facility] Rx#:[id number] Sodium Chloride 0.9% 1, 1430 130 000 ml @ 130 mls/hr IV . Q7H42M [facility] Rx#:[id number] propofoL 1,000 mg In 74.406 100 Empty Bag 1 bag @ 5 MCG/ KG/MIN 3.228 mls/hr IV . Q24H [facility] Rx#:[id number] Output: Gastric Drainage 400 Urine 730 560 335 Other: Voiding Method Indwelling Catheter Indwelling Catheter ABP, PAP, CO, CI - Last Documented Arterial Blood Pressure 104/56 - Exam GENERAL: The patient is lying in bed and does not seem in acute distress. LUNG: Intubated on ventilator. NEUROLOGICAL: Limited because of his condition. IV Propofol 35mcg/kg/min. Higher mental function: The patient is comtaose. GCS 3 (E1, VT1, MI1). Not responding or following commands. Cranial nerves: I had to manually open his eye and primary gaze is midline. The pupils are round, constricted, (1-2mm), and hard to appreciated reactivity. Left lower facial droop. Has positive matt reflex and is breathing over the vent. Otherwise rest of cranial nerves could not be assessed. Motor: Gait is deferred. The strength is hard to assess because of his condition but not withdrawaling to any of extremities. No spontaneous movement noted. Normal bulk. Cerebellum: Unable to assess. Sensation: Unable to assess light touch. Reflexes (right/left): 1+ throughout. Plantars are mute bilaterally. NIH Stroke Scale Score: Level of consciousness 1 LOC questions 2 LOC commands 1 Best gaze 2 Visual gallardo 3 Facial palsy 2 Left motor arm 4 Right motor arm 0 Left motor leg 4 Right motor leg 0 Limb ataxia UA left Sensory 1 Best language 3 Dysarthria Unable to assess Extinction and inattention 1 Total NIHSS score: 25 WORK-UP: Lipid Panel: TG 129, Cholestrol 127, LDL 74 and HDL 26. TSH: <0.015 Free T4: 2.[address] of the head is reported as right middle cerebral artery subacute infarction was some mass effect, possible left posterior parietal subacute infarct, consider embolic phenomenon. Chronic small vessel ischemic changes at. As well as the patient has chronic inferior left occipital infarct with ex vacuo. Personally reviewed the CT of the head and I agree with the report by also felt that there could be the subacute over the left frontal as well as a small region. CT angiography of the head and neck was reported as right MCA M1 segment abrupt cutoff/filling defect from the thrombus with associated right MCA territory infarct which is not significant change from prior CT. Bilateral calcified and noncalcified plaque in at the carotid bifurcation resulting in greater than 80% stenosis in the right and near occlusion on the left. No evidence of dissection of the cervical internal carotid artery vertebral arteries. Multinodular thy roid gland. Carotid duplex: Is reported as right ICA occlusion. Cardiac arrhythmia is noted incidentally. Repeat CT head on 01/13/2022: It is reported as large right hemispheric hypodensity and edema that could be subacute infarct with increasing mass effect compared to the CT yesterday. No hemorrhage. There is low density in the medial left occipital lobe cortex consistent with old infarct with fluid density. Unchanged. I personally reviewed that a CT of the head and I don't feel that there is any significant midline shift. There is mass effect over the right lateral ventricle but I feel the patient's ventricles are still patent. I feel a third ventricle is somewhat constricted but it's still patent. 2D echo: Is reported as reduced LV systolic function (EF of 20%). L ventricle hypertrophy. Patient has tachycardia and in atrial fibrillation. Left atrial is increased severely by volume. Mildly increased left atrial area. Moderate to severe mitral regurgitation. - Labs CBC & Chem 7: 01/14/22 07:42 01/14/22 07:42 Labs: Abnormal Lab Results - Last 24 Hours (Table) 01/13/22 01/13/22 01/13/22 Range/Units 17:29 20:08 23:32 WBC (3.8-10.6) k/uL Neutrophils # (1.3-7.7) k/uL Monocytes # (0-1.0) k/uL ABG pH 7.26 L (7.35-7.45) ABG pCO2 68 H (35-45) mmHg ABG pO2 213 H (83-108) mmHg ABG HCO3 31 H (21-25) mmol/L ABG Total CO2 33 H (19-24) mmol/L ABG O2 Saturation 99.3 H (94-97) % Sodium (137-145) mmol/L Chloride (98-107) mmol/L Carbon Dioxide (22-30) mmol/L BUN (9-20) mg/dL Glucose (74-99) mg/dL POC Glucose (mg/dL) 217 H 184 H (75-99) mg/dL Magnesium (1.6-2.3) mg/dL Total Bilirubin (0.2-1.3) mg/dL AST (17-59) U/L Total Protein (6.3-8.2) g/dL Albumin (3.5-5.0) g/dL 01/14/22 01/14/22 01/14/22 Range/Units 00:08 05:42 05:46 WBC (3.8-10.6) k/uL Neutrophils # (1.3-7.7) k/uL Monocytes # (0-1.0) k/uL ABG pH 7.33 L (7.35-7.45) ABG pCO2 57 H (35-45) mmHg ABG pO2 82 L (83-108) mmHg ABG HCO3 30 H (21-25) mmol/L ABG Total CO2 32 H (19-24) mmol/L ABG O2 Saturation (94-97) % Sodium (137-145) mmol/L Chloride (98-107) mmol/L Carbon Dioxide (22-30) mmol/L BUN (9-20) mg/dL Glucose (74-99) mg/dL POC Glucose (mg/dL) 171 H 195 H (75-99) mg/dL Magnesium (1.6-2.3) mg/dL Total Bilirubin (0.2-1.3) mg/dL AST (17-59) U/L Total Protein (6.3-8.2) g/dL Albumin (3.5-5.0) g/dL 01/14/22 01/14/22 01/14/22 Range/Units 07:42 07:42 11:29 WBC 32.4 H (3.8-10.6) k/uL Neutrophils # 29.7 H (1.3-7.7) k/uL Monocytes # 1.1 H (0-1.0) k/uL ABG pH (7.35-7.45) ABG pCO2 (35-45) mmHg ABG pO2 (83-108) mmHg ABG HCO3 (21-25) mmol/L ABG Total CO2 (19-24) mmol/L ABG O2 Saturation (94-97) % Sodium 151 H (137-145) mmol/L Chloride 115 H (98-107) mmol/L Carbon Dioxide 32 H (22-30) mmol/L BUN 42 H (9-20) mg/dL Glucose 248 H (74-99) mg/dL POC Glucose (mg/dL) 271 H (75-99) mg/dL Magnesium 2.5 H (1.6-2.3) mg/dL Total Bilirubin 1.5 H (0.2-1.3) mg/dL AST 78 H (17-59) U/L Total Protein 5.7 L (6.3-8.2) g/dL Albumin 2.5 L (3.5-5.0) g/dL Microbiology - Last 24 Hours (Table) 01/13/22 23:59 Sputum Culture - Preliminary Sputum 01/12/22 16:00 Blood Culture - Preliminary Blood No Growth after 24 hours 01/12/22 15:45 Blood Culture - Preliminary Blood No Growth after 24 hours Assessment and Plan Assessment: Subacute ischemic stroke (over the right MCA predominately. Also reported as left parietal and I felt frontal). On examination has left sided weakness, right gaze preference, left facial droop. Last normal is at least 3 days ago. Etiology is embolic (has history of atrial fibrillation and seems non-compliant with medication) and in addition cocaine can induce stroke since can cause vasoconstriction. Right M1 occlusion. No thrombectomy since outside window and risk outweigh benefit. Cytotoxic edema due to above Respiratory distress due to above and that he required intubation and mechanical ventilation since unable to protect his airway Acute dysphagia due to above Right carotid stenosis >80% per CTA and near occlusion on left. But on carotid it is reported as Right ICA occlusion. Atrial fibrillation and is suppose to be on Eliquis but per pharmacy has not filled up his medication for 3 months. History of old stroke over left occipital Positive for cocaine use Hypertension Hyperlipidemia Diabetes mellitus Sleep apnea Medication noncompliance Plan: Because of his dysphagia will continue ASA 300mg rectally. Once able to swallow or NG/PEG tube can resume with ASA 325mg and Plavix 75mg daily and Lipitor 80mg qhs. Because of the cytotoxic edema I will order one time dose of mannitol. He does not need 3% hypertonic since there is no significant midline shift and the ventricles are still patent. Consulted vascular surgery team for the carotid stenosis. Regarding start of anticoagulation continue to hold for an additional about 7 days because of extent of stroke to avoid hemorrhagic transformation. Every 2 neuro- hour checks On cardiac monitoring PT OT and TITLE SPECIALIST are consulted Avoid any hypotensive episode. Cardiology team is consulted by ICU team. We'll defer the rest of the medical management to the primary team For DVT prophylaxis: On subcu heparin 5000 units every 12 hours. Patient condition is critical. Prognosis is poor. Patient has no children and no family members that we are able to locate. He has an ex-. The plan discussed with the patient's ICU nurse. Art Irwin M.D. Neuro-hospitalist Time with Patient: Less than 30
--- NOTE | 2022-01-14 13:57 | P.PN ---
Subjective History of Present Illness H&P Date: 01/12/22 The patient is a 66-year-old male with a PMH of coronary artery disease, A. fib, severe systolic CHF with EF 20-25% on [facility]SH[place] on 12/11, type II DM, hyperlipidemia, hypertension who was brought into the emergency room for altered mental status. The history was obtained from the ED physician in the chart as the patient was arousable but not answering any questions at the time of interview. As the ED physician, the patient's family had activated EMS and had reported to the EMS that the patient had been confused and sleeping over the past 2-3 days. The patient had reportedly had a fall at home without any known head injury. There were reports that the patient had reportedly not filled his Eliquis for his A. fib and had in general been noncompliant with his medications. The patient was also noted to have a significant left sided deficit by EMS. In the emergency room, he underwent an extensive evaluation with a head and neck CTA showing a right MCA infarct, no evidence of dissection, and bilateral carotid stenosis greater than 80% on the right and near occlusion on the left. CT brain had revealed the right MCA subacute infarct with some mass effect as well as a possible left posterior parietal subacute infarct suspected secondary to embolic phenomenon. Neurology was consulted and recommended Aspirin, Plavix, Lipitor, and further stroke evaluation. EKG had revealed A. fib with RVR 145 bpm with laboratory evaluation remarkable for troponin Interval history: 01/13 Patient was examined at the bedside. He is lethargic and responds only by opening his eyes. Still and A. fib with RVR. He is currently on Ventimask satting 91%. 01/14 The patient is seen at bedside and per his ICU nurse around 10:30pm yesterday patient was becoming apneic and had respiratory difficulties and as result was intubated and placed on ventilator. It seems that patient has no children and no family members except for his ex- . Patient is on IV Propofol 35mcg/kg/min. Physical examination: General: Intubated Derm: no unusual rashes/lesions no unusual ecchymoses, warm, dry Head: atraumatic, normocephalic, symmetric Eyes: EOMI, no lid lag, anicteric sclera, pupils equal round reactive to light ENT: Nose and ears atraumatic, no thrush, no pharyngeal erythema Neck: No thyromegaly, no cervical lymphadenopathy, trachea midline, supple Mouth: no lip lesion, mucus membranes moist Cardiovascular: Tachycardic, Irregularly irregular, no murmur, positive posterior tibial pulse bilateral, no edema, capillary refill less than 2 seconds Lungs: Some scattered rhonchi, without wheezing or rales, no accessory muscle use Abdominal: soft, nontender to palpation, no guarding, no appreciable organomegaly, normal bowel sounds Ext: no gross muscle atrophy, no contractures, Neuro: Unable to assess Assessment and plan: Subacute MCA suspected embolic infarct with mass effect in patient noncompliant with anticoagulation for A. fib -Neurology recommendations appreciated -Continue with aspirin, Plavix, statin -Neurochecks -Echocardiogram -Vascular surgery consulted for carotid stenosis -PT and speech evaluations Right carotid stenosis greater than 80% near-complete occlusion of the side Afib with RVR -Amiodarone infusion -Cardiac monitoring -Cardiology consulted Acute respiratory failure requiring intubation and mechanical ventilation -Patient intubated 01/13 to protect airways Cocaine abuse Chronic medical condition: Coronary artery disease, A. fib, type II DM, hypertension, hyperlipidemia -Defer Eliquis anticoagulation to Cardioloy in setting of possible triple therapy -Insulin sliding scale and blood glucose monitoring DVT prophylaxis -Subcutaneous heparin CODE STATUS: Full Code Discussed with: RN Overall prognosis very poor. Objective - Vital Signs Vital signs: Vital Signs Temp 99.9 F H 01/14/22 12:00 Pulse 114 H 01/14/22 12:19 Resp 26 H 01/14/22 12:00 BP 120/63 01/14/22 11:00 Pulse Ox 95 01/14/22 12:00 Intake & Output 01/13/22 01/14/22 01/14/22 18:59 06:59 18:59 Intake Total 9996.725 7256.391 869.373 Output Total 730 960 335 Balance 841.000 849.391 534.373 Weight 107.6 kg 108.7 kg Intake: IV 1430 660 0.9 1430 260 Dextrose 5% in Water 1, 400 000 ml @ 100 mls/hr IV . Q10H [facility] Rx#:[id number] Intake, IV Titration 1571.000 379.391 209.373 Amount Amiodarone 450 mg In 33.2 Dextrose 5% in Water 250 ml @ 0.5 MG/MIN 16.667 mls/hr IV .Q15H [facility] Rx#: [id number] Dexmedetomidine/0.9% NaCl 16.633 37.526 (Pmx) 400 mcg In Empty Bag 1 bag @ 0.4 MCG/KG/HR 10.76 mls/hr IV .Q9H18M [facility] Rx#:[id number] Diltiazem 125 mg In 91.167 137.459 104.541 Sodium Chloride 0.9% 100 ml @ 15 MG/HR 15 mls/hr IV .Q8H20M [facility] Rx#: [id number] Norepinephrine 4 mg In 4.832 Sodium Chloride 0.9% 250 ml @ 0.05 MCG/KG/MIN 20. 707 mls/hr IV .[id number] [facility] Rx#:[id number] Sodium Chloride 0.9% 1, 1430 130 000 ml @ 130 mls/hr IV . Q7H42M [facility] Rx#:[id number] propofoL 1,000 mg In 74.406 100 Empty Bag 1 bag @ 5 MCG/ KG/MIN 3.228 mls/hr IV . Q24H [facility] Rx#:[id number] Output: Gastric Drainage 400 Urine 730 560 335 Other: Voiding Method Indwelling Catheter Indwelling Catheter ABP, PAP, CO, CI - Last Documented Arterial Blood Pressure 106/50 - Labs CBC & Chem 7: 01/14/22 07:42 01/14/22 07:42 Labs: Abnormal Lab Results - Last 24 Hours (Table) 01/13/22 01/13/22 01/13/22 Range/Units 17:29 20:08 23:32 WBC (3.8-10.6) k/uL Neutrophils # (1.3-7.7) k/uL Monocytes # (0-1.0) k/uL ABG pH 7.26 L (7.35-7.45) ABG pCO2 68 H (35-45) mmHg ABG pO2 213 H (83-108) mmHg ABG HCO3 31 H (21-25) mmol/L ABG Total CO2 33 H (19-24) mmol/L ABG O2 Saturation 99.3 H (94-97) % Sodium (137-145) mmol/L Chloride (98-107) mmol/L Carbon Dioxide (22-30) mmol/L BUN (9-20) mg/dL Glucose (74-99) mg/dL POC Glucose (mg/dL) 217 H 184 H (75-99) mg/dL Magnesium (1.6-2.3) mg/dL Total Bilirubin (0.2-1.3) mg/dL AST (17-59) U/L Total Protein (6.3-8.2) g/dL Albumin (3.5-5.0) g/dL 01/14/22 01/14/22 01/14/22 Range/Units 00:08 05:42 05:46 WBC (3.8-10.6) k/uL Neutrophils # (1.3-7.7) k/uL Monocytes # (0-1.0) k/uL ABG pH 7.33 L (7.35-7.45) ABG pCO2 57 H (35-45) mmHg ABG pO2 82 L (83-108) mmHg ABG HCO3 30 H (21-25) mmol/L ABG Total CO2 32 H (19-24) mmol/L ABG O2 Saturation (94-97) % Sodium (137-145) mmol/L Chloride (98-107) mmol/L Carbon Dioxide (22-30) mmol/L BUN (9-20) mg/dL Glucose (74-99) mg/dL POC Glucose (mg/dL) 171 H 195 H (75-99) mg/dL Magnesium (1.6-2.3) mg/dL Total Bilirubin (0.2-1.3) mg/dL AST (17-59) U/L Total Protein (6.3-8.2) g/dL Albumin (3.5-5.0) g/dL 01/14/22 01/14/22 01/14/22 Range/Units 07:42 07:42 11:29 WBC 32.4 H (3.8-10.6) k/uL Neutrophils # 29.7 H (1.3-7.7) k/uL Monocytes # 1.1 H (0-1.0) k/uL ABG pH (7.35-7.45) ABG pCO2 (35-45) mmHg ABG pO2 (83-108) mmHg ABG HCO3 (21-25) mmol/L ABG Total CO2 (19-24) mmol/L ABG O2 Saturation (94-97) % Sodium 151 H (137-145) mmol/L Chloride 115 H (98-107) mmol/L Carbon Dioxide 32 H (22-30) mmol/L BUN 42 H (9-20) mg/dL Glucose 248 H (74-99) mg/dL POC Glucose (mg/dL) 271 H (75-99) mg/dL Magnesium 2.5 H (1.6-2.3) mg/dL Total Bilirubin 1.5 H (0.2-1.3) mg/dL AST 78 H (17-59) U/L Total Protein 5.7 L (6.3-8.2) g/dL Albumin 2.5 L (3.5-5.0) g/dL Microbiology - Last 24 Hours (Table) 01/13/22 23:59 Sputum Culture - Preliminary Sputum 01/12/22 16:00 Blood Culture - Preliminary Blood No Growth after 24 hours 01/12/22 15:45 Blood Culture - Preliminary Blood No Growth after 24 hours
[2022-01-14 14:26] LABS: Appearance,Urine Clear (Clear); Bilirubin,Urine Negative (Negative); Blood,Urine Negative (Negative); Color,Urine Yellow; Glucose,Urine (UA) 4+ (Negative); Ketones,Urine Negative (Negative); Leukocyte Esterase,Urine Negative (Negative); Nitrite,Urine Negative (Negative); Protein,Urine Trace (Negative); Specific Gravity,Urine 1.022 (1.001-1.035)
[2022-01-14] MEDS ORDERED: SALINE IV ONE (14:30)
[2022-01-14] MEDS ORDERED: MANNITOL IV ONE (14:30)
[2022-01-14] MEDS: PIPERACILLIN-TAZOBACTAM 3.375 GM in SODIUM CHLORIDE 0.9% 100 ML IVPB SCH ×2 (14:39→20:15)
[2022-01-14 17:59] LABS: Glucose,Whole Blood 324 mg/dL (75-99)
[2022-01-14] MEDS ORDERED: SODIUM CHLORIDE 0.9% 1,000 ML IV SCH (18:45)
[2022-01-14] MEDS: INSULIN DETEMIR (LEVEMIR) 100 UNIT/ML SYR SQ SCH (20:39)
[2022-01-15 00:13] LABS: Glucose,Whole Blood 221 mg/dL (75-99)
[2022-01-15] MEDS: INSULIN ASPART (NovoLOG) 100 UNIT/ML VIAL SQ SCH ×8 (00:14→18:49)
[2022-01-15] MEDS: ACETAMINOPHEN TAB 325 MG TAB PO PRN ×2 (00:14→17:44)
[2022-01-15] MEDS: IPRATROPIUM-ALBUTEROL 3 ML NEB INHALATION SCH ×5 (03:17→19:53)
[2022-01-15] MEDS: PIPERACILLIN-TAZOBACTAM 3.375 GM in SODIUM CHLORIDE 0.9% 100 ML IVPB SCH (03:52)
[2022-01-15 04:49] LABS: Basophils # (A) 0.1 k/uL (0-0.2); Basophils % (A) 0 %; Eosinophils % (A) 0 %; HCT 43.4 % (39.0-53.0); HGB 13.3 gm/dL (13.0-17.5); Hypochromasia Moderate; Lymphocytes # (A) 1.7 k/uL (1.0-4.8); Lymphocytes % (A) 7 %; MCH 29.6 pg (25.0-35.0); MCHC 30.7 g/dL (31.0-37.0); MCV 96.5 fL (80.0-100.0); Mean Platelet Volume 8.4; Monocytes # (A) 1.5 k/uL (0-1.0); Monocytes % (A) 6 %; Neutrophils # (A) 22.8 k/uL (1.3-7.7); Neutrophils % (A) 87 %; Platelet Count 197 k/uL (150-450); RDW 13.2 % (11.5-15.5); WBC 26.3 k/uL (3.8-10.6)
[2022-01-15 05:02] LABS: Albumin 2.3 g/dL (3.5-5.0); Calcium 9.1 mg/dL (8.4-10.2); Magnesium 2.7 mg/dL (1.6-2.3); Potassium 3.9 mmol/L (3.5-5.1); Total Protein 5.3 g/dL (6.3-8.2)
[2022-01-15 05:39] LABS: ABG Base Excess 5.7 mmol/L; ABG HCO3 31 mmol/L (21-25); ABG Oxygen Saturation 94.5 % (94-97); ABG PCO2 56 mmHg (35-45); ABG PH 7.36 (7.35-7.45); ABG PO2 72 mmHg (83-108); ABG TCO2 33 mmol/L (19-24)
[2022-01-15] MEDS ORDERED: HEPARIN SODIUM,PORCINE 5,000 UNIT/ML 1 ML VIAL ONE (09:00)
[2022-01-15] MEDS ORDERED: INSULIN ASPART (NovoLOG) 100 UNIT/ML VIAL SQ ONE ×2 (09:00)
[2022-01-15] MEDS ORDERED: ASPIRIN 300 MG SUPP RECTAL ONE (09:00)
[2022-01-15] MEDS ORDERED: CHLORHEXIDINE GLUCONATE 15 ML CUP MUCOUS MEM ONE (09:00)
[2022-01-15] MEDS ORDERED: CLOPIDOGREL 75 MG TAB ONE (09:00)
[2022-01-15] MEDS ORDERED: ACETAMINOPHEN TAB 325 MG TAB ONE (09:00)
[2022-01-15 10:50] LABS: Glucose,Whole Blood 174 mg/dL (75-99)
--- NOTE | 2022-01-15 11:30 | P.PN ---
Subjective Progress Note Date: 01/15/22 Principal diagnosis: Carotid stenosis Patient was seen and examined in the ICU. He remains sedated and intubated. Patient remains on propofol, Cardizem drip, and Levophed. He had a maximum this morning of 100.8, blood pressure 130/91 heart rate 100, oxygen saturation 95, FiO2 50. This morning he underwent an EEG with results currently pending. Objective - Vital Signs Vital signs: Vital Signs Temp 100.8 F H 01/15/22 04:00 Pulse 100 01/15/22 04:00 Resp 26 H 01/15/22 04:00 BP 130/91 01/15/22 04:00 Pulse Ox 95 01/15/22 04:00 Intake & Output 01/14/22 01/15/22 01/15/22 18:59 06:59 18:59 Intake Total 2117.255 1904.192 Output Total 1050 1370 Balance 1067.255 534.192 Intake: IV 1260 1130 Dextrose 5% in Water 1, 1000 1000 000 ml @ 100 mls/hr IV . Q10H [facility] Rx#:[id number] Piperacillin-Tazobactam 3 100 .375 gm In Sodium Chloride 0.9% 100 ml @ 25 mls/hr IVPB Q8H [facility] Rx#: [id number] Pressure bag 260 30 Intake, IV Titration 627.255 474.192 Amount Diltiazem 125 mg In 208.791 106.25 Sodium Chloride 0.9% 100 ml @ 15 MG/HR 15 mls/hr IV .Q8H20M [facility] Rx#: [id number] Norepinephrine 4 mg In 218.464 180.771 Sodium Chloride 0.9% 250 ml @ 0.05 MCG/KG/MIN 20. 707 mls/hr IV .[id number] [facility] Rx#:[id number] propofoL 1,000 mg In 200 187.171 Empty Bag 1 bag @ 5 MCG/ KG/MIN 3.228 mls/hr IV . Q24H [facility] Rx#:[id number] Tube Feeding 30 100 Other 200 200 Output: Urine 1050 1370 Other: Voiding Method Indwelling Catheter Indwelling Catheter ABP, PAP, CO, CI - Last Documented Arterial Blood Pressure 122/61 - Exam General appearance: The patient is sedated and intubated. HET: Head is normocephalic and atraumatic. Neck: Supple without lymphadenopathy. Trachea midline. No audible carotid bruit. Heart: S1 S2. Irregular rate and rhythm. Lungs: Coarse with equal entry. Abdomen: Soft, nontender, nondistended. Extremities: Normal skin color and turgor. No cyanosis, rash, ulceration, clubbing, or edema. Bilateral palpable radial and pedal pulses. Neurological: Sedated and intubated. - Labs CBC & Chem 7: 01/15/22 04:30 01/15/22 04:30 Labs: Abnormal Lab Results - Last 24 Hours (Table) 01/14/22 01/14/22 01/14/22 Range/Units 07:42 10:09 11:29 WBC (3.8-10.6) k/uL MCHC (31.0-37.0) g/dL Neutrophils # (1.3-7.7) k/uL Monocytes # (0-1.0) k/uL Sodium (137-145) mmol/L Chloride (98-107) mmol/L Carbon Dioxide (22-30) mmol/L BUN (9-20) mg/dL Glucose (74-99) mg/dL POC Glucose (mg/dL) 271 H (75-99) mg/dL Hemoglobin A1c 10.6 H (0.0-6.0) % Magnesium (1.6-2.3) mg/dL AST (17-59) U/L Total Protein (6.3-8.2) g/dL Albumin (3.5-5.0) g/dL Procalcitonin 0.87 H (0.02-0.09) ng/mL Urine Protein (Negative) Urine Glucose (UA) (Negative) 01/14/22 01/14/22 01/15/22 Range/Units 14:18 17:58 00:12 WBC (3.8-10.6) k/uL MCHC (31.0-37.0) g/dL Neutrophils # (1.3-7.7) k/uL Monocytes # (0-1.0) k/uL Sodium (137-145) mmol/L Chloride (98-107) mmol/L Carbon Dioxide (22-30) mmol/L BUN (9-20) mg/dL Glucose (74-99) mg/dL POC Glucose (mg/dL) 324 H 221 H (75-99) mg/dL Hemoglobin A1c (0.0-6.0) % Magnesium (1.6-2.3) mg/dL AST (17-59) U/L Total Protein (6.3-8.2) g/dL Albumin (3.5-5.0) g/dL Procalcitonin (0.02-0.09) ng/mL Urine Protein Trace H (Negative) Urine Glucose (UA) 4+ H (Negative) 01/15/22 01/15/22 01/15/22 Range/Units 04:30 04:30 06:06 WBC 26.3 H (3.8-10.6) k/uL MCHC 30.7 L (31.0-37.0) g/dL Neutrophils # 22.8 H (1.3-7.7) k/uL Monocytes # 1.5 H (0-1.0) k/uL Sodium 147 H (137-145) mmol/L Chloride 114 H (98-107) mmol/L Carbon Dioxide 34 H (22-30) mmol/L BUN 35 H (9-20) mg/dL Glucose 176 H (74-99) mg/dL POC Glucose (mg/dL) 174 H (75-99) mg/dL Hemoglobin A1c (0.0-6.0) % Magnesium 2.7 H (1.6-2.3) mg/dL AST 70 H (17-59) U/L Total Protein 5.3 L (6.3-8.2) g/dL Albumin 2.3 L (3.5-5.0) g/dL Procalcitonin (0.02-0.09) ng/mL Urine Protein (Negative) Urine Glucose (UA) (Negative) Microbiology - Last 24 Hours (Table) 01/13/22 23:59 Gram Stain - Preliminary Sputum Sputum Culture - Preliminary Presumptive Staph aureus 01/14/22 10:09 Blood Culture - Final Blood 01/12/22 16:00 Blood Culture - Preliminary Blood No Growth after 48 hours 01/12/22 15:45 Blood Culture - Preliminary Blood No Growth after 48 hours Assessment and Plan Assessment: 1. Severe bilateral carotid occlusive disease. Exact extent cannot be fully determined by the CT and duplex studies has plaque is extremely calcified although it appears the right ICA is occluded 2. Subacute ischemic stroke over right MCA, likely embolic 3. Atrial fibrillation with RVR 4. 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 History coronary artery disease 6. Hypertension 7. Diabetes mellitus 8. Dyslipidemia 9. Medication noncompliance 10. Positive urine for cocaine use Plan: 1. Continue ICU management 2. Continue medical management with aspirin, Plavix, and recommend high-dose statin 3. At this time patient is not a candidate for vascular surgical intervention. If patient condition improves, can further discuss surgical intervention at that time. Thank you for this consultation, we'll be on standby. The impression and plan of care has been dictated as directed. I performed a history and examination of this patient, discussed the same with the dictator. I agree with the dictator's note ,documented as a scribe. Any additional findings or plans will be noted.
[2022-01-15 11:32] LABS: Glucose,Whole Blood 247 mg/dL (75-99)
[2022-01-15] MEDS ORDERED: VANCOMYCIN IV PER PHARMACY 1 EACH MISC MISCELLANE PRN (11:56)
[2022-01-15] MEDS ORDERED: VANCOMYCIN 1,750 MG in SODIUM CHLORIDE 0.9% 500 ML 500 ML IVPB SCH (12:15)
--- NOTE | 2022-01-15 12:23 | XR ---
EXAMINATION TYPE: XR chest 1V portable DATE OF EXAM: 01/15/2022 COMPARISON: 01/14/2022 HISTORY: Tube placement FINDINGS: There are bilateral pleural effusions with cardiomegaly and bibasilar infiltrate. There is a diffuse interstitial pattern. ET tube seen at the level of the thoracic inlet. NG tube seen coursing in the abdomen. Suspect underlying COPD. Central line stable. IMPRESSION: 1. Bilateral infiltrate and pleural effusion correlate for CHF versus pneumonia. Findings stable.
--- NOTE | 2022-01-15 12:35 | P.PN ---
Subjective Progress Note Date: 01/15/22 On 01/15/2022, the patient is being seen for a follow-up. The patient is currently intubated on a mechanical ventilator. The patient was intubated on 12/13/2021. The patient is post left-sided CVA and the patient a stroke along the right MCA distribution. The patient has chronic atrial fibrillation and the patient is postop non-ST segment elevation myocardial infarction. 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 His urine toxin was also positive for cocaine. He is known to have diabetes, hypertension and hyperlipidemia. At this point in time, the patient is on propofol running at 30 from a respiratory milligrams per minute. The patient is on a mechanical ventilator and the patient is currently on assist control mode at the rate of 26 with a tidal volume of 450 and FiO2 of 50% with a PEEP of 5. The blood gas showed a pH of 7.35 with a pCO2 of 55 and pO2 of 71 and this was on FiO2 of 50%. The patient had a follow-up chest x-ray today that showed an ET tube which was in a good location. There is a right lower lobe pulmonary infiltrate/an area of consolidation which was present earlier and seems to be more confluent. The patient also has a left subclavian triple-lumen catheter in place. The patient had a sputum sample that showed a presumptive staph aureus and he was febrile and this morning his temperature was 100.8 and based on that the patient was started on IV vancomycin. The white cell count was as high as 32 and currently is down to 26 with a hemoglobin of 13.3. No significant orotracheal secretions. The patient is on no pressors. Nevertheless, the patient is still having issues with atrial fibrillation with rapid ventricular response. The patient is currently on Cardizem drip at 50 mg an hour. He is also on norepinephrine infusion low-dose at 0.0 25 Tyrel respiratory gram per minute. IV fluids are currently at KVO. He is receiving enteral feeding with vitamin 1.2 at the rate of 10 mL an hour. His previous echocardiogram done on 01/13/2022 showed reduced left ventricular ejection fraction which was estimated to be at around 20%. The patient also had moderate severe mitral regurgitation, moderate to severe aortic stenosis with a peak gradient of 55 mmHg and moderate to severe tricuspid regurgitation. No evidence of any pericardial effusion. Neurologically, he is sedated. Pupils are equal and there are on pro-millimeters in size. No nystagmus. No clonus. No Babinski and the left lower extremity. No seizure activity has been noted. Neurology is on the case. Objective - Vital Signs Vital signs: Vital Signs Temp 100.8 F H 01/15/22 04:00 Pulse 100 01/15/22 04:00 Resp 26 H 01/15/22 04:00 BP 130/91 01/15/22 04:00 Pulse Ox 95 01/15/22 04:00 Intake & Output 01/14/22 01/15/22 01/15/22 18:59 06:59 18:59 Intake Total 2117.255 1904.192 Output Total 1050 1370 Balance 1067.255 534.192 Weight 108.7 kg Intake: IV 1260 1130 Dextrose 5% in Water 1, 1000 1000 000 ml @ 100 mls/hr IV . Q10H [facility] Rx#:[id number] Piperacillin-Tazobactam 3 100 .375 gm In Sodium Chloride 0.9% 100 ml @ 25 mls/hr IVPB Q8H [facility] Rx#: [id number] Pressure bag 260 30 Intake, IV Titration 627.255 474.192 Amount Diltiazem 125 mg In 208.791 106.25 Sodium Chloride 0.9% 100 ml @ 15 MG/HR 15 mls/hr IV .Q8H20M [facility] Rx#: [id number] Norepinephrine 4 mg In 218.464 180.771 Sodium Chloride 0.9% 250 ml @ 0.05 MCG/KG/MIN 20. 707 mls/hr IV .[id number] [facility] Rx#:[id number] propofoL 1,000 mg In 200 187.171 Empty Bag 1 bag @ 5 MCG/ KG/MIN 3.228 mls/hr IV . Q24H [facility] Rx#:[id number] Tube Feeding 30 100 Other 200 200 Output: Urine 1050 1370 Other: Voiding Method Indwelling Catheter Indwelling Catheter ABP, PAP, CO, CI - Last Documented Arterial Blood Pressure 122/61 - Exam GENERAL EXAM: Intubated, sedated 66-year-old male patient, on propofol, quite s edated at this point in time HEAD: Normocephalic. EYES: Sluggish reaction of pupils, equal size.no nystagmus, no preferential gaze NOSE: Clear with pink turbinates. THROAT: Oral endotracheal and gastric tube secured in place. No erythema or exudates. NECK: No masses, no JVD. CHEST: No chest wall deformity. LUNGS: Equal air entry with bilateral rhonchi. CVS: S1 and S2 normal with no audible murmur, irregular rhythm. ABDOMEN: No hepatosplenomegaly, normal bowel sounds, no guarding or rigidity. SPINE: No scoliosis or deformity SKIN: No rashes CENTRAL NERVOUS SYSTEM: Sedated, tone is normal in all 4 extremities.the sensory and motor function cannot be assessed. The patient has no clonus. No Babinski the left lower extremity. The exact are diminished in all 4 extremities. No facial asymmetry. No preferential gaze. Pupils around 2 mm in size, sluggishly reactive to light. EXTREMITIES: There is no peripheral edema. No clubbing, no cyanosis. Peripheral pulses are intact. - Labs CBC & Chem 7: 01/15/22 04:30 01/15/22 04:30 Labs: Abnormal Lab Results - Last 24 Hours (Table) 01/14/22 01/14/22 01/14/22 Range/Units 07:42 10:09 14:18 WBC (3.8-10.6) k/uL MCHC (31.0-37.0) g/dL Neutrophils # (1.3-7.7) k/uL Monocytes # (0-1.0) k/uL Sodium (137-145) mmol/L Chloride (98-107) mmol/L Carbon Dioxide (22-30) mmol/L BUN (9-20) mg/dL Glucose (74-99) mg/dL POC Glucose (mg/dL) (75-99) mg/dL Hemoglobin A1c 10.6 H (0.0-6.0) % Magnesium (1.6-2.3) mg/dL AST (17-59) U/L Total Protein (6.3-8.2) g/dL Albumin (3.5-5.0) g/dL Procalcitonin 0.87 H (0.02-0.09) ng/mL Urine Protein Trace H (Negative) Urine Glucose (UA) 4+ H (Negative) 01/14/22 01/15/22 01/15/22 Range/Units 17:58 00:12 04:30 WBC 26.3 H (3.8-10.6) k/uL MCHC 30.7 L (31.0-37.0) g/dL Neutrophils # 22.8 H (1.3-7.7) k/uL Monocytes # 1.5 H (0-1.0) k/uL Sodium (137-145) mmol/L Chloride (98-107) mmol/L Carbon Dioxide (22-30) mmol/L BUN (9-20) mg/dL Glucose (74-99) mg/dL POC Glucose (mg/dL) 324 H 221 H (75-99) mg/dL Hemoglobin A1c (0.0-6.0) % Magnesium (1.6-2.3) mg/dL AST (17-59) U/L Total Protein (6.3-8.2) g/dL Albumin (3.5-5.0) g/dL Procalcitonin (0.02-0.09) ng/mL Urine Protein (Negative) Urine Glucose (UA) (Negative) 01/15/22 01/15/22 01/15/22 Range/Units 04:30 06:06 11:30 WBC (3.8-10.6) k/uL MCHC (31.0-37.0) g/dL Neutrophils # (1.3-7.7) k/uL Monocytes # (0-1.0) k/uL Sodium 147 H (137-145) mmol/L Chloride 114 H (98-107) mmol/L Carbon Dioxide 34 H (22-30) mmol/L BUN 35 H (9-20) mg/dL Glucose 176 H (74-99) mg/dL POC Glucose (mg/dL) 174 H 247 H (75-99) mg/dL Hemoglobin A1c (0.0-6.0) % Magnesium 2.7 H (1.6-2.3) mg/dL AST 70 H (17-59) U/L Total Protein 5.3 L (6.3-8.2) g/dL Albumin 2.3 L (3.5-5.0) g/dL Procalcitonin (0.02-0.09) ng/mL Urine Protein (Negative) Urine Glucose (UA) (Negative) Microbiology - Last 24 Hours (Table) 01/13/22 23:59 Gram Stain - Preliminary Sputum Sputum Culture - Preliminary Presumptive Staph aureus 01/14/22 10:09 Blood Culture - Final Blood 01/12/22 16:00 Blood Culture - Preliminary Blood No Growth after 48 hours 01/12/22 15:45 Blood Culture - Preliminary Blood No Growth after 48 hours Assessment and Plan Plan: Acute subacute ischemic stroke involving the right MCA predominantly also some question of left parietal involvement. [place] to be secondary to new emboli from atrial fibrillation and possibly from cocaine. Follow-up computed tomography scan of the brain revealed a large right hemisphere hypodensity and edema that could be subacute infarct with increasing mass effect compared to previous CT. No hemorrhage. On 01/13/2022 at approximately 10:30 PM the patient required intubation and mechanical ventilation as he was unable to protect his airway.since then, the patient remains intubated on a mechanical ventilator. This morning, he is still sedated with propofol. Awaiting further recommend ations from neurology regarding this stroke involving the right MCA distribution. This is considered to be likely an embolic phenomena. Atrial fibrillation with a rapid ventricular response, history of atrial fibrillation and had previously been on Eliquis but has a history of medication noncompliance of possibly 3 months, currently on a Cardizem drip at 50 mg an hour for rate control Right carotid stenosis greater than 80% and near complete occlusion on the left History of old CVA over left occipital area Urine drug screen positive for cocaine Hypertension, history of Hyperlipidemia Diabetes mellitus Hyponatremia acute Leukocytosis right lower lobe pneumonia, likely related to staph aureus, awaiting final cultures and sensitivities and the patient is currently on vancomycin Febrile illness with current temp 101.3 Plan Keep the patient sedated with propofol Give the patient sedation holiday and this has underlying mental status Neurologist on the case regarding the acute CVA and the patient is on no anticoagulants for now Continue Cardizem drip for rate control Wean off norepinephrine infusion and discontinue if possible Continue enteral feeding for nutritional support No ventilator changes will be done today. The patient has a right lower lobe consolidation, likely secondary to staphylococcal pneumonia and the patient be kept on vancomycin Tylenol for fever Continue aspirin Continue Plavix Condition is critical and outcome is poor baseline above-mentioned melvin rbidities. We'll continue to follow and this is a critically care evaluation that was done and more than 40 minutes. Time with Patient: Greater than 30
[2022-01-15] MEDS: CHLORHEXIDINE GLUCONATE 15 ML CUP MUCOUS MEM SCH ×2 (12:36→20:28)
[2022-01-15] MEDS: CLOPIDOGREL 75 MG TAB PO SCH (12:36)
[2022-01-15] MEDS: ASPIRIN 300 MG SUPP RECTAL SCH (12:36)
[2022-01-15] MEDS: HEPARIN SODIUM,PORCINE/PF 5,000 UNIT/0.5 ML SYRINGE SQ SCH ×2 (12:36→20:28)
--- NOTE | 2022-01-15 13:04 | P.PN ---
Subjective Progress Note Date: 01/15/22 The patient is seen at bedside and is about the same. He continues to be intubated on ventilator. Patient is on IV Propofol 35mcg/kg/min. Objective - Vital Signs Vital signs: Vital Signs Temp 103.1 F H 01/15/22 12:00 Pulse 118 H 01/15/22 12:49 Resp 27 H 01/15/22 12:00 BP 130/91 01/15/22 04:00 Pulse Ox 94 L 01/15/22 12:00 Intake & Output 01/14/22 01/15/22 01/15/22 18:59 06:59 18:59 Intake Total 2117.255 1904.192 Output Total 1050 1370 Balance 1067.255 534.192 Weight 108.7 kg Intake: IV 1260 1130 Dextrose 5% in Water 1, 1000 1000 000 ml @ 100 mls/hr IV . Q10H [facility] Rx#:[id number] Piperacillin-Tazobactam 3 100 .375 gm In Sodium Chloride 0.9% 100 ml @ 25 mls/hr IVPB Q8H [facility] Rx#: [id number] Pressure bag 260 30 Intake, IV Titration 627.255 474.192 Amount Diltiazem 125 mg In 208.791 106.25 Sodium Chloride 0.9% 100 ml @ 15 MG/HR 15 mls/hr IV .[id number] [facility] Rx#: [id number] Norepinephrine 4 mg In 218.464 180.771 Sodium Chloride 0.9% 250 ml @ 0.05 MCG/KG/MIN 20. 707 mls/hr IV .[id number] [facility] Rx#:[id number] propofoL 1,000 mg In 200 187.171 Empty Bag 1 bag @ 5 MCG/ KG/MIN 3.228 mls/hr IV . Q24H [facility] Rx#:[id number] Tube Feeding 30 100 Other 200 200 Output: Urine 1050 1370 Other: Voiding Method Indwelling Catheter Indwelling Catheter ABP, PAP, CO, CI - Last Documented Arterial Blood Pressure 127/51 - Exam GENERAL: The patient is lying in bed and does not seem in acute distress. LUNG: Intubated on ventilator. NEUROLOGICAL: Limited because of his condition. IV Propofol 35mcg/kg/min. Higher mental function: The patient is comtaose. GCS 3 (E1, VT1, MI1). Not responding or following commands. Cranial nerves: I had to manually open his eye and primary gaze is midline. The pupils are round, constricted, (1-2mm), and hard to appreciated reactivity. has positive corneal reflexes. Left lower facial droop. Has positive weak gag reflex. Not breathing over the vent. Otherwise rest of cranial nerves could not be assessed. Motor: Gait is deferred. The strength is hard to assess because of his condition but not withdrawaling to any of extremities. No spontaneous movement noted. Normal bulk. Cerebellum: Unable to assess. Sensation: Unable to assess light touch. Reflexes (right/left): 1+ throughout. Plantars are mute bilaterally. WORK-UP: Lipid Panel: TG 129, Cholestrol 127, LDL 74 and HDL 26. TSH: <0.015 Free T4: 2.[address] of the head is reported as right middle cerebral artery subacute infarction was some mass effect, possible left posterior parietal subacute infarct, consider embolic phenomenon. Chronic small vessel ischemic changes at. As well as the patient has chronic inferior left occipital infarct with ex vacuo. Personally reviewed the CT of the head and I agree with the report by also felt that there could be the subacute over the left frontal as well as a small region. CT angiography of the head and neck was reported as right MCA M1 segment abrupt cutoff/filling defect from the thrombus with associated right MCA territory infarct which is not significant change from prior CT. Bilateral calcified and noncalcified plaque in at the carotid bifurcation resulting in greater than 80% stenosis in the right and near occlusion on the left. No evidence of dissection of the cervical internal carotid artery vertebral arteries. Multinodular thyroid gland. Carotid duplex: Is reported as right ICA occlusion. Cardiac arrhythmia is noted incidentally. Repeat CT head on 01/13/2022: It is reported as large right hemispheric hypodensity and edema that could be subacute infarct with increasing mass effect compared to the CT yesterday. No hemorrhage. There is low density in the medial left occipital lobe cortex consistent with old infarct with fluid density. Unchanged. I personally reviewed that a CT of the head and I don't feel that there is any significant midline shift. There is mass effect over the right lateral ventricle but I feel the patient's ventricles are still patent. I feel a third ventricle is somewhat constricted but it's still patent. 2D echo: Is reported as reduced LV systolic function (EF of 20%). L ventricle hypertrophy. Patient has tachycardia and in atrial fibrillation. Left atrial is increased severely by volume. Mildly increased left atrial area. Moderate to severe mitral regurgitation. - Labs CBC & Chem 7: 01/15/22 04:30 01/15/22 04:30 Labs: Abnormal Lab Results - Last 24 Hours (Table) 01/14/22 01/14/22 01/14/22 Range/Units 07:42 10:09 14:18 WBC (3.8-10.6) k/uL MCHC (31.0-37.0) g/dL Neutrophils # (1.3-7.7) k/uL Monocytes # (0-1.0) k/uL Sodium (137-145) mmol/L Chloride (98-107) mmol/L Carbon Dioxide (22-30) mmol/L BUN (9-20) mg/dL Glucose (74-99) mg/dL POC Glucose (mg/dL) (75-99) mg/dL Hemoglobin A1c 10.6 H (0.0-6.0) % Magnesium (1.6-2.3) mg/dL AST (17-59) U/L Total Protein (6.3-8.2) g/dL Albumin (3.5-5.0) g/dL Procalcitonin 0.87 H (0.02-0.09) ng/mL Urine Protein Trace H (Negative) Urine Glucose (UA) 4+ H (Negative) 01/14/22 01/15/22 01/15/22 Range/Units 17:58 00:12 04:30 WBC 26.3 H (3.8-10.6) k/uL MCHC 30.7 L (31.0-37.0) g/dL Neutrophils # 22.8 H (1.3-7.7) k/uL Monocytes # 1.5 H (0-1.0) k/uL Sodium (137-145) mmol/L Chloride (98-107) mmol/L Carbon Dioxide (22-30) mmol/L BUN (9-20) mg/dL Glucose (74-99) mg/dL POC Glucose (mg/dL) 324 H 221 H (75-99) mg/dL Hemoglobin A1c (0.0-6.0) % Magnesium (1.6-2.3) mg/dL AST (17-59) U/L Total Protein (6.3-8.2) g/dL Albumin (3.5-5.0) g/dL Procalcitonin (0.02-0.09) ng/mL Urine Protein (Negative) Urine Glucose (UA) (Negative) 01/15/22 01/15/22 01/15/22 Range/Units 04:30 06:06 11:30 WBC (3.8-10.6) k/uL MCHC (31.0-37.0) g/dL Neutrophils # (1.3-7.7) k/uL Monocytes # (0-1.0) k/uL Sodium 147 H (137-145) mmol/L Chloride 114 H (98-107) mmol/L Carbon Dioxide 34 H (22-30) mmol/L BUN 35 H (9-20) mg/dL Glucose 176 H (74-99) mg/dL POC Glucose (mg/dL) 174 H 247 H (75-99) mg/dL Hemoglobin A1c (0.0-6.0) % Magnesium 2.7 H (1.6-2.3) mg/dL AST 70 H (17-59) U/L Total Protein 5.3 L (6.3-8.2) g/dL Albumin 2.3 L (3.5-5.0) g/dL Procalcitonin (0.02-0.09) ng/mL Urine Protein (Negative) Urine Glucose (UA) (Negative) Microbiology - Last 24 Hours (Table) 01/13/22 23:59 Gram Stain - Preliminary Sputum Sputum Culture - Preliminary Presumptive Staph aureus 01/14/22 10:09 Blood Culture - Final Blood 01/12/22 16:00 Blood Culture - Preliminary Blood No Growth after 48 hours 01/12/22 15:45 Blood Culture - Preliminary Blood No Growth after 48 hours Assessment and Plan Assessment: Subacute ischemic stroke (over the right MCA predominately. Also reported as left parietal and I felt frontal). On examination has left sided weakness, right gaze preference, left facial droop. Last normal is at least 3 days ago. Etiology is embolic (has history of atrial fibrillation and seems non-compliant with medication) and in addition cocaine can induce stroke since can cause vasoconstriction. Right M1 occlusion. No thrombectomy since outside window and risk outweigh benefit. Cytotoxic edema due to above Respiratory distress due to above and that he required intubation and mechanical ventilation since unable to protect his airway Acute dysphagia due to above Right carotid stenosis >80% per CTA and near occlusion on left. But on carotid it is reported as Right ICA occlusion. Atrial fibrillation and is suppose to be on Eliquis but per pharmacy has not filled up his medication for 3 months. History of old stroke over left occipital Positive for cocaine use Hypertension Hyperlipidemia Diabetes mellitus Sleep apnea Medication noncompliance Plan: Because of his dysphagia will continue ASA 300mg rectally. Once able to swallow or NG/PEG tube can resume with ASA 325mg and Plavix 75mg daily and Lipitor 80mg qhs. He received IV mannitol one time dose yesterday because of edema. He does not need 3% hypertonic since there is no significant midline shift and the ventricles are still patent. Consulted vascular surgery team for the carotid stenosis. Regarding start of anticoagulation continue to hold for an additional about 6 days because of extent of stroke to avoid hemorrhagic transformation. Pending EEG. Every 2 neuro- hour checks On cardiac monitoring PT OT and [employer] are consulted Avoid any hypotensive episode. Cardiology team is consulted. We'll defer the rest of the medical management to the primary team For DVT prophylaxis: On subcu heparin 5000 units every 12 hours. Patient condition is critical. Prognosis is poor. Patient has no children and no family members that we are able to locate. He has an ex-. The plan discussed with the patient's ICU nurse. Art Irwin M.D. Neuro-hospitalist Time with Patient: Less than 30
--- NOTE | 2022-01-15 13:17 | P.PN ---
Subjective Progress Note Date: 01/15/22 History of Present Illness H&P Date: 01/12/22 The patient is a 66-year-old male with a PMH of coronary artery disease, A. fib, severe systolic CHF with EF 20-25% on [facility] on 12/11, type II DM, hyperlipidemia, hypertension who was brought into the emergency room for altered mental status. The history was obtained from the ED physician in the chart as the patient was arousable but not answering any questions at the time of interview. As the ED physician, the patient's family had activated EMS and had reported to the EMS that the patient had been confused and sleeping over the past 2-3 days. The patient had reportedly had a fall at home without any known head injury. There were reports that the patient had reportedly not filled his Eliquis for his A. fib and had in general been noncompliant with his medications. The patient was also noted to have a significant left sided deficit by EMS. In the emergency room, he underwent an extensive evaluation with a head and neck CTA showing a right MCA infarct, no evidence of dissection, and bilateral carotid stenosis greater than 80% on the right and near occlusion on the left. CT brain had revealed the right MCA subacute infarct with some mass effect as well as a possible left posterior parietal subacute infarct suspected secondary to embolic phenomenon. Neurology was consulted and recommended Aspirin, Plavix, Lipitor, and further stroke evaluation. EKG had revealed A. fib with RVR 145 bpm with laboratory evaluation remarkable for troponin Interval history: 01/13 Patient was examined at the bedside. He is lethargic and responds only by opening his eyes. Still and A. fib with RVR. He is currently on Ventimask satting 91%. 01/14 The patient is seen at bedside and per his ICU nurse around 10:30pm yesterday patient was becoming apneic and had respiratory difficulties and as result was intubated and placed on ventilator. It seems that patient has no children and no family members except for his ex- . Patient is on IV Propofol 35mcg/kg/min. 01/15 patient still intubated. He is currently on a Cardizem and Levophed drip. Ex- at the bedside. Physical examination: General: Intubated Derm: no unusual rashes/lesions no unusual ecchymoses, warm, dry Head: atraumatic, normocephalic, symmetric Eyes: EOMI, no lid lag, anicteric sclera, pupils equal round reactive to light ENT: Nose and ears atraumatic, no thrush, no pharyngeal erythema Neck: No thyromegaly, no cervical lymphadenopathy, trachea midline, supple Mouth: no lip lesion, mucus membranes moist Cardiovascular: Tachycardic, Irregularly irregular, no murmur, positive posterior tibial pulse bilateral, no edema, capillary refill less than 2 seconds Lungs: Some scattered rhonchi, without wheezing or rales, no accessory muscle use Abdominal: soft, nontender to palpation, no guarding, no appreciable organomegaly, normal bowel sounds Ext: no gross muscle atrophy, no contractures, Neuro: Unable to assess Assessment and plan: Subacute MCA suspected embolic infarct with mass effect in patient noncompliant with anticoagulation for A. fib -Neurology recommendations appreciated -Continue with aspirin, Plavix, statin -Neurochecks -Echocardiogram -Vascular surgery consulted for carotid stenosis -PT and speech evaluations Right carotid stenosis greater than 80% near-complete occlusion of the side Afib with RVR -Amiodarone infusion -Cardiac monitoring -Cardiology consulted Acute respiratory failure requiring intubation and mechanical ventilation -Patient intubated 01/13 to protect airways Cocaine abuse Chronic medical condition: Coronary artery disease, A. fib, type II DM, hypertension, hyperlipidemia -Defer Eliquis anticoagulation to Cardioloy in setting of possible triple therapy -Insulin sliding scale and blood glucose monitoring DVT prophylaxis -Subcutaneous heparin CODE STATUS: Full Code Discussed with: RN Overall prognosis very poor. Objective - Vital Signs Vital signs: Vital Signs Temp 103.1 F H 01/15/22 12:00 Pulse 118 H 01/15/22 12:49 Resp 27 H 01/15/22 12:00 BP 130/91 01/15/22 04:00 Pulse Ox 94 L 01/15/22 12:00 Intake & Output 01/14/22 01/15/22 01/15/22 18:59 06:59 18:59 Intake Total 2117.255 1904.192 Output Total 1050 1370 Balance 1067.255 534.192 Weight 108.7 kg Intake: IV 1260 1130 Dextrose 5% in Water 1, 1000 1000 000 ml @ 100 mls/hr IV . Q10H [facility] Rx#:[id number] Piperacillin-Tazobactam 3 100 .375 gm In Sodium Chloride 0.9% 100 ml @ 25 mls/hr IVPB Q8H [facility] Rx#: [id number] Pressure bag 260 30 Intake, IV Titration 627.255 474.192 Amount Diltiazem 125 mg In 208.791 106.25 Sodium Chloride 0.9% 100 ml @ 15 MG/HR 15 mls/hr IV .Q8H20M [facility] Rx#: [id number] Norepinephrine 4 mg In 218.464 180.771 Sodium Chloride 0.9% 250 ml @ 0.05 MCG/KG/MIN 20. 707 mls/hr IV .[id number] [facility] Rx#:[id number] propofoL 1,000 mg In 200 187.171 Empty Bag 1 bag @ 5 MCG/ KG/MIN 3.228 mls/hr IV . Q24H [facility] Rx#:[id number] Tube Feeding 30 100 Other 200 200 Output: Urine 1050 1370 Other: Voiding Method Indwelling Catheter Indwelling Catheter ABP, PAP, CO, CI - Last Documented Arterial Blood Pressure 127/51 - Labs CBC & Chem 7: 01/15/22 04:30 01/15/22 04:30 Labs: Abnormal Lab Results - Last 24 Hours (Table) 01/14/22 01/14/22 01/14/22 Range/Units 07:42 10:09 14:18 WBC (3.8-10.6) k/uL MCHC (31.0-37.0) g/dL Neutrophils # (1.3-7.7) k/uL Monocytes # (0-1.0) k/uL Sodium (137-145) mmol/L Chloride (98-107) mmol/L Carbon Dioxide (22-30) mmol/L BUN (9-20) mg/dL Glucose (74-99) mg/dL POC Glucose (mg/dL) (75-99) mg/dL Hemoglobin A1c 10.6 H (0.0-6.0) % Magnesium (1.6-2.3) mg/dL AST (17-59) U/L Total Protein (6.3-8.2) g/dL Albumin (3.5-5.0) g/dL Procalcitonin 0.87 H (0.02-0.09) ng/mL Urine Protein Trace H (Negative) Urine Glucose (UA) 4+ H (Negative) 04/24/22 04/25/22 04/25/22 Range/Units 17:58 00:12 04:30 WBC 26.3 H (3.8-10.6) k/uL MCHC 30.7 L (31.0-37.0) g/dL Neutrophils # 22.8 H (1.3-7.7) k/uL Monocytes # 1.5 H (0-1.0) k/uL Sodium (137-145) mmol/L Chloride (98-107) mmol/L Carbon Dioxide (22-30) mmol/L BUN (9-20) mg/dL Glucose (74-99) mg/dL POC Glucose (mg/dL) 324 H 221 H (75-99) mg/dL Hemoglobin A1c (0.0-6.0) % Magnesium (1.6-2.3) mg/dL AST (17-59) U/L Total Protein (6.3-8.2) g/dL Albumin (3.5-5.0) g/dL Procalcitonin (0.02-0.09) ng/mL Urine Protein (Negative) Urine Glucose (UA) (Negative) 01/15/22 01/15/22 01/15/22 Range/Units 04:30 06:06 11:30 WBC (3.8-10.6) k/uL MCHC (31.0-37.0) g/dL Neutrophils # (1.3-7.7) k/uL Monocytes # (0-1.0) k/uL Sodium 147 H (137-145) mmol/L Chloride 114 H (98-107) mmol/L Carbon Dioxide 34 H (22-30) mmol/L BUN 35 H (9-20) mg/dL Glucose 176 H (74-99) mg/dL POC Glucose (mg/dL) 174 H 247 H (75-99) mg/dL Hemoglobin A1c (0.0-6.0) % Magnesium 2.7 H (1.6-2.3) mg/dL AST 70 H (17-59) U/L Total Protein 5.3 L (6.3-8.2) g/dL Albumin 2.3 L (3.5-5.0) g/dL Procalcitonin (0.02-0.09) ng/mL Urine Protein (Negative) Urine Glucose (UA) (Negative) Microbiology - Last 24 Hours (Table) 01/13/22 23:59 Gram Stain - Preliminary Sputum Sputum Culture - Preliminary Presumptive Staph aureus 01/14/22 10:09 Blood Culture - Final Blood 01/12/22 16:00 Blood Culture - Preliminary Blood No Growth after 48 hours 01/12/22 15:45 Blood Culture - Preliminary Blood No Growth after 48 hours
[2022-01-15] MEDS: DILTIAZEM 125 MG in SODIUM CHLORIDE 0.9% 100 ML IV SCH ×2 (13:57→21:49)
[2022-01-15 14:16] LABS: Allen Test Performed? no
[2022-01-15 17:41] LABS: Glucose,Whole Blood 275 mg/dL (75-99)
[2022-01-15] MEDS: NOREPINEPHRINE 4 MG in SODIUM CHLORIDE 0.9% 250 ML IV SCH (18:55)
[2022-01-15] MEDS: INSULIN DETEMIR (LEVEMIR) 100 UNIT/ML SYR SQ SCH (20:47)
[2022-01-15 23:46] LABS: Glucose,Whole Blood 296 mg/dL (75-99)
--- NOTE | 2022-01-15 23:58 | P.CONS ---
History of Present Illness - Reason for Consult Consult date: 01/15/22 Positive blood culture Requesting physician: Jovani Correa - Chief Complaint Mental status changes x few days - History of Present Illness Patient is a 66-year-old male presented to the hospital 3 days ago for evaluation of mental status changes and minimally responsive, EMS was called and ultimately the patient did have a fall and assisted him in getting up patient was noticed to be tachycardic and noted to have significant left-sided deficit for the patient was brought into the hospital, family mention the patient was confused and sleepy over the last 2 to 3 days in the emergency room the patient underwent neck CTA showing right MCA infarct evidence of the dissection neurology has seen the patient he also have A. fib with RVR with elevated troponin and has been managed by cardiology services urine toxicology was positive for cocaine patient on presentation to the hospital was afebrile subsequent started spiking a fever yesterday morning with a temperature of 101.7 degrees formulae patient did have a white count of 20,000 is up to 30,000 yesterday did have elevated BUN and creatinine AST was elevated urine was negative patient did have a chest x-ray additional bilateral effusion and bibasilar infiltrate patient did have a blood culture drawn which came positive for gram-positive cocci in the sputum showing present for staph aureus patient is currently being treated with Zosyn infectious disease was consulted for further management of antibiotic therapy most information has been obtained from review the chart and nursing staff as the patient is currently intubated on the vent and unable provide any history Review of Systems Positive points has been mentioned in HPI complete review could not be obtained because of his underlying mental status Past Medical History Past Medical History: Atrial Fibrillation, Coronary Artery Disease (CAD), Diabetes Mellitus, Hyperlipidemia, Hypertension, Osteoarthritis (OA), Sleep Apnea/CPAP/BIPAP History of Any Multi-Drug Resistant Organisms: None Reported Past Surgical History: No Surgical Hx Reported Additional Past Surgical History / Comment(s): Ex- states Pt went for a "heart procedure a few years ago" but does not recall what was done Past Anesthesia/Blood Transfusion Reactions: No Reported Reaction Past Psychological History: No Psychological Hx Reported Smoking Status: Current every day smoker Past Alcohol Use History: None Reported Past Drug Use History: None Reported - Past Family History Father Family Medical History: Diabetes Mellitus Additional Family Medical History / Comment(s): Father lost his leg to DM complications Medications and Allergies Home Medications Medication Instructions Recorded Confirmed Type No Known Home Medications 01/12/22 01/12/22 History Allergies Allergy/AdvReac Type Severity Reaction Status Date / Time No Known Allergies Allergy Verified 01/12/22 17:53 Physical Exam Vitals: Vital Signs Temp Pulse Resp BP Pulse Ox 01/15/22 04:00 100.8 F H 100 26 H 130/91 95 01/15/22 03:32 101 H 01/15/22 03:17 109 H 01/15/22 03:00 93 23 129/86 94 L 01/15/22 02:00 99.7 F H 98 25 H 94 L 01/15/22 01:00 120 H 21 94 L 01/15/22 00:00 100.2 F H 101 H 26 H 124/76 93 L 01/14/22 23:36 93 01/14/22 23:24 87 01/14/22 23:00 100 26 H 131/67 91 L 01/14/22 22:00 105 H 26 H 94 L 01/14/22 21:00 105 H 26 H 94 L 01/14/22 20:00 98.5 F 107 H 27 H 91 L 01/14/22 19:38 104 H 01/14/22 19:25 110 H 01/14/22 19:00 111 H 26 H 94 L 01/14/22 18:45 105 H 26 H 94 L 01/14/22 18:30 103 H 28 H 94 L 01/14/22 18:15 102 H 30 H 94 L 01/14/22 18:00 116 H 27 H 93 L 01/14/22 17:45 101 H 26 H 94 L 01/14/22 17:30 107 H 27 H 93 L 01/14/22 17:15 98 30 H 93 L 01/14/22 17:00 105 H 26 H 94 L 01/14/22 16:45 108 H 26 H 94 L 01/14/22 16:30 114 H 26 H 93 L 01/14/22 16:15 133 H 29 H 93 L 01/14/22 16:00 100.4 F H 129 H 26 H 93 L 01/14/22 15:52 128 H 01/14/22 15:45 124 H 26 H 92 L 01/14/22 15:42 120 H 01/14/22 15:30 128 H 26 H 93 L 01/14/22 15:15 116 H 25 H 93 L 01/14/22 15:00 122 H 26 H 94 L 01/14/22 14:45 120 H 26 H 93 L 01/14/22 14:30 131 H 28 H 94 L 01/14/22 14:15 113 H 26 H 93 L 01/14/22 14:00 113 H 26 H 93 L 01/14/22 13:45 126 H 26 H 93 L 01/14/22 13:30 102 H 26 H 93 L 01/14/22 13:15 131 H 28 H 93 L 01/14/22 13:00 121 H 26 H 93 L 01/14/22 12:45 113 H 26 H 93 L 01/14/22 12:19 114 H 01/14/22 12:11 120 H 01/14/22 12:00 99.9 F H 147 H 26 H 95 Intake and Output 01/14/22 01/15/22 01/15/22 22:59 06:59 14:59 Intake Total 3773.398 6615.192 Output Total 1410 525 Balance 89.882 827.192 Intake: IV 912 618 Dextrose 5% in Water 1, 900 500 000 ml @ 100 mls/hr IV . Q10H [facility] Rx#:[id number] Piperacillin-Tazobactam 3 100 .375 gm In Sodium Chloride 0.9% 100 ml @ 25 mls/hr IVPB Q8H [facility] Rx#: [id number] Pressure bag 12 18 Intake, IV Titration 317.882 474.192 Amount Diltiazem 125 mg In 104.25 106.25 Sodium Chloride 0.9% 100 ml @ 15 MG/HR 15 mls/hr IV .Q8H20M [facility] Rx#: [id number] Norepinephrine 4 mg In 213.632 180.771 Sodium Chloride 0.9% 250 ml @ 0.05 MCG/KG/MIN 20. 707 mls/hr IV .[id number] [facility] Rx#:[id number] propofoL 1,000 mg In 187.171 Empty Bag 1 bag @ 5 MCG/ KG/MIN 3.228 mls/hr IV . Q24H [facility] Rx#:[id number] Tube Feeding 70 60 Other 200 200 Output: Urine 1410 525 Other: Voiding Method Indwelling Catheter Indwelling Catheter ABP, PAP, CO, CI - Last 8 Hours Arterial Blood Pressure 122/61 GENERAL DESCRIPTION: An elderly male intubated on the vent. No tachypnea or accessory muscle of respiration use. HEENT: Shows Pallor , no scleral icterus. Oral mucous membrane is dry. NECK: Trachea central, no thyromegaly. LUNGS: Unlabored breathing. Decreased because of the base. No wheeze or crackle. HEART: S1, S2, regular rate and rhythm. No loud murmur ABDOMEN: Soft, no tenderness , guarding or rigidity, no organomegaly EXTREMITIES: No edema of feet. SKIN: No rash, no masses palpable. NEUROLOGICAL: The patient is sedated on the vent Results CBC & Chem 7: 01/15/22 04:30 01/15/22 04:30 Labs: Abnormal Lab Results - Last 24 Hours (Table) 01/14/22 01/14/22 01/14/22 Range/Units 07:42 10:09 14:18 WBC (3.8-10.6) k/uL MCHC (31.0-37.0) g/dL Neutrophils # (1.3-7.7) k/uL Monocytes # (0-1.0) k/uL Sodium (137-145) mmol/L Chloride (98-107) mmol/L Carbon Dioxide (22-30) mmol/L BUN (9-20) mg/dL Glucose (74-99) mg/dL POC Glucose (mg/dL) (75-99) mg/dL Hemoglobin A1c 10.6 H (0.0-6.0) % Magnesium (1.6-2.3) mg/dL AST (17-59) U/L Total Protein (6.3-8.2) g/dL Albumin (3.5-5.0) g/dL Procalcitonin 0.87 H (0.02-0.09) ng/mL Urine Protein Trace H (Negative) Urine Glucose (UA) 4+ H (Negative) 01/14/22 01/15/22 01/15/22 Range/Units 17:58 00:12 04:30 WBC 26.3 H (3.8-10.6) k/uL MCHC 30.7 L (31.0-37.0) g/dL Neutrophils # 22.8 H (1.3-7.7) k/uL Monocytes # 1.5 H (0-1.0) k/uL Sodium (137-145) mmol/L Chloride (98-107) mmol/L Carbon Dioxide (22-30) mmol/L BUN (9-20) mg/dL Glucose (74-99) mg/dL POC Glucose (mg/dL) 324 H 221 H (75-99) mg/dL Hemoglobin A1c (0.0-6.0) % Magnesium (1.6-2.3) mg/dL AST (17-59) U/L Total Protein (6.3-8.2) g/dL Albumin (3.5-5.0) g/dL Procalcitonin (0.02-0.09) ng/mL Urine Protein (Negative) Urine Glucose (UA) (Negative) 01/15/22 01/15/22 01/15/22 Range/Units 04:30 06:06 11:30 WBC (3.8-10.6) k/uL MCHC (31.0-37.0) g/dL Neutrophils # (1.3-7.7) k/uL Monocytes # (0-1.0) k/uL Sodium 147 H (137-145) mmol/L Chloride 114 H (98-107) mmol/L Carbon Dioxide 34 H (22-30) mmol/L BUN 35 H (9-20) mg/dL Glucose 176 H (74-99) mg/dL POC Glucose (mg/dL) 174 H 247 H (75-99) mg/dL Hemoglobin A1c (0.0-6.0) % Magnesium 2.7 H (1.6-2.3) mg/dL AST 70 H (17-59) U/L Total Protein 5.3 L (6.3-8.2) g/dL Albumin 2.3 L (3.5-5.0) g/dL Procalcitonin (0.02-0.09) ng/mL Urine Protein (Negative) Urine Glucose (UA) (Negative) Microbiology - Last 24 Hours (Table) 01/13/22 23:59 Gram Stain - Preliminary Sputum Sputum Culture - Preliminary Presumptive Staph aureus 01/14/22 10:09 Blood Culture - Final Blood 01/12/22 16:00 Blood Culture - Preliminary Blood No Growth after 48 hours 01/12/22 15:45 Blood Culture - Preliminary Blood No Growth after 48 hours Assessment and Plan (1) Pneumonia Current Visit: Yes Status: Acute Code(s): J18.9 - PNEUMONIA, UNSPECIFIED ORGANISM SNOMED Code(s): 576892997 Plan: 1patient with sepsis in this patient who did have a fever elevated white count with evidence of bibasilar infiltrate with a sputum showing Staph aureus, the blood culture with gram-positive cocci likely Staph aureus pneumonia and a question of possible MRSA versus MSSA. 2discontinue Zosyn. 3vancomycin pharmacy to dose target trough of 15 while watching kidney function and vancomycin trough closely We will follow on clinical condition and cultures to further adjust medication if needed Thank you for this consultation will follow this patient along with you Time with Patient: Greater than 30
[2022-01-16] MEDS: INSULIN ASPART (NovoLOG) 100 UNIT/ML VIAL SQ SCH ×10 (00:07→23:19)
[2022-01-16] MEDS: IPRATROPIUM-ALBUTEROL 3 ML NEB INHALATION SCH ×7 (00:07→23:22)
[2022-01-16] MEDS: NOREPINEPHRINE 4 MG in SODIUM CHLORIDE 0.9% 250 ML IV SCH ×2 (03:27→14:48)
[2022-01-16] MEDS: DILTIAZEM 125 MG in SODIUM CHLORIDE 0.9% 100 ML IV SCH ×3 (03:27→19:59)
[2022-01-16 04:27] LABS: Albumin 2.1 g/dL (3.5-5.0); Magnesium 2.7 mg/dL (1.6-2.3); Potassium 4.2 mmol/L (3.5-5.1); Total Bilirubin 0.7 mg/dL (0.2-1.3)
[2022-01-16 05:03] LABS: Basophils % (A) 0 %; Eosinophils % (A) 0 %; HCT 39.9 % (39.0-53.0); HGB 12.3 gm/dL (13.0-17.5); Hypochromasia Marked; Lymphocytes # (A) 1.6 k/uL (1.0-4.8); Lymphocytes % (A) 7 %; MCH 29.9 pg (25.0-35.0); MCHC 30.9 g/dL (31.0-37.0); MCV 96.7 fL (80.0-100.0); Mean Platelet Volume 8.6; Monocytes # (A) 0.9 k/uL (0-1.0); Monocytes % (A) 4 %; Neutrophils # (A) 19.5 k/uL (1.3-7.7); Neutrophils % (A) 88 %; Platelet Count 165 k/uL (150-450); RBC 4.12 m/uL (4.30-5.90); RDW 13.7 % (11.5-15.5); WBC 22.2 k/uL (3.8-10.6)
[2022-01-16 05:07] LABS: Glucose,Whole Blood 294 mg/dL (75-99)
[2022-01-16 06:17] LABS: ABG Base Excess 6.3 mmol/L; ABG HCO3 32 mmol/L (21-25); ABG Oxygen Saturation 97.7 % (94-97); ABG PCO2 59 mmHg (35-45); ABG PH 7.34 (7.35-7.45); ABG PO2 97 mmHg (83-108); ABG TCO2 34 mmol/L (19-24)
[2022-01-16 06:27] LABS: Allen Test Performed? No
--- NOTE | 2022-01-16 08:23 | XR ---
EXAMINATION TYPE: XR chest 1V portable DATE OF EXAM: 01/16/2022 COMPARISON: Chest x-ray 01/15/2022 HISTORY: Intubated TECHNIQUE: frontal view of the chest is obtained. On 2 images FINDINGS: Distal tip of the endotracheal tube thought present over the tracheal air column, NG tube tip is likely within the stomach but not included on exam, side-port is seen at this level the stomac h. Left subclavian central venous catheter is present and overlying appropriate position. There is no evident pneumothorax. Basilar airspace disease is present, left hemidiaphragms obscured. Cardiomedia stinal silhouette is not significantly changed. IMPRESSION: Correlate for pneumonia, edema..
[2022-01-16] MEDS: CHLORHEXIDINE GLUCONATE 15 ML CUP MUCOUS MEM SCH ×2 (08:46→19:58)
[2022-01-16] MEDS: CLOPIDOGREL 75 MG TAB PO SCH (08:46)
[2022-01-16] MEDS: HEPARIN SODIUM,PORCINE/PF 5,000 UNIT/0.5 ML SYRINGE SQ SCH ×2 (08:46→19:59)
[2022-01-16] MEDS: ASPIRIN 300 MG SUPP RECTAL SCH (08:46)
--- NOTE | 2022-01-16 09:35 | P.PN ---
Subjective Progress Note Date: 01/16/22 Principal diagnosis: Carotid stenosis Patient was seen and examined in the ICU. He remains sedated and intubated, they are trialing weaning his sedation today. Underwent EEG yesterday with results pending. No acute changes reported per nursing. Patient is afebrile today. Objective - Vital Signs Vital signs: Vital Signs Temp 98.7 F 01/16/22 05:45 Pulse 98 01/16/22 08:36 Resp 26 H 01/16/22 07:00 BP 115/71 01/16/22 07:00 Pulse Ox 96 01/16/22 07:00 Intake & Output 01/15/22 01/16/22 01/16/22 18:59 06:59 18:59 Intake Total 831.205 7774.991 83.605 Output Total 435 1300 Balance -33.389 -18.009 83.605 Weight 108.7 kg 112.7 kg Intake: IV 141 39 Dextrose 5% in Water 1, 120 000 ml @ 100 mls/hr IV . Q10H [facility] Rx#:[id number] Pressure bag 21 39 Intake, IV Titration 260.611 562.991 83.605 Amount Dextrose 5% in Water 1, 20 000 ml @ 100 mls/hr IV . Q10H [facility] Rx#:[id number] Diltiazem 125 mg In 125 202.5 Sodium Chloride 0.9% 100 ml @ 15 MG/HR 15 mls/hr IV .Q8H20M [facility] Rx#: [id number] Norepinephrine 4 mg In 35.611 82.143 Sodium Chloride 0.9% 250 ml @ 0.05 MCG/KG/MIN 20. 707 mls/hr IV .[id number] [facility] Rx#:[id number] propofoL 1,000 mg In 100 258.348 83.605 Empty Bag 1 bag @ 5 MCG/ KG/MIN 3.228 mls/hr IV . Q24H [facility] Rx#:[id number] Tube Feeding 280 Other 400 Output: Urine 435 1300 Other: Voiding Method Indwelling Catheter Indwelling Catheter ABP, PAP, CO, CI - Last Documented Arterial Blood Pressure 114/56 - Exam General appearance: The patient is sedated and intubated. HET: Head is normocephalic and atraumatic. Neck: Supple without lymphadenopathy. Trachea midline. No audible carotid bruit. Heart: S1 S2. Irregular rate and rhythm. Lungs: Coarse with equal entry. Abdomen: Soft, nontender, nondistended. Extremities: Normal skin color and turgor. No cyanosis, rash, ulceration, clubbing, or edema. Bilateral palpable radial and pedal pulses. Neurological: Sedated and intubated. - Labs CBC & Chem 7: 01/16/22 04:00 01/16/22 04:00 Labs: Abnormal Lab Results - Last 24 Hours (Table) 01/15/22 01/15/22 01/15/22 Range/Units 05:02 06:06 11:30 WBC (3.8-10.6) k/uL RBC (4.30-5.90) m/uL Hgb (13.0-17.5) gm/dL MCHC (31.0-37.0) g/dL Neutrophils # (1.3-7.7) k/uL ABG pH (7.35-7.45) ABG pCO2 56 H (35-45) mmHg ABG pO2 72 L (83-108) mmHg ABG HCO3 31 H (21-25) mmol/L ABG Total CO2 33 H (19-24) mmol/L ABG O2 Saturation (94-97) % Sodium (137-145) mmol/L Chloride (98-107) mmol/L Carbon Dioxide (22-30) mmol/L BUN (9-20) mg/dL Glucose (74-99) mg/dL POC Glucose (mg/dL) 174 H 247 H (75-99) mg/dL Magnesium (1.6-2.3) mg/dL Total Protein (6.3-8.2) g/dL Albumin (3.5-5.0) g/dL 01/15/22 01/15/22 01/16/22 Range/Units 17:40 23:44 04:00 WBC 22.2 H (3.8-10.6) k/uL RBC 4.12 L (4.30-5.90) m/uL Hgb 12.3 L (13.0-17.5) gm/dL MCHC 30.9 L (31.0-37.0) g/dL Neutrophils # 19.5 H (1.3-7.7) k/uL ABG pH (7.35-7.45) ABG pCO2 (35-45) mmHg ABG pO2 (83-108) mmHg ABG HCO3 (21-25) mmol/L ABG Total CO2 (19-24) mmol/L ABG O2 Saturation (94-97) % Sodium (137-145) mmol/L Chloride (98-107) mmol/L Carbon Dioxide (22-30) mmol/L BUN (9-20) mg/dL Glucose (74-99) mg/dL POC Glucose (mg/dL) 275 H 296 H (75-99) mg/dL Magnesium (1.6-2.3) mg/dL Total Protein (6.3-8.2) g/dL Albumin (3.5-5.0) g/dL 01/16/22 01/16/22 01/16/22 Range/Units 04:00 05:05 05:29 WBC (3.8-10.6) k/uL RBC (4.30-5.90) m/uL Hgb (13.0-17.5) gm/dL MCHC (31.0-37.0) g/dL Neutrophils # (1.3-7.7) k/uL ABG pH 7.34 L (7.35-7.45) ABG pCO2 59 H (35-45) mmHg ABG pO2 (83-108) mmHg ABG HCO3 32 H (21-25) mmol/L ABG Total CO2 34 H (19-24) mmol/L ABG O2 Saturation 97.7 H (94-97) % Sodium 147 H (137-145) mmol/L Chloride 115 H (98-107) mmol/L Carbon Dioxide 33 H (22-30) mmol/L BUN 50 H (9-20) mg/dL Glucose 300 H (74-99) mg/dL POC Glucose (mg/dL) 294 H (75-99) mg/dL Magnesium 2.7 H (1.6-2.3) mg/dL Total Protein 5.0 L (6.3-8.2) g/dL Albumin 2.1 L (3.5-5.0) g/dL Microbiology - Last 24 Hours (Table) 01/14/22 10:09 Blood Culture Gram Stain - Preliminary Blood Blood Culture - Preliminary Staphylococcus aureus 01/12/22 16:00 Blood Culture - Preliminary Blood No Growth after 72 hours 01/12/22 15:45 Blood Culture - Preliminary Blood No Growth after 72 hours 01/13/22 23:59 Gram Stain - Preliminary Sputum Sputum Culture - Preliminary Presumptive Staph aureus Assessment and Plan Assessment: 1. Severe bilateral carotid occlusive disease. Exact extent cannot be fully determined by the CT and duplex studies has plaque is extremely calcified although it appears the right ICA is occluded 2. Subacute ischemic stroke over right MCA, likely embolic however due to severity of of left ICA stenosis if patient's condition improves can discuss further intervention for left ICA stenosis 3. Atrial fibrillation with RVR 4. 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 History coronary artery disease 6. Hypertension 7. Diabetes mellitus 8. Dyslipidemia 9. Medication noncompliance 10. Positive urine for cocaine use Plan: 1. Continue ICU management 2. Continue medical management with aspirin, Plavix, and recommend high-dose statin 3. At this time patient is not a candidate for vascular surgical intervention. If patient condition improves, can further discuss surgical intervention at that time. Thank you for this consultation, we'll be on standby. The impression and plan of care has been dictated as directed. I performed a history and examination of this patient, discussed the same with the dictator. I agree with the dictator's note ,documented as a scribe. Any additional findings or plans will be noted.
--- NOTE | 2022-01-16 11:32 | P.PN ---
Subjective Progress Note Date: 01/16/22 Principal diagnosis: CVA The patient is a 66-year-old male with a PMH of coronary artery disease, A. fib, severe systolic CHF with EF 20-25% on MARSHALL on 12/11, type II DM, hyperlipidemia, hypertension who was brought into the emergency room for altered mental status. There were reports that the patient had reportedly not filled his Eliquis for his A. fib and had in general been noncompliant with his medications. CTA showing a right MCA infarct, no evidence of dissection, and bilateral carotid stenosis greater than 80% on the right and near occlusion on the left. CT brain had revealed the right MCA subacute infarct with some mass effect as well as a possible left posterior parietal subacute infarct suspected secondary to embolic phenomenon. Neurology was consulted and recommended Aspirin, Plavix, Lipitor and to hold anticoagulation for now due to risk of worsening hemorragic conversion. 01/16 Patient currently remains in the ICU and is still on vent support. Objective - Vital Signs Vital signs: Vital Signs Temp 99.9 F H 01/16/22 08:00 Pulse 118 H 01/16/22 09:45 Resp 26 H 01/16/22 09:45 BP 139/79 01/16/22 09:45 Pulse Ox 94 L 01/16/22 09:45 Intake & Output 01/15/22 01/16/22 01/16/22 18:59 06:59 18:59 Intake Total 015.521 3051.991 317.978 Output Total 435 1300 250 Balance -33.389 -18.009 67.978 Weight 108.7 kg 112.7 kg Intake: IV 141 39 36 Dextrose 5% in Water 1, 120 000 ml @ 100 mls/hr IV . Q10H [facility] Rx#:[id number] Pressure bag 21 39 36 Intake, IV Titration 260.611 562.991 191.978 Amount Dextrose 5% in Water 1, 20 000 ml @ 100 mls/hr IV . Q10H [facility] Rx#:[id number] Diltiazem 125 mg In 125 202.5 Sodium Chloride 0.9% 100 ml @ 15 MG/HR 15 mls/hr IV .Q8H20M [facility] Rx#: [id number] Norepinephrine 4 mg In 35.611 82.143 Sodium Chloride 0.9% 250 ml @ 0.05 MCG/KG/MIN 20. 707 mls/hr IV .[id number] [facility] Rx#:[id number] ceFAZolin 2 gm In Sodium 50 Chloride 0.9% 50 ml @ 100 mls/hr IVPB Q8H [facility] Rx#: [id number] propofoL 1,000 mg In 100 258.348 141.978 Empty Bag 1 bag @ 5 MCG/ KG/MIN 3.228 mls/hr IV . Q24H [facility] Rx#:[id number] Tube Feeding 280 90 Other 400 Output: Urine 435 1300 250 Other: Voiding Method Indwelling Catheter Indwelling Catheter Indwelling Catheter ABP, PAP, CO, CI - Last Documented Arterial Blood Pressure 127/63 - Exam General: Intubated Derm: no unusual rashes/lesions no unusual ecchymoses, warm, dry Head: atraumatic, normocephalic, symmetric Eyes: EOMI, no lid lag, anicteric sclera, pupils equal round reactive to light ENT: Nose and ears atraumatic, no thrush, no pharyngeal erythema Neck: No thyromegaly, no cervical lymphadenopathy, trachea midline, supple Mouth: no lip lesion, mucus membranes moist Cardiovascular: Tachycardic, Irregularly irregular, no murmur, positive posterior tibial pulse bilateral, no edema, capillary refill less than 2 seconds Lungs: Some scattered rhonchi, without wheezing or rales, no accessory muscle use Abdominal: soft, nontender to palpation, no guarding, no appreciable organomegaly, normal bowel sounds Ext: no gross muscle atrophy, no contractures, Neuro: Unable to assess - Labs CBC & Chem 7: 01/16/22 04:00 01/16/22 04:00 Labs: Abnormal Lab Results - Last 24 Hours (Table) 01/15/22 01/15/22 01/15/22 Range/Units 05:02 11:30 17:40 WBC (3.8-10.6) k/uL RBC (4.30-5.90) m/uL Hgb (13.0-17.5) gm/dL MCHC (31.0-37.0) g/dL Neutrophils # (1.3-7.7) k/uL ABG pH (7.35-7.45) ABG pCO2 56 H (35-45) mmHg ABG pO2 72 L (83-108) mmHg ABG HCO3 31 H (21-25) mmol/L ABG Total CO2 33 H (19-24) mmol/L ABG O2 Saturation (94-97) % Sodium (137-145) mmol/L Chloride (98-107) mmol/L Carbon Dioxide (22-30) mmol/L BUN (9-20) mg/dL Glucose (74-99) mg/dL POC Glucose (mg/dL) 247 H 275 H (75-99) mg/dL Magnesium (1.6-2.3) mg/dL Total Protein (6.3-8.2) g/dL Albumin (3.5-5.0) g/dL 01/15/22 01/16/22 01/16/22 Range/Units 23:44 04:00 04:00 WBC 22.2 H (3.8-10.6) k/uL RBC 4.12 L (4.30-5.90) m/uL Hgb 12.3 L (13.0-17.5) gm/dL MCHC 30.9 L (31.0-37.0) g/dL Neutrophils # 19.5 H (1.3-7.7) k/uL ABG pH (7.35-7.45) ABG pCO2 (35-45) mmHg ABG pO2 (83-108) mmHg ABG HCO3 (21-25) mmol/L ABG Total CO2 (19-24) mmol/L ABG O2 Saturation (94-97) % Sodium 147 H (137-145) mmol/L Chloride 115 H (98-107) mmol/L Carbon Dioxide 33 H (22-30) mmol/L BUN 50 H (9-20) mg/dL Glucose 300 H (74-99) mg/dL POC Glucose (mg/dL) 296 H (75-99) mg/dL Magnesium 2.7 H (1.6-2.3) mg/dL Total Protein 5.0 L (6.3-8.2) g/dL Albumin 2.1 L (3.5-5.0) g/dL 01/16/22 01/16/22 Range/Units 05:05 05:29 WBC (3.8-10.6) k/uL RBC (4.30-5.90) m/uL Hgb (13.0-17.5) gm/dL MCHC (31.0-37.0) g/dL Neutrophils # (1.3-7.7) k/uL ABG pH 7.34 L (7.35-7.45) ABG pCO2 59 H (35-45) mmHg ABG pO2 (83-108) mmHg ABG HCO3 32 H (21-25) mmol/L ABG Total CO2 34 H (19-24) mmol/L ABG O2 Saturation 97.7 H (94-97) % Sodium (137-145) mmol/L Chloride (98-107) mmol/L Carbon Dioxide (22-30) mmol/L BUN (9-20) mg/dL Glucose (74-99) mg/dL POC Glucose (mg/dL) 294 H (75-99) mg/dL Magnesium (1.6-2.3) mg/dL Total Protein (6.3-8.2) g/dL Albumin (3.5-5.0) g/dL Microbiology - Last 24 Hours (Table) 01/13/22 23:59 Gram Stain - Final Sputum Sputum Culture - Final Staphylococcus aureus 01/14/22 10:09 Blood Culture Gram Stain - Preliminary Blood Blood Culture - Preliminary Staphylococcus aureus 01/12/22 16:00 Blood Culture - Preliminary Blood No Growth after 72 hours 01/12/22 15:45 Blood Culture - Preliminary Blood No Growth after 72 hours Assessment and Plan (1) CVA (cerebral vascular accident) Current Visit: Yes Status: Acute Code(s): I63.9 - CEREBRAL INFARCTION, UNSPECIFIED SNOMED Code(s): 956446335 (2) Atrial fibrillation with RVR Current Visit: Yes Status: Acute Code(s): I48.91 - UNSPECIFIED ATRIAL FIBRILLATION SNOMED Code(s): 173058440246760 (3) Acute encephalopathy Current Visit: Yes Status: Acute Code(s): G93.40 - ENCEPHALOPATHY, UNSPECIFIED SNOMED Code(s): 72033945 Plan: Subacute MCA suspected embolic infarct with mass effect in patient noncompliant with anticoagulation for A. fib -Neurology recommendations to Continue with aspirin, Plavix, statin plan to hold anticoagulation for another 5 days. -Vascular surgery consulted for carotid stenosis- At this time not a candidate for surgery. Acute respiratory failure requiring intubation and mechanical ventilation -Patient intubated 01/13 -bibasilar infiltrates with Staph sputum culture- ID following. On IV cefazolin. Right carotid stenosis greater than 80% near-complete occlusion of the side -Not candidate for surgical intervention Afib with RVR- improved -Cardiology following. Currently on Cardizem GTT, metoprolol. -Anticoagulation on hold due to bleed. Cocaine abuse Chronic medical condition: Coronary artery disease, A. fib, type II DM, hypertension, hyperlipidemia -Continue with ASA, Statin, plavix. -Patient is hyperglycemic with tube feeds. Continue to titrate insulin. Adjustments made today. DVT prophylaxis -Subcutaneous heparin CODE STATUS: Full Code Discussed with: RN Overall prognosis very poor. Pallative consult
--- NOTE | 2022-01-16 11:42 | CT ---
EXAMINATION TYPE: CT brain wo con DATE OF EXAM: 01/16/2022 COMPARISON: CT brain 01/13/2022 HISTORY: FU CVA CT DLP: 1126.4 mGycm Automated exposure control for dose reduction was used. Helical imaging through the brain. FINDINGS: NG and endotracheal tubes in place. The low-attenuation involving the right cerebral hemisphere, loss of dasilva-white junction, effacement of overlying sulci is again noted, there is some slight midline s hift with mass effect on the right lateral ventricle similar to prior exam, no evident hemorrhage. Th ere is some progression in the right frontal involvement compared to prior as well as the posterior t emporal and parietal lobes. The cerebral vascular accident change on the left involving the inferior occipital lobe is chronic, stable. Air-fluid level present in the sphenoid sinus. IMPRESSION: FINDINGS COMPATIBLE WITH LARGE RIGHT SIDED CEREBRAL VASCULAR ACCIDENT, THERE ARE CHANGES OF EVOLVING AND PROGRESSED INFARCT. SPHENOID SINUS DISEASE
[2022-01-16 11:52] LABS: Glucose,Whole Blood 259 mg/dL (75-99)
[2022-01-16] MEDS: METOPROLOL TARTRATE 25 MG TAB PO SCH ×2 (12:22→19:59)
[2022-01-16] MEDS ORDERED: MANNITOL IV ONE (12:45)
[2022-01-16] MEDS ORDERED: SALINE IV ONE (12:45)
--- NOTE | 2022-01-16 12:50 | P.PN ---
Subjective Progress Note Date: 01/16/22 The patient is seen at bedside and per nurse he is about the same. Patient is on IV propofol 10mg/kg/min and no improvement in his condition per nurse. An EEG was ordered by me and was performed yesterday but because of glitch in system unable to retrieve study and EEG was able to transfer it today. CT head 01/16/2022 is ordered by ICU team and it is reported as findings compatible with large right sided cerebral vascular accident, there are changes of evolving and progressed infarct. Sphenoid sinus disease. I personally reviewed the CT of the head and I agreed there is a progression from prior CT and there is compression over the right lateral ventricle. The third ventricle is constricted but it continues to be patent what and fourth ventricle is patent. Objective - Vital Signs Vital signs: Vital Signs Temp 99.9 F H 01/16/22 08:00 Pulse 117 H 01/16/22 12:14 Resp 26 H 01/16/22 12:00 BP 157/78 01/16/22 11:00 Pulse Ox 96 01/16/22 12:00 Intake & Output 01/15/22 01/16/22 01/16/22 18:59 06:59 18:59 Intake Total 264.497 7611.991 678.978 Output Total 435 1300 550 Balance -33.389 -18.009 128.978 Weight 108.7 kg 112.7 kg Intake: IV 141 39 12 Dextrose 5% in Water 1, 120 000 ml @ 100 mls/hr IV . Q10H [facility] Rx#:[id number] Pressure bag 21 39 12 Intake, IV Titration 260.611 562.991 316.978 Amount Dextrose 5% in Water 1, 20 000 ml @ 100 mls/hr IV . Q10H [facility] Rx#:[id number] Diltiazem 125 mg In 125 202.5 125 Sodium Chloride 0.9% 100 ml @ 15 MG/HR 15 mls/hr IV .Q8H20M [facility] Rx#: [id number] Norepinephrine 4 mg In 35.611 82.143 Sodium Chloride 0.9% 250 ml @ 0.05 MCG/KG/MIN 20. 707 mls/hr IV .[id number] [facility] Rx#:[id number] ceFAZolin 2 gm In Sodium 50 Chloride 0.9% 50 ml @ 100 mls/hr IVPB Q8H [facility] Rx#: [id number] propofoL 1,000 mg In 100 258.348 141.978 Empty Bag 1 bag @ 5 MCG/ KG/MIN 3.228 mls/hr IV . Q24H [facility] Rx#:[id number] Tube Feeding 280 150 Other 400 200 Output: Urine 435 1300 550 Other: Voiding Method Indwelling Catheter Indwelling Catheter Indwelling Catheter ABP, PAP, CO, CI - Last Documented Arterial Blood Pressure 98/44 - Exam GENERAL: The patient is lying in bed and does not seem in acute distress. LUNG: Intubated on ventilator. NEUROLOGICAL: Limited because of his condition. IV Propofol 10mcg/kg/min. Higher mental function: The patient is comtaose. GCS 3 (E1, VT1, MI1). Not responding or following commands. Cranial nerves: I had to manually open his eye and primary gaze is midline. The pupils are round, constricted, (1-2mm), and hard to appreciated reactivity. Has positive corneal reflexes. Left lower facial droop. Has positive weak gag reflex. Is breathing over the vent. Otherwise rest of cranial nerves could not be assessed. Motor: Gait is deferred. The strength is hard to assess because of his condition but not withdrawaling to any of extremities. No spontaneous movement noted. Normal bulk. Cerebellum: Unable to assess. Sensation: Unable to assess light touch. Reflexes (right/left): 1+ throughout. Plantars are mute bilaterally. WORK-UP: Lipid Panel: TG 129, Cholestrol 127, LDL 74 and HDL 26. TSH: <0.015 Free T4: 2.[address] of the head is reported as right middle cerebral artery subacute infarction was some mass effect, possible left posterior parietal subacute infarct, consider embolic phenomenon. Chronic small vessel ischemic changes at. As well as the patient has chronic inferior left occipital infarct with ex vacuo. Personally reviewed the CT of the head and I agree with the report by also felt that there could be the subacute over the left frontal as well as a small region. CT angiography of the head and neck was reported as right MCA M1 segment abrupt cutoff/filling defect from the thrombus with associated right MCA territory infarct which is not significant change from prior CT. Bilateral calcified and noncalcified plaque in at the carotid bifurcation resulting in greater than 80% stenosis in the right and near occlusion on the left. No evidence of dissection of the cervical internal carotid artery vertebral arteries. Multinodular thyroid gland. Carotid duplex: Is reported as right ICA occlusion. Cardiac arrhythmia is noted incidentally. Repeat CT head on 01/13/2022: It is reported as large right hemispheric hypodensity and edema that could be subacute infarct with increasing mass effect compared to the CT yesterday. No hemorrhage. There is low density in the medial left occipital lobe cortex consistent with old infarct with fluid density. Unchanged. I personally reviewed that a CT of the head and I don't feel that there is any significant midline shift. There is mass effect over the right lateral ventricle but I feel the patient's ventricles are still patent. I feel a third ventricle is somewhat constricted but it's still patent. 2D echo: Is reported as reduced LV systolic function (EF of 20%). L ventricle hypertrophy. Patient has tachycardia and in atrial fibrillation. Left atrial is increased severely by volume. Mildly increased left atrial area. Moderate to severe mitral regurgitation. - Labs CBC & Chem 7: 01/16/22 04:00 01/16/22 04:00 Labs: Abnormal Lab Results - Last 24 Hours (Table) 01/15/22 01/15/22 01/15/22 Range/Units 05:02 17:40 23:44 WBC (3.8-10.6) k/uL RBC (4.30-5.90) m/uL Hgb (13.0-17.5) gm/dL MCHC (31.0-37.0) g/dL Neutrophils # (1.3-7.7) k/uL ABG pH (7.35-7.45) ABG pCO2 56 H (35-45) mmHg ABG pO2 72 L (83-108) mmHg ABG HCO3 31 H (21-25) mmol/L ABG Total CO2 33 H (19-24) mmol/L ABG O2 Saturation (94-97) % Sodium (137-145) mmol/L Chloride (98-107) mmol/L Carbon Dioxide (22-30) mmol/L BUN (9-20) mg/dL Glucose (74-99) mg/dL POC Glucose (mg/dL) 275 H 296 H (75-99) mg/dL Magnesium (1.6-2.3) mg/dL Total Protein (6.3-8.2) g/dL Albumin (3.5-5.0) g/dL 01/16/22 01/16/22 01/16/22 Range/Units 04:00 04:00 05:05 WBC 22.2 H (3.8-10.6) k/uL RBC 4.12 L (4.30-5.90) m/uL Hgb 12.3 L (13.0-17.5) gm/dL MCHC 30.9 L (31.0-37.0) g/dL Neutrophils # 19.5 H (1.3-7.7) k/uL ABG pH (7.35-7.45) ABG pCO2 (35-45) mmHg ABG pO2 (83-108) mmHg ABG HCO3 (21-25) mmol/L ABG Total CO2 (19-24) mmol/L ABG O2 Saturation (94-97) % Sodium 147 H (137-145) mmol/L Chloride 115 H (98-107) mmol/L Carbon Dioxide 33 H (22-30) mmol/L BUN 50 H (9-20) mg/dL Glucose 300 H (74-99) mg/dL POC Glucose (mg/dL) 294 H (75-99) mg/dL Magnesium 2.7 H (1.6-2.3) mg/dL Total Protein 5.0 L (6.3-8.2) g/dL Albumin 2.1 L (3.5-5.0) g/dL 01/16/22 01/16/22 Range/Units 05:29 11:51 WBC (3.8-10.6) k/uL RBC (4.30-5.90) m/uL Hgb (13.0-17.5) gm/dL MCHC (31.0-37.0) g/dL Neutrophils # (1.3-7.7) k/uL ABG pH 7.34 L (7.35-7.45) ABG pCO2 59 H (35-45) mmHg ABG pO2 (83-108) mmHg ABG HCO3 32 H (21-25) mmol/L ABG Total CO2 34 H (19-24) mmol/L ABG O2 Saturation 97.7 H (94-97) % Sodium (137-145) mmol/L Chloride (98-107) mmol/L Carbon Dioxide (22-30) mmol/L BUN (9-20) mg/dL Glucose (74-99) mg/dL POC Glucose (mg/dL) 259 H (75-99) mg/dL Magnesium (1.6-2.3) mg/dL Total Protein (6.3-8.2) g/dL Albumin (3.5-5.0) g/dL Microbiology - Last 24 Hours (Table) 01/13/22 23:59 Gram Stain - Final Sputum Sputum Culture - Final Staphylococcus aureus 01/14/22 10:09 Blood Culture Gram Stain - Preliminary Blood Blood Culture - Preliminary Staphylococcus aureus 01/12/22 16:00 Blood Culture - Preliminary Blood No Growth after 72 hours 01/12/22 15:45 Blood Culture - Preliminary Blood No Growth after 72 hours Assessment and Plan Assessment: Large right hemispheric Subacute ischemic stroke. Etiology is embolic (has history of atrial fibrillation and seems non-compliant with medication) and in addition cocaine can induce stroke since can cause vasoconstriction. Right M1 occlusion. No thrombectomy since outside window and risk outweigh benefit. Cytotoxic edema due to above Respiratory distress due to above and that he required intubation and mechanical ventilation since unable to protect his airway Acute dysphagia due to above Right carotid stenosis >80% per CTA and near occlusion on left. But on carotid it is reported as Right ICA occlusion. Atrial fibrillation and is suppose to be on Eliquis but per pharmacy has not filled up his medication for 3 months. History of old stroke over left occipital Positive for cocaine use Hypertension Hyperlipidemia Diabetes mellitus Sleep apnea Medication noncompliance Plan: Because of his dysphagia will continue ASA 300mg rectally. Once able to swallow or NG/PEG tube can resume with ASA 325mg and Plavix 75mg daily and Lipitor 80mg qhs. CT head 01/16/2022 is ordered by ICU team and it is reported as findings compatible with large right sided cerebral vascular accident, there are changes of evolving and progressed infarct. Sphenoid sinus disease. I personally reviewed the CT of the head and I agreed there is a progression from prior CT and there is compression over the right lateral ventricle. The third ventricle is constricted but it continues to be patent what and fourth ventricle is patent. I will given another dose of IV Mannitol. Consulted vascular surgery team for the carotid stenosis. Regarding start of anticoagulation continue to hold for an additional about 6 days because of extent of stroke to avoid hemorrhagic transformation. Preliminary EEG: Abnormal study. Severe encephalopathy. No focal slowing, epileptiform discharges or seizure on the EEG. Every 2 neuro- hour checks On cardiac monitoring PT OT and ASSEMBLER CRIMPER are consulted Avoid any hypotensive episode. Cardiology team is consulted. We'll defer the rest of the medical management to the primary team For DVT prophylaxis: On subcu heparin 5000 units every 12 hours. Patient is continues to have some brainstem reflexes on examination. Patient condition is critical. Prognosis is very poor. Patient has no children and no family members that we are able to locate. He has an ex-. The plan discussed with the patient's ICU nurse. Art Irwin M.D. Neuro-hospitalist Time with Patient: Less than 30
--- NOTE | 2022-01-16 13:15 | EEG ---
ELECTROENCEPHALOGRAM REPORT DATE OF SERVICE: 01/15/2022. CLINICAL HISTORY: This is a 66-year-old gentleman who has a subacute right hemispheric stroke and continues to have altered mental status. The video EEG is obtained to evaluate for seizure epileptiform activity. Relevant medication is IV propofol. EEG TYPE: A routine 21-channel EEG is performed with video using the 10/20 electrode placement system. DESCRIPTION: The patient is intubated on a ventilator. The background consists of low to moderate voltage of 1.5 to 2.5 hertz nonrhythmic delta activity intermixed with theta activity. There is no physiological stage II sleep architecture. There is no focal slowing. Interictal and ictal is none. ACTIVATION PROCEDURE: Photic stimulation did not evoke a posterior driving response date. There is no abnormality during the photic stimulation. Hyperventilation was not performed. CLINICAL INTERPRETATION: This is an abnormal routine EEG. The background slowing is suggestive of severe encephalopathy. Otherwise, there is no focal slowing, epileptiform discharges or seizure on the EEG. Clinical correlation is recommended. MMKYLER / DARIUS: [id number] / SANDOR
--- NOTE | 2022-01-16 15:08 | P.PN ---
Subjective Progress Note Date: 01/16/22 On 01/15/2022, the patient is being seen for a follow-up. The patient is currently intubated on a mechanical ventilator. The patient was intubated on 12/13/2021. The patient is post left-sided CVA and the patient a stroke along the right MCA distribution. The patient has chronic atrial fibrillation and the patient is postop non-ST segment elevation myocardial infarction. 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 His urine toxin was also positive for cocaine. He is known to have diabetes, hypertension and hyperlipidemia. At this point in time, the patient is on propofol running at 30 from a respiratory milligrams per minute. The patient is on a mechanical ventilator and the patient is currently on assist control mode at the rate of 26 with a tidal volume of 450 and FiO2 of 50% with a PEEP of 5. The blood gas showed a pH of 7.35 with a pCO2 of 55 and pO2 of 71 and this was on FiO2 of 50%. The patient had a follow-up chest x-ray today that showed an ET tube which was in a good location. There is a right lower lobe pulmonary infiltrate/an area of consolidation which was present earlier and seems to be more confluent. The patient also has a left subclavian triple-lumen catheter in place. The patient had a sputum sample that showed a presumptive staph aureus and he was febrile and this morning his temperature was 100.8 and based on that the patient was started on IV vancomycin. The white cell count was as high as 32 and currently is down to 26 with a hemoglobin of 13.3. No significant orotracheal secretions. The patient is on no pressors. Nevertheless, the patient is still having issues with atrial fibrillation with rapid ventricular response. The patient is currently on Cardizem drip at 50 mg an hour. He is also on norepinephrine infusion low-dose at 0.0 25 Tyrel respiratory gram per minute. IV fluids are currently at KVO. He is receiving enteral feeding with vitamin 1.2 at the rate of 10 mL an hour. His previous echocardiogram done on 01/13/2022 showed reduced left ventricular ejection fraction which was estimated to be at around 20%. The patient also had moderate severe mitral regurgitation, moderate to severe aortic stenosis with a peak gradient of 55 mmHg and moderate to severe tricuspid regurgitation. No evidence of any pericardial effusion. Neurologically, he is sedated. Pupils are equal and there are on pro-millimeters in size. No nystagmus. No clonus. No Babinski and the left lower extremity. No seizure activity has been noted. Neurology is on the case. 01/16/2022, the patient is being seen for a follow-up. The patient remains on a mechanical ventilator. The patient this morning stop propofol running at 30 mg/kg per minute and the patient will obviously need a sedation holiday. The mental status is to be reevaluated. A follow-up CAT scan of the head will be also ordered to assess the progression of this CVA. Note that the patient is unresponsive to any painful stimulation. Pupils remain around 2-3 mm in size sluggish reactive to light without any nystagmus. No clonus and no Babinski. No reaction to any deep painful stimulation. The patient remained on assist control mode at the rate of 26 with a tidal volume of 450, the patient is also on FiO2 of 50% with a PEEP of 5. The blood gas showed a pH of 7.34 with a pCO2 59 and pO2 97. The chest x-ray from today shows evidence of a pulmonary edema/CHF. There is bilateral/bibasilar airspace disease present most on the right lung base. The patient shown to have staph aureus in his sputum and the patient was febrile. Based on that, the patient was initially started on vancomycin and subsequently antibiotics and was switched IV cefazolin as the staph aureus do not to be an MSSA. The patient is hemodynamically stable. Underlying cardiac rhythm is atrial fibrillation. The patient remains on a Cardizem drip at 50 mg an hour. Note that the patient has impaired LV function with an ejection fraction of 20%. The sodium level is at 147. The BUN is at 50 with a creatinine of 1.3, the white cell count is at 22 with a hemoglobin of 12.3 and a platelet count of 165. The patient is receiving water solution to the NG 200 mL every 6 hours. IV fluids are currently at KVO. No antigravity patient has been started. The patient is on Levemir insulin 16 units at bedtime in addition to 8 units every 6 hours of NovoLog and a sliding scale coverage. Objective - Vital Signs Vital signs: Vital Signs Temp 99.9 F H 01/16/22 08:00 Pulse 94 01/16/22 14:30 Resp 30 H 01/16/22 14:30 BP 137/68 01/16/22 14:30 Pulse Ox 95 01/16/22 14:30 Intake & Output 01/15/22 01/16/22 01/16/22 18:59 06:59 18:59 Intake Total 770.057 1671.991 706.954 Output Total 435 1300 550 Balance -33.389 -18.009 156.954 Weight 108.7 kg 112.7 kg 112.7 kg Intake: IV 141 39 12 Dextrose 5% in Water 1, 120 000 ml @ 100 mls/hr IV . Q10H [facility] Rx#:[id number] Pressure bag 21 39 12 Intake, IV Titration 260.611 562.991 344.954 Amount Dextrose 5% in Water 1, 20 000 ml @ 100 mls/hr IV . Q10H [facility] Rx#:[id number] Diltiazem 125 mg In 125 202.5 125 Sodium Chloride 0.9% 100 ml @ 15 MG/HR 15 mls/hr IV .Q8H20M [facility] Rx#: [id number] Norepinephrine 4 mg In 35.611 82.143 Sodium Chloride 0.9% 250 ml @ 0.05 MCG/KG/MIN 20. 707 mls/hr IV .[id number] [facility] Rx#:[id number] ceFAZolin 2 gm In Sodium 50 Chloride 0.9% 50 ml @ 100 mls/hr IVPB Q8H [facility] Rx#: [id number] propofoL 1,000 mg In 100 258.348 169.954 Empty Bag 1 bag @ 5 MCG/ KG/MIN 3.228 mls/hr IV . Q24H [facility] Rx#:[id number] Tube Feeding 280 150 Other 400 200 Output: Urine 435 1300 550 Other: Voiding Method Indwelling Catheter Indwelling Catheter Indwelling Catheter ABP, PAP, CO, CI - Last Documented Arterial Blood Pressure 129/57 - Exam GENERAL EXAM: Intubated, sedated 66-year-old male patient, on propofol, quite se dated at this point in time HEAD: Normocephalic. EYES: Sluggish reaction of pupils, equal size.no nystagmus, no preferential gaze NOSE: Clear with pink turbinates. THROAT: Oral endotracheal and gastric tube secured in place. No erythema or exudates. NECK: No masses, no JVD. CHEST: No chest wall deformity. LUNGS: Equal air entry with bilateral rhonchi. CVS: S1 and S2 normal with no audible murmur, irregular rhythm. ABDOMEN: No hepatosplenomegaly, normal bowel sounds, no guarding or rigidity. SPINE: No scoliosis or deformity SKIN: No rashes CENTRAL NERVOUS SYSTEM: Sedated, tone is normal in all 4 extremities.the sensory and motor function cannot be assessed. The patient has no clonus. No Babinski the left lower extremity. The exact are diminished in all 4 extremities. No facial asymmetry. No preferential gaze. Pupils around 2 mm in size, sluggishly reactive to light. EXTREMITIES: There is no peripheral edema. No clubbing, no cyanosis. Peripheral pulses are intact. - Labs CBC & Chem 7: 01/16/22 04:00 01/16/22 04:00 Labs: Abnormal Lab Results - Last 24 Hours (Table) 01/15/22 01/15/22 01/16/22 Range/Units 17:40 23:44 04:00 WBC 22.2 H (3.8-10.6) k/uL RBC 4.12 L (4.30-5.90) m/uL Hgb 12.3 L (13.0-17.5) gm/dL MCHC 30.9 L (31.0-37.0) g/dL Neutrophils # 19.5 H (1.3-7.7) k/uL ABG pH (7.35-7.45) ABG pCO2 (35-45) mmHg ABG HCO3 (21-25) mmol/L ABG Total CO2 (19-24) mmol/L ABG O2 Saturation (94-97) % Sodium (137-145) mmol/L Chloride (98-107) mmol/L Carbon Dioxide (22-30) mmol/L BUN (9-20) mg/dL Glucose (74-99) mg/dL POC Glucose (mg/dL) 275 H 296 H (75-99) mg/dL Magnesium (1.6-2.3) mg/dL Total Protein (6.3-8.2) g/dL Albumin (3.5-5.0) g/dL 0401/16/22 01/16/22 Range/Units 04:00 05:05 05:29 WBC (3.8-10.6) k/uL RBC (4.30-5.90) m/uL Hgb (13.0-17.5) gm/dL MCHC (31.0-37.0) g/dL Neutrophils # (1.3-7.7) k/uL ABG pH 7.34 L (7.35-7.45) ABG pCO2 59 H (35-45) mmHg ABG HCO3 32 H (21-25) mmol/L ABG Total CO2 34 H (19-24) mmol/L ABG O2 Saturation 97.7 H (94-97) % Sodium 147 H (137-145) mmol/L Chloride 115 H (98-107) mmol/L Carbon Dioxide 33 H (22-30) mmol/L BUN 50 H (9-20) mg/dL Glucose 300 H (74-99) mg/dL POC Glucose (mg/dL) 294 H (75-99) mg/dL Magnesium 2.7 H (1.6-2.3) mg/dL Total Protein 5.0 L (6.3-8.2) g/dL Albumin 2.1 L (3.5-5.0) g/dL 01/16/22 Range/Units 11:51 WBC (3.8-10.6) k/uL RBC (4.30-5.90) m/uL Hgb (13.0-17.5) gm/dL MCHC (31.0-37.0) g/dL Neutrophils # (1.3-7.7) k/uL ABG pH (7.35-7.45) ABG pCO2 (35-45) mmHg ABG HCO3 (21-25) mmol/L ABG Total CO2 (19-24) mmol/L ABG O2 Saturation (94-97) % Sodium (137-145) mmol/L Chloride (98-107) mmol/L Carbon Dioxide (22-30) mmol/L BUN (9-20) mg/dL Glucose (74-99) mg/dL POC Glucose (mg/dL) 259 H (75-99) mg/dL Magnesium (1.6-2.3) mg/dL Total Protein (6.3-8.2) g/dL Albumin (3.5-5.0) g/dL Microbiology - Last 24 Hours (Table) 01/13/22 23:59 Gram Stain - Final Sputum Sputum Culture - Final Staphylococcus aureus 01/14/22 10:09 Blood Culture Gram Stain - Preliminary Blood Blood Culture - Preliminary Staphylococcus aureus 01/12/22 16:00 Blood Culture - Preliminary Blood No Growth after 72 hours 01/12/22 15:45 Blood Culture - Preliminary Blood No Growth after 72 hours Assessment and Plan Plan: Acute subacute ischemic stroke involving the right MCA predominantly also some question of left parietal involvement. [place] to be secondary to new emboli from atrial fibrillation and possibly from cocaine. Follow-up computed tomography scan of the brain revealed a large right hemisphere hypodensity and edema that could be subacute infarct with increasing mass effect compared to previous CT. No hemorrhage. On 01/13/2022 at approximately 10:30 PM the patient required intubation and mechanical ventilation as he was unable to protect his airway.since then, the patient remains intubated on a mechanical ventilator. This morning, he is still sedated with propofol. Awaiting further recommendations from neurology regarding this stroke involving the right MCA distribution. This is considered to be likely an embolic phenomena. A repeat CAT scan of the head to be done today to assess the progression of this infarct. The patient remains on sedation. The patient remains unresponsive. Nevertheless, the patient continues to have some mild brainstem reflexes on examination. He continues to have a very poor prognosis. The patient has no children, no family members that unable to locate. Atrial fibrillation with a rapid ventricular response, history of atrial fibrillation and had previously been on Eliquis but has a history of medication noncompliance of possibly 3 months, currently on a Cardizem drip at 15 mg an hour for rate control. At evaluation has not been started because of the large side CVA. Right carotid stenosis greater than 80% and near complete occlusion on the left Acute hypoxic respiratory failure with a right lower lobe pneumonia, likely a staphylococcal pneumonia with MSSA and the patient is currently on IV cefazolin. The patient is afebrile. History of old CVA over left occipital area Urine drug screen positive for cocaine Hypertension, history of Hyperlipidemia Diabetes mellitus, currently on Levemir insulin for blood sugar control Hyperchloremic hypernatremia acute Leukocytosis, white cell count is improving right lower lobe pneumonia, likely related to staph aureus, awaiting final cultures and sensitivities and the patient is currently on vancomycin Febrile illness secondary to pneumonia, currently afebrile Plan Keep the patient sedated with propofol Proceed with a CAT scan of the brain Proceed with an EEG Give the patient has sedation holiday Neurologist on the case regarding the acute CVA and the patient is on no anticoagulants for now Continue Cardizem drip for rate control Start the patient on metoprolol 25 mg by mouth twice a day and gradually wean off the Cardizem drip Continue enteral feeding for nutritional support Agree on IV cefazolin Monitor fever pattern Monitor chest x-ray findings No ventilator changes will be done today. The patient has a right lower lobe consolidation, likely secondary to staphylococcal pneumonia and the patient be kept on vancomycin Tylenol for fever Continue aspirin Continue Plavix Condition is critical and outcome is poor baseline above-mentioned comorbidities. We'll continue to follow and this is a critically care evaluation that was done and more than 40 minutes. Time with Patient: Greater than 30
[2022-01-16 17:29] LABS: Glucose,Whole Blood 173 mg/dL (75-99)
[2022-01-16] MEDS: INSULIN DETEMIR (LEVEMIR) 100 UNIT/ML SYR SQ SCH (19:58)
[2022-01-16] MEDS: ACETAMINOPHEN TAB 325 MG TAB PO PRN (22:56)
[2022-01-16 23:18] LABS: Glucose,Whole Blood 103 mg/dL (75-99)
[2022-01-17] MEDS: DILTIAZEM 125 MG in SODIUM CHLORIDE 0.9% 100 ML IV SCH ×4 (01:25→23:00)
[2022-01-17] MEDS: NOREPINEPHRINE 4 MG in SODIUM CHLORIDE 0.9% 250 ML IV SCH ×2 (03:10→16:05)
[2022-01-17] MEDS: IPRATROPIUM-ALBUTEROL 3 ML NEB INHALATION SCH ×6 (03:30→21:06)
[2022-01-17] MEDS: ACETAMINOPHEN TAB 325 MG TAB PO PRN ×3 (04:11→17:52)
[2022-01-17 04:45] LABS: HCT 38.7 % (39.0-53.0); HGB 12.1 gm/dL (13.0-17.5); Hypochromasia Marked; MCH 30.6 pg (25.0-35.0); MCHC 31.3 g/dL (31.0-37.0); MCV 97.6 fL (80.0-100.0); Mean Platelet Volume 9.1; Platelet Count 167 k/uL (150-450); RBC 3.96 m/uL (4.30-5.90); RDW 13.3 % (11.5-15.5)
[2022-01-17 04:57] LABS: Albumin 2.2 g/dL (3.5-5.0); Magnesium 2.4 mg/dL (1.6-2.3); Total Bilirubin 0.8 mg/dL (0.2-1.3); Total Protein 5.3 g/dL (6.3-8.2)
[2022-01-17 05:05] LABS: Potassium 4.9 mmol/L (3.5-5.1)
[2022-01-17 05:19] LABS: Glucose,Whole Blood 240 mg/dL (75-99)
[2022-01-17] MEDS: INSULIN ASPART (NovoLOG) 100 UNIT/ML VIAL SQ SCH ×8 (05:20→23:54)
[2022-01-17 06:09] LABS: ABG Base Excess 8.7 mmol/L; ABG HCO3 34 mmol/L (21-25); ABG Oxygen Saturation 97.2 % (94-97); ABG PCO2 57 mmHg (35-45); ABG PH 7.38 (7.35-7.45); ABG PO2 91 mmHg (83-108); ABG TCO2 36 mmol/L (19-24)
[2022-01-17 06:16] LABS: Allen Test Performed? No
--- NOTE | 2022-01-17 07:52 | XR ---
EXAMINATION TYPE: XR chest 1V portable DATE OF EXAM: 01/17/2022 COMPARISON: Chest x-ray 01/16/2022 HISTORY: Intubated TECHNIQUE: Single frontal view of the chest is obtained. FINDINGS: Endotracheal tube and NG tube, left subclavian central venous catheter are overlying appro priate positions. No evident pneumothorax or pleural effusion. Cardiac mediastinal silhouette stable. Bilateral airspace disease persists. There are overlying artifacts. IMPRESSION: Correlate for pneumonia, edema, ARDS
[2022-01-17] MEDS: CHLORHEXIDINE GLUCONATE 15 ML CUP MUCOUS MEM SCH ×2 (08:00→20:04)
[2022-01-17] MEDS: ASPIRIN 300 MG SUPP RECTAL SCH (08:00)
[2022-01-17] MEDS: CLOPIDOGREL 75 MG TAB PO SCH (08:00)
[2022-01-17] MEDS: METOPROLOL TARTRATE 25 MG TAB PO SCH (08:00)
[2022-01-17] MEDS: HEPARIN SODIUM,PORCINE/PF 5,000 UNIT/0.5 ML SYRINGE SQ SCH ×2 (08:00→20:04)
--- NOTE | 2022-01-17 10:27 | P.PN ---
Progress Note - Text Progress Note Date: 01/17/22 Shahab with RN Florence. She provided me with a phone number for the patient's sister Isabella. . Called Isabella to discuss patient's condition and determine goals of care. No answer, left message for her with contact information. Karis Gomez [facility] Palliative Care
--- NOTE | 2022-01-17 10:52 | P.PN ---
Subjective Progress Note Date: 01/17/22 Principal diagnosis: CVA The patient is a 66-year-old male with a PMH of coronary artery disease, A. fib, severe systolic CHF with EF 20-25% on MARSHALL on 12/11, type II DM, hyperlipidemia, hypertension who was brought into the emergency room for altered mental status. There were reports that the patient had reportedly not filled his Eliquis for his A. fib and had in general been noncompliant with his medications. CTA showing a right MCA infarct, no evidence of dissection, and bilateral carotid stenosis greater than 80% on the right and near occlusion on the left. CT brain had revealed the right MCA subacute infarct with some mass effect as well as a possible left posterior parietal subacute infarct suspected secondary to embolic phenomenon. Neurology was consulted and recommended Aspirin, Plavix, Lipitor and to hold anticoagulation for now due to risk of worsening hemorragic conversion. 01/17 Patient remains on vent support. Patient is overall prognosis remains very poor. No significant meaningful neurological recovery has been seen. Patient does still have some brain stem reflexes. Neurology team is following. Recommendation is for palliative consultation and hospice care. Objective - Vital Signs Vital signs: Vital Signs Temp 102.3 F H 01/17/22 08:00 Pulse 107 H 01/17/22 10:00 Resp 36 H 01/17/22 10:00 BP 147/73 01/17/22 10:00 Pulse Ox 97 01/17/22 10:00 Intake & Output 01/16/22 01/17/22 01/17/22 18:59 06:59 18:59 Intake Total 741.437 8576.399 364 Output Total 1000 1675 225 Balance -18.046 -193.601 139 Weight 112.7 kg 115.3 kg Intake: IV 27 279 69 0.9@ 20mls/hr 206 60 Pressure bag 27 73 9 Intake, IV Titration 444.954 322.399 175 Amount Diltiazem 125 mg In 125 176.083 125 Sodium Chloride 0.9% 100 ml @ 15 MG/HR 15 mls/hr IV .Q8H20M [facility] Rx#: [id number] Norepinephrine 4 mg In 46.316 Sodium Chloride 0.9% 250 ml @ 0.05 MCG/KG/MIN 20. 707 mls/hr IV .[id number] [facility] Rx#:[id number] Saline 1 500ml.bag @ 100 100 mls/hr IV .Q1H ONE with Mannitol 20% Pmx 100 ml Rx#:[id number] ceFAZolin 2 gm In Sodium 50 100 50 Chloride 0.9% 50 ml @ 100 mls/hr IVPB Q8H [facility] Rx#: [id number] propofoL 1,000 mg In 169.954 Empty Bag 1 bag @ 5 MCG/ KG/MIN 3.228 mls/hr IV . Q24H [facility] Rx#:[id number] Tube Feeding 310 480 120 Other 200 400 Output: Urine 1000 1675 225 Other: Voiding Method Indwelling Catheter Indwelling Catheter Indwelling Catheter ABP, PAP, CO, CI - Last Documented Arterial Blood Pressure 103/52 - Exam General: Intubated Derm: no unusual rashes/lesions no unusual ecchymoses, warm, dry Head: atraumatic, normocephalic, symmetric Eyes: EOMI, no lid lag, anicteric sclera, pupils equal round reactive to light ENT: Nose and ears atraumatic, no thrush, no pharyngeal erythema Neck: No thyromegaly, no cervical lymphadenopathy, trachea midline, supple Mouth: no lip lesion, mucus membranes moist Cardiovascular: Tachycardic, Irregularly irregular, no murmur, positive posterior tibial pulse bilateral, no edema, capillary refill less than 2 seconds Lungs: Some scattered rhonchi, without wheezing or rales, no accessory muscle use Abdominal: soft, nontender to palpation, no guarding, no appreciable organomegaly, normal bowel sounds Ext: no gross muscle atrophy, no contractures, Neuro: Unable to assess - Labs CBC & Chem 7: 01/17/22 04:20 01/17/22 04:20 Labs: Abnormal Lab Results - Last 24 Hours (Table) 01/16/22 01/16/22 01/16/22 Range/Units 11:51 17:27 23:16 WBC (3.8-10.6) k/uL RBC (4.30-5.90) m/uL Hgb (13.0-17.5) gm/dL Hct (39.0-53.0) % ABG pCO2 (35-45) mmHg ABG HCO3 (21-25) mmol/L ABG Total CO2 (19-24) mmol/L ABG O2 Saturation (94-97) % Sodium (137-145) mmol/L Chloride (98-107) mmol/L Carbon Dioxide (22-30) mmol/L BUN (9-20) mg/dL Glucose (74-99) mg/dL POC Glucose (mg/dL) 259 H 173 H 103 H (75-99) mg/dL Magnesium (1.6-2.3) mg/dL Total Protein (6.3-8.2) g/dL Albumin (3.5-5.0) g/dL 01/17/22 01/17/22 01/17/22 Range/Units 04:20 04:20 05:18 WBC 25.0 H (3.8-10.6) k/uL RBC 3.96 L (4.30-5.90) m/uL Hgb 12.1 L (13.0-17.5) gm/dL Hct 38.7 L (39.0-53.0) % ABG pCO2 (35-45) mmHg ABG HCO3 (21-25) mmol/L ABG Total CO2 (19-24) mmol/L ABG O2 Saturation (94-97) % Sodium 154 H (137-145) mmol/L Chloride 118 H (98-107) mmol/L Carbon Dioxide 34 H (22-30) mmol/L BUN 45 H (9-20) mg/dL Glucose 235 H (74-99) mg/dL POC Glucose (mg/dL) 240 H (75-99) mg/dL Magnesium 2.4 H (1.6-2.3) mg/dL Total Protein 5.3 L (6.3-8.2) g/dL Albumin 2.2 L (3.5-5.0) g/dL 01/17/22 Range/Units 05:24 WBC (3.8-10.6) k/uL RBC (4.30-5.90) m/uL Hgb (13.0-17.5) gm/dL Hct (39.0-53.0) % ABG pCO2 57 H (35-45) mmHg ABG HCO3 34 H (21-25) mmol/L ABG Total CO2 36 H (19-24) mmol/L ABG O2 Saturation 97.2 H (94-97) % Sodium (137-145) mmol/L Chloride (98-107) mmol/L Carbon Dioxide (22-30) mmol/L BUN (9-20) mg/dL Glucose (74-99) mg/dL POC Glucose (mg/dL) (75-99) mg/dL Magnesium (1.6-2.3) mg/dL Total Protein (6.3-8.2) g/dL Albumin (3.5-5.0) g/dL Microbiology - Last 24 Hours (Table) 01/12/22 16:00 Blood Culture - Preliminary Blood No Growth after 96 hours 01/12/22 15:45 Blood Culture - Preliminary Blood No Growth after 96 hours 01/13/22 23:59 Gram Stain - Final Sputum Sputum Culture - Final Staphylococcus aureus 01/14/22 10:09 Blood Culture Gram Stain - Preliminary Blood Blood Culture - Preliminary Staphylococcus aureus Assessment and Plan (1) CVA (cerebral vascular accident) Current Visit: Yes Status: Acute Code(s): I63.9 - CEREBRAL INFARCTION, UNSPECIFIED SNOMED Code(s): 858780398 (2) Atrial fibrillation with RVR Current Visit: Yes Status: Acute Code(s): I48.91 - UNSPECIFIED ATRIAL FIBRILLATION SNOMED Code(s): 487766137251137 (3) Acute encephalopathy Current Visit: Yes Status: Acute Code(s): G93.40 - ENCEPHALOPATHY, UNSPECIFIED SNOMED Code(s): 22866082 Plan: Subacute MCA suspected embolic infarct with mass effect in patient noncompliant with anticoagulation for A. fib -Repeat CT performed on 01/16/2022 shows findings compatible with large right- sided cerebrovascular accident, along with changes of evolving and progressed infarct, sphenoid sinus disease -Neurology recommendations to Continue with aspirin, Plavix, statin plan to hold anticoagulation for another 4 days. -At this point patient's chances of meaningful neurologic recovery is low in patient's overall prognosis is poor. Recommendation is for hospice evaluation, palliative care involvement. There is a social challenge at this time due to the fact the patient only has an ex- and no other family involvement Acute respiratory failure requiring intubation and mechanical ventilation Pneumonia Bacteremia -Patient intubated 01/13 -bibasilar infiltrates with Staph sputum culture. Staph is MSSA and is s ensitive to cefazolin. We'll continue with treatment. ID is currently following as well -Blood cultures for 01/14/22 positive Staphylococcus aureus Right carotid stenosis greater than 80% near-complete occlusion of the side -Not candidate for surgical intervention Afib with RVR- improved Cardiomyopathy Severe pulmonary hypertension Severe valvular heart disease -Cardiology following. Currently on Cardizem GTT, metoprolol. -Anticoagulation on hold due to bleed. -Echocardiogram was completed and shows a reduced LV systolic function, left elie tricular hypertrophy, EF estimated at 20% Cocaine abuse Chronic medical condition: Coronary artery disease, A. fib, type II DM, hypertension, hyperlipidemia -Continue with ASA, Statin, plavix. -Patient is hyperglycemic with tube feeds. Continue to titrate insulin. Hypernatremia -Free water deficit. -Patient was started on treatment with mannitol by neurology team. Which has now discontinued -Continue with free fluid flushes DVT prophylaxis -Subcutaneous heparin CODE STATUS: Full Code Discussed with: ROSENDO Overall prognosis very poor. Pallative consult was placed yesterday.
--- NOTE | 2022-01-17 10:55 | P.PN ---
Subjective Progress Note Date: 01/17/22 The patient is seen at bedside and per his nurse no improvement in his condition. He has been off sedation since 4pm yesterday and prior to that was on very low sedation 10mcg/kg/min. Objective - Vital Signs Vital signs: Vital Signs Temp 102.3 F H 01/17/22 08:00 Pulse 107 H 01/17/22 10:00 Resp 36 H 01/17/22 10:00 BP 147/73 01/17/22 10:00 Pulse Ox 97 01/17/22 10:00 Intake & Output 01/16/22 01/17/22 01/17/22 18:59 06:59 18:59 Intake Total 316.291 4042.399 364 Output Total 1000 1675 225 Balance -18.046 -193.601 139 Weight 112.7 kg 115.3 kg Intake: IV 27 279 69 0.9@ 20mls/hr 206 60 Pressure bag 27 73 9 Intake, IV Titration 444.954 322.399 175 Amount Diltiazem 125 mg In 125 176.083 125 Sodium Chloride 0.9% 100 ml @ 15 MG/HR 15 mls/hr IV .Q8H20M [facility] Rx#: [id number] Norepinephrine 4 mg In 46.316 Sodium Chloride 0.9% 250 ml @ 0.05 MCG/KG/MIN 20. 707 mls/hr IV .[id number] [facility] Rx#:[id number] Saline 1 500ml.bag @ 100 100 mls/hr IV .Q1H ONE with Mannitol 20% Pmx 100 ml Rx#:[id number] ceFAZolin 2 gm In Sodium 50 100 50 Chloride 0.9% 50 ml @ 100 mls/hr IVPB Q8H [facility] Rx#: [id number] propofoL 1,000 mg In 169.954 Empty Bag 1 bag @ 5 MCG/ KG/MIN 3.228 mls/hr IV . Q24H [facility] Rx#:[id number] Tube Feeding 310 480 120 Other 200 400 Output: Urine 1000 1675 225 Other: Voiding Method Indwelling Catheter Indwelling Catheter Indwelling Catheter ABP, PAP, CO, CI - Last Documented Arterial Blood Pressure 103/52 - Exam GENERAL: The patient is lying in bed and does not seem in acute distress. LUNG: Intubated on ventilator. NEUROLOGICAL: Limited because of his condition. Off sedation since 4pm yesterday. Higher mental function: The patient is comtaose. GCS 3 (E1, VT1, MI1). Not responding or following commands. Cranial nerves: I had to manually open his eye and primary gaze is midline and looking upwards. The pupils are round, constricted, (1-2mm), and hard to appreciated reactivity. Has positive corneal reflexes. Left lower facial droop. Has positive gag reflex. Is breathing over the vent. Otherwise rest of cranial nerves could not be assessed. Motor: Gait is deferred. The strength is hard to assess because of his condition but not withdrawaling to any of extremities to painful stimuli. No spontaneous movement noted. Normal bulk. Cerebellum: Unable to assess. Sensation: Unable to assess light touch. WORK-UP: Lipid Panel: TG 129, Cholestrol 127, LDL 74 and HDL 26. TSH: <0.015 Free T4: 2.[address] of the head is reported as right middle cerebral artery subacute infarction was some mass effect, possible left posterior parietal subacute infarct, consider embolic phenomenon. Chronic small vessel ischemic changes at. As well as the patient has chronic inferior left occipital infarct with ex vacuo. Personally reviewed the CT of the head and I agree with the report by also felt that there could be the subacute over the left frontal as well as a small region. CT angiography of the head and neck was reported as right MCA M1 segment abrupt cutoff/filling defect from the thrombus with associated right MCA territory infarct which is not significant change from prior CT. Bilateral calcified and noncalcified plaque in at the carotid bifurcation resulting in greater than 80% stenosis in the right and near occlusion on the left. No evidence of dissection of the cervical internal carotid artery vertebral arteries. Multinodular thyroid gland. Carotid duplex: Is reported as right ICA occlusion. Cardiac arrhythmia is noted incidentally. Repeat CT head on 01/13/2022: It is reported as large right hemispheric hypodensity and edema that could be subacute infarct with increasing mass effect compared to the CT yesterday. No hemorrhage. There is low density in the medial left occipital lobe cortex consistent with old infarct with fluid density. Unchanged. I personally reviewed that a CT of the head and I don't feel that there is any significant midline shift. There is mass effect over the right lateral ventricle but I feel the patient's ventricles are still patent. I feel a third ventricle is somewhat constricted but it's still patent. 2D echo: Is reported as reduced LV systolic function (EF of 20%). L ventricle hypertrophy. Patient has tachycardia and in atrial fibrillation. Left atrial is increased severely by volume. Mildly increased left atrial area. Moderate to severe mitral regurgitation. - Labs CBC & Chem 7: 01/17/22 04:20 01/17/22 04:20 Labs: Abnormal Lab Results - Last 24 Hours (Table) 01/16/22 01/16/22 01/16/22 Range/Units 11:51 17:27 23:16 WBC (3.8-10.6) k/uL RBC (4.30-5.90) m/uL Hgb (13.0-17.5) gm/dL Hct (39.0-53.0) % ABG pCO2 (35-45) mmHg ABG HCO3 (21-25) mmol/L ABG Total CO2 (19-24) mmol/L ABG O2 Saturation (94-97) % Sodium (137-145) mmol/L Chloride (98-107) mmol/L Carbon Dioxide (22-30) mmol/L BUN (9-20) mg/dL Glucose (74-99) mg/dL POC Glucose (mg/dL) 259 H 173 H 103 H (75-99) mg/dL Magnesium (1.6-2.3) mg/dL Total Protein (6.3-8.2) g/dL Albumin (3.5-5.0) g/dL 01/17/22 01/17/22 01/17/22 Range/Units 04:20 04:20 05:18 WBC 25.0 H (3.8-10.6) k/uL RBC 3.96 L (4.30-5.90) m/uL Hgb 12.1 L (13.0-17.5) gm/dL Hct 38.7 L (39.0-53.0) % ABG pCO2 (35-45) mmHg ABG HCO3 (21-25) mmol/L ABG Total CO2 (19-24) mmol/L ABG O2 Saturation (94-97) % Sodium 154 H (137-145) mmol/L Chloride 118 H (98-107) mmol/L Carbon Dioxide 34 H (22-30) mmol/L BUN 45 H (9-20) mg/dL Glucose 235 H (74-99) mg/dL POC Glucose (mg/dL) 240 H (75-99) mg/dL Magnesium 2.4 H (1.6-2.3) mg/dL Total Protein 5.3 L (6.3-8.2) g/dL Albumin 2.2 L (3.5-5.0) g/dL 01/17/22 Range/Units 05:24 WBC (3.8-10.6) k/uL RBC (4.30-5.90) m/uL Hgb (13.0-17.5) gm/dL Hct (39.0-53.0) % ABG pCO2 57 H (35-45) mmHg ABG HCO3 34 H (21-25) mmol/L ABG Total CO2 36 H (19-24) mmol/L ABG O2 Saturation 97.2 H (94-97) % Sodium (137-145) mmol/L Chloride (98-107) mmol/L Carbon Dioxide (22-30) mmol/L BUN (9-20) mg/dL Glucose (74-99) mg/dL POC Glucose (mg/dL) (75-99) mg/dL Magnesium (1.6-2.3) mg/dL Total Protein (6.3-8.2) g/dL Albumin (3.5-5.0) g/dL Microbiology - Last 24 Hours (Table) 01/12/22 16:00 Blood Culture - Preliminary Blood No Growth after 96 hours 01/12/22 15:45 Blood Culture - Preliminary Blood No Growth after 96 hours 01/13/22 23:59 Gram Stain - Final Sputum Sputum Culture - Final Staphylococcus aureus 01/14/22 10:09 Blood Culture Gram Stain - Preliminary Blood Blood Culture - Preliminary Staphylococcus aureus Assessment and Plan Assessment: Large right hemispheric Subacute ischemic stroke. Etiology is embolic (has hi story of atrial fibrillation and seems non-compliant with medication) and in addition cocaine can induce stroke since can cause vasoconstriction. Right M1 occlusion. No thrombectomy since outside window and risk outweigh benefit. Cytotoxic edema due to above Respiratory distress due to above and that he required intubation and mechanical ventilation since unable to protect his airway Acute dysphagia due to above Right carotid stenosis >80% per CTA and near occlusion on left. But on carotid it is reported as Right ICA occlusion. Atrial fibrillation and is suppose to be on Eliquis but per pharmacy has not filled up his medication for 3 months. History of old stroke over left occipital Positive for cocaine use Hypertension Hyperlipidemia Diabetes mellitus Sleep apnea Medication noncompliance Plan: Because of his dysphagia will continue ASA 300mg rectally. Once able to swallow or NG/PEG tube can resume with ASA 325mg and Plavix 75mg daily and Lipitor 80mg qhs. CT head 01/16/2022 is ordered by ICU team and it is reported as findings compatible with large right sided cerebral vascular accident, there are changes of evolving and progressed infarct. Sphenoid sinus disease. I personally reviewed the CT of the head and I agreed there is a progression from prior CT and there is compression over the right lateral ventricle. The third ventricle is constricted but it continues to be patent what and fourth ventricle is patent. Patient received 2 doses of Mannitol during hospital stay. Consulted vascular surgery team for the carotid stenosis. Regarding start of anticoagulation continue to hold for an additional about 6 days because of extent of stroke to avoid hemorrhagic transformation. EEG: Abnormal study. Severe encephalopathy. No focal slowing, epileptiform discharges or seizure on the EEG. Every 2 neuro- hour checks On cardiac monitoring PT OT and AUTOCLAVE OPERATOR are consulted Avoid any hypotensive episode. Cardiology team is consulted. We'll defer the rest of the medical management to the primary team For DVT prophylaxis: On subcu heparin 5000 units every 12 hours. Patient is continues to have some brainstem reflexes on examination. Patient condition is critical. Prognosis is very poor. I spoke with the patient's sister via phone and updated her of patient's condition. She stated she wants to think about how to proceed with patient condition. Patient has no children but has only ex-. The plan discussed with the patient's sister via phone and ICU team. Art Irwin M.D. Neuro-hospitalist Time with Patient: Less than 30
[2022-01-17 11:55] LABS: Glucose,Whole Blood 263 mg/dL (75-99)
--- NOTE | 2022-01-17 12:43 | P.CONS ---
History of Present Illness - Reason for Consult Consult date: 01/17/22 Goals of care Requesting physician: Darcy Broussard - Chief Complaint AMS - History of Present Illness The patient is a 66-year-old male with a PMH of coronary artery disease, A. fib, severe systolic CHF with EF 20-25% on [facility] on 12/11, type II DM, hyperlipidemia, hypertension who was brought into the emergency room on 01/12/22 for altered mental status. EMS was called and ultimately the patient did have a fall and assisted him in getting up patient was noticed to be tachycardic and noted to have significant left-sided deficit for the patient was brought into the hospital. Urine toxicology was positive for cocaine patient on presentation to the hospital. He also presented with Afib with RVR with elevated troponin, and has been managed by cardiology services There were reports that the patient had reportedly not filled his Eliquis for his Afib and had in general been noncompliant with his medications. CTA showing a right MCA infarct, no evidence of dissection, and bilateral carotid stenosis greater than 80% on the right and near occlusion on the left. CT brain had revealed the right MCA subacute infarct with some mass effect as well as a possible left posterior parietal subacute infarct suspected secondary to embolic phenomenon. Neurology was consulted and recommended Aspirin, Plavix, Lipitor and to hold anticoagulation for now due to risk of worsening hemorragic conversion. The patient has been febrile, chest x- ray showed bilateral effusions and bibasilar infiltrates. Blood culture drawn which came positive for gram-positive cocci in the sputum showing present for staph aureus and infectious disease is consulted for further management of antibiotic therapy. Information has been obtained from review the chart and nursing staff as the patient is currently intubated on the vent and unable provide any history. The patient's sister, Isabella, and daughter, Fe, are not close with the patient and also not able to provide much information. Review of Systems ROS unobtainable: due to endotracheal tube, due to mental status Past Medical History Past Medical History: Atrial Fibrillation, Coronary Artery Disease (CAD), Diabetes Mellitus, Hyperlipidemia, Hypertension, Osteoarthritis (OA), Sleep Apnea/CPAP/BIPAP History of Any Multi-Drug Resistant Organisms: None Reported Past Surgical History: No Surgical Hx Reported Additional Past Surgical History / Comment(s): Ex- states Pt went for a "heart procedure a few years ago" but does not recall what was done Past Anesthesia/Blood Transfusion Reactions: No Reported Reaction Past Psychological History: No Psychological Hx Reported Smoking Status: Current every day smoker Past Alcohol Use History: None Reported Past Drug Use History: None Reported - Past Family History Father Family Medical History: Diabetes Mellitus Additional Family Medical History / Comment(s): Father lost his leg to DM complications Medications and Allergies Home Medications Medication Instructions Recorded Confirmed Type No Known Home Medications 01/12/22 01/12/22 History Allergies Allergy/AdvReac Type Severity Reaction Status Date / Time No Known Allergies Allergy Verified 01/12/22 17:53 Physical Exam Vitals: Vital Signs Temp Pulse Resp BP Pulse Ox 01/17/22 12:00 103.1 F H 115 H 33 H 119/64 01/17/22 11:45 147 H 30 H 119/64 96 01/17/22 11:30 123 H 31 H 119/64 96 01/17/22 11:28 111 H 01/17/22 11:15 115 H 30 H 136/76 96 01/17/22 11:00 113 H 37 H 129/61 97 01/17/22 10:45 118 H 35 H 129/61 97 01/17/22 10:30 115 H 70 H 129/61 97 01/17/22 10:15 109 H 33 H 129/61 97 01/17/22 10:00 107 H 36 H 147/73 97 01/17/22 09:45 112 H 34 H 147/73 96 01/17/22 09:30 115 H 34 H 147/73 96 01/17/22 09:15 105 H 34 H 147/73 95 01/17/22 09:00 120 H 31 H 155/81 96 01/17/22 08:45 160 H 40 H 155/81 95 01/17/22 08:30 149 H 28 H 155/81 96 01/17/22 08:15 133 H 34 H 155/81 95 01/17/22 08:00 102.3 F H 120 H 35 H 138/94 95 01/17/22 07:45 120 H 34 H 138/94 95 01/17/22 07:30 130 H 33 H 138/94 95 01/17/22 07:15 130 H 34 H 138/94 95 01/17/22 07:00 101.1 F H 131 H 35 H 95 01/17/22 06:45 151 H 35 H 95 01/17/22 06:30 161 H 37 H 95 01/17/22 06:15 124 H 34 H 158/79 95 01/17/22 06:00 134 H 35 H 95 01/17/22 05:45 134 H 37 H 95 01/17/22 05:30 156 H 37 H 96 01/17/22 05:15 140 H 33 H 169/84 95 01/17/22 05:00 99.9 F H 142 H 36 H 95 01/17/22 04:45 137 H 34 H 145/85 95 01/17/22 04:30 163 H 32 H 95 01/17/22 04:15 156 H 35 H 145/85 95 01/17/22 04:00 102.8 F H 142 H 34 H 96 01/17/22 03:49 120 H 01/17/22 03:45 131 H 29 H 97 01/17/22 03:38 116 H 01/17/22 03:30 117 H 34 H 96 01/17/22 03:15 144 H 33 H 142/110 96 01/17/22 03:00 151 H 33 H 96 01/17/22 02:45 116 H 30 H 01/17/22 02:30 144 H 31 H 96 01/17/22 02:15 105 H 30 H 157/83 95 01/17/22 02:00 98.3 F 152 H 33 H 01/17/22 01:45 138 H 34 H 01/17/22 01:30 131 H 30 H 96 01/17/22 01:15 123 H 30 H 138/99 96 01/17/22 01:00 134 H 31 H 129/74 96 01/17/22 00:45 129 H 35 H 95 01/17/22 00:30 124 H 31 H 96 01/17/22 00:15 124 H 30 H 96 01/17/22 00:01 113 H 29 H 168/96 96 01/17/22 00:00 100.4 F H 140 H 31 H 96 01/16/22 23:45 106 H 26 H 153/72 97 01/16/22 23:30 112 H 26 H 96 01/16/22 23:26 106 H 01/16/22 23:15 125 H 33 H 153/72 96 01/16/22 23:00 103 F H 110 H 34 H 96 01/16/22 22:30 112 H 29 H 141/80 95 01/16/22 22:00 103 H 30 H 94 L 01/16/22 21:30 100 33 H 94 L 01/16/22 21:00 98 33 H 96 01/16/22 20:30 97 32 H 132/68 96 01/16/22 20:06 114 H 01/16/22 20:00 98.6 F 120 H 26 H 97 01/16/22 19:54 120 H 01/16/22 19:30 102 H 32 H 95 01/16/22 19:00 122 H 34 H 160/86 95 01/16/22 18:45 120 H 32 H 160/86 94 L 01/16/22 18:30 122 H 31 H 160/86 94 L 01/16/22 18:15 122 H 32 H 160/86 94 L 01/16/22 18:00 137 H 32 H 150/78 95 01/16/22 17:45 134 H 31 H 150/78 95 01/16/22 17:30 105 H 30 H 150/78 94 L 01/16/22 17:15 113 H 32 H 150/78 94 L 01/16/22 17:00 112 H 30 H 134/65 94 L 01/16/22 16:45 113 H 33 H 134/65 94 L 01/16/22 16:30 101 H 24 134/65 93 L 01/16/22 16:15 126 H 29 H 134/65 93 L 01/16/22 16:01 111 H 01/16/22 16:00 100.0 F H 110 H 26 H 146/62 96 01/16/22 15:49 113 H 01/16/22 15:45 106 H 30 H 146/62 93 L 01/16/22 15:30 112 H 30 H 146/62 95 01/16/22 15:15 116 H 30 H 146/62 94 L 01/16/22 15:00 110 H 34 H 137/68 95 01/16/22 14:45 101 H 28 H 137/68 95 01/16/22 14:30 94 30 H 137/68 95 01/16/22 14:15 109 H 27 H 137/68 95 01/16/22 14:00 105 H 28 H 142/75 95 04/26/22 13:45 92 29 H 142/75 95 01/16/22 13:30 103 H 28 H 142/75 95 01/16/22 13:15 85 29 H 142/75 95 01/16/22 13:00 100 29 H 97/61 94 L 01/16/22 12:45 114 H 29 H 97/61 94 L 01/16/22 12:30 112 H 27 H 97/61 94 L 01/16/22 12:15 110 H 27 H 97/61 95 01/16/22 12:14 117 H Intake and Output 01/16/22 01/17/22 01/17/22 22:59 06:59 14:59 Intake Total 555.75 1134.649 364 Output Total 825 1100 225 Balance -269.25 34.649 139 Intake: IV 81 207 69 0.9@ 20mls/hr 60 146 60 Pressure bag 21 61 9 Intake, IV Titration 214.75 207.649 175 Amount Diltiazem 125 mg In 114.75 61.333 125 Sodium Chloride 0.9% 100 ml @ 15 MG/HR 15 mls/hr IV .Q8H20M [facility] Rx#: [id number] Norepinephrine 4 mg In 46.316 Sodium Chloride 0.9% 250 ml @ 0.05 MCG/KG/MIN 20. 707 mls/hr IV .[id number] [facility] Rx#:[id number] Saline 1 500ml.bag @ 100 100 mls/hr IV .Q1H ONE with Mannitol 20% Pmx 100 ml Rx#:[id number] ceFAZolin 2 gm In Sodium 100 50 Chloride 0.9% 50 ml @ 100 mls/hr IVPB Q8H [facility] Rx#: [id number] Tube Feeding 260 320 120 Other 400 Output: Urine 825 1100 225 Other: Voiding Method Indwelling Catheter Indwelling Catheter Indwelling Catheter Weight 115.3 kg ABP, PAP, CO, CI - Last 8 Hours Arterial Blood Pressure 95/54 Arterial Blood Pressure 108/54 Arterial Blood Pressure 114/46 Arterial Blood Pressure 101/51 Arterial Blood Pressure 115/49 Arterial Blood Pressure 118/53 Arterial Blood Pressure 127/49 Arterial Blood Pressure 109/55 Arterial Blood Pressure 103/52 Arterial Blood Pressure 99/47 Arterial Blood Pressure 119/51 Arterial Blood Pressure 98/55 Arterial Blood Pressure 114/55 Arterial Blood Pressure 124/52 Arterial Blood Pressure 99/50 Arterial Blood Pressure 118/45 Arterial Blood Pressure 106/52 Arterial Blood Pressure 120/45 Arterial Blood Pressure 124/53 Arterial Blood Pressure 125/47 Arterial Blood Pressure 129/51 Arterial Blood Pressure 124/50 Arterial Blood Pressure 107/53 Arterial Blood Pressure 125/53 Arterial Blood Pressure 110/52 Arterial Blood Pressure 129/56 Arterial Blood Pressure 116/57 Arterial Blood Pressure 121/50 Arterial Blood Pressure 123/56 Arterial Blood Pressure 115/56 Arterial Blood Pressure 124/53 Arterial Blood Pressure 122/60 General: Intubated, no acute distress noted Skin: Warm and dry, no rashes/lesions, cooling pad present Head: atraumatic, normocephalic, symmetric Eyes: EOMI, no lid lag, anicteric sclera, pupils equal bilaterally and sluggish ENT: Nose and ears atraumatic, no thrush, no pharyngeal erythema, ET tube present, Trachea midline, supple Cardiovascular: Tachycardic, Irregularly irregular, no murmur, positive posterior tibial pulse bilateral, no edema, capillary refill less than 2 seconds Lungs: Some scattered rhonchi, without wheezing or rales, no accessory muscle use, FIO2 50% Abdominal: soft, nontender to palpation, no guarding, no appreciable organomegaly, normal bowel sounds Ext: no gross muscle atrophy, no contractures, Neuro: doen not open eyes, follow commands, or withdraw from painful stimulus. + cough and gag . Results CBC & Chem 7: 01/17/22 04:20 01/17/22 04:20 Labs: Abnormal Lab Results - Last 24 Hours (Table) 01/16/22 01/16/22 01/17/22 Range/Units 17:27 23:16 04:20 WBC 25.0 H (3.8-10.6) k/uL RBC 3.96 L (4.30-5.90) m/uL Hgb 12.1 L (13.0-17.5) gm/dL Hct 38.7 L (39.0-53.0) % ABG pCO2 (35-45) mmHg ABG HCO3 (21-25) mmol/L ABG Total CO2 (19-24) mmol/L ABG O2 Saturation (94-97) % Sodium (137-145) mmol/L Chloride (98-107) mmol/L Carbon Dioxide (22-30) mmol/L BUN (9-20) mg/dL Glucose (74-99) mg/dL POC Glucose (mg/dL) 173 H 103 H (75-99) mg/dL Osmolality (280-301) mosm/kg Magnesium (1.6-2.3) mg/dL Total Protein (6.3-8.2) g/dL Albumin (3.5-5.0) g/dL 01/17/22 01/17/22 01/17/22 Range/Units 04: 04:20 05:18 WBC (3.8-10.6) k/uL RBC (4.30-5.90) m/uL Hgb (13.0-17.5) gm/dL Hct (39.0-53.0) % ABG pCO2 (35-45) mmHg ABG HCO3 (21-25) mmol/L ABG Total CO2 (19-24) mmol/L ABG O2 Saturation (94-97) % Sodium 154 H (137-145) mmol/L Chloride 118 H (98-107) mmol/L Carbon Dioxide 34 H (22-30) mmol/L BUN 45 H (9-20) mg/dL Glucose 235 H (74-99) mg/dL POC Glucose (mg/dL) 240 H (75-99) mg/dL Osmolality 342 H* (280-301) mosm/kg Magnesium 2.4 H (1.6-2.3) mg/dL Total Protein 5.3 L (6.3-8.2) g/dL Albumin 2.2 L (3.5-5.0) g/dL 01/17/22 01/17/22 Range/Units 05:24 11:54 WBC (3.8-10.6) k/uL RBC (4.30-5.90) m/uL Hgb (13.0-17.5) gm/dL Hct (39.0-53.0) % ABG pCO2 57 H (35-45) mmHg ABG HCO3 34 H (21-25) mmol/L ABG Total CO2 36 H (19-24) mmol/L ABG O2 Saturation 97.2 H (94-97) % Sodium (137-145) mmol/L Chloride (98-107) mmol/L Carbon Dioxide (22-30) mmol/L BUN (9-20) mg/dL Glucose (74-99) mg/dL POC Glucose (mg/dL) 263 H (75-99) mg/dL Osmolality (280-301) mosm/kg Magnesium (1.6-2.3) mg/dL Total Protein (6.3-8.2) g/dL Albumin (3.5-5.0) g/dL Microbiology - Last 24 Hours (Table) 01/12/22 16:00 Blood Culture - Preliminary Blood No Growth after 96 hours 01/12/22 15:45 Blood Culture - Preliminary Blood No Growth after 96 hours 01/13/22 23:59 Gram Stain - Final Sputum Sputum Culture - Final Staphylococcus aureus 01/14/22 10:09 Blood Culture Gram Stain - Preliminary Blood Blood Culture - Preliminary Staphylococcus aureus Chest x-ray: report reviewed, image reviewed CT Scan - head: report reviewed Assessment and Plan Plan: GCS 3 Spoke on a conference call with the patient's sister, Isabella, as well as his daughter, Fe. Both were educated on the patient's condition and poor prognosis. Both agreed that they would like to withdraw care. They stated he would not want to be on life support or live in a group home. However, Fe lives in [place] and would like to see if she can get a flight here to be with her dad. She will look into this and let me know as soon as possible. In the meantime, they both also agreed to make the patient a DNR. Dr. Cho's ANCHORER and RN Florence updated. Also, requested that Florence call GOL. Thank you for this consultation. Karis Gomez [facility] [place]ink [phone] Email: [email or web address] Time with Patient: Greater than 30
--- NOTE | 2022-01-17 14:29 | P.PN ---
Subjective Progress Note Date: 01/17/22 On 01/15/2022, the patient is being seen for a follow-up. The patient is currently intubated on a mechanical ventilator. The patient was intubated on 12/13/2021. The patient is post left-sided CVA and the patient a stroke along the right MCA distribution. The patient has chronic atrial fibrillation and the patient is postop non-ST segment elevation myocardial infarction. 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 His urine toxin was also positive for cocaine. He is known to have diabetes, hypertension and hyperlipidemia. At this point in time, the patient is on propofol running at 30 from a respiratory milligrams per minute. The patient is on a mechanical ventilator and the patient is currently on assist control mode at the rate of 26 with a tidal volume of 450 and FiO2 of 50% with a PEEP of 5. The blood gas showed a pH of 7.35 with a pCO2 of 55 and pO2 of 71 and this was on FiO2 of 50%. The patient had a follow-up chest x-ray today that showed an ET tube which was in a good location. There is a right lower lobe pulmonary infiltrate/an area of consolidation which was present earlier and seems to be more confluent. The patient also has a left subclavian triple-lumen catheter in place. The patient had a sputum sample that showed a presumptive staph aureus and he was febrile and this morning his temperature was 100.8 and based on that the patient was started on IV vancomycin. The white cell count was as high as 32 and currently is down to 26 with a hemoglobin of 13.3. No significant orotracheal secretions. The patient is on no pressors. Nevertheless, the patient is still having issues with atrial fibrillation with rapid ventricular response. The patient is currently on Cardizem drip at 50 mg an hour. He is also on norepinephrine infusion low-dose at 0.0 25 Tyrel respiratory gram per minute. IV fluids are currently at KVO. He is receiving enteral feeding with vitamin 1.2 at the rate of 10 mL an hour. His previous echocardiogram done on 01/13/2022 showed reduced left ventricular ejection fraction which was estimated to be at around 20%. The patient also had moderate severe mitral regurgitation, moderate to severe aortic stenosis with a peak gradient of 55 mmHg and moderate to severe tricuspid regurgitation. No evidence of any pericardial effusion. Neurologically, he is sedated. Pupils are equal and there are on pro-millimeters in size. No nystagmus. No clonus. No Babinski and the left lower extremity. No seizure activity has been noted. Neurology is on the case. 01/16/2022, the patient is being seen for a follow-up. The patient remains on a mechanical ventilator. The patient this morning stop propofol running at 30 mg/kg per minute and the patient will obviously need a sedation holiday. The mental status is to be reevaluated. A follow-up CAT scan of the head will be also ordered to assess the progression of this CVA. Note that the patient is unresponsive to any painful stimulation. Pupils remain around 2-3 mm in size sluggish reactive to light without any nystagmus. No clonus and no Babinski. No reaction to any deep painful stimulation. The patient remained on assist control mode at the rate of 26 with a tidal volume of 450, the patient is also on FiO2 of 50% with a PEEP of 5. The blood gas showed a pH of 7.34 with a pCO2 59 and pO2 97. The chest x-ray from today shows evidence of a pulmonary edema/CHF. There is bilateral/bibasilar airspace disease present most on the right lung base. The patient shown to have staph aureus in his sputum and the patient was febrile. Based on that, the patient was initially started on vancomycin and subsequently antibiotics and was switched IV cefazolin as the staph aureus do not to be an MSSA. The patient is hemodynamically stable. Underlying cardiac rhythm is atrial fibrillation. The patient remains on a Cardizem drip at 50 mg an hour. Note that the patient has impaired LV function with an ejection fraction of 20%. The sodium level is at 147. The BUN is at 50 with a creatinine of 1.3, the white cell count is at 22 with a hemoglobin of 12.3 and a platelet count of 165. The patient is receiving water solution to the NG 200 mL every 6 hours. IV fluids are currently at KVO. No antigravity patient has been started. The patient is on Levemir insulin 16 units at bedtime in addition to 8 units every 6 hours of NovoLog and a sliding scale coverage. 01/17/2022, seeing the patient for a follow-up. This morning, the patient remains completely unresponsive. The patient is not withdrawing to any painful stimulation. No seizure activity. The patient remains on a mechanical ventilator and the patient is currently off sedation. While in the mechanical ventilator, the patient is an assist-control mode at the rate of 26. Had a volume of 450 and FiO2 of 50% with a PEEP of 5. The patient has a peak airway pressure of 20, plateau airway pressure of 14, the blood gases from today shows a pH of 7.38 with a pCO2 57 and pO2 of 91. The patient has still having episodes of fever. The patient remains in atrial fibrillation with rapid ventricular response despite being on a Cardizem drip at 50 mg an hour and metoprolol was also added at a dose of 25 mg by mouth twice a day. The patient is on no anticoagulants for now. The patient remains in atrial fibrillation. Chest x-ray is showing bilateral lower lobe pulmonary infiltrates and the patient continues to have fever and sputum sample was positive for MSSA and the patient remains on IV cefazolin. IV Zosyn the case. The patient was given a follow-up CAT scan of the brain that showed progression of the stroke on the right and this such, the patient was given another dose of mannitol yesterday. On today's blood work, the sodium level is up to 154 with a potassium level of 4.9 chloride of 118 with a bicarb of 34, BUN is at 35 with a creatinine of 1.03 and a serum osmolality is at 342. The white cell count is elevated at 25 with a hemoglobin of 12.1. No other significant events otherwise for now. The patient remains in enteral feeding for nutritional support and addition to free water receiving. NG tube. The patient is on vital AF at the rate of 30 mL an hour. Note that the patient has advanced CAD a myopathy with an ejection fraction of 20%. The patient remains on Levemir insulin 16 units along with NovoLog 8 units 4 times a day and the sinus Coverage. We are still working to locate family members for this patient. tea plantation worker is on the case. The patient has a daughter that was identified to be in [place] and she was made aware of his condition. Based on conversations with the family, the family was made aware that the patient's prognosis extremely poor. The family is considering withdrawal of care on this patient. Objective - Vital Signs Vital signs: Vital Signs Temp 103.1 F H 01/17/22 12:00 Pulse 125 H 01/17/22 14:00 Resp 35 H 01/17/22 14:00 BP 136/97 01/17/22 13:45 Pulse Ox 96 01/17/22 14:00 Intake & Output 01/16/22 01/17/22 01/17/22 18:59 06:59 18:59 Intake Total 342.958 7586.399 646 Output Total 1000 1675 550 Balance -18.046 -193.601 96 Weight 112.7 kg 115.3 kg Intake: IV 27 279 161 0.9@ 20mls/hr 206 140 Pressure bag 27 73 21 Intake, IV Titration 444.954 322.399 175 Amount Diltiazem 125 mg In 125 176.083 125 Sodium Chloride 0.9% 100 ml @ 15 MG/HR 15 mls/hr IV .Q8H20M [facility] Rx#: [id number] Norepinephrine 4 mg In 46.316 Sodium Chloride 0.9% 250 ml @ 0.05 MCG/KG/MIN 20. 707 mls/hr IV .[id number] [facility] Rx#:[id number] Saline 1 500ml.bag @ 100 100 mls/hr IV .Q1H ONE with Mannitol 20% Pmx 100 ml Rx#:[id number] ceFAZolin 2 gm In Sodium 50 100 50 Chloride 0.9% 50 ml @ 100 mls/hr IVPB Q8H [facility] Rx#: [id number] propofoL 1,000 mg In 169.954 Empty Bag 1 bag @ 5 MCG/ KG/MIN 3.228 mls/hr IV . Q24H [facility] Rx#:[id number] Tube Feeding 310 480 310 Other 200 400 Output: Urine 1000 1675 550 Other: Voiding Method Indwelling Catheter Indwelling Catheter Indwelling Catheter ABP, PAP, CO, CI - Last Documented Arterial Blood Pressure 125/48 - Exam GENERAL EXAM: Intubated, sedated 66-year-old male patient, unresponsive at this point in time, think is a mechanical ventilator. Note that the patient is been off sedation since 4 PM yesterday. HEAD: Normocephalic. EYES: Sluggish reaction of pupils, equal size.no nystagmus, no preferential gaze NOSE: Clear with pink turbinates. THROAT: Oral endotracheal and gastric tube secured in place. No erythema or exudates. NECK: No masses, no JVD. CHEST: No chest wall deformity. LUNGS: Equal air entry with bilateral rhonchi. CVS: S1 and S2 normal with no audible murmur, irregular rhythm. ABDOMEN: No hepatosplenomegaly, normal bowel sounds, no guarding or rigidity. SPINE: No scoliosis or deformity SKIN: No rashes CENTRAL NERVOUS SYSTEM: Sedated, tone is normal in all 4 extremities.the sensory and motor function cannot be assessed. The patient has no clonus. No Babinski the left lower extremity. The exact are diminished in all 4 extremities. Minimal facial asymmetry. No preferential gaze. Pupils around 2 mm in size, sluggishly reactive to light. The patient continues to have some brainstem reflexes. Nevertheless, there are no cortical functions. The patient has some slight left lower facial droop. The cough and a gag reflex is weak. EXTREMITIES: There is no peripheral edema. No clubbing, no cyanosis. Peripheral pulses are intact. - Labs CBC & Chem 7: 01/17/22 04:20 01/17/22 04:20 Labs: Abnormal Lab Results - Last 24 Hours (Table) 01/16/22 01/16/22 01/17/22 Range/Units 17:27 23:16 04:20 WBC 25.0 H (3.8-10.6) k/uL RBC 3.96 L (4.30-5.90) m/uL Hgb 12.1 L (13.0-17.5) gm/dL Hct 38.7 L (39.0-53.0) % ABG pCO2 (35-45) mmHg ABG HCO3 (21-25) mmol/L ABG Total CO2 (19-24) mmol/L ABG O2 Saturation (94-97) % Sodium (137-145) mmol/L Chloride (98-107) mmol/L Carbon Dioxide (22-30) mmol/L BUN (9-20) mg/dL Glucose (74-99) mg/dL POC Glucose (mg/dL) 173 H 103 H (75-99) mg/dL Osmolality (280-301) mosm/kg Magnesium (1.6-2.3) mg/dL Total Protein (6.3-8.2) g/dL Albumin (3.5-5.0) g/dL 01/17/22 01/17/22 01/17/22 Range/Units 04:20 04:20 05:18 WBC (3.8-10.6) k/uL RBC (4.30-5.90) m/uL Hgb (13.0-17.5) gm/dL Hct (39.0-53.0) % ABG pCO2 (35-45) mmHg ABG HCO3 (21-25) mmol/L ABG Total CO2 (19-24) mmol/L ABG O2 Saturation (94-97) % Sodium 154 H (137-145) mmol/L Chloride 118 H (98-107) mmol/L Carbon Dioxide 34 H (22-30) mmol/L BUN 45 H (9-20) mg/dL Glucose 235 H (74-99) mg/dL POC Glucose (mg/dL) 240 H (75-99) mg/dL Osmolality 342 H* (280-301) mosm/kg Magnesium 2.4 H (1.6-2.3) mg/dL Total Protein 5.3 L (6.3-8.2) g/dL Albumin 2.2 L (3.5-5.0) g/dL 01/17/22 01/17/22 Range/Units 05:24 11:54 WBC (3.8-10.6) k/uL RBC (4.30-5.90) m/uL Hgb (13.0-17.5) gm/dL Hct (39.0-53.0) % ABG pCO2 57 H (35-45) mmHg ABG HCO3 34 H (21-25) mmol/L ABG Total CO2 36 H (19-24) mmol/L ABG O2 Saturation 97.2 H (94-97) % Sodium (137-145) mmol/L Chloride (98-107) mmol/L Carbon Dioxide (22-30) mmol/L BUN (9-20) mg/dL Glucose (74-99) mg/dL POC Glucose (mg/dL) 263 H (75-99) mg/dL Osmolality (280-301) mosm/kg Magnesium (1.6-2.3) mg/dL Total Protein (6.3-8.2) g/dL Albumin (3.5-5.0) g/dL Microbiology - Last 24 Hours (Table) 01/14/22 10:09 Blood Culture Gram Stain - Final Blood Blood Culture - Final Staphylococcus aureus 01/12/22 16:00 Blood Culture - Preliminary Blood No Growth after 96 hours 01/12/22 15:45 Blood Culture - Preliminary Blood No Growth after 96 hours Assessment and Plan Plan: Acute subacute ischemic stroke involving the right MCA predominantly also some question of left parietal involvement. Follow-up CAT scan of the brain done on 01/16/2022 showed a large right-sided cerebral vascular infarct with evolution and progression of the infarct as noted on the CAT scan of the brain. There was also compression over the right lateral ventricle. The third ventricle is constricted but it continues to be patent and the fourth ventricle is also patent. The patient already received a total of 2 doses of mannitol. The patient is unresponsive and comatose at this point in time. Neurologist on the case. Vascular surgeries on the case. Atrial fibrillation with a rapid ventricular response, history of atrial fib rillation and had previously been on Eliquis but has a history of medication noncompliance of possibly 3 months, currently on a Cardizem drip at 15 mg an hour for rate control. At evaluation has not been started because of the large side CVA. Right carotid stenosis greater than 80% and near complete occlusion on the left Acute hypoxic respiratory failure with a right lower lobe pneumonia, likely a staphylococcal pneumonia with MSSA and the patient is currently on IV cefazolin. The patient is still having episodes of fever while being on cefazolin and a chest x-ray still showing bilateral lower lobe pulmonary infiltrates worse on the right. History of old CVA over left occipital area Urine drug screen positive for cocaine Hypertension, history of Hyperlipidemia Diabetes mellitus, currently on Levemir insulin for blood sugar control Hyperchloremic hypernatremia acute Leukocytosis, right lower lobe pneumonia, likely related to staph aureus, MSSA Febrile illness secondary to pneumonia, could be also sent for fever Plan Keep the patient off sedation Follow-up CAT scan of the brain that was on 01/16/2022 was noted EEG showed diffuse slowing consistent with severe encephalopathy Neurologist on the case regarding the acute CVA and the patient is on no anticoagulants for now Continue Cardizem drip for rate control Increase metoprolol to 50 mg by mouth twice a day Continue enteral feeding for nutritional support Continue current antibiotic coverage Monitor fever pattern Monitor chest x-ray findings No ventilator changes will be done today. The patient has a right lower lobe consolidation, likely secondary to staphylococcal pneumonia and the patient be kept on vancomycin Tylenol for fever Continue aspirin Continue Plavix family members have been identified and the patient will likely be switched to comfort care measures once they arrived to the hospital. For now, the CODE STATUS is DNR Condition is critical and outcome is poor baseline above-mentioned com orbidities. We'll continue to follow and this is a critically care evaluation that was done and more than 40 minutes.
[2022-01-17 16:54] LABS: Glucose,Whole Blood 215 mg/dL (75-99)
[2022-01-17] MEDS ORDERED: VANCOMYCIN IV PER PHARMACY 1 EACH MISC MISCELLANE PRN (17:18)
--- NOTE | 2022-01-17 17:23 | P.PN ---
Subjective Progress Note Date: 01/16/22 Principal diagnosis: Bacteremia Patient is a 66-year-old male presented to the hospital with mental status changes in this patient did have a follow-up patient did have evidence of right MCA stroke respiratory failure requiring intubation and patient also have evidence of MSSA bacteremia with a sputum positive for MSSA concerning for possible pneumonia to be the source on today's evaluation that is 01/16/2022, the patient fever pattern has improved with a T-max of 99.9F, the patient remains to be intubated on the vent and remains to be unresponsive no significant purulent secretions through the ET or diarrhea has been reported by the nursing staff Objective - Vital Signs Vital signs: Vital Signs Temp 99.9 F H 01/16/22 08:00 Pulse 111 H 01/16/22 16:01 Resp 30 H 01/16/22 14:30 BP 137/68 01/16/22 14:30 Pulse Ox 95 01/16/22 14:30 Intake & Output 01/15/22 01/16/22 01/16/22 18:59 06:59 18:59 Intake Total 145.796 4773.991 706.954 Output Total 435 1300 550 Balance -33.389 -18.009 156.954 Weight 108.7 kg 112.7 kg 112.7 kg Intake: IV 141 39 12 Dextrose 5% in Water 1, 120 000 ml @ 100 mls/hr IV . Q10H [facility] Rx#:[id number] Pressure bag 21 39 12 Intake, IV Titration 260.611 562.991 344.954 Amount Dextrose 5% in Water 1, 20 000 ml @ 100 mls/hr IV . Q10H [facility] Rx#:[id number] Diltiazem 125 mg In 125 202.5 125 Sodium Chloride 0.9% 100 ml @ 15 MG/HR 15 mls/hr IV .Q8H20M [facility] Rx#: [id number] Norepinephrine 4 mg In 35.611 82.143 Sodium Chloride 0.9% 250 ml @ 0.05 MCG/KG/MIN 20. 707 mls/hr IV .[id number] [facility] Rx#:[id number] ceFAZolin 2 gm In Sodium 50 Chloride 0.9% 50 ml @ 100 mls/hr IVPB Q8H [facility] Rx#: [id number] propofoL 1,000 mg In 100 258.348 169.954 Empty Bag 1 bag @ 5 MCG/ KG/MIN 3.228 mls/hr IV . Q24H [facility] Rx#:[id number] Tube Feeding 280 150 Other 400 200 Output: Urine 435 1300 550 Other: Voiding Method Indwelling Catheter Indwelling Catheter Indwelling Catheter ABP, PAP, CO, CI - Last Documented Arterial Blood Pressure 129/57 - Exam GENERAL DESCRIPTION: An elderly male intubated on the vent RESPIRATORY SYSTEM: Unlabored breathing , decreased breath sounds at bases HEART: S1 S2 regular rate and rhythm , ABDOMEN: Soft , no tenderness EXTREMITIES: No edema feet - Labs CBC & Chem 7: 01/17/22 04:20 01/17/22 04:20 Labs: Abnormal Lab Results - Last 24 Hours (Table) 01/15/22 01/15/22 01/16/22 Range/Units 17:40 23:44 04:00 WBC 22.2 H (3.8-10.6) k/uL RBC 4.12 L (4.30-5.90) m/uL Hgb 12.3 L (13.0-17.5) gm/dL MCHC 30.9 L (31.0-37.0) g/dL Neutrophils # 19.5 H (1.3-7.7) k/uL ABG pH (7.35-7.45) ABG pCO2 (35-45) mmHg ABG HCO3 (21-25) mmol/L ABG Total CO2 (19-24) mmol/L ABG O2 Saturation (94-97) % Sodium (137-145) mmol/L Chloride (98-107) mmol/L Carbon Dioxide (22-30) mmol/L BUN (9-20) mg/dL Glucose (74-99) mg/dL POC Glucose (mg/dL) 275 H 296 H (75-99) mg/dL Magnesium (1.6-2.3) mg/dL Total Protein (6.3-8.2) g/dL Albumin (3.5-5.0) g/dL 01/16/22 01/16/22 01/16/22 Range/Units 04:00 05:05 05:29 WBC (3.8-10.6) k/uL RBC (4.30-5.90) m/uL Hgb (13.0-17.5) gm/dL MCHC (31.0-37.0) g/dL Neutrophils # (1.3-7.7) k/uL ABG pH 7.34 L (7.35-7.45) ABG pCO2 59 H (35-45) mmHg ABG HCO3 32 H (21-25) mmol/L ABG Total CO2 34 H (19-24) mmol/L ABG O2 Saturation 97.7 H (94-97) % Sodium 147 H (137-145) mmol/L Chloride 115 H (98-107) mmol/L Carbon Dioxide 33 H (22-30) mmol/L BUN 50 H (9-20) mg/dL Glucose 300 H (74-99) mg/dL POC Glucose (mg/dL) 294 H (75-99) mg/dL Magnesium 2.7 H (1.6-2.3) mg/dL Total Protein 5.0 L (6.3-8.2) g/dL Albumin 2.1 L (3.5-5.0) g/dL 01/16/22 Range/Units 11:51 WBC (3.8-10.6) k/uL RBC (4.30-5.90) m/uL Hgb (13.0-17.5) gm/dL MCHC (31.0-37.0) g/dL Neutrophils # (1.3-7.7) k/uL ABG pH (7.35-7.45) ABG pCO2 (35-45) mmHg ABG HCO3 (21-25) mmol/L ABG Total CO2 (19-24) mmol/L ABG O2 Saturation (94-97) % Sodium (137-145) mmol/L Chloride (98-107) mmol/L Carbon Dioxide (22-30) mmol/L BUN (9-20) mg/dL Glucose (74-99) mg/dL POC Glucose (mg/dL) 259 H (75-99) mg/dL Magnesium (1.6-2.3) mg/dL Total Protein (6.3-8.2) g/dL Albumin (3.5-5.0) g/dL Microbiology - Last 24 Hours (Table) 01/13/22 23:59 Gram Stain - Final Sputum Sputum Culture - Final Staphylococcus aureus 01/14/22 10:09 Blood Culture Gram Stain - Preliminary Blood Blood Culture - Preliminary Staphylococcus aureus 01/12/22 16:00 Blood Culture - Preliminary Blood No Growth after 72 hours 01/12/22 15:45 Blood Culture - Preliminary Blood No Growth after 72 hours Assessment and Plan (1) Pneumonia Current Visit: Yes Status: Acute Code(s): J18.9 - PNEUMONIA, UNSPECIFIED ORGANISM SNOMED Code(s): 135777309 Plan: 1patient with sepsis in this patient who did have a fever elevated white count with evidence of bibasilar infiltrate with a sputum showing Staph aureus, the blood culture with gram-positive cocci likely Staph aureus pneumonia and a q uestion of possible MRSA versus MSSA. 2 patient antibiotics has been switched over to cefazolin 2 g every 8 hours as the organism has been finalized as MSSA Time with Patient: Less than 30
--- NOTE | 2022-01-17 17:25 | P.PN ---
Subjective Progress Note Date: 01/17/22 Principal diagnosis: Bacteremia Patient is a 66-year-old male presented to the hospital with mental status changes in this patient did have a follow-up patient did have evidence of right MCA stroke respiratory failure requiring intubation and patient also have evidence of MSSA bacteremia with a sputum positive for MSSA concerning for possible pneumonia to be the source on today's evaluation that is 01/17/2022, the patient has been running a fever with a T-max of 103F, the patient remains to be intubated on the vent , FiO2 is currently stable at 50%, no significant purulent secretions through the ET or diarrhea has been reported by the nursing staff Objective - Vital Signs Vital signs: Vital Signs Temp 103.1 F H 01/17/22 12:00 Pulse 125 H 01/17/22 14:00 Resp 35 H 01/17/22 14:00 BP 136/97 01/17/22 13:45 Pulse Ox 96 01/17/22 14:00 Intake & Output 01/16/22 01/17/22 01/17/22 18:59 06:59 18:59 Intake Total 748.297 6647.399 646 Output Total 1000 1675 550 Balance -18.046 -193.601 96 Weight 112.7 kg 115.3 kg Intake: IV 27 279 161 0.9@ 20mls/hr 206 140 Pressure bag 27 73 21 Intake, IV Titration 444.954 322.399 175 Amount Diltiazem 125 mg In 125 176.083 125 Sodium Chloride 0.9% 100 ml @ 15 MG/HR 15 mls/hr IV .Q8H20M [facility] Rx#: [id number] Norepinephrine 4 mg In 46.316 Sodium Chloride 0.9% 250 ml @ 0.05 MCG/KG/MIN 20. 707 mls/hr IV .[id number] [facility] Rx#:[id number] Saline 1 500ml.bag @ 100 100 mls/hr IV .Q1H ONE with Mannitol 20% Pmx 100 ml Rx#:[id number] ceFAZolin 2 gm In Sodium 50 100 50 Chloride 0.9% 50 ml @ 100 mls/hr IVPB Q8H [facility] Rx#: [id number] propofoL 1,000 mg In 169.954 Empty Bag 1 bag @ 5 MCG/ KG/MIN 3.228 mls/hr IV . Q24H [facility] Rx#:[id number] Tube Feeding 310 480 310 Other 200 400 Output: Urine 1000 1675 550 Other: Voiding Method Indwelling Catheter Indwelling Catheter Indwelling Catheter ABP, PAP, CO, CI - Last Documented Arterial Blood Pressure 125/48 - Exam GENERAL DESCRIPTION: An elderly male intubated on the vent RESPIRATORY SYSTEM: Unlabored breathing , decreased breath sounds at bases HEART: S1 S2 regular rate and rhythm , ABDOMEN: Soft , no tenderness EXTREMITIES: No edema feet - Labs CBC & Chem 7: 01/17/22 04:20 01/17/22 04:20 Labs: Abnormal Lab Results - Last 24 Hours (Table) 01/16/22 01/16/22 01/17/22 Range/Units 17:27 23:16 04:20 WBC 25.0 H (3.8-10.6) k/uL RBC 3.96 L (4.30-5.90) m/uL Hgb 12.1 L (13.0-17.5) gm/dL Hct 38.7 L (39.0-53.0) % ABG pCO2 (35-45) mmHg ABG HCO3 (21-25) mmol/L ABG Total CO2 (19-24) mmol/L ABG O2 Saturation (94-97) % Sodium (137-145) mmol/L Chloride (98-107) mmol/L Carbon Dioxide (22-30) mmol/L BUN (9-20) mg/dL Glucose (74-99) mg/dL POC Glucose (mg/dL) 173 H 103 H (75-99) mg/dL Osmolality (280-301) mosm/kg Magnesium (1.6-2.3) mg/dL Total Protein (6.3-8.2) g/dL Albumin (3.5-5.0) g/dL 01/17/22 01/17/22 01/17/22 Range/Units 04:20 04:20 05:18 WBC (3.8-10.6) k/uL RBC (4.30-5.90) m/uL Hgb (13.0-17.5) gm/dL Hct (39.0-53.0) % ABG pCO2 (35-45) mmHg ABG HCO3 (21-25) mmol/L ABG Total CO2 (19-24) mmol/L ABG O2 Saturation (94-97) % Sodium 154 H (137-145) mmol/L Chloride 118 H (98-107) mmol/L Carbon Dioxide 34 H (22-30) mmol/L BUN 45 H (9-20) mg/dL Glucose 235 H (74-99) mg/dL POC Glucose (mg/dL) 240 H (75-99) mg/dL Osmolality 342 H* (280-301) mosm/kg Magnesium 2.4 H (1.6-2.3) mg/dL Total Protein 5.3 L (6.3-8.2) g/dL Albumin 2.2 L (3.5-5.0) g/dL 01/17/22 01/17/22 Range/Units 05:24 11:54 WBC (3.8-10.6) k/uL RBC (4.30-5.90) m/uL Hgb (13.0-17.5) gm/dL Hct (39.0-53.0) % ABG pCO2 57 H (35-45) mmHg ABG HCO3 34 H (21-25) mmol/L ABG Total CO2 36 H (19-24) mmol/L ABG O2 Saturation 97.2 H (94-97) % Sodium (137-145) mmol/L Chloride (98-107) mmol/L Carbon Dioxide (22-30) mmol/L BUN (9-20) mg/dL Glucose (74-99) mg/dL POC Glucose (mg/dL) 263 H (75-99) mg/dL Osmolality (280-301) mosm/kg Magnesium (1.6-2.3) mg/dL Total Protein (6.3-8.2) g/dL Albumin (3.5-5.0) g/dL Microbiology - Last 24 Hours (Table) 01/14/22 10:09 Blood Culture Gram Stain - Final Blood Blood Culture - Final Staphylococcus aureus 01/12/22 16:00 Blood Culture - Preliminary Blood No Growth after 96 hours 01/12/22 15:45 Blood Culture - Preliminary Blood No Growth after 96 hours Assessment and Plan (1) Pneumonia Current Visit: Yes Status: Acute Code(s): J18.9 - PNEUMONIA, UNSPECIFIED ORGANISM SNOMED Code(s): 488687944 Plan: 1patient with sepsis in this patient who did have a fever elevated white count with evidence of bibasilar infiltrate with a sputum showing Staph aureus, the blood culture with gram-positive cocci likely Staph aureus pneumonia, both blood and sputum has been finalized with MSSA and the patient was treated with cefazolin however the patient did have persistent fever and worsening of the white count, we will repeat his cultures switch antibiotic therapy to vancomycin and Unasyn while waiting for repeat culture to be finalize Time with Patient: Less than 30
[2022-01-17] MEDS: AMPICILLIN-SULBACTAM 3 GM in SODIUM CHLORIDE 0.9% 100 ML IVPB SCH (17:53)
[2022-01-17] MEDS: VANCOMYCIN 2,250 MG in SODIUM CHLORIDE 0.9% 500 ML 500 ML IVPB SCH (18:52)
[2022-01-17] MEDS: METOPROLOL TARTRATE 50 MG TAB PO SCH (20:04)
[2022-01-17] MEDS: INSULIN DETEMIR (LEVEMIR) 100 UNIT/ML SYR SQ SCH (20:51)
[2022-01-17 23:50] LABS: Glucose,Whole Blood 193 mg/dL (75-99)
[2022-01-18] MEDS: AMPICILLIN-SULBACTAM 3 GM in SODIUM CHLORIDE 0.9% 100 ML IVPB SCH ×5 (00:08→23:53)
[2022-01-18] MEDS: IPRATROPIUM-ALBUTEROL 3 ML NEB INHALATION SCH ×7 (00:18→23:32)
[2022-01-18] MEDS: NOREPINEPHRINE 4 MG in SODIUM CHLORIDE 0.9% 250 ML IV SCH ×3 (04:20→21:48)
[2022-01-18 04:28] LABS: HCT 36.7 % (39.0-53.0); HGB 11.2 gm/dL (13.0-17.5); Hypochromasia Marked; MCH 29.7 pg (25.0-35.0); MCHC 30.4 g/dL (31.0-37.0); MCV 97.5 fL (80.0-100.0); Mean Platelet Volume 9.2; Platelet Count 153 k/uL (150-450); RBC 3.76 m/uL (4.30-5.90); RDW 13.7 % (11.5-15.5); WBC 20.3 k/uL (3.8-10.6)
[2022-01-18 04:42] LABS: Band Neutrophils % 2 %; Lymphocytes # (M) 1.83 k/uL (1.0-4.8); Monocytes # (M) 0.81 k/uL (0-1.0); Neutrophils % (M) 85 %; Nucleated Red Blood Cells 0 /100 WBC (0-0); Total Cells Counted 100
[2022-01-18 04:43] LABS: Toxic Granulation Present
[2022-01-18 04:47] LABS: ALT 31 U/L (4-49); AST 67 U/L (17-59); African American GFR (CKD) >90 (>60 ml/min/1.73 sqM); Albumin 2.1 g/dL (3.5-5.0); Alkaline Phosphatase 75 U/L (38-126); Anion Gap 1 mmol/L; Blood Urea Nitrogen 45 mg/dL (9-20); Calcium 8.8 mg/dL (8.4-10.2); Carbon Dioxide 35 mmol/L (22-30); Chloride 119 mmol/L (98-107); Glucose 236 mg/dL (74-99); Non-African American GFR(CKD) >90 (>60 ml/min/1.73 sqM); Potassium 4.2 mmol/L (3.5-5.1); Sodium 155 mmol/L (137-145); Total Bilirubin 0.8 mg/dL (0.2-1.3); Total Protein 5.2 g/dL (6.3-8.2)
[2022-01-18 05:38] LABS: Glucose,Whole Blood 216 mg/dL (75-99)
[2022-01-18] MEDS: INSULIN ASPART (NovoLOG) 100 UNIT/ML VIAL SQ SCH ×8 (05:43→23:52)
[2022-01-18 06:08] LABS: ABG Base Excess 9.8 mmol/L; ABG HCO3 34 mmol/L (21-25); ABG Oxygen Saturation 98.4 % (94-97); ABG PCO2 54 mmHg (35-45); ABG PH 7.41 (7.35-7.45); ABG PO2 116 mmHg (83-108); ABG TCO2 36 mmol/L (19-24); Allen Test Performed? Yes
[2022-01-18] MEDS: VANCOMYCIN 2,250 MG in SODIUM CHLORIDE 0.9% 500 ML 500 ML IVPB SCH ×2 (06:32→19:35)
[2022-01-18] MEDS: DILTIAZEM 125 MG in SODIUM CHLORIDE 0.9% 100 ML IV SCH ×2 (06:34→14:45)
[2022-01-18] MEDS ORDERED: DIGOXIN 250 MCG/ML 2 ML AMP IVP STA (08:41)
[2022-01-18] MEDS: HEPARIN SODIUM,PORCINE/PF 5,000 UNIT/0.5 ML SYRINGE SQ SCH ×2 (08:54→20:08)
[2022-01-18] MEDS: CHLORHEXIDINE GLUCONATE 15 ML CUP MUCOUS MEM SCH ×2 (08:54→20:08)
[2022-01-18] MEDS: CLOPIDOGREL 75 MG TAB PO SCH (08:54)
[2022-01-18] MEDS: METOPROLOL TARTRATE 50 MG TAB PO SCH ×2 (08:54→20:08)
[2022-01-18] MEDS: ASPIRIN 325 MG TAB PO SCH (08:54)
[2022-01-18] MEDS: DEXTROSE 5% IN WATER 1,000 ML IV SCH (08:55)
--- NOTE | 2022-01-18 10:35 | XR ---
EXAMINATION TYPE: XR chest 1V portable DATE OF EXAM: 01/18/2022 COMPARISON: Chest x-ray 01/17/2022 HISTORY: Intubated TECHNIQUE: Single frontal view of the chest is obtained. FINDINGS: Endotracheal tube, NG tube are overlying appropriate positions, there is a left subclavian central venous catheter with the distal tip of the cavoatrial junction. Cardiomediastinal silhouette is stable. Bilateral airspace disease is again noted. No evident pneumothorax or pleural effusion. T here are overlying artifacts. IMPRESSION: Correlate for pneumonia, edema
[2022-01-18 11:34] LABS: Glucose,Whole Blood 218 mg/dL (75-99)
--- NOTE | 2022-01-18 11:38 | P.PN ---
Subjective Progress Note Date: 01/18/22 The patient is seen at bedside and has been off sedation for 48 hour and today was following few simple commands to nurse and ICU attending. Per nurse he was able to open his eyes briefly, squeeze on right hand and wiggle his toes. He continues to be intubated on ventilator. His sister and estranged daughter is flying over to come see him. Per the patient's sister, patient and his daughter do not have any communication. Objective - Vital Signs Vital signs: Vital Signs Temp 98.9 F 01/18/22 08:00 Pulse 82 01/18/22 11:17 Resp 27 H 01/18/22 11:17 BP 115/67 01/18/22 10:00 Pulse Ox 97 01/18/22 10:00 Intake & Output 01/17/22 01/18/22 01/18/22 18:59 06:59 18:59 Intake Total 1995.5 1898.732 87.704 Output Total 1075 1250 460 Balance 920.5 648.732 -372.296 Weight 114.6 kg Intake: IV 276 253 23 0.9@ 20mls/hr 240 220 20 Pressure bag 36 33 3 Intake, IV Titration 859.5 295.732 14.704 Amount Ampicillin-Sulbactam 3 gm 100 In Sodium Chloride 0.9% 100 ml @ 200 mls/hr IVPB Q6HR [facility] Rx#:[id number] Diltiazem 125 mg In 209.5 217.25 Sodium Chloride 0.9% 100 ml @ 15 MG/HR 15 mls/hr IV .Q8H20M [facility] Rx#: [id number] Norepinephrine 4 mg In 78.482 14.704 Sodium Chloride 0.9% 250 ml @ 0.05 MCG/KG/MIN 20. 707 mls/hr IV .[id number] [facility] Rx#:[id number] Vancomycin 2,250 mg In 500 Sodium Chloride 0.9% 500 ml 500 ml @ 167 mls/hr IVPB Q12H [facility] Rx#: [id number] ceFAZolin 2 gm In Sodium 50 Chloride 0.9% 50 ml @ 100 mls/hr IVPB Q8H [facility] Rx#: [id number] Tube Feeding 560 550 50 Other 300 800 Output: Urine 1075 1250 460 Other: Voiding Method Indwelling Catheter Indwelling Catheter Indwelling Catheter ABP, PAP, CO, CI - Last Documented Arterial Blood Pressure 89/43 - Exam GENERAL: The patient is lying in bed and does not seem in acute distress. LUNG: Intubated on ventilator. NEUROLOGICAL: Limited because of his condition. Off sedation since 4pm on 01/16/2022. Higher mental function: The patient is severely encephalopathic. He would follow few simple commands on the right (squeeze right hand and wiggling his toes). Cranial nerves: I had to manually open his eye and primary gaze is midline and looking upwards. The pupils are round, constricted, (1-2mm), and hard to appreciated reactivity. He was attempting to open his eyes on command. Left lower facial droop. Is breathing minimally over vent at times. Motor: Gait is deferred. The strength is squeezing on right hand and wiggling right toes. Otherwise no movement noted over the left side. Sensation: Unable to assess light touch. WORK-UP: Lipid Panel: TG 129, Cholestrol 127, LDL 74 and HDL 26. TSH: <0.015 Free T4: 2.[address] of the head is reported as right middle cerebral artery subacute infarction was some mass effect, possible left posterior parietal subacute infarct, consider embolic phenomenon. Chronic small vessel ischemic changes at. As well as the patient has chronic inferior left occipital infarct with ex vacuo. Personally reviewed the CT of the head and I agree with the report by also felt that there could be the subacute over the left frontal as well as a small region. CT angiography of the head and neck was reported as right MCA M1 segment abrupt cutoff/filling defect from the thrombus with associated right MCA territory infarct which is not significant change from prior CT. Bilateral calcified and noncalcified plaque in at the carotid bifurcation resulting in greater than 80% stenosis in the right and near occlusion on the left. No evidence of dissection of the cervical internal carotid artery vertebral arteries. Multinodular thyroid gland. Carotid duplex: Is reported as right ICA occlusion. Cardiac arrhythmia is noted incidentally. Repeat CT head on 01/13/2022: It is reported as large right hemispheric hypodensity and edema that could be subacute infarct with increasing mass effect compared to the CT yesterday. No hemorrhage. There is low density in the medial left occipital lobe cortex consistent with old infarct with fluid density. Unchanged. I personally reviewed that a CT of the head and I don't feel that there is any significant midline shift. There is mass effect over the right lateral ventricle but I feel the patient's ventricles are still patent. I feel a third ventricle is somewhat constricted but it's still patent. 2D echo: Is reported as reduced LV systolic function (EF of 20%). L ventricle hypertrophy. Patient has tachycardia and in atrial fibrillation. Left atrial is increased severely by volume. Mildly increased left atrial area. Moderate to severe mitral regurgitation. - Labs CBC & Chem 7: 01/18/22 04:00 01/18/22 04:00 Labs: Abnormal Lab Results - Last 24 Hours (Table) 01/17/22 01/17/22 01/17/22 Range/Units 04:20 11:54 16:52 WBC (3.8-10.6) k/uL RBC (4.30-5.90) m/uL Hgb (13.0-17.5) gm/dL Hct (39.0-53.0) % MCHC (31.0-37.0) g/dL Neutrophils # (Manual) (1.3-7.7) k/uL ABG pCO2 (35-45) mmHg ABG pO2 (83-108) mmHg ABG HCO3 (21-25) mmol/L ABG Total CO2 (19-24) mmol/L ABG O2 Saturation (94-97) % Sodium (137-145) mmol/L Chloride (98-107) mmol/L Carbon Dioxide (22-30) mmol/L BUN (9-20) mg/dL Glucose (74-99) mg/dL POC Glucose (mg/dL) 263 H 215 H (75-99) mg/dL Osmolality 342 H* (280-301) mosm/kg AST (17-59) U/L Total Protein (6.3-8.2) g/dL Albumin (3.5-5.0) g/dL 01/17/22 01/18/22 01/18/22 Range/Units 23:48 04:00 04:00 WBC 20.3 H (3.8-10.6) k/uL RBC 3.76 L (4.30-5.90) m/uL Hgb 11.2 L (13.0-17.5) gm/dL Hct 36.7 L (39.0-53.0) % MCHC 30.4 L (31.0-37.0) g/dL Neutrophils # (Manual) 17.60 H (1.3-7.7) k/uL ABG pCO2 (35-45) mmHg ABG pO2 (83-108) mmHg ABG HCO3 (21-25) mmol/L ABG Total CO2 (19-24) mmol/L ABG O2 Saturation (94-97) % Sodium 155 H (137-145) mmol/L Chloride 119 H (98-107) mmol/L Carbon Dioxide 35 H (22-30) mmol/L BUN 45 H (9-20) mg/dL Glucose 236 H (74-99) mg/dL POC Glucose (mg/dL) 193 H (75-99) mg/dL Osmolality (280-301) mosm/kg AST 67 H (17-59) U/L Total Protein 5.2 L (6.3-8.2) g/dL Albumin 2.1 L (3.5-5.0) g/dL 01/18/22 01/18/22 Range/Units 05:37 06:04 WBC (3.8-10.6) k/uL RBC (4.30-5.90) m/uL Hgb (13.0-17.5) gm/dL Hct (39.0-53.0) % MCHC (31.0-37.0) g/dL Neutrophils # (Manual) (1.3-7.7) k/uL ABG pCO2 54 H (35-45) mmHg ABG pO2 116 H (83-108) mmHg ABG HCO3 34 H (21-25) mmol/L ABG Total CO2 36 H (19-24) mmol/L ABG O2 Saturation 98.4 H (94-97) % Sodium (137-145) mmol/L Chloride (98-107) mmol/L Carbon Dioxide (22-30) mmol/L BUN (9-20) mg/dL Glucose (74-99) mg/dL POC Glucose (mg/dL) 216 H (75-99) mg/dL Osmolality (280-301) mosm/kg AST (17-59) U/L Total Protein (6.3-8.2) g/dL Albumin (3.5-5.0) g/dL Microbiology - Last 24 Hours (Table) 01/14/22 10:09 Blood Culture Gram Stain - Final Blood Blood Culture - Final Staphylococcus aureus 01/13/22 23:59 Gram Stain - Final Sputum Sputum Culture - Final Staphylococcus aureus 01/12/22 16:00 Blood Culture - Preliminary Blood No Growth after 120 hours 01/12/22 15:45 Blood Culture - Preliminary Blood No Growth after 120 hours Assessment and Plan Assessment: Large right hemispheric Subacute ischemic stroke. Etiology is embolic (has history of atrial fibrillation and seems non-compliant with medication) and in addition cocaine can induce stroke since can cause vasoconstriction. Right M1 occlusion. No thrombectomy since outside window and risk outweigh benefit. Cytotoxic edema due to above Respiratory distress due to above and that he required intubation and mechanical ventilation since unable to protect his airway Acute dysphagia due to above Right carotid stenosis >80% per CTA and near occlusion on left. But on carotid it is reported as Right ICA occlusion. Atrial fibrillation and is suppose to be on Eliquis but per pharmacy has not filled up his medication for 3 months. History of old stroke over left occipital Positive for cocaine use Hypertension Hyperlipidemia Diabetes mellitus Sleep apnea Medication noncompliance Plan: Because of his dysphagia will continue ASA 300mg rectally. Once able to swallow or NG/PEG tube can resume with ASA 325mg and Plavix 75mg daily and Lipitor 80mg qhs. CT head 01/16/2022 is ordered by ICU team and it is reported as findings compatible with large right sided cerebral vascular accident, there are changes of evolving and progressed infarct. Sphenoid sinus disease. I personally reviewed the CT of the head and I agreed there is a progression from prior CT and there is compression over the right lateral ventricle. The third ventricle is constricted but it continues to be patent what and fourth ventricle is patent. Patient received 2 doses of Mannitol during hospital stay. Consulted vascular surgery team for the carotid stenosis. Regarding start of anticoagulation can be started on 01/22/2022 Hold for now because of large right hemispheric stroke and to avoid hemorrhagic transformation. EEG: Abnormal study. Severe encephalopathy. No focal slowing, epileptiform discharges or seizure on the EEG. Every 2 neuro- hour checks On cardiac monitoring PT OT and MAINTENANCE CONSTRUCTION HELPER are consulted Avoid any hypotensive episode. Cardiology team is consulted. We'll defer the rest of the medical management to the primary team For DVT prophylaxis: On subcu heparin 5000 units every 12 hours. Patient is continues to have some brainstem reflexes on examination. Patient condition is critical. Prognosis is very guarded. His quality of life is poor and likely will be depedent on assistance because of significant weaknes s on left side/hemiplegia. Unsure if he will be able to feed himself or breath on his own at this time. I spoke with the patient's sister via phone and updated her of patient's condition. She stated, patient estranged daughter is flying over to see patient. The patient's sister and his estranged daughter will come and visit him and will make further decisions. I also discussed the plan with his nurse. Art Irwin M.D. Neuro-hospitalist Time with Patient: Less than 30
--- NOTE | 2022-01-18 14:59 | P.PN ---
Subjective Progress Note Date: 01/18/22 Principal diagnosis: CVA The patient is a 66-year-old male with a PMH of coronary artery disease, A. fib, severe systolic CHF with EF 20-25% on [facility]SHALL on 12/11, type II DM, hyperlipidemia, hypertension who was brought into the emergency room on 01/12/22 for altered mental status. EMS was called and ultimately the patient did have a fall and assisted him in getting up patient was noticed to be tachycardic and noted to have significant left-sided deficit for the patient was brought into the hospital. Urine toxicology was positive for cocaine patient on presentation to the hospital. He also presented with Afib with RVR with elevated troponin, and has been managed by cardiology services There were reports that the patient had reportedly not filled his Eliquis for his Afib and had in general been noncompliant with his medications. CTA showing a right MCA infarct, no evidence of dissection, and bilateral carotid stenosis greater than 80% on the right and near occlusion on the left. CT brain had revealed the right MCA subacute infarct with some mass effect as well as a possible left posterior parietal subacute infarct suspected secondary to embolic phenomenon. Neurology was consulted and recommended Aspirin, Plavix, Lipitor and to hold anticoagulation for now due to risk of worsening hemorragic conversion. The patient has been febrile, chest x- ray showed bilateral effusions and bibasilar infiltrates. Blood culture drawn which came positive for gram-positive cocci in the sputum showing present for staph aureus and infectious disease is consulted for further management of antibiotic therapy. Information has been obtained from review the chart and nursing staff as the patient is currently intubated on the vent and unable provide any history. The patient's sister, Isabella, and daughter, Fe, are not close with the patient and also not able to provide much information. 01/17 Spoke on a conference call with the patient's sister, Isabella, as well as his daughter, Fe. Both were educated on the patient's condition and poor prognosis. Both agreed that they would like to withdraw care. They stated he would not want to be on life support or live in a long-term. However, Fe lives in [place] and would like to see if she can get a flight here to be with her dad. She will look into this and let me know as soon as possible. In the meantime, they both also agreed to make the patient a DNR. Dr. Cho's INCENDIARY POWDER MIXER and RN Florence updated. Also, requested that Florence call GOL. Objective - Vital Signs Vital signs: Vital Signs Temp 99.6 F 01/18/22 12:00 Pulse 109 H 01/18/22 13:00 Resp 26 H 01/18/22 13:00 BP 115/55 01/18/22 12:00 Pulse Ox 97 01/18/22 13:00 Intake & Output 01/17/22 01/18/22 01/18/22 18:59 06:59 18:59 Intake Total 1995.5 1898.732 899.576 Output Total 1075 1250 685 Balance 920.5 648.732 214.576 Weight 114.6 kg Intake: IV 276 253 23 0.9@ 20mls/hr 240 220 20 Pressure bag 36 33 3 Intake, IV Titration 859.5 295.732 226.576 Amount Ampicillin-Sulbactam 3 gm 100 In Sodium Chloride 0.9% 100 ml @ 200 mls/hr IVPB Q6HR [facility] Rx#:[id number] Dextrose 5% in Water 1, 200 000 ml @ 50 mls/hr IV . Q20H [facility] Rx#:[id number] Diltiazem 125 mg In 209.5 217.25 Sodium Chloride 0.9% 100 ml @ 15 MG/HR 15 mls/hr IV .Q8H20M [facility] Rx#: [id number] Norepinephrine 4 mg In 78.482 26.576 Sodium Chloride 0.9% 250 ml @ 0.05 MCG/KG/MIN 20. 707 mls/hr IV .[id number] [facility] Rx#:[id number] Vancomycin 2,250 mg In 500 Sodium Chloride 0.9% 500 ml 500 ml @ 167 mls/hr IVPB Q12H [facility] Rx#: [id number] ceFAZolin 2 gm In Sodium 50 Chloride 0.9% 50 ml @ 100 mls/hr IVPB Q8H [facility] Rx#: [id number] Tube Feeding 560 550 250 Other 300 800 400 Output: Urine 1075 1250 685 Other: Voiding Method Indwelling Catheter Indwelling Catheter Indwelling Catheter ABP, PAP, CO, CI - Last Documented Arterial Blood Pressure 111/52 - Exam General: Intubated, no acute distress noted Skin: Warm and dry, no rashes/lesions, cooling pad present Head: atraumatic, normocephalic, symmetric Eyes: EOMI, no lid lag, anicteric sclera, pupils equal bilaterally and sluggish ENT: Nose and ears atraumatic, no thrush, no pharyngeal erythema, ET tube present, Trachea midline, supple Cardiovascular: Tachycardic, Irregularly irregular, no murmur, positive posterior tibial pulse bilateral, no edema, capillary refill less than 2 seconds Lungs: Some scattered rhonchi, without wheezing or rales, no accessory muscle use, FIO2 50% Abdominal: soft, nontender to palpation, no guarding, no appreciable organomegaly, normal bowel sounds Ext: no gross muscle atrophy, no contractures, Neuro: attempts to open eyes to voice, follows simple commands with right upper and lower extremities, Left upper and lower extremities flaccid. + cough and gag - Labs CBC & Chem 7: 01/18/22 04:00 01/18/22 04:00 Labs: Abnormal Lab Results - Last 24 Hours (Table) 01/17/22 01/17/22 01/18/22 Range/Units 16:52 23:48 04:00 WBC 20.3 H (3.8-10.6) k/uL RBC 3.76 L (4.30-5.90) m/uL Hgb 11.2 L (13.0-17.5) gm/dL Hct 36.7 L (39.0-53.0) % MCHC 30.4 L (31.0-37.0) g/dL Neutrophils # (Manual) 17.60 H (1.3-7.7) k/uL ABG pCO2 (35-45) mmHg ABG pO2 (83-108) mmHg ABG HCO3 (21-25) mmol/L ABG Total CO2 (19-24) mmol/L ABG O2 Saturation (94-97) % Sodium (137-145) mmol/L Chloride (98-107) mmol/L Carbon Dioxide (22-30) mmol/L BUN (9-20) mg/dL Glucose (74-99) mg/dL POC Glucose (mg/dL) 215 H 193 H (75-99) mg/dL AST (17-59) U/L Total Protein (6.3-8.2) g/dL Albumin (3.5-5.0) g/dL 01/18/22 01/18/22 01/18/22 Range/Units 04:00 05:37 06:04 WBC (3.8-10.6) k/uL RBC (4.30-5.90) m/uL Hgb (13.0-17.5) gm/dL Hct (39.0-53.0) % MCHC (31.0-37.0) g/dL Neutrophils # (Manual) (1.3-7.7) k/uL ABG pCO2 54 H (35-45) mmHg ABG pO2 116 H (83-108) mmHg ABG HCO3 34 H (21-25) mmol/L ABG Total CO2 36 H (19-24) mmol/L ABG O2 Saturation 98.4 H (94-97) % Sodium 155 H (137-145) mmol/L Chloride 119 H (98-107) mmol/L Carbon Dioxide 35 H (22-30) mmol/L BUN 45 H (9-20) mg/dL Glucose 236 H (74-99) mg/dL POC Glucose (mg/dL) 216 H (75-99) mg/dL AST 67 H (17-59) U/L Total Protein 5.2 L (6.3-8.2) g/dL Albumin 2.1 L (3.5-5.0) g/dL 01/18/22 Range/Units 11:32 WBC (3.8-10.6) k/uL RBC (4.30-5.90) m/uL Hgb (13.0-17.5) gm/dL Hct (39.0-53.0) % MCHC (31.0-37.0) g/dL Neutrophils # (Manual) (1.3-7.7) k/uL ABG pCO2 (35-45) mmHg ABG pO2 (83-108) mmHg ABG HCO3 (21-25) mmol/L ABG Total CO2 (19-24) mmol/L ABG O2 Saturation (94-97) % Sodium (137-145) mmol/L Chloride (98-107) mmol/L Carbon Dioxide (22-30) mmol/L BUN (9-20) mg/dL Glucose (74-99) mg/dL POC Glucose (mg/dL) 218 H (75-99) mg/dL AST (17-59) U/L Total Protein (6.3-8.2) g/dL Albumin (3.5-5.0) g/dL Microbiology - Last 24 Hours (Table) 01/14/22 10:09 Blood Culture Gram Stain - Final Blood Blood Culture - Final Staphylococcus aureus 01/13/22 23:59 Gram Stain - Final Sputum Sputum Culture - Final Staphylococcus aureus 01/12/22 16:00 Blood Culture - Preliminary Blood No Growth after 120 hours 01/12/22 15:45 Blood Culture - Preliminary Blood No Growth after 120 hours Assessment and Plan Plan: Received message from patient's daughter, Fe, that she was able to book a flight to [place] and was hoping to be to the hospital by late afternoon, early evening. No other visitors present today. Per RN, patient was able to follow simple commands earlier today. She stated the critical care physician would like to keep him intubated overnight without sedation and see if he improves by morning. Then possibly attempt a SBT. Will continue to follow. Karis Gomez [facility] Spectralink [phone] Email: [email or web address] Time with Patient: Less than 30
[2022-01-18] MEDS: DEXMEDETOMIDINE/0.9% NACL(PMX) 400 MCG in EMPTY BAG 1 BAG IV SCH ×2 (15:36→21:50)
--- NOTE | 2022-01-18 15:51 | P.PN ---
Subjective Progress Note Date: 01/18/22 Principal diagnosis: Stroke 66-year-old male with a PMH of coronary artery disease, A. fib, severe systolic CHF with EF 20-25% on [facility] on 12/11, type II DM, hyperlipidemia, hypertension who was brought into the emergency room for altered mental status. There were reports that the patient had reportedly not filled his Eliquis for his A. fib and had in general been noncompliant with his medications. CTA showing a right MCA infarct, no evidence of dissection, and bilateral carotid stenosis greater than 80% on the right and near occlusion on the left. CT brain had revealed the right MCA subacute infarct with some mass effect as well as a possible left posterior parietal subacute infarct suspected secondary to embolic phenomenon. Neurology was consulted and recommended Aspirin, Plavix, Lipitor and to hold anticoagulation for now due to risk of worsening hemorragic conversion. 01/17 Patient remains on vent support. Patient is overall prognosis remains very poor. No significant meaningful neurological recovery has been seen. Patient does still have some brain stem reflexes. Neurology team is following. Recommendation is for palliative consultation and hospice care. 01/18 Patient is starting to respond to loud voices and commands. He squeezing his right hand and able to wiggle right foot toes. Objective - Vital Signs Vital signs: Vital Signs Temp 99.6 F 01/18/22 12:00 Pulse 115 H 01/18/22 15:22 Resp 33 H 01/18/22 15:12 BP 115/55 01/18/22 12:00 Pulse Ox 97 01/18/22 13:00 Intake & Output 01/17/22 01/18/22 01/18/22 18:59 06:59 18:59 Intake Total 1995.5 1898.732 899.576 Output Total 1075 1250 835 Balance 920.5 648.732 64.576 Weight 114.6 kg Intake: IV 276 253 23 0.9@ 20mls/hr 240 220 20 Pressure bag 36 33 3 Intake, IV Titration 859.5 295.732 226.576 Amount Ampicillin-Sulbactam 3 gm 100 In Sodium Chloride 0.9% 100 ml @ 200 mls/hr IVPB Q6HR [facility] Rx#:[id number] Dextrose 5% in Water 1, 200 000 ml @ 50 mls/hr IV . Q20H [facility] Rx#:[id number] Diltiazem 125 mg In 209.5 217.25 Sodium Chloride 0.9% 100 ml @ 15 MG/HR 15 mls/hr IV .[id number] [facility] Rx#: [id number] Norepinephrine 4 mg In 78.482 26.576 Sodium Chloride 0.9% 250 ml @ 0.05 MCG/KG/MIN 20. 707 mls/hr IV .[id number] [facility] Rx#:[id number] Vancomycin 2,250 mg In 500 Sodium Chloride 0.9% 500 ml 500 ml @ 167 mls/hr IVPB Q12H [facility] Rx#: [id number] ceFAZolin 2 gm In Sodium 50 Chloride 0.9% 50 ml @ 100 mls/hr IVPB Q8H [facility] Rx#: [id number] Tube Feeding 560 550 250 Other 300 800 400 Output: Urine 1075 1250 835 Other: Voiding Method Indwelling Catheter Indwelling Catheter Indwelling Catheter ABP, PAP, CO, CI - Last Documented Arterial Blood Pressure 111/52 - Exam General: Intubated Derm: no unusual rashes/lesions no unusual ecchymoses, warm, dry Head: atraumatic, normocephalic, symmetric Eyes: EOMI, no lid lag, anicteric sclera, pupils equal round reactive to light ENT: Nose and ears atraumatic, no thrush, no pharyngeal erythema Neck: No thyromegaly, no cervical lymphadenopathy, trachea midline, supple Mouth: no lip lesion, mucus membranes moist Cardiovascular: Tachycardic, Irregularly irregular, no murmur, positive posterior tibial pulse bilateral, no edema, capillary refill less than 2 seconds Lungs: Some scattered rhonchi, without wheezing or rales, no accessory muscle use Abdominal: soft, nontender to palpation, no guarding, no appreciable organomegaly, normal bowel sounds Ext: no gross muscle atrophy, no contractures, Neuro: Unable to assess - Labs CBC & Chem 7: 01/18/22 04:00 01/18/22 04:00 Labs: Abnormal Lab Results - Last 24 Hours (Table) 01/17/22 01/17/22 01/18/22 Range/Units 16:52 23:48 04:00 WBC 20.3 H (3.8-10.6) k/uL RBC 3.76 L (4.30-5.90) m/uL Hgb 11.2 L (13.0-17.5) gm/dL Hct 36.7 L (39.0-53.0) % MCHC 30.4 L (31.0-37.0) g/dL Neutrophils # (Manual) 17.60 H (1.3-7.7) k/uL ABG pCO2 (35-45) mmHg ABG pO2 (83-108) mmHg ABG HCO3 (21-25) mmol/L ABG Total CO2 (19-24) mmol/L ABG O2 Saturation (94-97) % Sodium (137-145) mmol/L Chloride (98-107) mmol/L Carbon Dioxide (22-30) mmol/L BUN (9-20) mg/dL Glucose (74-99) mg/dL POC Glucose (mg/dL) 215 H 193 H (75-99) mg/dL AST (17-59) U/L Total Protein (6.3-8.2) g/dL Albumin (3.5-5.0) g/dL 01/18/22 01/18/22 01/18/22 Range/Units 04:00 05:37 06:04 WBC (3.8-10.6) k/uL RBC (4.30-5.90) m/uL Hgb (13.0-17.5) gm/dL Hct (39.0-53.0) % MCHC (31.0-37.0) g/dL Neutrophils # (Manual) (1.3-7.7) k/uL ABG pCO2 54 H (35-45) mmHg ABG pO2 116 H (83-108) mmHg ABG HCO3 34 H (21-25) mmol/L ABG Total CO2 36 H (19-24) mmol/L ABG O2 Saturation 98.4 H (94-97) % Sodium 155 H (137-145) mmol/L Chloride 119 H (98-107) mmol/L Carbon Dioxide 35 H (22-30) mmol/L BUN 45 H (9-20) mg/dL Glucose 236 H (74-99) mg/dL POC Glucose (mg/dL) 216 H (75-99) mg/dL AST 67 H (17-59) U/L Total Protein 5.2 L (6.3-8.2) g/dL Albumin 2.1 L (3.5-5.0) g/dL 01/18/22 Range/Units 11:32 WBC (3.8-10.6) k/uL RBC (4.30-5.90) m/uL Hgb (13.0-17.5) gm/dL Hct (39.0-53.0) % MCHC (31.0-37.0) g/dL Neutrophils # (Manual) (1.3-7.7) k/uL ABG pCO2 (35-45) mmHg ABG pO2 (83-108) mmHg ABG HCO3 (21-25) mmol/L ABG Total CO2 (19-24) mmol/L ABG O2 Saturation (94-97) % Sodium (137-145) mmol/L Chloride (98-107) mmol/L Carbon Dioxide (22-30) mmol/L BUN (9-20) mg/dL Glucose (74-99) mg/dL POC Glucose (mg/dL) 218 H (75-99) mg/dL AST (17-59) U/L Total Protein (6.3-8.2) g/dL Albumin (3.5-5.0) g/dL Microbiology - Last 24 Hours (Table) 01/14/22 10:09 Blood Culture Gram Stain - Final Blood Blood Culture - Final Staphylococcus aureus 01/13/22 23:59 Gram Stain - Final Sputum Sputum Culture - Final Staphylococcus aureus 01/12/22 16:00 Blood Culture - Preliminary Blood No Growth after 120 hours 01/12/22 15:45 Blood Culture - Preliminary Blood No Growth after 120 hours Assessment and Plan Plan: Subacute MCA suspected embolic infarct with mass effect in patient noncompliant with anticoagulation for A. fib -Repeat CT performed on 01/16/2022 shows findings compatible with large right- sided cerebrovascular accident, along with changes of evolving and progressed infarct, sphenoid sinus disease -Neurology recommendations to Continue with aspirin, plavix, statin plan to hold anticoagulation for another 4 days. -At this point patient's chances of meaningful neurologic recovery is low in patient's overall prognosis is poor. Recommendation is for hospice evaluation, palliative care involvement. There is a social challenge at this time due to the fact the patient only has an ex- and no other family involvement Acute respiratory failure requiring intubation and mechanical ventilation Pneumonia Bacteremia -Patient intubated 01/13 -bibasilar infiltrates with Staph sputum culture. Staph is MSSA and is sensitive to cefazolin. We'll continue with treatment. ID is currently fol lowing as well -Blood cultures for 01/14/22 positive Staphylococcus aureus Right carotid stenosis greater than 80% near-complete occlusion of the side -Not candidate for surgical intervention Afib with RVR- improved Cardiomyopathy Severe pulmonary hypertension Severe valvular heart disease -Cardiology following. Currently on Cardizem GTT, metoprolol. -Anticoagulation on hold due to bleed. -Echocardiogram was completed and shows a reduced LV systolic function, left ventricular hypertrophy, EF estimated at 20% Cocaine abuse Chronic medical condition: Coronary artery disease, A. fib, type II DM, hypertension, hyperlipidemia -Continue with ASA, Statin, plavix. -Patient is hyperglycemic with tube feeds. Continue to titrate insulin. Hypernatremia -Free water deficit. -Patient was started on treatment with mannitol by neurology team. Which has now discontinued -Continue with free fluid flushes DVT prophylaxis -Subcutaneous heparin CODE STATUS: Full Code Discussed with: RN Overall prognosis very poor. Palliative consulted, awaiting patient's daughter to fly from [place] for final decisions to be made regarding his care.
--- NOTE | 2022-01-18 16:05 | P.PN ---
Subjective Progress Note Date: 01/18/22 On 01/15/2022, the patient is being seen for a follow-up. The patient is currently intubated on a mechanical ventilator. The patient was intubated on 12/13/2021. The patient is post left-sided CVA and the patient a stroke along the right MCA distribution. The patient has chronic atrial fibrillation and the patient is postop non-ST segment elevation myocardial infarction. 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 His urine toxin was also positive for cocaine. He is known to have diabetes, hypertension and hyperlipidemia. At this point in time, the patient is on propofol running at 30 from a respiratory milligrams per minute. The patient is on a mechanical ventilator and the patient is currently on assist control mode at the rate of 26 with a tidal volume of 450 and FiO2 of 50% with a PEEP of 5. The blood gas showed a pH of 7.35 with a pCO2 of 55 and pO2 of 71 and this was on FiO2 of 50%. The patient had a follow-up chest x-ray today that showed an ET tube which was in a good location. There is a right lower lobe pulmonary infiltrate/an area of consolidation which was present earlier and seems to be more confluent. The patient also has a left subclavian triple-lumen catheter in place. The patient had a sputum sample that showed a presumptive staph aureus and he was febrile and this morning his temperature was 100.8 and based on that the patient was started on IV vancomycin. The white cell count was as high as 32 and currently is down to 26 with a hemoglobin of 13.3. No significant orotracheal secretions. The patient is on no pressors. Nevertheless, the patient is still having issues with atrial fibrillation with rapid ventricular response. The patient is currently on Cardizem drip at 50 mg an hour. He is also on norepinephrine infusion low-dose at 0.0 25 Tyrel respiratory gram per minute. IV fluids are currently at KVO. He is receiving enteral feeding with vitamin 1.2 at the rate of 10 mL an hour. His previous echocardiogram done on 01/13/2022 showed reduced left ventricular ejection fraction which was estimated to be at around 20%. The patient also had moderate severe mitral regurgitation, moderate to severe aortic stenosis with a peak gradient of 55 mmHg and moderate to severe tricuspid regurgitation. No evidence of any pericardial effusion. Neurologically, he is sedated. Pupils are equal and there are on pro-millimeters in size. No nystagmus. No clonus. No Babinski and the left lower extremity. No seizure activity has been noted. Neurology is on the case. 01/16/2022, the patient is being seen for a follow-up. The patient remains on a mechanical ventilator. The patient this morning stop propofol running at 30 mg/kg per minute and the patient will obviously need a sedation holiday. The mental status is to be reevaluated. A follow-up CAT scan of the head will be also ordered to assess the progression of this CVA. Note that the patient is unresponsive to any painful stimulation. Pupils remain around 2-3 mm in size sluggish reactive to light without any nystagmus. No clonus and no Babinski. No reaction to any deep painful stimulation. The patient remained on assist control mode at the rate of 26 with a tidal volume of 450, the patient is also on FiO2 of 50% with a PEEP of 5. The blood gas showed a pH of 7.34 with a pCO2 59 and pO2 97. The chest x-ray from today shows evidence of a pulmonary edema/CHF. There is bilateral/bibasilar airspace disease present most on the right lung base. The patient shown to have staph aureus in his sputum and the patient was febrile. Based on that, the patient was initially started on vancomycin and subsequently antibiotics and was switched IV cefazolin as the staph aureus do not to be an MSSA. The patient is hemodynamically stable. Underlying cardiac rhythm is atrial fibrillation. The patient remains on a Cardizem drip at 50 mg an hour. Note that the patient has impaired LV function with an ejection fraction of 20%. The sodium level is at 147. The BUN is at 50 with a creatinine of 1.3, the white cell count is at 22 with a hemoglobin of 12.3 and a platelet count of 165. The patient is receiving water solution to the NG 200 mL every 6 hours. IV fluids are currently at KVO. No antigravity patient has been started. The patient is on Levemir insulin 16 units at bedtime in addition to 8 units every 6 hours of NovoLog and a sliding scale coverage. 01/17/2022, seeing the patient for a follow-up. This morning, the patient remains completely unresponsive. The patient is not withdrawing to any painful stimulation. No seizure activity. The patient remains on a mechanical ventilator and the patient is currently off sedation. While in the mechanical ventilator, the patient is an assist-control mode at the rate of 26. Had a volume of 450 and FiO2 of 50% with a PEEP of 5. The patient has a peak airway pressure of 20, plateau airway pressure of 14, the blood gases from today shows a pH of 7.38 with a pCO2 57 and pO2 of 91. The patient has still having episodes of fever. The patient remains in atrial fibrillation with rapid ventricular response despite being on a Cardizem drip at 50 mg an hour and metoprolol was also added at a dose of 25 mg by mouth twice a day. The patient is on no anticoagulants for now. The patient remains in atrial fibrillation. Chest x-ray is showing bilateral lower lobe pulmonary infiltrates and the patient continues to have fever and sputum sample was positive for MSSA and the patient remains on IV cefazolin. IV Zosyn the case. The patient was given a follow-up CAT scan of the brain that showed progression of the stroke on the right and this such, the patient was given another dose of mannitol yesterday. On today's blood work, the sodium level is up to 154 with a potassium level of 4.9 chloride of 118 with a bicarb of 34, BUN is at 35 with a creatinine of 1.03 and a serum osmolality is at 342. The white cell count is elevated at 25 with a hemoglobin of 12.1. No other significant events otherwise for now. The patient remains in enteral feeding for nutritional support and addition to free water receiving. NG tube. The patient is on vital AF at the rate of 30 mL an hour. Note that the patient has advanced CAD a myopathy with an ejection fraction of 20%. The patient remains on Levemir insulin 16 units along with NovoLog 8 units 4 times a day and the sinus Coverage. We are still working to locate family members for this patient. loft worker pile driving is on the case. The patient has a daughter that was identified to be in [place] and she was made aware of his condition. Based on conversations with the family, the family was made aware that the patient's prognosis extremely poor. The family is considering withdrawal of care on this patient. 01/18/2022, the patient is being seen for a follow-up. The patient remains intubated on a mechanical ventilator. The patient has been off sedation for the past 48 hours. On today's evaluation, the patient was able to grimace to painful stimulation. He was able to blink upon demand or commands and the patient was able to squeeze my hand with his right hand upon demand. The left side is flaccid. The patient is still very much lethargic and somnolent. I was able to elicit some reaction from this patient on today's examination. His pupils around 3-4 mm in size and the patient has a preferential gaze to the right. No Babinski or clonus on the left. The patient remains on a mechanical ventilator. The patient is being treated for a pneumonia as the patient sputum sample is shown MSSA and the patient is currently on a combination of Unasyn and vancomycin. Antibiotic change was done and the patient wasn't having fever. Nevertheless, the chest x-ray showing improvement in aeration of the lung bases bilaterally. There been setting includes a rate of 26, tidal volume of 450, FiO2 of 50% with a PEEP of 5 and the patient has shown a pH of 7.41 with a pCO2 54 and pO2 116. Norepinephrine is minimal at 0.01 Tyrel respiratory kilogram per minute. The patient is still on a Cardizem drip for atrial fibrillation at the rate of 50 mg an hour and the patient is also metoprolol 50 mg by mouth twice a day. Sodium level is still elevated at 155 with a BUN of 45 and a creatinine of 0.8. The patient on free water supplements through the 400 mL every 6 hours. The patient is on vitamin HP at the rate of 30 mL an hour. The patient's blood sugar seems to be slightly elevated. No other significant events overnight. Family has been identified and a sister and the daughter will be arriving today for further discussion. Despite some limited neurologic improvement, the patient's long-term prognosis extremely poor based on his comorbidities and his significant neurologic impairment following his CVA Objective - Vital Signs Vital signs: Vital Signs Temp 99.6 F 01/18/22 12:00 Pulse 115 H 01/18/22 15:22 Resp 33 H 01/18/22 15:12 BP 115/55 01/18/22 12:00 Pulse Ox 97 01/18/22 13:00 Intake & Output 01/17/22 01/18/22 01/18/22 18:59 06:59 18:59 Intake Total 1995.5 1898.732 938.507 Output Total 1075 1250 960 Balance 920.5 648.732 -21.493 Weight 114.6 kg Intake: IV 276 253 23 0.9@ 20mls/hr 240 220 20 Pressure bag 36 33 3 Intake, IV Titration 859.5 295.732 265.507 Amount Ampicillin-Sulbactam 3 gm 100 In Sodium Chloride 0.9% 100 ml @ 200 mls/hr IVPB Q6HR [facility] Rx#:[id number] Dextrose 5% in Water 1, 200 000 ml @ 50 mls/hr IV . Q20H [facility] Rx#:[id number] Diltiazem 125 mg In 209.5 217.25 Sodium Chloride 0.9% 100 ml @ 15 MG/HR 15 mls/hr IV .[id number] [facility] Rx#: [id number] Norepinephrine 4 mg In 78.482 65.507 Sodium Chloride 0.9% 250 ml @ 0.05 MCG/KG/MIN 20. 707 mls/hr IV .[id number] [facility] Rx#:[id number] Vancomycin 2,250 mg In 500 Sodium Chloride 0.9% 500 ml 500 ml @ 167 mls/hr IVPB Q12H [facility] Rx#: [id number] ceFAZolin 2 gm In Sodium 50 Chloride 0.9% 50 ml @ 100 mls/hr IVPB Q8H [facility] Rx#: [id number] Tube Feeding 560 550 250 Other 300 800 400 Output: Urine 1075 1250 960 Other: Voiding Method Indwelling Catheter Indwelling Catheter Indwelling Catheter ABP, PAP, CO, CI - Last Documented Arterial Blood Pressure 111/52 - Exam GENERAL EXAM: Intubated, sedated 66-year-old male patient, unresponsive at this point in time, think is a mechanical ventilator. The patient has been off sedation for the past 48 hours. He was able to grimace to painful stimulation he was able to blink his eyes and uses his fingers and move and squeeze with his hand upon demand. HEAD: Normocephalic. EYES: Sluggish reaction of pupils, equal size.no nystagmus, no preferential gaze NOSE: Clear with pink turbinates. THROAT: Oral endotracheal and gastric tube secured in place. No erythema or exudates. NECK: No masses, no JVD. CHEST: No chest wall deformity. LUNGS: Equal air entry with bilateral rhonchi. CVS: S1 and S2 normal with no audible murmur, irregular rhythm. ABDOMEN: No hepatosplenomegaly, normal bowel sounds, no guarding or rigidity. SPINE: No scoliosis or deformity SKIN: No rashes CENTRAL NERVOUS SYSTEM: Sedated, tone is normal in all 4 extremities.the sensory and motor function cannot be assessed. The patient has no clonus. No Babinski the left lower extremity. The left side is flaccid without any Babinski or clonus. Is able to move his right side and he withdraws to painful stimulation. Is able to blink his eyes. He does have a preferential gaze to the right. There is some mild facial droop on the left. The patient is extremity somnolent and sleepy still despite being off sedation. EXTREMITIES: There is no peripheral edema. No clubbing, no cyanosis. Peripheral pulses are intact. - Labs CBC & Chem 7: 01/18/22 04:00 01/18/22 04:00 Labs: Abnormal Lab Results - Last 24 Hours (Table) 01/17/22 01/17/22 01/18/22 Range/Units 16:52 23:48 04:00 WBC 20.3 H (3.8-10.6) k/uL RBC 3.76 L (4.30-5.90) m/uL Hgb 11.2 L (13.0-17.5) gm/dL Hct 36.7 L (39.0-53.0) % MCHC 30.4 L (31.0-37.0) g/dL Neutrophils # (Manual) 17.60 H (1.3-7.7) k/uL ABG pCO2 (35-45) mmHg ABG pO2 (83-108) mmHg ABG HCO3 (21-25) mmol/L ABG Total CO2 (19-24) mmol/L ABG O2 Saturation (94-97) % Sodium (137-145) mmol/L Chloride (98-107) mmol/L Carbon Dioxide (22-30) mmol/L BUN (9-20) mg/dL Glucose (74-99) mg/dL POC Glucose (mg/dL) 215 H 193 H (75-99) mg/dL AST (17-59) U/L Total Protein (6.3-8.2) g/dL Albumin (3.5-5.0) g/dL 01/18/22 01/18/22 01/18/22 Range/Units 04:00 05:37 06:04 WBC (3.8-10.6) k/uL RBC (4.30-5.90) m/uL Hgb (13.0-17.5) gm/dL Hct (39.0-53.0) % MCHC (31.0-37.0) g/dL Neutrophils # (Manual) (1.3-7.7) k/uL ABG pCO2 54 H (35-45) mmHg ABG pO2 116 H (83-108) mmHg ABG HCO3 34 H (21-25) mmol/L ABG Total CO2 36 H (19-24) mmol/L ABG O2 Saturation 98.4 H (94-97) % Sodium 155 H (137-145) mmol/L Chloride 119 H (98-107) mmol/L Carbon Dioxide 35 H (22-30) mmol/L BUN 45 H (9-20) mg/dL Glucose 236 H (74-99) mg/dL POC Glucose (mg/dL) 216 H (75-99) mg/dL AST 67 H (17-59) U/L Total Protein 5.2 L (6.3-8.2) g/dL Albumin 2.1 L (3.5-5.0) g/dL 01/18/22 Range/Units 11:32 WBC (3.8-10.6) k/uL RBC (4.30-5.90) m/uL Hgb (13.0-17.5) gm/dL Hct (39.0-53.0) % MCHC (31.0-37.0) g/dL Neutrophils # (Manual) (1.3-7.7) k/uL ABG pCO2 (35-45) mmHg ABG pO2 (83-108) mmHg ABG HCO3 (21-25) mmol/L ABG Total CO2 (19-24) mmol/L ABG O2 Saturation (94-97) % Sodium (137-145) mmol/L Chloride (98-107) mmol/L Carbon Dioxide (22-30) mmol/L BUN (9-20) mg/dL Glucose (74-99) mg/dL POC Glucose (mg/dL) 218 H (75-99) mg/dL AST (17-59) U/L Total Protein (6.3-8.2) g/dL Albumin (3.5-5.0) g/dL Microbiology - Last 24 Hours (Table) 01/14/22 10:09 Blood Culture Gram Stain - Final Blood Blood Culture - Final Staphylococcus aureus 01/13/22 23:59 Gram Stain - Final Sputum Sputum Culture - Final Staphylococcus aureus 01/12/22 16:00 Blood Culture - Preliminary Blood No Growth after 120 hours 01/12/22 15:45 Blood Culture - Preliminary Blood No Growth after 120 hours Assessment and Plan Plan: Acute subacute ischemic stroke involving the right MCA predominantly also some question of left parietal involvement. Follow-up CAT scan of the brain done on 01/16/2022 showed a large right-sided cerebral vascular infarct with evolution and progression of the infarct as noted on the CAT scan of the brain. There was also compression over the right lateral ventricle. The third ventricle is constricted but it continues to be patent and the fourth ventricle is also patent. The patient already received a total of 2 doses of mannitol. Neurologist on the case. Vascular surgeries on the case. On today's neurologic evaluation, the patient is able to elicit some reaction when he was able to blink his eyes and move his fingers and hand on the right upon demand. Left- side is still flaccid. Atrial fibrillation with a rapid ventricular response, history of atrial fibrillation and had previously been on Eliquis but has a history of medication noncompliance of possibly 3 months, currently on a Cardizem drip at 15 mg an hour for rate control and the patient is also on metoprolol 50 mg by mouth twice a day.. He is on no anticoagulants for now. Right carotid stenosis greater than 80% and near complete occlusion on the left Acute hypoxic respiratory failure with a right lower lobe pneumonia, likely a staphylococcal pneumonia with MSSA and the patient is currently on IV cefazolin. The patient is still having episodes of fever while being on cefazolin and a chest x-ray still showing bilateral lower lobe pulmonary infiltrates worse on the right. History of old CVA over left occipital area Urine drug screen positive for cocaine Hypertension, history of Hyperlipidemia Diabetes mellitus, currently on Levemir insulin for blood sugar control Hyperchloremic hypernatremia, sodium level is stable at 155 acute Leukocytosis, improving right lower lobe pneumonia, likely related to staph aureus, MSSA Febrile illness secondary to pneumonia, could be related to pneumonia versus central fever Plan Keep the patient off sedation, some limited neurologic improvement today's evaluation Monitor neurologic functions Continue ventilator support Continue Unasyn and vancomycin Start the patient on free water D5 supplemented rate of 50 mL an hour and monitor the sodium level Put the patient on Levemir insulin and increase the dose up to 26 units a day along with a sliding scale coverage Monitor blood sugars Wean off norepinephrine and discontinue Continue the Cardizem drip and oral metoprolol and add digoxin for rate control and gradually wean off the Cardizem drip Monitor fever pattern Monitor chest x-ray findings No ventilator changes will be done today. The patient has a right lower lobe consolidation, likely secondary to staphylococcal pneumonia and the patient be kept on Unasyn/vancomycin Tylenol for fever Continue aspirin Continue Plavix family members have been identified and the patient will likely be switched to comfort care measures once they arrived to the hospital. For now, the CODE STATUS is DNR Condition is critical and outcome is poor baseline above-mentioned comorb idities. We'll continue to follow and this is a critically care evaluation that was done and more than 40 minutes. Time with Patient: Greater than 30
[2022-01-18 17:48] LABS: Glucose,Whole Blood 271 mg/dL (75-99)
[2022-01-18] MEDS: ACETAMINOPHEN TAB 325 MG TAB PO PRN (20:08)
[2022-01-18] MEDS: INSULIN DETEMIR (LEVEMIR) 100 UNIT/ML SYR SQ SCH (20:26)
--- NOTE | 2022-01-18 21:27 | P.PN ---
Subjective Progress Note Date: 01/18/22 Principal diagnosis: Bacteremia Patient is a 66-year-old male presented to the hospital with mental status changes in this patient did have a follow-up patient did have evidence of right MCA stroke respiratory failure requiring intubation and patient also have evidence of MSSA bacteremia with a sputum positive for MSSA concerning for possible pneumonia to be the source on today's evaluation that is 01/18/2022, the patient fever pattern has improved, the patient remains to be intubated on the vent , FiO2 is currently stable at 50%, no significant purulent secretions through the ET or diarrhea has been reported by the nursing staff, patient is slowly waking up per the nursing staff Objective - Vital Signs Vital signs: Vital Signs Temp 99.6 F 01/18/22 12:00 Pulse 109 H 01/18/22 13:00 Resp 26 H 01/18/22 13:00 BP 115/55 01/18/22 12:00 Pulse Ox 97 01/18/22 13:00 Intake & Output 01/17/22 01/18/22 01/18/22 18:59 06:59 18:59 Intake Total 1995.5 1898.732 899.576 Output Total 1075 1250 835 Balance 920.5 648.732 64.576 Weight 114.6 kg Intake: IV 276 253 23 0.9@ 20mls/hr 240 220 20 Pressure bag 36 33 3 Intake, IV Titration 859.5 295.732 226.576 Amount Ampicillin-Sulbactam 3 gm 100 In Sodium Chloride 0.9% 100 ml @ 200 mls/hr IVPB Q6HR [facility] Rx#:[id number] Dextrose 5% in Water 1, 200 000 ml @ 50 mls/hr IV . Q20H [facility] Rx#:[id number] Diltiazem 125 mg In 209.5 217.25 Sodium Chloride 0.9% 100 ml @ 15 MG/HR 15 mls/hr IV .Q8H20M [facility] Rx#: [id number] Norepinephrine 4 mg In 78.482 26.576 Sodium Chloride 0.9% 250 ml @ 0.05 MCG/KG/MIN 20. 707 mls/hr IV .[id number] [facility] Rx#:[id number] Vancomycin 2,250 mg In 500 Sodium Chloride 0.9% 500 ml 500 ml @ 167 mls/hr IVPB Q12H [facility] Rx#: [id number] ceFAZolin 2 gm In Sodium 50 Chloride 0.9% 50 ml @ 100 mls/hr IVPB Q8H [facility] Rx#: [id number] Tube Feeding 560 550 250 Other 300 800 400 Output: Urine 1075 1250 835 Other: Voiding Method Indwelling Catheter Indwelling Catheter Indwelling Catheter ABP, PAP, CO, CI - Last Documented Arterial Blood Pressure 111/52 - Exam GENERAL DESCRIPTION: An elderly male intubated on the vent RESPIRATORY SYSTEM: Unlabored breathing , decreased breath sounds at bases HEART: S1 S2 regular rate and rhythm , ABDOMEN: Soft , no tenderness EXTREMITIES: No edema feet - Labs CBC & Chem 7: 01/18/22 04:00 01/18/22 04:00 Labs: Abnormal Lab Results - Last 24 Hours (Table) 01/17/22 01/17/22 01/18/22 Range/Units 16:52 23:48 04:00 WBC 20.3 H (3.8-10.6) k/uL RBC 3.76 L (4.30-5.90) m/uL Hgb 11.2 L (13.0-17.5) gm/dL Hct 36.7 L (39.0-53.0) % MCHC 30.4 L (31.0-37.0) g/dL Neutrophils # (Manual) 17.60 H (1.3-7.7) k/uL ABG pCO2 (35-45) mmHg ABG pO2 (83-108) mmHg ABG HCO3 (21-25) mmol/L ABG Total CO2 (19-24) mmol/L ABG O2 Saturation (94-97) % Sodium (137-145) mmol/L Chloride (98-107) mmol/L Carbon Dioxide (22-30) mmol/L BUN (9-20) mg/dL Glucose (74-99) mg/dL POC Glucose (mg/dL) 215 H 193 H (75-99) mg/dL AST (17-59) U/L Total Protein (6.3-8.2) g/dL Albumin (3.5-5.0) g/dL 01/18/22 01/18/22 01/18/22 Range/Units 04:00 05:37 06:04 WBC (3.8-10.6) k/uL RBC (4.30-5.90) m/uL Hgb (13.0-17.5) gm/dL Hct (39.0-53.0) % MCHC (31.0-37.0) g/dL Neutrophils # (Manual) (1.3-7.7) k/uL ABG pCO2 54 H (35-45) mmHg ABG pO2 116 H (83-108) mmHg ABG HCO3 34 H (21-25) mmol/L ABG Total CO2 36 H (19-24) mmol/L ABG O2 Saturation 98.4 H (94-97) % Sodium 155 H (137-145) mmol/L Chloride 119 H (98-107) mmol/L Carbon Dioxide 35 H (22-30) mmol/L BUN 45 H (9-20) mg/dL Glucose 236 H (74-99) mg/dL POC Glucose (mg/dL) 216 H (75-99) mg/dL AST 67 H (17-59) U/L Total Protein 5.2 L (6.3-8.2) g/dL Albumin 2.1 L (3.5-5.0) g/dL 01/18/22 Range/Units 11:32 WBC (3.8-10.6) k/uL RBC (4.30-5.90) m/uL Hgb (13.0-17.5) gm/dL Hct (39.0-53.0) % MCHC (31.0-37.0) g/dL Neutrophils # (Manual) (1.3-7.7) k/uL ABG pCO2 (35-45) mmHg ABG pO2 (83-108) mmHg ABG HCO3 (21-25) mmol/L ABG Total CO2 (19-24) mmol/L ABG O2 Saturation (94-97) % Sodium (137-145) mmol/L Chloride (98-107) mmol/L Carbon Dioxide (22-30) mmol/L BUN (9-20) mg/dL Glucose (74-99) mg/dL POC Glucose (mg/dL) 218 H (75-99) mg/dL AST (17-59) U/L Total Protein (6.3-8.2) g/dL Albumin (3.5-5.0) g/dL Microbiology - Last 24 Hours (Table) 01/14/22 10:09 Blood Culture Gram Stain - Final Blood Blood Culture - Final Staphylococcus aureus 01/13/22 23:59 Gram Stain - Final Sputum Sputum Culture - Final Staphylococcus aureus 01/12/22 16:00 Blood Culture - Preliminary Blood No Growth after 120 hours 01/12/22 15:45 Blood Culture - Preliminary Blood No Growth after 120 hours Assessment and Plan (1) Pneumonia Current Visit: Yes Status: Acute Code(s): J18.9 - PNEUMONIA, UNSPECIFIED ORGANISM SNOMED Code(s): 128368062 Plan: 1patient with sepsis in this patient who did have a fever elevated white count with evidence of bibasilar infiltrate with a sputum showing Staph aureus, the blood culture with gram-positive cocci likely Staph aureus pneumonia, both blood and sputum has been finalized with MSSA and the patient was treated with cefazolin however the patient did have persistent fever and worsening of the white count, patient fever seemed to have responded with adjustment of antibiotic therapy to vancomycin and Unasyn which will be continued while waiting for repeat culture to be finalize. Family at the bedside questions were answered Time with Patient: Less than 30
[2022-01-18 23:51] LABS: Glucose,Whole Blood 216 mg/dL (75-99)
[2022-01-19] MEDS: NOREPINEPHRINE 4 MG in SODIUM CHLORIDE 0.9% 250 ML IV SCH ×2 (01:25→11:46)
[2022-01-19] MEDS: DILTIAZEM 125 MG in SODIUM CHLORIDE 0.9% 100 ML IV SCH ×3 (01:26→17:34)
[2022-01-19] MEDS: ACETAMINOPHEN TAB 325 MG TAB PO PRN ×2 (01:56→23:36)
[2022-01-19] MEDS: IPRATROPIUM-ALBUTEROL 3 ML NEB INHALATION SCH ×6 (02:27→23:40)
[2022-01-19] MEDS: DEXTROSE 5% IN WATER 1,000 ML IV SCH (03:54)
[2022-01-19 04:40] LABS: Basophils % (A) 0 %; Eosinophils # (A) 0.1 k/uL (0-0.7); Eosinophils % (A) 0 %; HCT 33.2 % (39.0-53.0); HGB 9.8 gm/dL (13.0-17.5); Hypochromasia Marked; Lymphocytes # (A) 2.1 k/uL (1.0-4.8); Lymphocytes % (A) 11 %; MCH 29.1 pg (25.0-35.0); MCHC 29.7 g/dL (31.0-37.0); MCV 98.1 fL (80.0-100.0); Mean Platelet Volume 9.4; Monocytes % (A) 5 %; Neutrophils % (A) 81 %; Platelet Count 142 k/uL (150-450); RBC 3.38 m/uL (4.30-5.90); RDW 13.3 % (11.5-15.5); WBC 18.5 k/uL (3.8-10.6)
[2022-01-19 05:07] LABS: ALT 41 U/L (4-49); AST 79 U/L (17-59); African American GFR (CKD) >90 (>60 ml/min/1.73 sqM); Alkaline Phosphatase 71 U/L (38-126); Anion Gap 0 mmol/L; Blood Urea Nitrogen 40 mg/dL (9-20); Calcium 8.5 mg/dL (8.4-10.2); Carbon Dioxide 36 mmol/L (22-30); Chloride 118 mmol/L (98-107); Glucose 193 mg/dL (74-99); Non-African American GFR(CKD) 81 (>60 ml/min/1.73 sqM); Potassium 4.1 mmol/L (3.5-5.1); Sodium 154 mmol/L (137-145); Total Bilirubin 0.8 mg/dL (0.2-1.3)
[2022-01-19 05:27] LABS: Glucose,Whole Blood 204 mg/dL (75-99)
[2022-01-19] MEDS: INSULIN ASPART (NovoLOG) 100 UNIT/ML VIAL SQ SCH ×8 (05:30→23:40)
[2022-01-19] MEDS: AMPICILLIN-SULBACTAM 3 GM in SODIUM CHLORIDE 0.9% 100 ML IVPB SCH ×4 (05:31→23:35)
[2022-01-19 06:18] LABS: ABG Base Excess 10.8 mmol/L; ABG HCO3 35 mmol/L (21-25); ABG Oxygen Saturation 97.1 % (94-97); ABG PCO2 53 mmHg (35-45); ABG PH 7.43 (7.35-7.45); ABG PO2 85 mmHg (83-108); ABG TCO2 37 mmol/L (19-24); Allen Test Performed? Yes
[2022-01-19] MEDS: VANCOMYCIN 2,250 MG in SODIUM CHLORIDE 0.9% 500 ML 500 ML IVPB SCH ×2 (06:20→18:58)
--- NOTE | 2022-01-19 07:41 | XR ---
EXAMINATION TYPE: XR chest 1V portable DATE OF EXAM: 01/19/2022 COMPARISON: Chest x-ray 01/18/2022 HISTORY: Intubated TECHNIQUE: Single frontal view of the chest is obtained. FINDINGS: Endotracheal tube, NG tube, left subclavian central venous catheter are overlying appropri ate positions. There are overlying artifacts. No evident pneumothorax or sizable effusion. Bibasilar density persists. Cardiac mediastinal silhouette is stable. IMPRESSION: There is no significant interval change. Correlate for pneumonia or edema.
[2022-01-19] MEDS: CLOPIDOGREL 75 MG TAB PO SCH (09:17)
[2022-01-19] MEDS: HEPARIN SODIUM,PORCINE/PF 5,000 UNIT/0.5 ML SYRINGE SQ SCH ×2 (09:17→20:05)
[2022-01-19] MEDS: CHLORHEXIDINE GLUCONATE 15 ML CUP MUCOUS MEM SCH ×2 (09:17→20:18)
[2022-01-19] MEDS: METOPROLOL TARTRATE 50 MG TAB PO SCH ×2 (09:17→20:05)
[2022-01-19] MEDS: ASPIRIN 325 MG TAB PO SCH (09:17)
[2022-01-19] MEDS: DIGOXIN 250 MCG TAB PO SCH (09:17)
[2022-01-19 10:48] VITALS: BMI 37.0
[2022-01-19 11:30] LABS: Glucose,Whole Blood 171 mg/dL (75-99)
--- NOTE | 2022-01-19 11:41 | P.PN ---
Subjective Progress Note Date: 01/19/22 The patient is seen at bedside per nurse overnight was started on Precedex 0.2mcg/kg/hr since patient was biting on the vent. Per nurse she felt patient had fluctuation of his blood pressure, heart rate and initially was not responding to her then later was responding, opening his eyes, squeezing on his right hand. He does have atrial fibrillation. Objective - Vital Signs Vital signs: Vital Signs Temp 100.3 F H 01/19/22 08:41 Pulse 84 01/19/22 11:29 Resp 26 H 01/19/22 11:29 BP 115/74 01/19/22 09:00 Pulse Ox 97 01/19/22 11:00 Intake & Output 01/18/22 01/19/22 01/19/22 18:59 06:59 18:59 Intake Total 4218.654 4600.470 1358.822 Output Total 1260 1225 450 Balance 077.765 4197.470 908.822 Weight 117 kg 117 kg Intake: IV 23 1403 915 0.9@ 20mls/hr 20 220 100 Ampicillin-Sulbactam 3 gm 100 In Sodium Chloride 0.9% 100 ml @ 200 mls/hr IVPB Q6HR [facility] Rx#:[id number] Dextrose 5% in Water 1, 550 300 000 ml @ 100 mls/hr IV . Q10H [facility] Rx#:[id number] Pressure bag 3 33 15 Vancomycin 2,250 mg In 500 500 Sodium Chloride 0.9% 500 ml 500 ml @ 167 mls/hr IVPB Q12H [facility] Rx#: [id number] Intake, IV Titration 265.507 801.470 243.822 Amount Dexmedetomidine/0.9% NaCl 65.131 43.548 (Pmx) 400 mcg In Empty Bag 1 bag @ 0.2 MCG/KG/HR 5.73 mls/hr IV .[id number] [facility] Rx#:[id number] Dextrose 5% in Water 1, 200 000 ml @ 100 mls/hr IV . Q10H [facility] Rx#:[id number] Diltiazem 125 mg In 125 119.25 Sodium Chloride 0.9% 100 ml @ 15 MG/HR 15 mls/hr IV .Q8H20M [facility] Rx#: [id number] Norepinephrine 4 mg In 65.507 611.339 81.024 Sodium Chloride 0.9% 250 ml @ 0.05 MCG/KG/MIN 20. 707 mls/hr IV .[id number] [facility] Rx#:[id number] Tube Feeding 450 550 200 Other 800 800 Output: Urine 1260 1225 450 Other: Voiding Method Indwelling Catheter Indwelling Catheter ABP, PAP, CO, CI - Last Documented Arterial Blood Pressure 104/48 - Exam GENERAL: The patient is lying in bed and does not seem in acute distress. LUNG: Intubated on ventilator. NEUROLOGICAL: Limited because of his condition. Is on IV Precedex 0.2mcg/kg/hr Higher mental function: The patient is severely encephalopathic. He would follow few simple commands on the right (squeeze right hand and wiggling his toes). Cranial nerves: I had to manually open his eye and primary gaze is midline and looking upwards. The pupils are round, constricted, (1-2mm), and hard to appreciated reactivity. He was attempting to open his eyes on command. Left lower facial droop. Is breathing minimally over vent at times. Motor: Gait is deferred. The strength is squeezing on right hand and wiggling right toes. Otherwise no movement noted over the left side. Sensation: Unable to assess light touch. WORK-UP: Lipid Panel: TG 129, Cholestrol 127, LDL 74 and HDL 26. TSH: <0.015 Free T4: 2.[address] of the head is reported as right middle cerebral artery subacute infarction was some mass effect, possible left posterior parietal subacute infarct, consider embolic phenomenon. Chronic small vessel ischemic changes at. As well as the patient has chronic inferior left occipital infarct with ex vacuo. Personally reviewed the CT of the head and I agree with the report by also felt that there could be the subacute over the left frontal as well as a small region. CT angiography of the head and neck was reported as right MCA M1 segment abrupt cutoff/filling defect from the thrombus with associated right MCA territory infarct which is not significant change from prior CT. Bilateral calcified and noncalcified plaque in at the carotid bifurcation resulting in greater than 80% stenosis in the right and near occlusion on the left. No evidence of dissection of the cervical internal carotid artery vertebral arteries. Multinodular thyroid gland. Carotid duplex: Is reported as right ICA occlusion. Cardiac arrhythmia is noted incidentally. Repeat CT head on 01/13/2022: It is reported as large right hemispheric hypodensity and edema that could be subacute infarct with increasing mass effect compared to the CT yesterday. No hemorrhage. There is low density in the medial left occipital lobe cortex consistent with old infarct with fluid density. Unchanged. I personally reviewed that a CT of the head and I don't feel that there is any significant midline shift. There is mass effect over the right lateral ventricle but I feel the patient's ventricles are still patent. I feel a third ventricle is somewhat constricted but it's still patent. 2D echo: Is reported as reduced LV systolic function (EF of 20%). L ventricle hypertrophy. Patient has tachycardia and in atrial fibrillation. Left atrial is increased severely by volume. Mildly increased left atrial area. Moderate to severe mitral regurgitation. - Labs CBC & Chem 7: 01/19/22 04:00 01/19/22 04:00 Labs: Abnormal Lab Results - Last 24 Hours (Table) 01/18/22 01/18/22 01/18/22 Range/Units 11:32 17:46 23:49 WBC (3.8-10.6) k/uL RBC (4.30-5.90) m/uL Hgb (13.0-17.5) gm/dL Hct (39.0-53.0) % MCHC (31.0-37.0) g/dL Plt Count (150-450) k/uL Neutrophils # (1.3-7.7) k/uL ABG pCO2 (35-45) mmHg ABG HCO3 (21-25) mmol/L ABG Total CO2 (19-24) mmol/L ABG O2 Saturation (94-97) % Sodium (137-145) mmol/L Chloride (98-107) mmol/L Carbon Dioxide (22-30) mmol/L BUN (9-20) mg/dL Glucose (74-99) mg/dL POC Glucose (mg/dL) 218 H 271 H 216 H (75-99) mg/dL AST (17-59) U/L Total Protein (6.3-8.2) g/dL Albumin (3.5-5.0) g/dL 01/19/22 01/19/22 01/19/22 Range/Units 04:00 04:00 05:26 WBC 18.5 H (3.8-10.6) k/uL RBC 3.38 L (4.30-5.90) m/uL Hgb 9.8 L (13.0-17.5) gm/dL Hct 33.2 L (39.0-53.0) % MCHC 29.7 L (31.0-37.0) g/dL Plt Count 142 L (150-450) k/uL Neutrophils # 15.0 H (1.3-7.7) k/uL ABG pCO2 (35-45) mmHg ABG HCO3 (21-25) mmol/L ABG Total CO2 (19-24) mmol/L ABG O2 Saturation (94-97) % Sodium 154 H (137-145) mmol/L Chloride 118 H (98-107) mmol/L Carbon Dioxide 36 H (22-30) mmol/L BUN 40 H (9-20) mg/dL Glucose 193 H (74-99) mg/dL POC Glucose (mg/dL) 204 H (75-99) mg/dL AST 79 H (17-59) U/L Total Protein 5.0 L (6.3-8.2) g/dL Albumin 2.0 L (3.5-5.0) g/dL 01/19/22 01/19/22 Range/Units 06:15 11:29 WBC (3.8-10.6) k/uL RBC (4.30-5.90) m/uL Hgb (13.0-17.5) gm/dL Hct (39.0-53.0) % MCHC (31.0-37.0) g/dL Plt Count (150-450) k/uL Neutrophils # (1.3-7.7) k/uL ABG pCO2 53 H (35-45) mmHg ABG HCO3 35 H (21-25) mmol/L ABG Total CO2 37 H (19-24) mmol/L ABG O2 Saturation 97.1 H (94-97) % Sodium (137-145) mmol/L Chloride (98-107) mmol/L Carbon Dioxide (22-30) mmol/L BUN (9-20) mg/dL Glucose (74-99) mg/dL POC Glucose (mg/dL) 171 H (75-99) mg/dL AST (17-59) U/L Total Protein (6.3-8.2) g/dL Albumin (3.5-5.0) g/dL Microbiology - Last 24 Hours (Table) 01/17/22 17:51 Blood Culture - Preliminary Blood No Growth after 24 hours 01/12/22 16:00 Blood Culture - Final Blood No Growth after 144 hours 01/12/22 15:45 Blood Culture - Final Blood No Growth after 144 hours 01/14/22 10:09 Blood Culture Gram Stain - Final Blood Blood Culture - Final Staphylococcus aureus 01/13/22 23:59 Gram Stain - Final Sputum Sputum Culture - Final Staphylococcus aureus Assessment and Plan Assessment: Large right hemispheric Subacute ischemic stroke. Etiology is embolic (has history of atrial fibrillation and seems non-compliant with medication) and in addition cocaine can induce stroke since can cause vasoconstriction. Right M1 occlusion. No thrombectomy since outside window and risk outweigh benefit. Cytotoxic edema due to above Respiratory distress due to above and that he required intubation and mechanical ventilation since unable to protect his airway Acute dysphagia due to above Encephalopathy due to large ischemic stroke with cytotoxic edema and underlying pneumonia Right lower lobe pneumonia (staph pneumoia with MSSA) Right carotid stenosis >80% per CTA and near occlusion on left. But on carotid it is reported as Right ICA occlusion. Atrial fibrillation and is suppose to be on Eliquis but per pharmacy has not filled up his medication for 3 months. History of old stroke over left occipital Positive for cocaine use Hypertension Hyperlipidemia Diabetes mellitus Sleep apnea Medication noncompliance Plan: Because of his dysphagia will continue ASA 300mg rectally. Once able to swallow or NG/PEG tube can resume with ASA 325mg and Plavix 75mg daily and Lipitor 80mg qhs. CT head 01/16/2022 is ordered by ICU team and it is reported as findings compatible with large right sided cerebral vascular accident, there are changes of evolving and progressed infarct. Sphenoid sinus disease. I personally reviewed the CT of the head and I agreed there is a progression from prior CT and there is compression over the right lateral ventricle. The third ventricle is constricted but it continues to be patent what and fourth ventricle is patent. If patient has any worsening of his condition recommend repeating CT head. Patient received 2 doses of Mannitol during this hospital stay. Vascular surgery team is on board for the carotid stenosis. Regarding start of anticoagulation can be started on 01/22/2022 Hold for now because of large right hemispheric stroke and to avoid hemorrhagic transformation. EEG: Abnormal study. Severe encephalopathy. No focal slowing, epileptiform discharges or seizure on the EEG. Every 2 neuro- hour checks On cardiac monitoring PT OT and MODERATE NEEDS TEACHER are consulted Avoid any hypotensive episode. Cardiology team is consulted. We'll defer the rest of the medical management to the primary team For DVT prophylaxis: On subcu heparin 5000 units every 12 hours. Patient is continues to have few cortical function and brainstem reflexes on examination. Patient condition is critical. His quality of life is poor and likely will be dependent on assistance because of left hemiplegia. Likely he will need PEG tube in mean time for feeding. Unsure if he will be able to protect his airway on his own and possibly will need Trach. The plan is discussed with the nurse. Family members (sister and estranged daughter) who attempt to come by today and will find out about their wishes. I have been updating the sister for the past 4 days regarding patient's conditions. Art Irwin M.D. Neuro-hospitalist Time with Patient: Less than 30
[2022-01-19] MEDS: DEXMEDETOMIDINE/0.9% NACL(PMX) 400 MCG in EMPTY BAG 1 BAG IV SCH (12:42)
--- NOTE | 2022-01-19 12:50 | P.PN ---
Subjective Progress Note Date: 01/19/22 On 01/15/2022, the patient is being seen for a follow-up. The patient is currently intubated on a mechanical ventilator. The patient was intubated on 12/13/2021. The patient is post left-sided CVA and the patient a stroke along the right MCA distribution. The patient has chronic atrial fibrillation and the patient is postop non-ST segment elevation myocardial infarction. 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 His urine toxin was also positive for cocaine. He is known to have diabetes, hypertension and hyperlipidemia. At this point in time, the patient is on propofol running at 30 from a respiratory milligrams per minute. The patient is on a mechanical ventilator and the patient is currently on assist control mode at the rate of 26 with a tidal volume of 450 and FiO2 of 50% with a PEEP of 5. The blood gas showed a pH of 7.35 with a pCO2 of 55 and pO2 of 71 and this was on FiO2 of 50%. The patient had a follow-up chest x-ray today that showed an ET tube which was in a good location. There is a right lower lobe pulmonary infiltrate/an area of consolidation which was present earlier and seems to be more confluent. The patient also has a left subclavian triple-lumen catheter in place. The patient had a sputum sample that showed a presumptive staph aureus and he was febrile and this morning his temperature was 100.8 and based on that the patient was started on IV vancomycin. The white cell count was as high as 32 and currently is down to 26 with a hemoglobin of 13.3. No significant orotracheal secretions. The patient is on no pressors. Nevertheless, the patient is still having issues with atrial fibrillation with rapid ventricular response. The patient is currently on Cardizem drip at 50 mg an hour. He is also on norepinephrine infusion low-dose at 0.0 25 Tyrel respiratory gram per minute. IV fluids are currently at KVO. He is receiving enteral feeding with vitamin 1.2 at the rate of 10 mL an hour. His previous echocardiogram done on 01/13/2022 showed reduced left ventricular ejection fraction which was estimated to be at around 20%. The patient also had moderate severe mitral regurgitation, moderate to severe aortic stenosis with a peak gradient of 55 mmHg and moderate to severe tricuspid regurgitation. No evidence of any pericardial effusion. Neurologically, he is sedated. Pupils are equal and there are on pro-millimeters in size. No nystagmus. No clonus. No Babinski and the left lower extremity. No seizure activity has been noted. Neurology is on the case. 01/16/2022, the patient is being seen for a follow-up. The patient remains on a mechanical ventilator. The patient this morning stop propofol running at 30 mg/kg per minute and the patient will obviously need a sedation holiday. The mental status is to be reevaluated. A follow-up CAT scan of the head will be also ordered to assess the progression of this CVA. Note that the patient is unresponsive to any painful stimulation. Pupils remain around 2-3 mm in size sluggish reactive to light without any nystagmus. No clonus and no Babinski. No reaction to any deep painful stimulation. The patient remained on assist control mode at the rate of 26 with a tidal volume of 450, the patient is also on FiO2 of 50% with a PEEP of 5. The blood gas showed a pH of 7.34 with a pCO2 59 and pO2 97. The chest x-ray from today shows evidence of a pulmonary edema/CHF. There is bilateral/bibasilar airspace disease present most on the right lung base. The patient shown to have staph aureus in his sputum and the patient was febrile. Based on that, the patient was initially started on vancomycin and subsequently antibiotics and was switched IV cefazolin as the staph aureus do not to be an MSSA. The patient is hemodynamically stable. Underlying cardiac rhythm is atrial fibrillation. The patient remains on a Cardizem drip at 50 mg an hour. Note that the patient has impaired LV function with an ejection fraction of 20%. The sodium level is at 147. The BUN is at 50 with a creatinine of 1.3, the white cell count is at 22 with a hemoglobin of 12.3 and a platelet count of 165. The patient is receiving water solution to the NG 200 mL every 6 hours. IV fluids are currently at KVO. No antigravity patient has been started. The patient is on Levemir insulin 16 units at bedtime in addition to 8 units every 6 hours of NovoLog and a sliding scale coverage. 01/17/2022, seeing the patient for a follow-up. This morning, the patient remains completely unresponsive. The patient is not withdrawing to any painful stimulation. No seizure activity. The patient remains on a mechanical ventilator and the patient is currently off sedation. While in the mechanical ventilator, the patient is an assist-control mode at the rate of 26. Had a volume of 450 and FiO2 of 50% with a PEEP of 5. The patient has a peak airway pressure of 20, plateau airway pressure of 14, the blood gases from today shows a pH of 7.38 with a pCO2 57 and pO2 of 91. The patient has still having episodes of fever. The patient remains in atrial fibrillation with rapid ventricular response despite being on a Cardizem drip at 50 mg an hour and metoprolol was also added at a dose of 25 mg by mouth twice a day. The patient is on no anticoagulants for now. The patient remains in atrial fibrillation. Chest x-ray is showing bilateral lower lobe pulmonary infiltrates and the patient continues to have fever and sputum sample was positive for MSSA and the patient remains on IV cefazolin. IV Zosyn the case. The patient was given a follow-up CAT scan of the brain that showed progression of the stroke on the right and this such, the patient was given another dose of mannitol yesterday. On today's blood work, the sodium level is up to 154 with a potassium level of 4.9 chloride of 118 with a bicarb of 34, BUN is at 35 with a creatinine of 1.03 and a serum osmolality is at 342. The white cell count is elevated at 25 with a hemoglobin of 12.1. No other significant events otherwise for now. The patient remains in enteral feeding for nutritional support and addition to free water receiving. NG tube. The patient is on vital AF at the rate of 30 mL an hour. Note that the patient has advanced CAD a myopathy with an ejection fraction of 20%. The patient remains on Levemir insulin 16 units along with NovoLog 8 units 4 times a day and the sinus Coverage. We are still working to locate family members for this patient. pole frame construction worker is on the case. The patient has a daughter that was identified to be in [place] and she was made aware of his condition. Based on conversations with the family, the family was made aware that the patient's prognosis extremely poor. The family is considering withdrawal of care on this patient. 01/18/2022, the patient is being seen for a follow-up. The patient remains intubated on a mechanical ventilator. The patient has been off sedation for the past 48 hours. On today's evaluation, the patient was able to grimace to painful stimulation. He was able to blink upon demand or commands and the patient was able to squeeze my hand with his right hand upon demand. The left side is flaccid. The patient is still very much lethargic and somnolent. I was able to elicit some reaction from this patient on today's examination. His pupils around 3-4 mm in size and the patient has a preferential gaze to the right. No Babinski or clonus on the left. The patient remains on a mechanical ventilator. The patient is being treated for a pneumonia as the patient sputum sample is shown MSSA and the patient is currently on a combination of Unasyn and vancomycin. Antibiotic change was done and the patient wasn't having fever. Nevertheless, the chest x-ray showing improvement in aeration of the lung bases bilaterally. There been setting includes a rate of 26, tidal volume of 450, FiO2 of 50% with a PEEP of 5 and the patient has shown a pH of 7.41 with a pCO2 54 and pO2 116. Norepinephrine is minimal at 0.01 Tyrel respiratory kilogram per minute. The patient is still on a Cardizem drip for atrial fibrillation at the rate of 50 mg an hour and the patient is also metoprolol 50 mg by mouth twice a day. Sodium level is still elevated at 155 with a BUN of 45 and a creatinine of 0.8. The patient on free water supplements through the 400 mL every 6 hours. The patient is on vitamin HP at the rate of 30 mL an hour. The patient's blood sugar seems to be slightly elevated. No other significant events overnight. Family has been identified and a sister and the daughter will be arriving today for further discussion. Despite some limited neurologic improvement, the patient's long-term prognosis extremely poor based on his comorbidities and his significant neurologic impairment following his CVA 01/19/2022, the patient remains intubated on a mechanical ventilator. I noted some improvement in neurologic function yesterday. The patient was kept off sedation. Later on during the day, the patient became slightly agitated and restless and tachycardic. Based on that, the patient was started on low-dose Precedex which is running at 0.2 Tyrel respiratory kilogram per hour. This morning, he is able to squeeze with his right hand. He is following some simple commands. Left-sided flaccid. Noted the patient remains on a mechanical venti lator. He is an assist-control mode at the rate of 26 with a tidal volume of 450 and FiO2 of 40% with a PEEP of 5. The patient's blood pressure showed a pH of 7.43 with a pCO2 53 and pO2 of 85. The patient is still running episodes of fever which could be post stroke. No clear indication for ongoing infection as the patient had emesis in the sputum and the patient's chest x-ray is stable with some limited by the pulmonary infiltrates. The patient was covered with broad-spectrum antibiotics with examination of Unasyn and vancomycin per ID. The patient remains in atrial fibrillation. The rate is controlled this morning at Cardizem at 50 mg an hour, the patient was digitalized yesterday and the digoxin is at a dose of 0.25 mg on a daily basis and the patient is also metoprolol 50 mg by mouth twice a day. The patient's sodium level is at 154, potassium level is at 4.1, BUN is at 40 with a creatinine of 0.9, the white cell count is at 80 with a hemoglobin 9.8 and a platelet count of 142. Overall fluid balance has been +1.5 L over the past 24 hours. The patient is receiving tube feeds with the vital high protein at the rate of 50 mL an hour. Family arrives and the final decision on goals of treatment has not been established. Despite some limited improvement in his neurologic function is, the patient's long-term prognosis remains extremely poor based on his underlying stroke, flaccid paralysis, multiple comorbidities, and extremely slow recovery. Objective - Vital Signs Vital signs: Vital Signs Temp 98.9 F 01/19/22 12:00 Pulse 93 01/19/22 12:00 Resp 26 H 01/19/22 12:00 BP 115/74 01/19/22 09:00 Pulse Ox 99 01/19/22 12:00 Intake & Output 01/18/22 01/19/22 01/19/22 18:59 06:59 18:59 Intake Total 1996.882 7601.470 1608.562 Output Total 1260 1225 550 Balance 472.632 2183.470 1058.562 Weight 117 kg 117 kg Intake: IV 23 1403 1088 0.9@ 20mls/hr 20 220 120 Ampicillin-Sulbactam 3 gm 100 50 In Sodium Chloride 0.9% 100 ml @ 200 mls/hr IVPB Q6HR [facility] Rx#:[id number] Dextrose 5% in Water 1, 550 400 000 ml @ 100 mls/hr IV . Q10H [facility]ANTHA Rx#:[id number] Pressure bag 3 33 18 Vancomycin 2,250 mg In 500 500 Sodium Chloride 0.9% 500 ml 500 ml @ 167 mls/hr IVPB Q12H [facility]ANTHA Rx#: [id number] Intake, IV Titration 265.507 801.470 270.562 Amount Dexmedetomidine/0.9% NaCl 65.131 70.288 (Pmx) 400 mcg In Empty Bag 1 bag @ 0.2 MCG/KG/HR 5.73 mls/hr IV .[id number] SAMANTHA Rx#:[id number] Dextrose 5% in Water 1, 200 000 ml @ 100 mls/hr IV . Q10H [facility] Rx#:[id number] Diltiazem 125 mg In 125 119.25 Sodium Chloride 0.9% 100 ml @ 15 MG/HR 15 mls/hr IV .[id number] [facility]A Rx#: [id number] Norepinephrine 4 mg In 65.507 611.339 81.024 Sodium Chloride 0.9% 250 ml @ 0.05 MCG/KG/MIN 20. 707 mls/hr IV .[id number] [facility]ANTHA Rx#:[id number] Tube Feeding 450 550 250 Other 800 800 Output: Urine 1260 1225 550 Other: Voiding Method Indwelling Catheter Indwelling Catheter Indwelling Catheter ABP, PAP, CO, CI - Last Documented Arterial Blood Pressure 110/45 - Exam GENERAL EXAM: Intubated, sedated 66-year-old male patient, unresponsive at this point in time, think is a mechanical ventilator. The patient has been off sedation for the past 48 hours. He was able to grimace to painful stimulation he was able to blink his eyes and uses his fingers and move and squeeze with his hand upon demand. HEAD: Normocephalic. EYES: Sluggish reaction of pupils, equal size.no nystagmus, no preferential gaze NOSE: Clear with pink turbinates. THROAT: Oral endotracheal and gastric tube secured in place. No erythema or exudates. NECK: No masses, no JVD. CHEST: No chest wall deformity. LUNGS: Equal air entry with bilateral rhonchi. CVS: S1 and S2 normal with no audible murmur, irregular rhythm. ABDOMEN: No hepatosplenomegaly, normal bowel sounds, no guarding or rigidity. SPINE: No scoliosis or deformity SKIN: No rashes CENTRAL NERVOUS SYSTEM: Sedated, tone is normal in all 4 extremities.the sensory and motor function cannot be assessed. The patient has no clonus. No Babinski the left lower extremity. The left side is flaccid without any Babinski or clonus. Is able to move his right side and he withdraws to painful stimulation. Is able to blink his eyes. He does have a preferential gaze to the right. There is some mild facial droop on the left. The patient is extremity somnolent and sleepy still despite being off sedation. EXTREMITIES: There is no peripheral edema. No clubbing, no cyanosis. Peripheral pulses are intact. - Labs CBC & Chem 7: 01/19/22 04:00 01/19/22 04:00 Labs: Abnormal Lab Results - Last 24 Hours (Table) 01/18/22 01/18/22 01/19/22 Range/Units 17:46 23:49 04:00 WBC (3.8-10.6) k/uL RBC (4.30-5.90) m/uL Hgb (13.0-17.5) gm/dL Hct (39.0-53.0) % MCHC (31.0-37.0) g/dL Plt Count (150-450) k/uL Neutrophils # (1.3-7.7) k/uL ABG pCO2 (35-45) mmHg ABG HCO3 (21-25) mmol/L ABG Total CO2 (19-24) mmol/L ABG O2 Saturation (94-97) % Sodium 154 H (137-145) mmol/L Chloride 118 H (98-107) mmol/L Carbon Dioxide 36 H (22-30) mmol/L BUN 40 H (9-20) mg/dL Glucose 193 H (74-99) mg/dL POC Glucose (mg/dL) 271 H 216 H (75-99) mg/dL AST 79 H (17-59) U/L Total Protein 5.0 L (6.3-8.2) g/dL Albumin 2.0 L (3.5-5.0) g/dL 01/19/22 01/19/22 01/19/22 Range/Units 04:00 05:26 06:15 WBC 18.5 H (3.8-10.6) k/uL RBC 3.38 L (4.30-5.90) m/uL Hgb 9.8 L (13.0-17.5) gm/dL Hct 33.2 L (39.0-53.0) % MCHC 29.7 L (31.0-37.0) g/dL Plt Count 142 L (150-450) k/uL Neutrophils # 15.0 H (1.3-7.7) k/uL ABG pCO2 53 H (35-45) mmHg ABG HCO3 35 H (21-25) mmol/L ABG Total CO2 37 H (19-24) mmol/L ABG O2 Saturation 97.1 H (94-97) % Sodium (137-145) mmol/L Chloride (98-107) mmol/L Carbon Dioxide (22-30) mmol/L BUN (9-20) mg/dL Glucose (74-99) mg/dL POC Glucose (mg/dL) 204 H (75-99) mg/dL AST (17-59) U/L Total Protein (6.3-8.2) g/dL Albumin (3.5-5.0) g/dL 01/19/22 Range/Units 11:29 WBC (3.8-10.6) k/uL RBC (4.30-5.90) m/uL Hgb (13.0-17.5) gm/dL Hct (39.0-53.0) % MCHC (31.0-37.0) g/dL Plt Count (150-450) k/uL Neutrophils # (1.3-7.7) k/uL ABG pCO2 (35-45) mmHg ABG HCO3 (21-25) mmol/L ABG Total CO2 (19-24) mmol/L ABG O2 Saturation (94-97) % Sodium (137-145) mmol/L Chloride (98-107) mmol/L Carbon Dioxide (22-30) mmol/L BUN (9-20) mg/dL Glucose (74-99) mg/dL POC Glucose (mg/dL) 171 H (75-99) mg/dL AST (17-59) U/L Total Protein (6.3-8.2) g/dL Albumin (3.5-5.0) g/dL Microbiology - Last 24 Hours (Table) 01/17/22 17:51 Blood Culture - Preliminary Blood No Growth after 24 hours 01/12/22 16:00 Blood Culture - Final Blood No Growth after 144 hours 01/12/22 15:45 Blood Culture - Final Blood No Growth after 144 hours 01/14/22 10:09 Blood Culture Gram Stain - Final Blood Blood Culture - Final Staphylococcus aureus Assessment and Plan Plan: Acute subacute ischemic stroke involving the right MCA predominantly also some question of left parietal involvement. Follow-up CAT scan of the brain done on 01/16/2022 showed a large right-sided cerebral vascular infarct with evolution and progression of the infarct as noted on the CAT scan of the brain. There was also compression over the right lateral ventricle. The third ventricle is constricted but it continues to be patent and the fourth ventricle is also paten t. The patient already received a total of 2 doses of mannitol. Neurologist on the case. Vascular surgeries on the case. On today's neurologic evaluation, the patient is able to elicit some reaction when he was able to blink his eyes and move his fingers and hand on the right upon demand. Left-side is still flaccid. On today's evaluation, the patient is on a low-dose Precedex. The patient's neurologic function are essentially the same as yesterday. Left side is flaccid. Some neurologic functions and responsiveness and following some simple commands using his right upper extremity. Atrial fibrillation with a rapid ventricular response, history of atrial fibrillation and had previously been on Eliquis but has a history of medication noncompliance of possibly 3 months, currently on a Cardizem drip at 15 mg an hour for rate control and the patient is also on metoprolol 50 mg by mouth twice a day. The patient was also digitalized yesterday the patient is currently on digoxin 0.25 mg a day. The rate is under better control.. He is on no anticoagulants for now. Right carotid stenosis greater than 80% and near complete occlusion on the left Acute hypoxic respiratory failure with a right lower lobe pneumonia, likely a staphylococcal pneumonia with MSSA and the patient is currently on IV cefazolin. The patient is still having episodes of fever while being on cefazolin and a chest x-ray still showing bilateral lower lobe pulmonary infiltrates worse on the right. History of old CVA over left occipital area Urine drug screen positive for cocaine Hypertension, history of Hyperlipidemia Diabetes mellitus, currently on Levemir insulin for blood sugar control Hyperchloremic hypernatremia, sodium level is stable at 155 acute Leukocytosis, improving right lower lobe pneumonia, likely related to staph aureus, MSSA Febrile illness secondary to pneumonia, could be related to pneumonia versus central fever Plan Keep the patient on Precedex if needed and this will be gradually weaned off Continue ventilator support as the patient is not ready for any weaning Continue Unasyn and vancomycin Start the patient on D5 water to a rate of 100 mL an hour Put the patient on Levemir insulin and increase the dose up to 26 units a day along with a sliding scale coverage Monitor blood sugars Continue the Cardizem drip , Lopressor, anddigoxin for rate control and gradually wean off the Cardizem drip Monitor fever pattern Monitor chest x-ray findings No ventilator changes will be done today. The patient has a right lower lobe consolidation, likely secondary to staphylococcal pneumonia and the patient be kept on Unasyn/vancomycin Tylenol for fever Continue aspirin Continue Plavix family members have been identified and the patient will likely be switched to comfort care measures once they arrived to the hospital. For now, the CODE STATUS is DNR. Family members are obviously to the hospital. We'll have further discussion with them regarding goals of treatment and care. May recommend end-of-life care for this patient/comfort care measures baseline above-mentioned comorbidities and based on presence of significant neurologic impairment following a right-sided CVA. Condition is critical and outcome is poor baseline above-mentioned comorbidi ties. We'll continue to follow and this is a critically care evaluation that was done and more than 40 minutes. Time with Patient: Greater than 30
--- NOTE | 2022-01-19 14:25 | P.PN ---
Subjective Progress Note Date: 01/19/22 Principal diagnosis: CVA The patient is a 66-year-old male with a PMH of coronary artery disease, A. fib, severe systolic CHF with EF 20-25% on MARSHALL on 12/11, type II DM, hyperlipidemia, hypertension who was brought into the emergency room on 01/12/22 for altered mental status. EMS was called and ultimately the patient did have a fall and assisted him in getting up patient was noticed to be tachycardic and noted to have significant left-sided deficit for the patient was brought into the hospital. Urine toxicology was positive for cocaine patient on presentation to the hospital. He also presented with Afib with RVR with elevated troponin, and has been managed by cardiology services There were reports that the patient had reportedly not filled his Eliquis for his Afib and had in general been noncompliant with his medications. CTA showing a right MCA infarct, no evidence of dissection, and bilateral carotid stenosis greater than 80% on the right and near occlusion on the left. CT brain had revealed the right MCA subacute infarct with some mass effect as well as a possible left posterior parietal subacute infarct suspected secondary to embolic phenomenon. Neurology was consulted and recommended Aspirin, Plavix, Lipitor and to hold anticoagulation for now due to risk of worsening hemorragic conversion. The patient has been febrile, chest x- ray showed bilateral effusions and bibasilar infiltrates. Blood culture drawn which came positive for gram-positive cocci in the sputum showing present for staph aureus and infectious disease is consulted for further management of antibiotic therapy. Information has been obtained from review the chart and nursing staff as the patient is currently intubated on the vent and unable provide any history. The patient's sister, Isabella, and daughter, Fe, are not close with the patient and also not able to provide much information. 01/17 Spoke on a conference call with the patient's sister, Isabella, as well as his daughter, Fe. Both were educated on the patient's condition and poor prognosis. Both agreed that they would like to withdraw care. They stated he would not want to be on life support or live in a prison. However, Fe lives in [place] and would like to see if she can get a flight here to be with her dad. She will look into this and let me know as soon as possible. In the meantime, they both also agreed to make the patient a DNR. Dr. Cho's PHONE REPRESENTATIVE and RN Florence updated. Also, requested that Florence call GOL. 01/18 Received message from patient's daughter, Fe, that she was able to book a flight to [place] and was hoping to be to the hospital by late afternoon, early evening. No other visitors present today. Per RN, patient was able to follow simple commands earlier today. She stated the critical care physician would like to keep him intubated overnight without sedation and see if he improves by morning. Then possibly attempt a SBT. Objective - Vital Signs Vital signs: Vital Signs Temp 100.3 F H 01/19/22 08:41 Pulse 98 01/19/22 09:00 Resp 30 H 01/19/22 09:00 BP 115/74 01/19/22 09:00 Pulse Ox 98 01/19/22 09:00 Intake & Output 01/18/22 01/19/22 01/19/22 18:59 06:59 18:59 Intake Total 8335.163 4308.470 1112.822 Output Total 1260 1225 250 Balance 689.928 9037.470 862.822 Weight 117 kg Intake: IV 23 1403 719 0.9@ 20mls/hr 20 220 60 Ampicillin-Sulbactam 3 gm 100 In Sodium Chloride 0.9% 100 ml @ 200 mls/hr IVPB Q6HR [facility] Rx#:[id number] Dextrose 5% in Water 1, 550 150 000 ml @ 50 mls/hr IV . Q20H [facility] Rx#:[id number] Pressure bag 3 33 9 Vancomycin 2,250 mg In 500 500 Sodium Chloride 0.9% 500 ml 500 ml @ 167 mls/hr IVPB Q12H [facility] Rx#: [id number] Intake, IV Titration 265.507 801.470 243.822 Amount Dexmedetomidine/0.9% NaCl 65.131 43.548 (Pmx) 400 mcg In Empty Bag 1 bag @ 0.2 MCG/KG/HR 5.73 mls/hr IV .[id number] [facility] Rx#:[id number] Dextrose 5% in Water 1, 200 000 ml @ 50 mls/hr IV . Q20H [facility] Rx#:[id number] Diltiazem 125 mg In 125 119.25 Sodium Chloride 0.9% 100 ml @ 15 MG/HR 15 mls/hr IV .[id number] [facility] Rx#: [id number] Norepinephrine 4 mg In 65.507 611.339 81.024 Sodium Chloride 0.9% 250 ml @ 0.05 MCG/KG/MIN 20. 707 mls/hr IV .[id number] [facility] Rx#:[id number] Tube Feeding 450 550 150 Other 800 800 Output: Urine 1260 1225 250 Other: Voiding Method Indwelling Catheter Indwelling Catheter ABP, PAP, CO, CI - Last Documented Arterial Blood Pressure 136/50 - Exam General: Intubated, no acute distress noted Skin: Warm and dry, no rashes/lesions Head: atraumatic, normocephalic Eyes: anicteric sclera, pupils equal bilaterally and sluggish ENT: Nose and ears atraumatic, no thrush, no pharyngeal erythema, ET tube present, Trachea midline Cardiovascular: Tachycardic, Irregularly irregular, no murmur, positive posterior tibial pulse bilateral, no edema, capillary refill less than 2 seconds Lungs: Some scattered rhonchi, without wheezing or rales, no accessory muscle use, FIO2 40% Abdominal: soft, nontender to palpation, no guarding, no appreciable organomegaly, normal bowel sounds Ext: no gross muscle atrophy, no contractures, Neuro: attempts to open eyes to voice, follows simple commands with right upper and lower extremities, Left upper and lower extremities flaccid. + cough and gag - Labs CBC & Chem 7: 01/19/22 04:00 01/19/22 04:00 Labs: Abnormal Lab Results - Last 24 Hours (Table) 01/18/22 01/18/22 01/18/22 Range/Units 11:32 17:46 23:49 WBC (3.8-10.6) k/uL RBC (4.30-5.90) m/uL Hgb (13.0-17.5) gm/dL Hct (39.0-53.0) % MCHC (31.0-37.0) g/dL Plt Count (150-450) k/uL Neutrophils # (1.3-7.7) k/uL ABG pCO2 (35-45) mmHg ABG HCO3 (21-25) mmol/L ABG Total CO2 (19-24) mmol/L ABG O2 Saturation (94-97) % Sodium (137-145) mmol/L Chloride (98-107) mmol/L Carbon Dioxide (22-30) mmol/L BUN (9-20) mg/dL Glucose (74-99) mg/dL POC Glucose (mg/dL) 218 H 271 H 216 H (75-99) mg/dL AST (17-59) U/L Total Protein (6.3-8.2) g/dL Albumin (3.5-5.0) g/dL 01/19/22 01/19/22 01/19/22 Range/Units 04:00 04:00 05:26 WBC 18.5 H (3.8-10.6) k/uL RBC 3.38 L (4.30-5.90) m/uL Hgb 9.8 L (13.0-17.5) gm/dL Hct 33.2 L (39.0-53.0) % MCHC 29.7 L (31.0-37.0) g/dL Plt Count 142 L (150-450) k/uL Neutrophils # 15.0 H (1.3-7.7) k/uL ABG pCO2 (35-45) mmHg ABG HCO3 (21-25) mmol/L ABG Total CO2 (19-24) mmol/L ABG O2 Saturation (94-97) % Sodium 154 H (137-145) mmol/L Chloride 118 H (98-107) mmol/L Carbon Dioxide 36 H (22-30) mmol/L BUN 40 H (9-20) mg/dL Glucose 193 H (74-99) mg/dL POC Glucose (mg/dL) 204 H (75-99) mg/dL AST 79 H (17-59) U/L Total Protein 5.0 L (6.3-8.2) g/dL Albumin 2.0 L (3.5-5.0) g/dL 01/19/22 Range/Units 06:15 WBC (3.8-10.6) k/uL RBC (4.30-5.90) m/uL Hgb (13.0-17.5) gm/dL Hct (39.0-53.0) % MCHC (31.0-37.0) g/dL Plt Count (150-450) k/uL Neutrophils # (1.3-7.7) k/uL ABG pCO2 53 H (35-45) mmHg ABG HCO3 35 H (21-25) mmol/L ABG Total CO2 37 H (19-24) mmol/L ABG O2 Saturation 97.1 H (94-97) % Sodium (137-145) mmol/L Chloride (98-107) mmol/L Carbon Dioxide (22-30) mmol/L BUN (9-20) mg/dL Glucose (74-99) mg/dL POC Glucose (mg/dL) (75-99) mg/dL AST (17-59) U/L Total Protein (6.3-8.2) g/dL Albumin (3.5-5.0) g/dL Microbiology - Last 24 Hours (Table) 01/17/22 17:51 Blood Culture - Preliminary Blood No Growth after 24 hours 01/12/22 16:00 Blood Culture - Final Blood No Growth after 144 hours 01/12/22 15:45 Blood Culture - Final Blood No Growth after 144 hours 01/14/22 10:09 Blood Culture Gram Stain - Final Blood Blood Culture - Final Staphylococcus aureus 01/13/22 23:59 Gram Stain - Final Sputum Sputum Culture - Final Staphylococcus aureus Assessment and Plan Plan: Patient now on low dose Precedex. Able to follow simple commands with right upper and lower extremities. Able to open right eye to command. PHONE REPRESENTATIVE met with patient's daughter at bedside. Updated her on the patient's condition. Since there has been some neurological changes a repeat head CT is pending. Discussed with her that at this point we are not alex if he would be able to protect his airway if extubated. Explained the SBT process and informed her of the possibility of needing a trach/peg in the near future. The daughter is willing to give her dad a little time to see if he improves. However, she in concerned about what quality of life he would have and does not want him to suffer. She does not believe that he would want to live on a ventilator, with a feeding tube, or in a prison. Patient's sister, Isabella, to come in this evening. Palliative care PHONE REPRESENTATIVE phone number given to the daughter in case she needs further information or support. [facility] Palliative Care [facility] [address] Email: [email or web address] Time with Patient: Greater than 30
--- NOTE | 2022-01-19 14:25 | P.PN ---
Subjective Progress Note Date: 01/19/22 Principal diagnosis: Stroke 66-year-old male with a PMH of coronary artery disease, A. fib, severe systolic CHF with EF 20-25% on MARSHALL on 12/11, type II DM, hyperlipidemia, hypertension who was brought into the emergency room for altered mental status. There were reports that the patient had reportedly not filled his Eliquis for his A. fib and had in general been noncompliant with his medications. CTA showing a right MCA infarct, no evidence of dissection, and bilateral carotid stenosis greater than 80% on the right and near occlusion on the left. CT brain had revealed the right MCA subacute infarct with some mass effect as well as a possible left posterior parietal subacute infarct suspected secondary to embolic phenomenon. Neurology was consulted and recommended Aspirin, Plavix, Lipitor and to hold anticoagulation for now due to risk of worsening hemorragic conversion. 01/17 Patient remains on vent support. Patient is overall prognosis remains very poor. No significant meaningful neurological recovery has been seen. Patient does still have some brain stem reflexes. Neurology team is following. Recommendation is for palliative consultation and hospice care. 01/18 Patient is starting to respond to loud voices and commands. He squeezing his right hand and able to wiggle right foot toes. 01/19 Patient on precedex for sedation, still on pressors. Objective - Vital Signs Vital signs: Vital Signs Temp 98.9 F 01/19/22 12:00 Pulse 90 01/19/22 13:00 Resp 26 H 01/19/22 13:00 BP 115/74 01/19/22 09:00 Pulse Ox 98 01/19/22 13:00 Intake & Output 01/18/22 01/19/22 01/19/22 18:59 06:59 18:59 Intake Total 1265.369 7656.470 1787.196 Output Total 1260 1225 610 Balance 651.963 1930.470 1177.196 Weight 117 kg 117 kg Intake: IV 23 1403 1261 0.9@ 20mls/hr 20 220 140 Ampicillin-Sulbactam 3 gm 100 100 In Sodium Chloride 0.9% 100 ml @ 200 mls/hr IVPB Q6HR [facility] Rx#:[id number] Dextrose 5% in Water 1, 550 500 000 ml @ 100 mls/hr IV . Q10H [facility] Rx#:[id number] Pressure bag 3 33 21 Vancomycin 2,250 mg In 500 500 Sodium Chloride 0.9% 500 ml 500 ml @ 167 mls/hr IVPB Q12H [facility] Rx#: [id number] Intake, IV Titration 265.507 801.470 276.196 Amount Dexmedetomidine/0.9% NaCl 65.131 75.922 (Pmx) 400 mcg In Empty Bag 1 bag @ 0.2 MCG/KG/HR 5.73 mls/hr IV .[id number] [facility] Rx#:[id number] Dextrose 5% in Water 1, 200 000 ml @ 100 mls/hr IV . Q10H [facility] Rx#:[id number] Diltiazem 125 mg In 125 119.25 Sodium Chloride 0.9% 100 ml @ 15 MG/HR 15 mls/hr IV .Q8H20M [facility] Rx#: [id number] Norepinephrine 4 mg In 65.507 611.339 81.024 Sodium Chloride 0.9% 250 ml @ 0.05 MCG/KG/MIN 20. 707 mls/hr IV .[id number] [facility] Rx#:[id number] Tube Feeding 450 550 250 Other 800 800 Output: Urine 1260 1225 610 Other: Voiding Method Indwelling Catheter Indwelling Catheter Indwelling Catheter ABP, PAP, CO, CI - Last Documented Arterial Blood Pressure 117/54 - Exam General: Intubated Derm: no unusual rashes/lesions no unusual ecchymoses, warm, dry Head: atraumatic, normocephalic, symmetric Eyes: EOMI, no lid lag, anicteric sclera, pupils equal round reactive to light ENT: Nose and ears atraumatic, no thrush, no pharyngeal erythema Neck: No thyromegaly, no cervical lymphadenopathy, trachea midline, supple Mouth: no lip lesion, mucus membranes moist Cardiovascular: Tachycardic, Irregularly irregular, no murmur, positive posterior tibial pulse bilateral, no edema, capillary refill less than 2 seconds Lungs: Some scattered rhonchi, without wheezing or rales, no accessory muscle use Abdominal: soft, nontender to palpation, no guarding, no appreciable organomegaly, normal bowel sounds Ext: no gross muscle atrophy, no contractures, Neuro: Unable to assess - Labs CBC & Chem 7: 01/19/22 04:00 01/19/22 04:00 Labs: Abnormal Lab Results - Last 24 Hours (Table) 01/18/22 01/18/22 01/19/22 Range/Units 17:46 23:49 04:00 WBC (3.8-10.6) k/uL RBC (4.30-5.90) m/uL Hgb (13.0-17.5) gm/dL Hct (39.0-53.0) % MCHC (31.0-37.0) g/dL Plt Count (150-450) k/uL Neutrophils # (1.3-7.7) k/uL ABG pCO2 (35-45) mmHg ABG HCO3 (21-25) mmol/L ABG Total CO2 (19-24) mmol/L ABG O2 Saturation (94-97) % Sodium 154 H (137-145) mmol/L Chloride 118 H (98-107) mmol/L Carbon Dioxide 36 H (22-30) mmol/L BUN 40 H (9-20) mg/dL Glucose 193 H (74-99) mg/dL POC Glucose (mg/dL) 271 H 216 H (75-99) mg/dL AST 79 H (17-59) U/L Total Protein 5.0 L (6.3-8.2) g/dL Albumin 2.0 L (3.5-5.0) g/dL 01/19/22 01/19/22 01/19/22 Range/Units 04:00 05:26 06:15 WBC 18.5 H (3.8-10.6) k/uL RBC 3.38 L (4.30-5.90) m/uL Hgb 9.8 L (13.0-17.5) gm/dL Hct 33.2 L (39.0-53.0) % MCHC 29.7 L (31.0-37.0) g/dL Plt Count 142 L (150-450) k/uL Neutrophils # 15.0 H (1.3-7.7) k/uL ABG pCO2 53 H (35-45) mmHg ABG HCO3 35 H (21-25) mmol/L ABG Total CO2 37 H (19-24) mmol/L ABG O2 Saturation 97.1 H (94-97) % Sodium (137-145) mmol/L Chloride (98-107) mmol/L Carbon Dioxide (22-30) mmol/L BUN (9-20) mg/dL Glucose (74-99) mg/dL POC Glucose (mg/dL) 204 H (75-99) mg/dL AST (17-59) U/L Total Protein (6.3-8.2) g/dL Albumin (3.5-5.0) g/dL 01/19/22 Range/Units 11:29 WBC (3.8-10.6) k/uL RBC (4.30-5.90) m/uL Hgb (13.0-17.5) gm/dL Hct (39.0-53.0) % MCHC (31.0-37.0) g/dL Plt Count (150-450) k/uL Neutrophils # (1.3-7.7) k/uL ABG pCO2 (35-45) mmHg ABG HCO3 (21-25) mmol/L ABG Total CO2 (19-24) mmol/L ABG O2 Saturation (94-97) % Sodium (137-145) mmol/L Chloride (98-107) mmol/L Carbon Dioxide (22-30) mmol/L BUN (9-20) mg/dL Glucose (74-99) mg/dL POC Glucose (mg/dL) 171 H (75-99) mg/dL AST (17-59) U/L Total Protein (6.3-8.2) g/dL Albumin (3.5-5.0) g/dL Microbiology - Last 24 Hours (Table) 01/17/22 17:51 Blood Culture - Preliminary Blood No Growth after 24 hours 01/12/22 16:00 Blood Culture - Final Blood No Growth after 144 hours 01/12/22 15:45 Blood Culture - Final Blood No Growth after 144 hours 01/14/22 10:09 Blood Culture Gram Stain - Final Blood Blood Culture - Final Staphylococcus aureus Assessment and Plan Plan: Subacute MCA suspected embolic infarct with mass effect in patient noncompliant with anticoagulation for A. fib -Repeat CT performed on 01/16/2022 shows findings compatible with large right- sided cerebrovascular accident, along with changes of evolving and progressed infarct, sphenoid sinus disease -Neurology recommendations to Continue with aspirin, plavix, statin plan to hold anticoagulation for another 4 days. -At this point patient's chances of meaningful neurologic recovery is low in patient's overall prognosis is poor. Recommendation is for hospice evaluation, palliative care involvement. There is a social challenge at this time due to the fact the patient only has an ex- and no other family involvement Acute respiratory failure requiring intubation and mechanical ventilation Pneumonia Bacteremia -Patient intubated 01/13 -bibasilar infiltrates with Staph sputum culture. Staph is MSSA and is sensitive to cefazolin. We'll continue with treatment. ID is currently following as well -Blood cultures for 01/14/22 positive Staphylococcus aureus Right carotid stenosis greater than 80% near-complete occlusion of the side -Not candidate for surgical intervention Afib with RVR- improved Cardiomyopathy Severe pulmonary hypertension Severe valvular heart disease -Cardiology following. Currently on Cardizem GTT, metoprolol. -Anticoagulation on hold due to bleed. -Echocardiogram was completed and shows a reduced LV systolic function, left ventricular hypertrophy, EF estimated at 20% Cocaine abuse Chronic medical condition: Coronary artery disease, A. fib, type II DM, hypertension, hyperlipidemia -Continue with ASA, Statin, plavix. -Patient is hyperglycemic with tube feeds. Continue to titrate insulin. Hypernatremia -Free water deficit. -Patient was started on treatment with mannitol by neurology team. Which has now discontinued -Continue with free fluid flushes DVT prophylaxis -Subcutaneous heparin CODE STATUS: Full Code Discussed with: RN Overall prognosis very poor. D/w pulm service Palliative consulted, awaiting family members to make final decisions regarding care.
--- NOTE | 2022-01-19 16:32 | P.PN ---
Subjective Progress Note Date: 01/19/22 Principal diagnosis: Bacteremia Patient is a 66-year-old male presented to the hospital with mental status changes in this patient did have a follow-up patient did have evidence of right MCA stroke respiratory failure requiring intubation and patient also have evidence of MSSA bacteremia with a sputum positive for MSSA concerning for possible pneumonia to be the source on today's evaluation that is 01/19/2022, the patient did have a low-grade fever 100.3 this morning, the patient remains to be intubated on the vent , FiO2 is currently stable at 50%, no significant purulent secretions through the ET or diarrhea has been reported by the nursing staff, patient is not as awake as he was yesterday per the nursing staff Objective - Vital Signs Vital signs: Vital Signs Temp 98.9 F 01/19/22 12:00 Pulse 95 01/19/22 14:00 Resp 30 H 01/19/22 14:00 BP 115/74 01/19/22 09:00 Pulse Ox 97 01/19/22 14:00 Intake & Output 01/18/22 01/19/22 01/19/22 18:59 06:59 18:59 Intake Total 2194.431 6768.470 1960.196 Output Total 1260 1225 650 Balance 995.180 9497.470 1310.196 Weight 117 kg 117 kg Intake: IV 23 1403 1384 0.9@ 20mls/hr 20 220 160 Ampicillin-Sulbactam 3 gm 100 100 In Sodium Chloride 0.9% 100 ml @ 200 mls/hr IVPB Q6HR [facility] Rx#:[id number] Dextrose 5% in Water 1, 550 600 000 ml @ 100 mls/hr IV . Q10H [facility] Rx#:[id number] Pressure bag 3 33 24 Vancomycin 2,250 mg In 500 500 Sodium Chloride 0.9% 500 ml 500 ml @ 167 mls/hr IVPB Q12H [facility] Rx#: [id number] Intake, IV Titration 265.507 801.470 276.196 Amount Dexmedetomidine/0.9% NaCl 65.131 75.922 (Pmx) 400 mcg In Empty Bag 1 bag @ 0.2 MCG/KG/HR 5.73 mls/hr IV .[id number] [facility] Rx#:[id number] Dextrose 5% in Water 1, 200 000 ml @ 100 mls/hr IV . Q10H [facility] Rx#:[id number] Diltiazem 125 mg In 125 119.25 Sodium Chloride 0.9% 100 ml @ 15 MG/HR 15 mls/hr IV .Q8H20M [facility] Rx#: [id number] Norepinephrine 4 mg In 65.507 611.339 81.024 Sodium Chloride 0.9% 250 ml @ 0.05 MCG/KG/MIN 20. 707 mls/hr IV .[id number] [facility] Rx#:[id number] Tube Feeding 450 550 300 Other 800 800 Output: Urine 1260 1225 650 Other: Voiding Method Indwelling Catheter Indwelling Catheter Indwelling Catheter ABP, PAP, CO, CI - Last Documented Arterial Blood Pressure 126/50 - Exam GENERAL DESCRIPTION: An elderly male intubated on the vent RESPIRATORY SYSTEM: Unlabored breathing , decreased breath sounds at bases HEART: S1 S2 regular rate and rhythm , ABDOMEN: Soft , no tenderness EXTREMITIES: No edema feet - Labs CBC & Chem 7: 01/19/22 04:00 01/19/22 04:00 Labs: Abnormal Lab Results - Last 24 Hours (Table) 01/18/22 01/18/22 01/19/22 Range/Units 17:46 23:49 04:00 WBC (3.8-10.6) k/uL RBC (4.30-5.90) m/uL Hgb (13.0-17.5) gm/dL Hct (39.0-53.0) % MCHC (31.0-37.0) g/dL Plt Count (150-450) k/uL Neutrophils # (1.3-7.7) k/uL ABG pCO2 (35-45) mmHg ABG HCO3 (21-25) mmol/L ABG Total CO2 (19-24) mmol/L ABG O2 Saturation (94-97) % Sodium 154 H (137-145) mmol/L Chloride 118 H (98-107) mmol/L Carbon Dioxide 36 H (22-30) mmol/L BUN 40 H (9-20) mg/dL Glucose 193 H (74-99) mg/dL POC Glucose (mg/dL) 271 H 216 H (75-99) mg/dL AST 79 H (17-59) U/L Total Protein 5.0 L (6.3-8.2) g/dL Albumin 2.0 L (3.5-5.0) g/dL 01/19/22 01/19/22 01/19/22 Range/Units 04:00 05:26 06:15 WBC 18.5 H (3.8-10.6) k/uL RBC 3.38 L (4.30-5.90) m/uL Hgb 9.8 L (13.0-17.5) gm/dL Hct 33.2 L (39.0-53.0) % MCHC 29.7 L (31.0-37.0) g/dL Plt Count 142 L (150-450) k/uL Neutrophils # 15.0 H (1.3-7.7) k/uL ABG pCO2 53 H (35-45) mmHg ABG HCO3 35 H (21-25) mmol/L ABG Total CO2 37 H (19-24) mmol/L ABG O2 Saturation 97.1 H (94-97) % Sodium (137-145) mmol/L Chloride (98-107) mmol/L Carbon Dioxide (22-30) mmol/L BUN (9-20) mg/dL Glucose (74-99) mg/dL POC Glucose (mg/dL) 204 H (75-99) mg/dL AST (17-59) U/L Total Protein (6.3-8.2) g/dL Albumin (3.5-5.0) g/dL 01/19/22 Range/Units 11:29 WBC (3.8-10.6) k/uL RBC (4.30-5.90) m/uL Hgb (13.0-17.5) gm/dL Hct (39.0-53.0) % MCHC (31.0-37.0) g/dL Plt Count (150-450) k/uL Neutrophils # (1.3-7.7) k/uL ABG pCO2 (35-45) mmHg ABG HCO3 (21-25) mmol/L ABG Total CO2 (19-24) mmol/L ABG O2 Saturation (94-97) % Sodium (137-145) mmol/L Chloride (98-107) mmol/L Carbon Dioxide (22-30) mmol/L BUN (9-20) mg/dL Glucose (74-99) mg/dL POC Glucose (mg/dL) 171 H (75-99) mg/dL AST (17-59) U/L Total Protein (6.3-8.2) g/dL Albumin (3.5-5.0) g/dL Microbiology - Last 24 Hours (Table) 01/17/22 17:51 Blood Culture - Preliminary Blood No Growth after 24 hours 01/12/22 16:00 Blood Culture - Final Blood No Growth after 144 hours 01/12/22 15:45 Blood Culture - Final Blood No Growth after 144 hours 01/14/22 10:09 Blood Culture Gram Stain - Final Blood Blood Culture - Final Staphylococcus aureus Assessment and Plan (1) Pneumonia Current Visit: Yes Status: Acute Code(s): J18.9 - PNEUMONIA, UNSPECIFIED ORGANISM SNOMED Code(s): 410910731 Plan: 1patient with sepsis in this patient who did have a fever elevated white count with evidence of bibasilar infiltrate with a sputum showing Staph aureus, the blood culture with gram-positive cocci likely Staph aureus pneumonia, both blood and sputum has been finalized with MSSA and the patient was treated with cefa zolin however the patient did have persistent fever and worsening of the white count, patient fever seemed to have some response to adjustment of antibiotic therapy to vancomycin and Unasyn which will be continued while waiting for repeat culture to be finalize. Overall prognosis remains to be started Time with Patient: Less than 30
[2022-01-19 17:51] LABS: Glucose,Whole Blood 257 mg/dL (75-99)
[2022-01-19] MEDS ORDERED: VANCOMYCIN TROUGH DUE 1 EACH MISC MISCELLANE ONE (18:00)
[2022-01-19] MEDS: INSULIN DETEMIR (LEVEMIR) 100 UNIT/ML SYR SQ SCH (20:05)
[2022-01-19 20:11] LABS: Glucose,Whole Blood 230 mg/dL (75-99)
[2022-01-19 23:23] LABS: Glucose,Whole Blood 293 mg/dL (75-99)
[2022-01-20] MEDS: DEXMEDETOMIDINE/0.9% NACL(PMX) 400 MCG in EMPTY BAG 1 BAG IV SCH ×2 (02:30→14:40)
[2022-01-20] MEDS: DILTIAZEM 125 MG in SODIUM CHLORIDE 0.9% 100 ML IV SCH ×3 (02:45→17:40)
[2022-01-20] MEDS: IPRATROPIUM-ALBUTEROL 3 ML NEB INHALATION SCH ×6 (03:53→23:22)
[2022-01-20] MEDS: DEXTROSE 5% IN WATER 1,000 ML IV SCH ×3 (04:15→14:07)
[2022-01-20 04:58] LABS: Basophils % (A) 0 %; Eosinophils # (A) 0.1 k/uL (0-0.7); Eosinophils % (A) 1 %; HCT 29.5 % (39.0-53.0); HGB 8.9 gm/dL (13.0-17.5); Hypochromasia Marked; Lymphocytes # (A) 1.3 k/uL (1.0-4.8); Lymphocytes % (A) 12 %; MCH 29.2 pg (25.0-35.0); MCHC 30.2 g/dL (31.0-37.0); MCV 96.7 fL (80.0-100.0); Mean Platelet Volume 10.2; Monocytes # (A) 0.5 k/uL (0-1.0); Monocytes % (A) 5 %; Neutrophils # (A) 9.4 k/uL (1.3-7.7); Neutrophils % (A) 81 %; Platelet Count 119 k/uL (150-450); RBC 3.05 m/uL (4.30-5.90); RDW 13.6 % (11.5-15.5); WBC 11.5 k/uL (3.8-10.6)
[2022-01-20 05:01] LABS: Glucose,Whole Blood 170 mg/dL (75-99)
[2022-01-20 05:13] LABS: ALT 52 U/L (4-49); AST 65 U/L (17-59); African American GFR (CKD) >90 (>60 ml/min/1.73 sqM); Alkaline Phosphatase 71 U/L (38-126); Anion Gap -3 mmol/L; Blood Urea Nitrogen 37 mg/dL (9-20); Calcium 8.4 mg/dL (8.4-10.2); Carbon Dioxide 36 mmol/L (22-30); Chloride 116 mmol/L (98-107); Glucose 186 mg/dL (74-99); Non-African American GFR(CKD) 86 (>60 ml/min/1.73 sqM); Potassium 4.1 mmol/L (3.5-5.1); Sodium 149 mmol/L (137-145); Total Bilirubin 0.7 mg/dL (0.2-1.3)
[2022-01-20] MEDS: NOREPINEPHRINE 4 MG in SODIUM CHLORIDE 0.9% 250 ML IV SCH ×3 (05:43→23:36)
[2022-01-20] MEDS: INSULIN ASPART (NovoLOG) 100 UNIT/ML VIAL SQ SCH ×8 (05:58→23:30)
[2022-01-20] MEDS: AMPICILLIN-SULBACTAM 3 GM in SODIUM CHLORIDE 0.9% 100 ML IVPB SCH ×4 (05:59→23:29)
[2022-01-20 06:01] LABS: ABG Base Excess 9.4 mmol/L; ABG HCO3 34 mmol/L (21-25); ABG PCO2 55 mmHg (35-45); ABG PO2 76 mmHg (83-108); ABG TCO2 36 mmol/L (19-24); Allen Test Performed? Yes
[2022-01-20] MEDS: VANCOMYCIN 2,250 MG in SODIUM CHLORIDE 0.9% 500 ML 500 ML IVPB SCH ×2 (07:39→17:59)
--- NOTE | 2022-01-20 09:50 | XR ---
EXAMINATION TYPE: XR chest 1V portable DATE OF EXAM: 01/20/2022 COMPARISON: 01/19/2022 INDICATION: Tube placement, difficulty breathing TECHNIQUE: Single frontal view of the chest is obtained. FINDINGS: The heart size is normal. The pulmonary vasculature is upper limits for normal. Mild right lower lobe infiltrate may be present. Endotracheal tube is present with the tip 7.2 cm above lauren. Nasogastric tube transverses the thora x the tip in the abdomen. Left central venous catheter is present with the tip in the distal superior vena cava region. IMPRESSION: 1. Mild right lower lobe infiltrate. 2. Lines and catheters discussed above.
[2022-01-20] MEDS: ASPIRIN 325 MG TAB PO SCH (09:57)
[2022-01-20] MEDS: CHLORHEXIDINE GLUCONATE 15 ML CUP MUCOUS MEM SCH ×2 (09:58→21:07)
[2022-01-20] MEDS: DIGOXIN 250 MCG TAB PO SCH (09:58)
[2022-01-20] MEDS: METOPROLOL TARTRATE 50 MG TAB PO SCH ×2 (09:58→21:07)
[2022-01-20] MEDS: HEPARIN SODIUM,PORCINE/PF 5,000 UNIT/0.5 ML SYRINGE SQ SCH ×2 (09:58→21:07)
[2022-01-20] MEDS: CLOPIDOGREL 75 MG TAB PO SCH (09:58)
--- NOTE | 2022-01-20 11:00 | P.PN ---
Subjective Progress Note Date: 01/20/22 On 01/15/2022, the patient is being seen for a follow-up. The patient is currently intubated on a mechanical ventilator. The patient was intubated on 12/13/2021. The patient is post left-sided CVA and the patient a stroke along the right MCA distribution. The patient has chronic atrial fibrillation and the patient is postop non-ST segment elevation myocardial infarction. 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 His urine toxin was also positive for cocaine. He is known to have diabetes, hypertension and hyperlipidemia. At this point in time, the patient is on propofol running at 30 from a respiratory milligrams per minute. The patient is on a mechanical ventilator and the patient is currently on assist control mode at the rate of 26 with a tidal volume of 450 and FiO2 of 50% with a PEEP of 5. The blood gas showed a pH of 7.35 with a pCO2 of 55 and pO2 of 71 and this was on FiO2 of 50%. The patient had a follow-up chest x-ray today that showed an ET tube which was in a good location. There is a right lower lobe pulmonary infiltrate/an area of consolidation which was present earlier and seems to be more confluent. The patient also has a left subclavian triple-lumen catheter in place. The patient had a sputum sample that showed a presumptive staph aureus and he was febrile and this morning his temperature was 100.8 and based on that the patient was started on IV vancomycin. The white cell count was as high as 32 and currently is down to 26 with a hemoglobin of 13.3. No significant orotracheal secretions. The patient is on no pressors. Nevertheless, the patient is still having issues with atrial fibrillation with rapid ventricular response. The patient is currently on Cardizem drip at 50 mg an hour. He is also on norepinephrine infusion low-dose at 0.0 25 Tyrel respiratory gram per minute. IV fluids are currently at KVO. He is receiving enteral feeding with vitamin 1.2 at the rate of 10 mL an hour. His previous echocardiogram done on 01/13/2022 showed reduced left ventricular ejection fraction which was estimated to be at around 20%. The patient also had moderate severe mitral regurgitation, moderate to severe aortic stenosis with a peak gradient of 55 mmHg and moderate to severe tricuspid regurgitation. No evidence of any pericardial effusion. Neurologically, he is sedated. Pupils are equal and there are on pro-millimeters in size. No nystagmus. No clonus. No Babinski and the left lower extremity. No seizure activity has been noted. Neurology is on the case. 01/16/2022, the patient is being seen for a follow-up. The patient remains on a mechanical ventilator. The patient this morning stop propofol running at 30 mg/kg per minute and the patient will obviously need a sedation holiday. The mental status is to be reevaluated. A follow-up CAT scan of the head will be also ordered to assess the progression of this CVA. Note that the patient is unresponsive to any painful stimulation. Pupils remain around 2-3 mm in size sluggish reactive to light without any nystagmus. No clonus and no Babinski. No reaction to any deep painful stimulation. The patient remained on assist control mode at the rate of 26 with a tidal volume of 450, the patient is also on FiO2 of 50% with a PEEP of 5. The blood gas showed a pH of 7.34 with a pCO2 59 and pO2 97. The chest x-ray from today shows evidence of a pulmonary edema/CHF. There is bilateral/bibasilar airspace disease present most on the right lung base. The patient shown to have staph aureus in his sputum and the patient was febrile. Based on that, the patient was initially started on vancomycin and subsequently antibiotics and was switched IV cefazolin as the staph aureus do not to be an MSSA. The patient is hemodynamically stable. Underlying cardiac rhythm is atrial fibrillation. The patient remains on a Cardizem drip at 50 mg an hour. Note that the patient has impaired LV function with an ejection fraction of 20%. The sodium level is at 147. The BUN is at 50 with a creatinine of 1.3, the white cell count is at 22 with a hemoglobin of 12.3 and a platelet count of 165. The patient is receiving water solution to the NG 200 mL every 6 hours. IV fluids are currently at KVO. No antigravity patient has been started. The patient is on Levemir insulin 16 units at bedtime in addition to 8 units every 6 hours of NovoLog and a sliding scale coverage. 01/17/2022, seeing the patient for a follow-up. This morning, the patient remains completely unresponsive. The patient is not withdrawing to any painful stimulation. No seizure activity. The patient remains on a mechanical ventilator and the patient is currently off sedation. While in the mechanical ventilator, the patient is an assist-control mode at the rate of 26. Had a volume of 450 and FiO2 of 50% with a PEEP of 5. The patient has a peak airway pressure of 20, plateau airway pressure of 14, the blood gases from today shows a pH of 7.38 with a pCO2 57 and pO2 of 91. The patient has still having episodes of fever. The patient remains in atrial fibrillation with rapid ventricular response despite being on a Cardizem drip at 50 mg an hour and metoprolol was also added at a dose of 25 mg by mouth twice a day. The patient is on no anticoagulants for now. The patient remains in atrial fibrillation. Chest x-ray is showing bilateral lower lobe pulmonary infiltrates and the patient continues to have fever and sputum sample was positive for MSSA and the patient remains on IV cefazolin. IV Zosyn the case. The patient was given a follow-up CAT scan of the brain that showed progression of the stroke on the right and this such, the patient was given another dose of mannitol yesterday. On today's blood work, the sodium level is up to 154 with a potassium level of 4.9 chloride of 118 with a bicarb of 34, BUN is at 35 with a creatinine of 1.03 and a serum osmolality is at 342. The white cell count is elevated at 25 with a hemoglobin of 12.1. No other significant events otherwise for now. The patient remains in enteral feeding for nutritional support and addition to free water receiving. NG tube. The patient is on vital AF at the rate of 30 mL an hour. Note that the patient has advanced CAD a myopathy with an ejection fraction of 20%. The patient remains on Levemir insulin 16 units along with NovoLog 8 units 4 times a day and the sinus Coverage. We are still working to locate family members for this patient. touch up worker is on the case. The patient has a daughter that was identified to be in [place] and she was made aware of his condition. Based on conversations with the family, the family was made aware that the patient's prognosis extremely poor. The family is considering withdrawal of care on this patient. 01/18/2022, the patient is being seen for a follow-up. The patient remains intubated on a mechanical ventilator. The patient has been off sedation for the past 48 hours. On today's evaluation, the patient was able to grimace to painful stimulation. He was able to blink upon demand or commands and the patient was able to squeeze my hand with his right hand upon demand. The left side is flaccid. The patient is still very much lethargic and somnolent. I was able to elicit some reaction from this patient on today's examination. His pupils around 3-4 mm in size and the patient has a preferential gaze to the right. No Babinski or clonus on the left. The patient remains on a mechanical ventilator. The patient is being treated for a pneumonia as the patient sputum sample is shown MSSA and the patient is currently on a combination of Unasyn and vancomycin. Antibiotic change was done and the patient wasn't having fever. Nevertheless, the chest x-ray showing improvement in aeration of the lung bases bilaterally. There been setting includes a rate of 26, tidal volume of 450, FiO2 of 50% with a PEEP of 5 and the patient has shown a pH of 7.41 with a pCO2 54 and pO2 116. Norepinephrine is minimal at 0.01 Tyrel respiratory kilogram per minute. The patient is still on a Cardizem drip for atrial fibrillation at the rate of 50 mg an hour and the patient is also metoprolol 50 mg by mouth twice a day. Sodium level is still elevated at 155 with a BUN of 45 and a creatinine of 0.8. The patient on free water supplements through the 400 mL every 6 hours. The patient is on vitamin HP at the rate of 30 mL an hour. The patient's blood sugar seems to be slightly elevated. No other significant events overnight. Family has been identified and a sister and the daughter will be arriving today for further discussion. Despite some limited neurologic improvement, the patient's long-term prognosis extremely poor based on his comorbidities and his significant neurologic impairment following his CVA 01/19/2022, the patient remains intubated on a mechanical ventilator. I noted some improvement in neurologic function yesterday. The patient was kept off sedation. Later on during the day, the patient became slightly agitated and restless and tachycardic. Based on that, the patient was started on low-dose Precedex which is running at 0.2 Tyrel respiratory kilogram per hour. This morning, he is able to squeeze with his right hand. He is following some simple commands. Left-sided flaccid. Noted the patient remains on a mechanical venti lator. He is an assist-control mode at the rate of 26 with a tidal volume of 450 and FiO2 of 40% with a PEEP of 5. The patient's blood pressure showed a pH of 7.43 with a pCO2 53 and pO2 of 85. The patient is still running episodes of fever which could be post stroke. No clear indication for ongoing infection as the patient had emesis in the sputum and the patient's chest x-ray is stable with some limited by the pulmonary infiltrates. The patient was covered with broad-spectrum antibiotics with examination of Unasyn and vancomycin per ID. The patient remains in atrial fibrillation. The rate is controlled this morning at Cardizem at 50 mg an hour, the patient was digitalized yesterday and the digoxin is at a dose of 0.25 mg on a daily basis and the patient is also metoprolol 50 mg by mouth twice a day. The patient's sodium level is at 154, potassium level is at 4.1, BUN is at 40 with a creatinine of 0.9, the white cell count is at 80 with a hemoglobin 9.8 and a platelet count of 142. Overall fluid balance has been +1.5 L over the past 24 hours. The patient is receiving tube feeds with the vital high protein at the rate of 50 mL an hour. Family arrives and the final decision on goals of treatment has not been established. Despite some limited improvement in his neurologic function is, the patient's long-term prognosis remains extremely poor based on his underlying stroke, flaccid paralysis, multiple comorbidities, and extremely slow recovery. 01/20/2022, patient's condition is unchanged. Today she is unresponsive. He was on Precedex at 0.2 Tyrel respiratory kilogram per hour and the patient is currently off Precedex. Family is still meeting in time to make a decision regarding possibly end-of-life care. The patient is neurologically is impaired. The patient also has multiple comorbidities as mentioned earlier. For now, the treatment is essentially supportive. I have the patient on mechanical ventilation on assist control mode and the ventilator settings are essentially unchanged compared to yesterday with a tidal volume of 450 with a rate of 26 and an FiO2 of 40% with a PEEP of 5. Blood gas showed a pH of 7.4 with a pCO2 of 55 and pO2 of 76. The patient has a stable chest x-ray. The patient remains on broad-spectrum antibiotics for now the patient is currently on a combination of Unasyn and vancomycin. The sodium level is down to 149 and the patient is receiving D5 water at the rate of 100 mL an hour and the patient is also receiving free water through the NG. Potassium is at 4.1. BNP is 37 with a creatinine of 0.9. The patient remains on a Cardizem drip at 50 mg an hour. The patient is also on Lopressor and digoxin. Overall fluid balance is +2.6 L over the past 24 hours. The patient is currently off pressors. The patient is receiving tube feeds and the patient is on vital high protein at the rate of 34 mL an hour. No seizure activity. Neurologically impaired. On today's evaluation, he is unresponsive. Note that his left-sided flaccid and paralyzed related to recent right MCA distribution CVA. Objective - Vital Signs Vital signs: Vital Signs Temp 99.8 F H 01/20/22 08:00 Pulse 106 H 01/20/22 10:00 Resp 35 H 01/20/22 10:00 BP 115/74 01/19/22 09:00 Pulse Ox 93 L 01/20/22 10:00 Intake & Output 01/19/22 01/20/22 01/20/22 18:59 06:59 18:59 Intake Total 3586.946 3542.203 1178.867 Output Total 1010 1325 520 Balance 2576.946 2217.203 658.867 Weight 117 kg 120 kg Intake: IV 2476 1841 507 0.9@ 20mls/hr 240 240 80 Ampicillin-Sulbactam 3 gm 200 200 In Sodium Chloride 0.9% 100 ml @ 200 mls/hr IVPB Q6HR [facility]ANTHA Rx#:[id number] Dextrose 5% in Water 1, 1000 1200 400 000 ml @ 100 mls/hr IV . Q10H [facility]AN[facility]A Rx#:[id number] Diltiazem 125 mg In 165 15 Sodium Chloride 0.9% 100 ml @ 15 MG/HR 15 mls/hr IV .[id number] SAMANTHA Rx#: [id number] Pressure bag 36 36 12 Vancomycin 2,250 mg In 1000 Sodium Chloride 0.9% 500 ml 500 ml @ 167 mls/hr IVPB Q12H SAMANTHA Rx#: [id number] Intake, IV Titration 652.946 199.203 55.867 Amount Dexmedetomidine/0.9% NaCl 75.922 74.203 55.867 (Pmx) 400 mcg In Empty Bag 1 bag @ 0.2 MCG/KG/HR 5.73 mls/hr IV .[id number] [facility]ANTHA Rx#:[id number] Diltiazem 125 mg In 242.00 125 Sodium Chloride 0.9% 100 ml @ 15 MG/HR 15 mls/hr IV .Q8H20M [facility]ANTHA Rx#: [id number] Norepinephrine 4 mg In 335.024 Sodium Chloride 0.9% 250 ml @ 0.05 MCG/KG/MIN 20. 707 mls/hr IV .[id number] [facility]ANTHA Rx#:[id number] Tube Feeding 458 702 216 Other 800 400 Output: Urine 1010 1325 520 Other: Voiding Method Indwelling Catheter Indwelling Catheter Indwelling Catheter ABP, PAP, CO, CI - Last Documented Arterial Blood Pressure 149/57 - Exam GENERAL EXAM: Intubated, sedated 66-year-old male patient, unresponsive at this point in time, think is a mechanical ventilator. The patient has been off sedation for the past 48 hours. The patient is currently being taken off the Precedex. Note that while on Precedex, he was not following any commands and he was completely unresponsive to deep painful stimulation. HEAD: Normocephalic. EYES: Sluggish reaction of pupils, equal size.no nystagmus, no preferential gaze NOSE: Clear with pink turbinates. THROAT: Oral endotracheal and gastric tube secured in place. No erythema or exudates. NECK: No masses, no JVD. CHEST: No chest wall deformity. LUNGS: Equal air entry with bilateral rhonchi. CVS: S1 and S2 normal with no audible murmur, irregular rhythm. ABDOMEN: No hepatosplenomegaly, normal bowel sounds, no guarding or rigidity. SPINE: No scoliosis or deformity SKIN: No rashes CENTRAL NERVOUS SYSTEM: Sedated, tone is normal in all 4 extremities.the sensory and motor function cannot be assessed. The patient has no clonus. No Babinski the left lower extremity. The left side is flaccid without any Babinski or clonus. Today's sedated with Precedex which will be taken off and his neuro status is going to be reevaluated. EXTREMITIES: There is no peripheral edema. No clubbing, no cyanosis. Peripheral pulses are intact. - Labs CBC & Chem 7: 01/20/22 04:45 01/20/22 04:45 Labs: Abnormal Lab Results - Last 24 Hours (Table) 01/19/22 01/19/22 01/19/22 Range/Units 11:29 17:49 20:10 WBC (3.8-10.6) k/uL RBC (4.30-5.90) m/uL Hgb (13.0-17.5) gm/dL Hct (39.0-53.0) % MCHC (31.0-37.0) g/dL Plt Count (150-450) k/uL Neutrophils # (1.3-7.7) k/uL ABG pCO2 (35-45) mmHg ABG pO2 (83-108) mmHg ABG HCO3 (21-25) mmol/L ABG Total CO2 (19-24) mmol/L Sodium (137-145) mmol/L Chloride (98-107) mmol/L Carbon Dioxide (22-30) mmol/L BUN (9-20) mg/dL Glucose (74-99) mg/dL POC Glucose (mg/dL) 171 H 257 H 230 H (75-99) mg/dL AST (17-59) U/L ALT (4-49) U/L Total Protein (6.3-8.2) g/dL Albumin (3.5-5.0) g/dL 01/19/22 01/20/22 01/20/22 Range/Units 23:21 04:45 04:45 WBC 11.5 H (3.8-10.6) k/uL RBC 3.05 L (4.30-5.90) m/uL Hgb 8.9 L (13.0-17.5) gm/dL Hct 29.5 L (39.0-53.0) % MCHC 30.2 L (31.0-37.0) g/dL Plt Count 119 L (150-450) k/uL Neutrophils # 9.4 H (1.3-7.7) k/uL ABG pCO2 (35-45) mmHg ABG pO2 (83-108) mmHg ABG HCO3 (21-25) mmol/L ABG Total CO2 (19-24) mmol/L Sodium 149 H (137-145) mmol/L Chloride 116 H (98-107) mmol/L Carbon Dioxide 36 H (22-30) mmol/L BUN 37 H (9-20) mg/dL Glucose 186 H (74-99) mg/dL POC Glucose (mg/dL) 293 H (75-99) mg/dL AST 65 H (17-59) U/L ALT 52 H (4-49) U/L Total Protein 5.0 L (6.3-8.2) g/dL Albumin 2.0 L (3.5-5.0) g/dL 01/20/22 01/20/22 Range/Units 04:58 06:02 WBC (3.8-10.6) k/uL RBC (4.30-5.90) m/uL Hgb (13.0-17.5) gm/dL Hct (39.0-53.0) % MCHC (31.0-37.0) g/dL Plt Count (150-450) k/uL Neutrophils # (1.3-7.7) k/uL ABG pCO2 55 H (35-45) mmHg ABG pO2 76 L (83-108) mmHg ABG HCO3 34 H (21-25) mmol/L ABG Total CO2 36 H (19-24) mmol/L Sodium (137-145) mmol/L Chloride (98-107) mmol/L Carbon Dioxide (22-30) mmol/L BUN (9-20) mg/dL Glucose (74-99) mg/dL POC Glucose (mg/dL) 170 H (75-99) mg/dL AST (17-59) U/L ALT (4-49) U/L Total Protein (6.3-8.2) g/dL Albumin (3.5-5.0) g/dL Microbiology - Last 24 Hours (Table) 01/17/22 17:51 Blood Culture - Preliminary Blood No Growth after 48 hours Assessment and Plan Plan: Acute subacute ischemic stroke involving the right MCA predominantly also some question of left parietal involvement. Follow-up CAT scan of the brain done on 01/16/2022 showed a large right-sided cerebral vascular infarct with evolution and progression of the infarct as noted on the CAT scan of the brain. There was also compression over the right lateral ventricle. The third ventricle is constricted but it continues to be patent and the fourth ventricle is also patent. The patient already received a total of 2 doses of mannitol. Neurologist on the case. Vascular surgeries on the case. On today's neurologic evaluation, the patient is able to elicit some reaction when he was able to blink his eyes and move his fingers and hand on the right upon demand. Left- side is still flaccid. Nevertheless, the patient is requiring on and off sedation because of synchrony with the mechanical ventilator and autonomic reaction such as worsening and heart rate control and atrial fibrillation. For that reason, the patient was placed on Precedex and the patient is currently on Precedex 0.3 mics are as per kilogram per hour. His neuro status is going to be reevaluated while off the sedation. No major changes in his condition. I had a lengthy discussion with the patient's daughter who arrived from [place] and she understands that his prognosis extremely poor. Atrial fibrillation with a rapid ventricular response, history of atrial fibrillation and had previously been on Eliquis but has a history of medication noncompliance of possibly 3 months, currently on a Cardizem drip at 15 mg an hour for rate control and the patient is also on metoprolol 50 mg by mouth twice a day. The patient was also digitalized yesterday the patient is currently on digoxin 0.25 mg a day. The rate is under better control.. He is on no anticoagulants for now. Right carotid stenosis greater than 80% and near complete occlusion on the left Acute hypoxic respiratory failure with a right lower lobe pneumonia, likely a staphylococcal pneumonia with MSSA and the patient is currently on IV cefazolin. The patient is still having episodes of fever while being on cefazolin and a chest x-ray still showing bilateral lower lobe pulmonary infiltrates worse on the right. History of old CVA over left occipital area Urine drug screen positive for cocaine Hypertension, history of Hyperlipidemia Diabetes mellitus, currently on Levemir insulin for blood sugar control Hyperchloremic hypernatremia, sodium level is stable at 149 acute Leukocytosis, improving right lower lobe pneumonia, likely related to staph aureus, MSSA Febrile illness secondary to pneumonia, could be related to pneumonia versus central fever Plan Wean off Precedex Continue monitoring the neuro status Continue ventilator support as the patient is not ready for any weaning Continue Unasyn and vancomycin IV fluids with D5 water to a rate of 50 mL an hour Put the patient on Levemir insulin and increase the dose up to 26 units a day along with a sliding scale coverage Monitor blood sugars Continue the Cardizem drip , Lopressor, anddigoxin for rate control and gradually wean off the Cardizem drip Monitor fever pattern Monitor chest x-ray findings No ventilator changes will be done today. The patient has a right lower lobe consolidation, likely secondary to staphylococcal pneumonia and the patient be kept on Unasyn/vancomycin Tylenol for fever Continue aspirin Continue Plavix Very poor prognosis. I suggested end-of-life care to the daughter was going to pass along with other family members and make it final decision. This evaluation was unremarkable and 35 minutes. Is a critically care evaluation. Time with Patient: Greater than 30
[2022-01-20 12:31] LABS: Glucose,Whole Blood 287 mg/dL (75-99)
--- NOTE | 2022-01-20 14:01 | P.PN ---
Subjective Progress Note Date: 01/20/22 Principal diagnosis: Stroke 66-year-old male with a PMH of coronary artery disease, A. fib, severe systolic CHF with EF 20-25% on [facility]SH[facility] on 12/11, type II DM, hyperlipidemia, hypertension who was brought into the emergency room for altered mental status. There were reports that the patient had reportedly not filled his Eliquis for his A. fib and had in general been noncompliant with his medications. CTA showing a right MCA infarct, no evidence of dissection, and bilateral carotid stenosis greater than 80% on the right and near occlusion on the left. CT brain had revealed the right MCA subacute infarct with some mass effect as well as a possible left posterior parietal subacute infarct suspected secondary to embolic phenomenon. Neurology was consulted and recommended Aspirin, Plavix, Lipitor and to hold anticoagulation for now due to risk of worsening hemorragic conversion. 01/17 Patient remains on vent support. Patient is overall prognosis remains very poor. No significant meaningful neurological recovery has been seen. Patient does still have some brain stem reflexes. Neurology team is following. Recommendation is for palliative consultation and hospice care. 01/18 Patient is starting to respond to loud voices and commands. He squeezing his right hand and able to wiggle right foot toes. 01/19 Patient on precedex for sedation, still on pressors. 01/20 Patient is still on Precedex, Cardizem drip. Off pressors. Still requiring mechanical ventilation. Objective - Vital Signs Vital signs: Vital Signs Temp 98.7 F 01/20/22 12:00 Pulse 84 01/20/22 13:00 Resp 29 H 01/20/22 13:00 BP 115/74 01/19/22 09:00 Pulse Ox 96 01/20/22 13:00 Intake & Output 01/19/22 01/20/22 01/20/22 18:59 06:59 18:59 Intake Total 3586.946 3542.203 1731.117 Output Total 1010 1325 605 Balance 2576.946 2217.203 1126.117 Weight 117 kg 120 kg Intake: IV 8566 1841 853 0.9@ 20mls/hr 240 240 120 Ampicillin-Sulbactam 3 gm 200 200 100 In Sodium Chloride 0.9% 100 ml @ 200 mls/hr IVPB Q6HR [facility] Rx#:[id number] Dextrose 5% in Water 1, 1000 1200 600 000 ml @ 100 mls/hr IV . Q10H [facility] Rx#:[id number] Diltiazem 125 mg In 165 15 Sodium Chloride 0.9% 100 ml @ 15 MG/HR 15 mls/hr IV .[id number] [facility] Rx#: [id number] Pressure bag 36 36 18 Vancomycin 2,250 mg In 1000 Sodium Chloride 0.9% 500 ml 500 ml @ 167 mls/hr IVPB Q12H [facility] Rx#: [id number] Intake, IV Titration 652.946 199.203 208.117 Amount Dexmedetomidine/0.9% NaCl 75.922 74.203 55.867 (Pmx) 400 mcg In Empty Bag 1 bag @ 0.2 MCG/KG/HR 5.73 mls/hr IV .[id number] [facility] Rx#:[id number] Diltiazem 125 mg In 242.00 125 152.250 Sodium Chloride 0.9% 100 ml @ 15 MG/HR 15 mls/hr IV .Q8H20M [facility] Rx#: [id number] Norepinephrine 4 mg In 335.024 Sodium Chloride 0.9% 250 ml @ 0.05 MCG/KG/MIN 20. 707 mls/hr IV .[id number] [facility] Rx#:[id number] Tube Feeding 458 702 270 Other 800 400 Output: Urine 1010 1325 605 Other: Voiding Method Indwelling Catheter Indwelling Catheter Indwelling Catheter ABP, PAP, CO, CI - Last Documented Arterial Blood Pressure 101/44 - Exam General: Intubated Derm: no unusual rashes/lesions no unusual ecchymoses, warm, dry Head: atraumatic, normocephalic, symmetric Eyes: EOMI, no lid lag, anicteric sclera, pupils equal round reactive to light ENT: Nose and ears atraumatic, no thrush, no pharyngeal erythema Neck: No thyromegaly, no cervical lymphadenopathy, trachea midline, supple Mouth: no lip lesion, mucus membranes moist Cardiovascular: Tachycardic, Irregularly irregular, no murmur, positive posterior tibial pulse bilateral, no edema, capillary refill less than 2 seconds Lungs: Some scattered rhonchi, without wheezing or rales, no accessory muscle use Abdominal: soft, nontender to palpation, no guarding, no appreciable organomegaly, normal bowel sounds Ext: no gross muscle atrophy, no contractures, Neuro: Unable to assess - Labs CBC & Chem 7: 01/20/22 04:45 01/20/22 04:45 Labs: Abnormal Lab Results - Last 24 Hours (Table) 01/19/22 01/19/22 01/19/22 Range/Units 17:49 20:10 23:21 WBC (3.8-10.6) k/uL RBC (4.30-5.90) m/uL Hgb (13.0-17.5) gm/dL Hct (39.0-53.0) % MCHC (31.0-37.0) g/dL Plt Count (150-450) k/uL Neutrophils # (1.3-7.7) k/uL ABG pCO2 (35-45) mmHg ABG pO2 (83-108) mmHg ABG HCO3 (21-25) mmol/L ABG Total CO2 (19-24) mmol/L Sodium (137-145) mmol/L Chloride (98-107) mmol/L Carbon Dioxide (22-30) mmol/L BUN (9-20) mg/dL Glucose (74-99) mg/dL POC Glucose (mg/dL) 257 H 230 H 293 H (75-99) mg/dL AST (17-59) U/L ALT (4-49) U/L Total Protein (6.3-8.2) g/dL Albumin (3.5-5.0) g/dL 01/20/22 01/20/22 01/20/22 Range/Units 04:45 04:45 04:58 WBC 11.5 H (3.8-10.6) k/uL RBC 3.05 L (4.30-5.90) m/uL Hgb 8.9 L (13.0-17.5) gm/dL Hct 29.5 L (39.0-53.0) % MCHC 30.2 L (31.0-37.0) g/dL Plt Count 119 L (150-450) k/uL Neutrophils # 9.4 H (1.3-7.7) k/uL ABG pCO2 (35-45) mmHg ABG pO2 (83-108) mmHg ABG HCO3 (21-25) mmol/L ABG Total CO2 (19-24) mmol/L Sodium 149 H (137-145) mmol/L Chloride 116 H (98-107) mmol/L Carbon Dioxide 36 H (22-30) mmol/L BUN 37 H (9-20) mg/dL Glucose 186 H (74-99) mg/dL POC Glucose (mg/dL) 170 H (75-99) mg/dL AST 65 H (17-59) U/L ALT 52 H (4-49) U/L Total Protein 5.0 L (6.3-8.2) g/dL Albumin 2.0 L (3.5-5.0) g/dL 01/20/22 01/20/22 Range/Units 06:02 12:30 WBC (3.8-10.6) k/uL RBC (4.30-5.90) m/uL Hgb (13.0-17.5) gm/dL Hct (39.0-53.0) % MCHC (31.0-37.0) g/dL Plt Count (150-450) k/uL Neutrophils # (1.3-7.7) k/uL ABG pCO2 55 H (35-45) mmHg ABG pO2 76 L (83-108) mmHg ABG HCO3 34 H (21-25) mmol/L ABG Total CO2 36 H (19-24) mmol/L Sodium (137-145) mmol/L Chloride (98-107) mmol/L Carbon Dioxide (22-30) mmol/L BUN (9-20) mg/dL Glucose (74-99) mg/dL POC Glucose (mg/dL) 287 H (75-99) mg/dL AST (17-59) U/L ALT (4-49) U/L Total Protein (6.3-8.2) g/dL Albumin (3.5-5.0) g/dL Microbiology - Last 24 Hours (Table) 01/17/22 17:51 Blood Culture - Preliminary Blood No Growth after 48 hours Assessment and Plan Plan: Subacute MCA suspected embolic infarct with mass effect in patient noncompliant with anticoagulation for A. fib -Repeat CT performed on 01/16/2022 shows findings compatible with large right- sided cerebrovascular accident, along with changes of evolving and progressed infarct, sphenoid sinus disease -Neurology recommendations to Continue with aspirin, plavix, statin plan to hold anticoagulation for another 4 days. -At this point patient's chances of meaningful neurologic recovery is low in patient's overall prognosis is poor. Recommendation is for hospice evaluation, palliative care involvement. There is a social challenge at this time due to the fact the patient only has an ex- and no other family involvement Acute respiratory failure requiring intubation and mechanical ventilation Pneumonia Bacteremia -Patient intubated 01/13 -bibasilar infiltrates with Staph sputum culture. Staph is MSSA and is sensitive to cefazolin. We'll continue with treatment. ID is currently following as well -Blood cultures for 01/14/22 positive Staphylococcus aureus Right carotid stenosis greater than 80% near-complete occlusion of the side -Not candidate for surgical intervention Afib with RVR- improved Cardiomyopathy Severe pulmonary hypertension Severe valvular heart disease -Cardiology following. Currently on Cardizem GTT, metoprolol. -Anticoagulation on hold due to bleed. -Echocardiogram was completed and shows a reduced LV systolic function, left ventricular hypertrophy, EF estimated at 20% Cocaine abuse Chronic medical condition: Coronary artery disease, A. fib, type II DM, hypertension, hyperlipidemia -Continue with ASA, Statin, plavix. -Patient is hyperglycemic with tube feeds. Continue to titrate insulin. Hypernatremia -Free water deficit. -Patient was started on treatment with mannitol by neurology team. Which has now discontinued -Continue with free fluid flushes DVT prophylaxis -Subcutaneous heparin CODE STATUS: Full Code Discussed with: ROSENDO Overall prognosis very poor. D/w pulm service Palliative consulted, awaiting family members to make final decisions regarding care.
[2022-01-20 14:04] VITALS: BP 116/67
[2022-01-20 17:34] LABS: Glucose,Whole Blood 291 mg/dL (75-99)
[2022-01-20] MEDS: INSULIN DETEMIR (LEVEMIR) 100 UNIT/ML SYR SQ SCH (21:07)
[2022-01-20 23:26] LABS: Glucose,Whole Blood 231 mg/dL (75-99)
[2022-01-21] MEDS: DEXMEDETOMIDINE/0.9% NACL(PMX) 400 MCG in EMPTY BAG 1 BAG IV SCH (01:14)
[2022-01-21] MEDS: DILTIAZEM 125 MG in SODIUM CHLORIDE 0.9% 100 ML IV SCH ×2 (01:17→14:46)
[2022-01-21] MEDS: IPRATROPIUM-ALBUTEROL 3 ML NEB INHALATION SCH ×4 (03:21→16:10)
[2022-01-21 04:21] LABS: HCT 25.2 % (39.0-53.0); HGB 7.7 gm/dL (13.0-17.5); Hypochromasia Moderate; MCH 29.6 pg (25.0-35.0); MCHC 30.5 g/dL (31.0-37.0); Mean Platelet Volume 10.5; Platelet Count 130 k/uL (150-450); RDW 13.2 % (11.5-15.5); WBC 11.2 k/uL (3.8-10.6)
[2022-01-21 04:32] LABS: ALT 63 U/L (4-49); AST 71 U/L (17-59); African American GFR (CKD) >90 (>60 ml/min/1.73 sqM); Albumin 1.9 g/dL (3.5-5.0); Alkaline Phosphatase 72 U/L (38-126); Anion Gap -4 mmol/L; Blood Urea Nitrogen 40 mg/dL (9-20); Calcium 8.1 mg/dL (8.4-10.2); Carbon Dioxide 36 mmol/L (22-30); Chloride 114 mmol/L (98-107); Glucose 156 mg/dL (74-99); Magnesium 2.5 mg/dL (1.6-2.3); Non-African American GFR(CKD) 90 (>60 ml/min/1.73 sqM); Potassium 4.2 mmol/L (3.5-5.1); Sodium 146 mmol/L (137-145); Total Bilirubin 0.5 mg/dL (0.2-1.3); Total Protein 4.7 g/dL (6.3-8.2)
[2022-01-21 05:52] LABS: Glucose,Whole Blood 174 mg/dL (75-99)
[2022-01-21] MEDS: INSULIN ASPART (NovoLOG) 100 UNIT/ML VIAL SQ SCH ×6 (05:55→18:28)
[2022-01-21] MEDS: AMPICILLIN-SULBACTAM 3 GM in SODIUM CHLORIDE 0.9% 100 ML IVPB SCH ×3 (05:55→18:19)
[2022-01-21 06:02] LABS: ABG Base Excess 10.3 mmol/L; ABG HCO3 35 mmol/L (21-25); ABG Oxygen Saturation 96.5 % (94-97); ABG PCO2 51 mmHg (35-45); ABG PH 7.44 (7.35-7.45); ABG PO2 80 mmHg (83-108); ABG TCO2 36 mmol/L (19-24); Allen Test Performed? Yes
[2022-01-21] MEDS: NOREPINEPHRINE 4 MG in SODIUM CHLORIDE 0.9% 250 ML IV SCH (06:15)
[2022-01-21] MEDS: VANCOMYCIN 2,250 MG in SODIUM CHLORIDE 0.9% 500 ML 500 ML IVPB SCH ×2 (06:33→19:00)
[2022-01-21] MEDS: CHLORHEXIDINE GLUCONATE 15 ML CUP MUCOUS MEM SCH (07:53)
--- NOTE | 2022-01-21 08:35 | XR ---
EXAMINATION TYPE: XR chest 1V portable DATE OF EXAM: 01/21/2022 COMPARISON: 01/20/2022 INDICATION: Difficulty breathing TECHNIQUE: Single frontal view of the chest is obtained. FINDINGS: The heart size is normal. The pulmonary vasculature is normal. Mild increased lung markings at the lung bases. Correlate for atelectasis. Endotracheal tube tip is above the lauren. Left central venous catheter tip is in the distal superior vena cava. Nasogastric tube faintly visualized appears to cross the thorax. IMPRESSION: 1. Mild bibasilar infiltrates may be subsegmental atelectasis. Continued follow-up is recommended. 2. Lines and catheters discussed above.
[2022-01-21] MEDS: CLOPIDOGREL 75 MG TAB PO SCH (08:39)
[2022-01-21] MEDS: ASPIRIN 325 MG TAB PO SCH (08:39)
[2022-01-21] MEDS ORDERED: PANTOPRAZOLE 40 MG/10 ML VIAL IVP SCH (09:00)
[2022-01-21] MEDS: DIGOXIN 250 MCG TAB PO SCH (09:01)
[2022-01-21] MEDS: METOPROLOL TARTRATE 50 MG TAB PO SCH (09:01)
[2022-01-21] MEDS: HEPARIN SODIUM,PORCINE/PF 5,000 UNIT/0.5 ML SYRINGE SQ SCH (09:01)
[2022-01-21] MEDS ORDERED: polyethylene glycoL 3350 17 GM POWD.PACK PO SCH (09:30)
--- NOTE | 2022-01-21 11:26 | P.PN ---
Subjective Progress Note Date: 01/21/22 On 01/15/2022, the patient is being seen for a follow-up. The patient is currently intubated on a mechanical ventilator. The patient was intubated on 12/13/2021. The patient is post left-sided CVA and the patient a stroke along the right MCA distribution. The patient has chronic atrial fibrillation and the patient is postop non-ST segment elevation myocardial infarction. 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 His urine toxin was also positive for cocaine. He is known to have diabetes, hypertension and hyperlipidemia. At this point in time, the patient is on propofol running at 30 from a respiratory milligrams per minute. The patient is on a mechanical ventilator and the patient is currently on assist control mode at the rate of 26 with a tidal volume of 450 and FiO2 of 50% with a PEEP of 5. The blood gas showed a pH of 7.35 with a pCO2 of 55 and pO2 of 71 and this was on FiO2 of 50%. The patient had a follow-up chest x-ray today that showed an ET tube which was in a good location. There is a right lower lobe pulmonary infiltrate/an area of consolidation which was present earlier and seems to be more confluent. The patient also has a left subclavian triple-lumen catheter in place. The patient had a sputum sample that showed a presumptive staph aureus and he was febrile and this morning his temperature was 100.8 and based on that the patient was started on IV vancomycin. The white cell count was as high as 32 and currently is down to 26 with a hemoglobin of 13.3. No significant orotracheal secretions. The patient is on no pressors. Nevertheless, the patient is still having issues with atrial fibrillation with rapid ventricular response. The patient is currently on Cardizem drip at 50 mg an hour. He is also on norepinephrine infusion low-dose at 0.0 25 Tyrel respiratory gram per minute. IV fluids are currently at KVO. He is receiving enteral feeding with vitamin 1.2 at the rate of 10 mL an hour. His previous echocardiogram done on 01/13/2022 showed reduced left ventricular ejection fraction which was estimated to be at around 20%. The patient also had moderate severe mitral regurgitation, moderate to severe aortic stenosis with a peak gradient of 55 mmHg and moderate to severe tricuspid regurgitation. No evidence of any pericardial effusion. Neurologically, he is sedated. Pupils are equal and there are on pro-millimeters in size. No nystagmus. No clonus. No Babinski and the left lower extremity. No seizure activity has been noted. Neurology is on the case. 01/16/2022, the patient is being seen for a follow-up. The patient remains on a mechanical ventilator. The patient this morning stop propofol running at 30 mg/kg per minute and the patient will obviously need a sedation holiday. The mental status is to be reevaluated. A follow-up CAT scan of the head will be also ordered to assess the progression of this CVA. Note that the patient is unresponsive to any painful stimulation. Pupils remain around 2-3 mm in size sluggish reactive to light without any nystagmus. No clonus and no Babinski. No reaction to any deep painful stimulation. The patient remained on assist control mode at the rate of 26 with a tidal volume of 450, the patient is also on FiO2 of 50% with a PEEP of 5. The blood gas showed a pH of 7.34 with a pCO2 59 and pO2 97. The chest x-ray from today shows evidence of a pulmonary edema/CHF. There is bilateral/bibasilar airspace disease present most on the right lung base. The patient shown to have staph aureus in his sputum and the patient was febrile. Based on that, the patient was initially started on vancomycin and subsequently antibiotics and was switched IV cefazolin as the staph aureus do not to be an MSSA. The patient is hemodynamically stable. Underlying cardiac rhythm is atrial fibrillation. The patient remains on a Cardizem drip at 50 mg an hour. Note that the patient has impaired LV function with an ejection fraction of 20%. The sodium level is at 147. The BUN is at 50 with a creatinine of 1.3, the white cell count is at 22 with a hemoglobin of 12.3 and a platelet count of 165. The patient is receiving water solution to the NG 200 mL every 6 hours. IV fluids are currently at KVO. No antigravity patient has been started. The patient is on Levemir insulin 16 units at bedtime in addition to 8 units every 6 hours of NovoLog and a sliding scale coverage. 01/17/2022, seeing the patient for a follow-up. This morning, the patient remains completely unresponsive. The patient is not withdrawing to any painful stimulation. No seizure activity. The patient remains on a mechanical ventilator and the patient is currently off sedation. While in the mechanical ventilator, the patient is an assist-control mode at the rate of 26. Had a volume of 450 and FiO2 of 50% with a PEEP of 5. The patient has a peak airway pressure of 20, plateau airway pressure of 14, the blood gases from today shows a pH of 7.38 with a pCO2 57 and pO2 of 91. The patient has still having episodes of fever. The patient remains in atrial fibrillation with rapid ventricular response despite being on a Cardizem drip at 50 mg an hour and metoprolol was also added at a dose of 25 mg by mouth twice a day. The patient is on no anticoagulants for now. The patient remains in atrial fibrillation. Chest x-ray is showing bilateral lower lobe pulmonary infiltrates and the patient continues to have fever and sputum sample was positive for MSSA and the patient remains on IV cefazolin. IV Zosyn the case. The patient was given a follow-up CAT scan of the brain that showed progression of the stroke on the right and this such, the patient was given another dose of mannitol yesterday. On today's blood work, the sodium level is up to 154 with a potassium level of 4.9 chloride of 118 with a bicarb of 34, BUN is at 35 with a creatinine of 1.03 and a serum osmolality is at 342. The white cell count is elevated at 25 with a hemoglobin of 12.1. No other significant events otherwise for now. The patient remains in enteral feeding for nutritional support and addition to free water receiving. NG tube. The patient is on vital AF at the rate of 30 mL an hour. Note that the patient has advanced CAD a myopathy with an ejection fraction of 20%. The patient remains on Levemir insulin 16 units along with NovoLog 8 units 4 times a day and the sinus Coverage. We are still working to locate family members for this patient. silo worker is on the case. The patient has a daughter that was identified to be in [place] and she was made aware of his condition. Based on conversations with the family, the family was made aware that the patient's prognosis extremely poor. The family is considering withdrawal of care on this patient. 01/18/2022, the patient is being seen for a follow-up. The patient remains intubated on a mechanical ventilator. The patient has been off sedation for the past 48 hours. On today's evaluation, the patient was able to grimace to painful stimulation. He was able to blink upon demand or commands and the patient was able to squeeze my hand with his right hand upon demand. The left side is flaccid. The patient is still very much lethargic and somnolent. I was able to elicit some reaction from this patient on today's examination. His pupils around 3-4 mm in size and the patient has a preferential gaze to the right. No Babinski or clonus on the left. The patient remains on a mechanical ventilator. The patient is being treated for a pneumonia as the patient sputum sample is shown MSSA and the patient is currently on a combination of Unasyn and vancomycin. Antibiotic change was done and the patient wasn't having fever. Nevertheless, the chest x-ray showing improvement in aeration of the lung bases bilaterally. There been setting includes a rate of 26, tidal volume of 450, FiO2 of 50% with a PEEP of 5 and the patient has shown a pH of 7.41 with a pCO2 54 and pO2 116. Norepinephrine is minimal at 0.01 Tyrel respiratory kilogram per minute. The patient is still on a Cardizem drip for atrial fibrillation at the rate of 50 mg an hour and the patient is also metoprolol 50 mg by mouth twice a day. Sodium level is still elevated at 155 with a BUN of 45 and a creatinine of 0.8. The patient on free water supplements through the 400 mL every 6 hours. The patient is on vitamin HP at the rate of 30 mL an hour. The patient's blood sugar seems to be slightly elevated. No other significant events overnight. Family has been identified and a sister and the daughter will be arriving today for further discussion. Despite some limited neurologic improvement, the patient's long-term prognosis extremely poor based on his comorbidities and his significant neurologic impairment following his CVA 01/19/2022, the patient remains intubated on a mechanical ventilator. I noted some improvement in neurologic function yesterday. The patient was kept off sedation. Later on during the day, the patient became slightly agitated and restless and tachycardic. Based on that, the patient was started on low-dose Precedex which is running at 0.2 Tyrel respiratory kilogram per hour. This morning, he is able to squeeze with his right hand. He is following some simple commands. Left-sided flaccid. Noted the patient remains on a mechanical venti lator. He is an assist-control mode at the rate of 26 with a tidal volume of 450 and FiO2 of 40% with a PEEP of 5. The patient's blood pressure showed a pH of 7.43 with a pCO2 53 and pO2 of 85. The patient is still running episodes of fever which could be post stroke. No clear indication for ongoing infection as the patient had emesis in the sputum and the patient's chest x-ray is stable with some limited by the pulmonary infiltrates. The patient was covered with broad-spectrum antibiotics with examination of Unasyn and vancomycin per ID. The patient remains in atrial fibrillation. The rate is controlled this morning at Cardizem at 50 mg an hour, the patient was digitalized yesterday and the digoxin is at a dose of 0.25 mg on a daily basis and the patient is also metoprolol 50 mg by mouth twice a day. The patient's sodium level is at 154, potassium level is at 4.1, BUN is at 40 with a creatinine of 0.9, the white cell count is at 80 with a hemoglobin 9.8 and a platelet count of 142. Overall fluid balance has been +1.5 L over the past 24 hours. The patient is receiving tube feeds with the vital high protein at the rate of 50 mL an hour. Family arrives and the final decision on goals of treatment has not been established. Despite some limited improvement in his neurologic function is, the patient's long-term prognosis remains extremely poor based on his underlying stroke, flaccid paralysis, multiple comorbidities, and extremely slow recovery. 01/20/2022, patient's condition is unchanged. Today she is unresponsive. He was on Precedex at 0.2 Tyrel respiratory kilogram per hour and the patient is currently off Precedex. Family is still meeting in time to make a decision regarding possibly end-of-life care. The patient is neurologically is impaired. The patient also has multiple comorbidities as mentioned earlier. For now, the treatment is essentially supportive. I have the patient on mechanical ventilation on assist control mode and the ventilator settings are essentially unchanged compared to yesterday with a tidal volume of 450 with a rate of 26 and an FiO2 of 40% with a PEEP of 5. Blood gas showed a pH of 7.4 with a pCO2 of 55 and pO2 of 76. The patient has a stable chest x-ray. The patient remains on broad-spectrum antibiotics for now the patient is currently on a combination of Unasyn and vancomycin. The sodium level is down to 149 and the patient is receiving D5 water at the rate of 100 mL an hour and the patient is also receiving free water through the NG. Potassium is at 4.1. BNP is 37 with a creatinine of 0.9. The patient remains on a Cardizem drip at 50 mg an hour. The patient is also on Lopressor and digoxin. Overall fluid balance is +2.6 L over the past 24 hours. The patient is currently off pressors. The patient is receiving tube feeds and the patient is on vital high protein at the rate of 34 mL an hour. No seizure activity. Neurologically impaired. On today's evaluation, he is unresponsive. Note that his left-sided flaccid and paralyzed related to recent right MCA distribution CVA. 01/21/2022, the patient is being seen for a follow-up. Seems to be alert and occasionally is following some simple commands. Nevertheless, doesn't have the strength or the ability to protect his airway and is minute ventilation continues to be quite elevated. As such, no weaning trials will be done. The family decided to hours comfort care measures on this patient. It final decision will be done today. Meanwhile, the patient's CODE STATUS is DO NOT RESUSCITATE. He is an assist-control mode at the rate of 26 with a tidal volume of 450 and FiO2 of 40% with a PEEP of 8. Patient is at 7.44 with a pCO2 of 51 and pO2 of 80. Chest x-ray shows adequate expansion of both lungs, no pneumothorax, no pulmonary infiltrates. The white cell count is at 10.2 with a hemoglobin of 7.7 and there is a drop in hemoglobin without any evidence of bleeding. Platelet is at 1:30, sodium is 146, Cardizem and 14, bicarb is 36, BNP of 40, creatinine 0.8. ALT 71, AST 63, alkaline phosphatase 72. The patient has vital high protein at the rate of 54 mL an hour. The patient is also on D5 water at the rate of 50 mL an hour. Overall fluid balance is positive on this patient. He is afebrile. Family is aware of his poor prognosis. No seizure activity has been noted. He is on no pressors. Is on no sedation for now. Objective - Vital Signs Vital signs: Vital Signs Temp 100.7 F H 01/21/22 08:00 Pulse 100 01/21/22 11:15 Resp 32 H 01/21/22 11:00 BP 116/67 01/20/22 22:00 Pulse Ox 96 01/21/22 11:00 Intake & Output 01/20/22 01/21/22 01/21/22 18:59 06:59 18:59 Intake Total 3042.120 2759.717 739.810 Output Total 1385 1525 585 Balance 7129.425 6454.717 154.810 Weight 120 kg 122.7 kg Intake: IV 1841 976 365 0.9@ 20mls/hr 240 240 100 Ampicillin-Sulbactam 3 gm 100 100 In Sodium Chloride 0.9% 100 ml @ 200 mls/hr IVPB Q6HR [facility] Rx#:[id number] Dextrose 5% in Water 1, 750 000 ml @ 100 mls/hr IV . Q10H [facility] Rx#:[id number] Dextrose 5% in Water 1, 200 600 250 000 ml @ 50 mls/hr IV . Q20H [facility] Rx#:[id number] Diltiazem 125 mg In 15 Sodium Chloride 0.9% 100 ml @ 15 MG/HR 15 mls/hr IV .[id number] [facility] Rx#: [id number] Pressure bag 36 36 15 Vancomycin 2,250 mg In 500 Sodium Chloride 0.9% 500 ml 500 ml @ 167 mls/hr IVPB Q12H [facility] Rx#: [id number] Intake, IV Titration 261.120 335.717 104.810 Amount Dexmedetomidine/0.9% NaCl 108.870 67.184 55.534 (Pmx) 400 mcg In Empty Bag 1 bag @ 0.2 MCG/KG/HR 5.73 mls/hr IV .[id number] [facility] Rx#:[id number] Diltiazem 125 mg In 152.250 13.083 39.750 Sodium Chloride 0.9% 100 ml @ 15 MG/HR 15 mls/hr IV .Q8H20M [facility] Rx#: [id number] Norepinephrine 4 mg In 255.450 9.526 Sodium Chloride 0.9% 250 ml @ 0.05 MCG/KG/MIN 20. 707 mls/hr IV .[id number] [facility] Rx#:[id number] Tube Feeding 540 648 270 Other 400 800 Output: Urine 1385 1525 585 Other: Voiding Method Indwelling Catheter Indwelling Catheter Indwelling Catheter ABP, PAP, CO, CI - Last Documented Arterial Blood Pressure 118/50 - Exam GENERAL EXAM: Intubated, sedated 66-year-old male patient, unresponsive at this point in time, think is a mechanical ventilator. The patient has been off sedation for the past 48 hours. The patient is currently off Precedex. Alert, communicating at times, opening up his eyes spontaneously. Occasionally follows simple commands. Profoundly weak, a weak cough and a gag, poor ability to the rest or secretions. HEAD: Normocephalic. EYES: Sluggish reaction of pupils, equal size.no nystagmus, no preferential gaze NOSE: Clear with pink turbinates. THROAT: Oral endotracheal and gastric tube secured in place. No erythema or exudates. NECK: No masses, no JVD. CHEST: No chest wall deformity. LUNGS: Equal air entry with bilateral rhonchi. CVS: S1 and S2 normal with no audible murmur, irregular rhythm. ABDOMEN: No hepatosplenomegaly, normal bowel sounds, no guarding or rigidity. SPINE: No scoliosis or deformity SKIN: No rashes CENTRAL NERVOUS SYSTEM: The patient is currently off sedation, opens eyes spontaneously,, tone is normal in all 4 extremities.the sensory and motor function cannot be assessed. The patient has no clonus. No Babinski the left lower extremity. The left side is flaccid without any Babinski or clonus. Today's sedated with Precedex which will be taken off and his neuro status is going to be reevaluated. EXTREMITIES: There is no peripheral edema. No clubbing, no cyanosis. Peripheral pulses are intact. - Labs CBC & Chem 7: 01/21/22 04:02 01/21/22 04:02 Labs: Abnormal Lab Results - Last 24 Hours (Table) 01/20/22 01/20/22 01/20/22 Range/Units 12:30 17:32 23:23 WBC (3.8-10.6) k/uL RBC (4.30-5.90) m/uL Hgb (13.0-17.5) gm/dL Hct (39.0-53.0) % MCHC (31.0-37.0) g/dL Plt Count (150-450) k/uL ABG pCO2 (35-45) mmHg ABG pO2 (83-108) mmHg ABG HCO3 (21-25) mmol/L ABG Total CO2 (19-24) mmol/L Sodium (137-145) mmol/L Chloride (98-107) mmol/L Carbon Dioxide (22-30) mmol/L BUN (9-20) mg/dL Glucose (74-99) mg/dL POC Glucose (mg/dL) 287 H 291 H 231 H (75-99) mg/dL Calcium (8.4-10.2) mg/dL Magnesium (1.6-2.3) mg/dL AST (17-59) U/L ALT (4-49) U/L Total Protein (6.3-8.2) g/dL Albumin (3.5-5.0) g/dL 01/21/22 01/21/22 01/21/22 Range/Units 04:02 04:02 05:50 WBC 11.2 H (3.8-10.6) k/uL RBC 2.60 L (4.30-5.90) m/uL Hgb 7.7 L (13.0-17.5) gm/dL Hct 25.2 L (39.0-53.0) % MCHC 30.5 L (31.0-37.0) g/dL Plt Count 130 L (150-450) k/uL ABG pCO2 (35-45) mmHg ABG pO2 (83-108) mmHg ABG HCO3 (21-25) mmol/L ABG Total CO2 (19-24) mmol/L Sodium 146 H (137-145) mmol/L Chloride 114 H (98-107) mmol/L Carbon Dioxide 36 H (22-30) mmol/L BUN 40 H (9-20) mg/dL Glucose 156 H (74-99) mg/dL POC Glucose (mg/dL) 174 H (75-99) mg/dL Calcium 8.1 L (8.4-10.2) mg/dL Magnesium 2.5 H (1.6-2.3) mg/dL AST 71 H (17-59) U/L ALT 63 H (4-49) U/L Total Protein 4.7 L (6.3-8.2) g/dL Albumin 1.9 L (3.5-5.0) g/dL 01/21/22 Range/Units 06:00 WBC (3.8-10.6) k/uL RBC (4.30-5.90) m/uL Hgb (13.0-17.5) gm/dL Hct (39.0-53.0) % MCHC (31.0-37.0) g/dL Plt Count (150-450) k/uL ABG pCO2 51 H (35-45) mmHg ABG pO2 80 L (83-108) mmHg ABG HCO3 35 H (21-25) mmol/L ABG Total CO2 36 H (19-24) mmol/L Sodium (137-145) mmol/L Chloride (98-107) mmol/L Carbon Dioxide (22-30) mmol/L BUN (9-20) mg/dL Glucose (74-99) mg/dL POC Glucose (mg/dL) (75-99) mg/dL Calcium (8.4-10.2) mg/dL Magnesium (1.6-2.3) mg/dL AST (17-59) U/L ALT (4-49) U/L Total Protein (6.3-8.2) g/dL Albumin (3.5-5.0) g/dL Microbiology - Last 24 Hours (Table) 01/17/22 17:51 Blood Culture - Preliminary Blood No Growth after 72 hours Assessment and Plan Plan: Acute subacute ischemic stroke involving the right MCA predominantly also some question of left parietal involvement. Follow-up CAT scan of the brain done on 01/16/2022 showed a large right-sided cerebral vascular infarct with evolution and progression of the infarct as noted on the CAT scan of the brain. There was also compression over the right lateral ventricle. The third ventricle is constricted but it continues to be patent and the fourth ventricle is also patent. The patient already received a total of 2 doses of mannitol. Neurologist on the case. Vascular surgeries on the case. Neurologic evaluation today while off sedation revealed the patient is opening his eyes spontaneously, grimacing to painful stimulation, withdrawing on his right side, left-sided flaccid and at the same time he has a poor ability to the rest or secretions with a poor cough and a gag. He is occasionally following some simple commands using his right upper extremity. Motor function is minimal on the right side. Atrial fibrillation with a rapid ventricular response, history of atrial fibrillation and had previously been on Eliquis but has a history of medication noncompliance of possibly 3 months, currently on a Cardizem drip at 15 mg an hour for rate control and the patient is also on metoprolol 50 mg by mouth twice a day. The patient was also digitalized yesterday the patient is currently on digoxin 0.25 mg a day. The rate is under better control.. He is on no anticoagulants for now. Right carotid stenosis greater than 80% and near complete occlusion on the left Acute hypoxic respiratory failure with a right lower lobe pneumonia, likely a staphylococcal pneumonia with MSSA and the patient is currently on IV cefazolin. The patient is still having episodes of fever while being on cefazolin and a chest x-ray still showing bilateral lower lobe pulmonary infiltrates worse on the right. History of old CVA over left occipital area Urine drug screen positive for cocaine Hypertension, history of Hyperlipidemia Diabetes mellitus, currently on Levemir insulin for blood sugar control Hyperchloremic hypernatremia, sodium level is stable at 146, improving acute Leukocytosis, improving right lower lobe pneumonia, likely related to staph aureus, MSSA Febrile illness secondary to pneumonia, could be related to pneumonia versus central fever Plan Patient is off sedation Significant neurologic impairment, may not be able to withstand extubation due to his poor ability to clear his respiratory secretions and maintain a patent airway Continue monitoring the neuro status The plan is to continue to do the vent support and the patient's family decided with end-of-life care and that point the patient will be extubated. Continue Unasyn and vancomycin IV fluids with D5 water to a rate of 50 mL an hour Put the patient on Levemir insulin and increase the dose up to 26 units a day along with a sliding scale coverage Monitor blood sugars Continue Cardizem drip , Lopressor, anddigoxin for rate control and gradually wean off the Cardizem drip Monitor fever pattern Monitor chest x-ray findings No ventilator changes will be done today. Continue aspirin Continue Plavix Very poor prognosis. To my understanding, the patient is interested in end-of-life care and the patient will be extubated accordingly once the family members are already in agreement with the process. There is a critically care evaluation that was done and more than 30 minutes.
[2022-01-21 11:47] LABS: Glucose,Whole Blood 186 mg/dL (75-99)
--- NOTE | 2022-01-21 13:17 | P.PN ---
Subjective Progress Note Date: 01/21/22 Principal diagnosis: Stroke 66-year-old male with a PMH of coronary artery disease, A. fib, severe systolic CHF with EF 20-25% on MARSHALL on 12/11, type II DM, hyperlipidemia, hypertension who was brought into the emergency room for altered mental status. There were reports that the patient had reportedly not filled his Eliquis for his A. fib and had in general been noncompliant with his medications. CTA showing a right MCA infarct, no evidence of dissection, and bilateral carotid stenosis greater than 80% on the right and near occlusion on the left. CT brain had revealed the right MCA subacute infarct with some mass effect as well as a possible left posterior parietal subacute infarct suspected secondary to embolic phenomenon. Neurology was consulted and recommended Aspirin, Plavix, Lipitor and to hold anticoagulation for now due to risk of worsening hemorragic conversion. 01/17 Patient remains on vent support. Patient is overall prognosis remains very poor. No significant meaningful neurological recovery has been seen. Patient does still have some brain stem reflexes. Neurology team is following. Recommendation is for palliative consultation and hospice care. 01/18 Patient is starting to respond to loud voices and commands. He squeezing his right hand and able to wiggle right foot toes. 01/19 Patient on precedex for sedation, still on pressors. 01/20 Patient is still on Precedex, Cardizem drip. Off pressors. Still requiring mechanical ventilation. 01/21; Off sedation, Following commands now. Squeezing the right hand. According to RN abimbola SOARES for 8 days. He is on tube feeds. Objective - Vital Signs Vital signs: Vital Signs Temp 100.7 F H 01/21/22 08:00 Pulse 105 H 01/21/22 11:26 Resp 32 H 01/21/22 11:42 BP 116/67 01/20/22 22:00 Pulse Ox 96 01/21/22 11:42 Intake & Output 01/20/22 01/21/22 01/21/22 18:59 06:59 18:59 Intake Total 3042.120 2759.717 739.810 Output Total 1385 1525 585 Balance 0769.400 5617.717 154.810 Weight 120 kg 122.7 kg Intake: IV 1841 976 365 0.9@ 20mls/hr 240 240 100 Ampicillin-Sulbactam 3 gm 100 100 In Sodium Chloride 0.9% 100 ml @ 200 mls/hr IVPB Q6HR [facility] Rx#:[id number] Dextrose 5% in Water 1, 750 000 ml @ 100 mls/hr IV . Q10H [facility] Rx#:[id number] Dextrose 5% in Water 1, 200 600 250 000 ml @ 50 mls/hr IV . Q20H [facility] Rx#:[id number] Diltiazem 125 mg In 15 Sodium Chloride 0.9% 100 ml @ 15 MG/HR 15 mls/hr IV .Q8H20M [facility] Rx#: [id number] Pressure bag 36 36 15 Vancomycin 2,250 mg In 500 Sodium Chloride 0.9% 500 ml 500 ml @ 167 mls/hr IVPB Q12H [facility] Rx#: [id number] Intake, IV Titration 261.120 335.717 104.810 Amount Dexmedetomidine/0.9% NaCl 108.870 67.184 55.534 (Pmx) 400 mcg In Empty Bag 1 bag @ 0.2 MCG/KG/HR 5.73 mls/hr IV .[id number] [facility] Rx#:[id number] Diltiazem 125 mg In 152.250 13.083 39.750 Sodium Chloride 0.9% 100 ml @ 15 MG/HR 15 mls/hr IV .Q8H20M [facility] Rx#: [id number] Norepinephrine 4 mg In 255.450 9.526 Sodium Chloride 0.9% 250 ml @ 0.05 MCG/KG/MIN 20. 707 mls/hr IV .[id number] [facility] Rx#:[id number] Tube Feeding 540 648 270 Other 400 800 Output: Urine 1385 1525 585 Other: Voiding Method Indwelling Catheter Indwelling Catheter Indwelling Catheter ABP, PAP, CO, CI - Last Documented Arterial Blood Pressure 118/50 - Exam General: Intubated Derm: no unusual rashes/lesions no unusual ecchymoses, warm, dry Head: atraumatic, normocephalic, symmetric Eyes: EOMI, no lid lag, anicteric sclera, pupils equal round reactive to light ENT: Nose and ears atraumatic, no thrush, no pharyngeal erythema Neck: No thyromegaly, no cervical lymphadenopathy, trachea midline, supple Mouth: no lip lesion, mucus membranes moist Cardiovascular: Tachycardic, Irregularly irregular, no murmur, positive posterior tibial pulse bilateral, no edema, capillary refill less than 2 seconds Lungs: Some scattered rhonchi, without wheezing or rales, no accessory muscle use Abdominal: soft, nontender to palpation, no guarding, no appreciable organomegaly, normal bowel sounds Ext: no gross muscle atrophy, no contractures, Neuro: Unable to assess - Labs CBC & Chem 7: 01/21/22 04:02 01/21/22 04:02 Labs: Abnormal Lab Results - Last 24 Hours (Table) 01/20/22 01/20/22 01/21/22 Range/Units 17:32 23:23 04:02 WBC (3.8-10.6) k/uL RBC (4.30-5.90) m/uL Hgb (13.0-17.5) gm/dL Hct (39.0-53.0) % MCHC (31.0-37.0) g/dL Plt Count (150-450) k/uL ABG pCO2 (35-45) mmHg ABG pO2 (83-108) mmHg ABG HCO3 (21-25) mmol/L ABG Total CO2 (19-24) mmol/L Sodium 146 H (137-145) mmol/L Chloride 114 H (98-107) mmol/L Carbon Dioxide 36 H (22-30) mmol/L BUN 40 H (9-20) mg/dL Glucose 156 H (74-99) mg/dL POC Glucose (mg/dL) 291 H 231 H (75-99) mg/dL Calcium 8.1 L (8.4-10.2) mg/dL Magnesium 2.5 H (1.6-2.3) mg/dL AST 71 H (17-59) U/L ALT 63 H (4-49) U/L Total Protein 4.7 L (6.3-8.2) g/dL Albumin 1.9 L (3.5-5.0) g/dL 01/21/22 01/21/22 01/21/22 Range/Units 04:02 05:50 06:00 WBC 11.2 H (3.8-10.6) k/uL RBC 2.60 L (4.30-5.90) m/uL Hgb 7.7 L (13.0-17.5) gm/dL Hct 25.2 L (39.0-53.0) % MCHC 30.5 L (31.0-37.0) g/dL Plt Count 130 L (150-450) k/uL ABG pCO2 51 H (35-45) mmHg ABG pO2 80 L (83-108) mmHg ABG HCO3 35 H (21-25) mmol/L ABG Total CO2 36 H (19-24) mmol/L Sodium (137-145) mmol/L Chloride (98-107) mmol/L Carbon Dioxide (22-30) mmol/L BUN (9-20) mg/dL Glucose (74-99) mg/dL POC Glucose (mg/dL) 174 H (75-99) mg/dL Calcium (8.4-10.2) mg/dL Magnesium (1.6-2.3) mg/dL AST (17-59) U/L ALT (4-49) U/L Total Protein (6.3-8.2) g/dL Albumin (3.5-5.0) g/dL 01/21/22 Range/Units 11:46 WBC (3.8-10.6) k/uL RBC (4.30-5.90) m/uL Hgb (13.0-17.5) gm/dL Hct (39.0-53.0) % MCHC (31.0-37.0) g/dL Plt Count (150-450) k/uL ABG pCO2 (35-45) mmHg ABG pO2 (83-108) mmHg ABG HCO3 (21-25) mmol/L ABG Total CO2 (19-24) mmol/L Sodium (137-145) mmol/L Chloride (98-107) mmol/L Carbon Dioxide (22-30) mmol/L BUN (9-20) mg/dL Glucose (74-99) mg/dL POC Glucose (mg/dL) 186 H (75-99) mg/dL Calcium (8.4-10.2) mg/dL Magnesium (1.6-2.3) mg/dL AST (17-59) U/L ALT (4-49) U/L Total Protein (6.3-8.2) g/dL Albumin (3.5-5.0) g/dL Microbiology - Last 24 Hours (Table) 01/17/22 17:51 Blood Culture - Preliminary Blood No Growth after 72 hours Assessment and Plan Plan: Subacute MCA suspected embolic infarct with mass effect in patient noncompliant with anticoagulation for A. fib -Repeat CT performed on 01/16/2022 shows findings compatible with large right- sided cerebrovascular accident, along with changes of evolving and progressed infarct, sphenoid sinus disease -Neurology recommendations to Continue with aspirin, plavix, statin plan to hold anticoagulation for another 4 days. Acute respiratory failure requiring intubation and mechanical ventilation Pneumonia Bacteremia -Patient intubated 01/13 -bibasilar infiltrates with Staph sputum culture. Staph is MSSA and is sensitive to cefazolin. We'll continue with treatment. ID is currently following as well -Blood cultures for 01/14/22 positive Staphylococcus aureus Right carotid stenosis greater than 80% near-complete occlusion of the side -Not candidate for surgical intervention Afib with RVR- improved Cardiomyopathy Severe pulmonary hypertension Severe valvular heart disease -Cardiology following. Currently on Cardizem GTT, metoprolol. -Anticoagulation on hold due to bleed. -Echocardiogram was completed and shows a reduced LV systolic function, left ventricular hypertrophy, EF estimated at 20% Cocaine abuse Chronic medical condition: Coronary artery disease, A. fib, type II DM, hypertension, hyperlipidemia -Continue with ASA, Statin, plavix. -Patient is hyperglycemic with tube feeds. Continue to titrate insulin. Hypernatremia -Patient was started on treatment with mannitol by neurology team. Which has now discontinued -Continue with free fluid flushes DVT prophylaxis -Subcutaneous heparin CODE STATUS: Full Code Discussed with: RN Overall prognosis very poor. D/w pulm service Palliative consulted, family decided to potentially extubate patient this afternoon and do comfort measures afterwards..According to pulmonary he will be too weak to withstand extubation
[2022-01-21 16:33] VITALS: TEMP 98.9
[2022-01-21] MEDS ORDERED: FUROSEMIDE 10 MG/ML 10 ML VIAL IV STA (17:08)
[2022-01-21 18:24] LABS: Glucose,Whole Blood 234 mg/dL (75-99)
[2022-01-21] MEDS ORDERED: MORPHINE SULFATE 4 MG/ML SYRINGE IV PRN (19:07)
[2022-01-21] MEDS ORDERED: MORPHINE SULFATE 2 MG/ML SYRINGE IVP ONE (19:07)
[2022-01-21] MEDS ORDERED: MORPHINE SULFATE 2 MG/ML SYRINGE IV PRN (19:07)
[2022-01-21] MEDS ORDERED: ATROPINE OPHTH SOLN 1% 5ML BTL SUBLINGUAL PRN (19:07)
[2022-01-21] MEDS ORDERED: MORPHINE SULFATE (100 MG/2 ML) 100 MG in SODIUM CHLORIDE 0.9% 100 ML IV SCH (19:15)
[2022-01-21] MEDS: DEXTROSE 5% IN WATER 1,000 ML IV SCH (19:35)
[2022-01-21] MEDS ORDERED: SCOPOLAMINE 1 MG/72 HR PATCH TRANSDERM SCH (20:00)
--- NOTE | 2022-01-21 21:47 | P.PN ---
Subjective Progress Note Date: 01/20/22 Principal diagnosis: Bacteremia Patient is a 66-year-old male presented to the hospital with mental status changes in this patient did have a follow-up patient did have evidence of right MCA stroke respiratory failure requiring intubation and patient also have evidence of MSSA bacteremia with a sputum positive for MSSA concerning for possible pneumonia to be the source on today's evaluation that is 01/20/2022, the patient did have a low-grade fever 100.3, the patient remains to be intubated on the vent , FiO2 is currently stable at 50%, no significant purulent secretions through the ET or diarrhea has been reported by the nursing staff, no other changes in his clinical condition reported by the nursing staff Objective - Vital Signs Vital signs: Vital Signs Temp 98.7 F 01/20/22 12:00 Pulse 99 01/20/22 15:31 Resp 32 H 01/20/22 15:00 BP 116/67 01/20/22 14:00 Pulse Ox 96 01/20/22 15:00 Intake & Output 01/19/22 01/20/22 01/20/22 18:59 06:59 18:59 Intake Total 3586.946 3542.203 2129.605 Output Total 1010 1325 930 Balance 2576.946 2217.203 1199.605 Weight 117 kg 120 kg Intake: IV 2476 1841 1122 0.9@ 20mls/hr 240 240 180 Ampicillin-Sulbactam 3 gm 200 200 100 In Sodium Chloride 0.9% 100 ml @ 200 mls/hr IVPB Q6HR [facility] Rx#:[id number] Dextrose 5% in Water 1, 1000 1200 750 000 ml @ 100 mls/hr IV . Q10H [facility] Rx#:[id number] Dextrose 5% in Water 1, 50 000 ml @ 50 mls/hr IV . Q20H [facility] Rx#:[id number] Diltiazem 125 mg In 165 15 Sodium Chloride 0.9% 100 ml @ 15 MG/HR 15 mls/hr IV .Q8H20M [facility] Rx#: [id number] Pressure bag 36 36 27 Vancomycin 2,250 mg In 1000 Sodium Chloride 0.9% 500 ml 500 ml @ 167 mls/hr IVPB Q12H [facility] Rx#: [id number] Intake, IV Titration 652.946 199.203 229.605 Amount Dexmedetomidine/0.9% NaCl 75.922 74.203 77.355 (Pmx) 400 mcg In Empty Bag 1 bag @ 0.2 MCG/KG/HR 5.73 mls/hr IV .[id number] [facility] Rx#:[id number] Diltiazem 125 mg In 242.00 125 152.250 Sodium Chloride 0.9% 100 ml @ 15 MG/HR 15 mls/hr IV .Q8H20M [facility] Rx#: [id number] Norepinephrine 4 mg In 335.024 Sodium Chloride 0.9% 250 ml @ 0.05 MCG/KG/MIN 20. 707 mls/hr IV .[id number] [facility] Rx#:[id number] Tube Feeding 458 702 378 Other 800 400 Output: Urine 1010 1325 930 Other: Voiding Method Indwelling Catheter Indwelling Catheter Indwelling Catheter ABP, PAP, CO, CI - Last Documented Arterial Blood Pressure 120/51 - Exam GENERAL DESCRIPTION: An elderly male intubated on the vent RESPIRATORY SYSTEM: Unlabored breathing , decreased breath sounds at bases HEART: S1 S2 regular rate and rhythm , ABDOMEN: Soft , no tenderness EXTREMITIES: No edema feet - Labs CBC & Chem 7: 01/21/22 04:02 01/21/22 04:02 Labs: Abnormal Lab Results - Last 24 Hours (Table) 01/19/22 01/19/22 01/19/22 Range/Units 17:49 20:10 23:21 WBC (3.8-10.6) k/uL RBC (4.30-5.90) m/uL Hgb (13.0-17.5) gm/dL Hct (39.0-53.0) % MCHC (31.0-37.0) g/dL Plt Count (150-450) k/uL Neutrophils # (1.3-7.7) k/uL ABG pCO2 (35-45) mmHg ABG pO2 (83-108) mmHg ABG HCO3 (21-25) mmol/L ABG Total CO2 (19-24) mmol/L Sodium (137-145) mmol/L Chloride (98-107) mmol/L Carbon Dioxide (22-30) mmol/L BUN (9-20) mg/dL Glucose (74-99) mg/dL POC Glucose (mg/dL) 257 H 230 H 293 H (75-99) mg/dL AST (17-59) U/L ALT (4-49) U/L Total Protein (6.3-8.2) g/dL Albumin (3.5-5.0) g/dL 01/20/22 01/20/22 01/20/22 Range/Units 04:45 04:45 04:58 WBC 11.5 H (3.8-10.6) k/uL RBC 3.05 L (4.30-5.90) m/uL Hgb 8.9 L (13.0-17.5) gm/dL Hct 29.5 L (39.0-53.0) % MCHC 30.2 L (31.0-37.0) g/dL Plt Count 119 L (150-450) k/uL Neutrophils # 9.4 H (1.3-7.7) k/uL ABG pCO2 (35-45) mmHg ABG pO2 (83-108) mmHg ABG HCO3 (21-25) mmol/L ABG Total CO2 (19-24) mmol/L Sodium 149 H (137-145) mmol/L Chloride 116 H (98-107) mmol/L Carbon Dioxide 36 H (22-30) mmol/L BUN 37 H (9-20) mg/dL Glucose 186 H (74-99) mg/dL POC Glucose (mg/dL) 170 H (75-99) mg/dL AST 65 H (17-59) U/L ALT 52 H (4-49) U/L Total Protein 5.0 L (6.3-8.2) g/dL Albumin 2.0 L (3.5-5.0) g/dL 01/20/22 01/20/22 Range/Units 06:02 12:30 WBC (3.8-10.6) k/uL RBC (4.30-5.90) m/uL Hgb (13.0-17.5) gm/dL Hct (39.0-53.0) % MCHC (31.0-37.0) g/dL Plt Count (150-450) k/uL Neutrophils # (1.3-7.7) k/uL ABG pCO2 55 H (35-45) mmHg ABG pO2 76 L (83-108) mmHg ABG HCO3 34 H (21-25) mmol/L ABG Total CO2 36 H (19-24) mmol/L Sodium (137-145) mmol/L Chloride (98-107) mmol/L Carbon Dioxide (22-30) mmol/L BUN (9-20) mg/dL Glucose (74-99) mg/dL POC Glucose (mg/dL) 287 H (75-99) mg/dL AST (17-59) U/L ALT (4-49) U/L Total Protein (6.3-8.2) g/dL Albumin (3.5-5.0) g/dL Microbiology - Last 24 Hours (Table) 01/17/22 17:51 Blood Culture - Preliminary Blood No Growth after 48 hours Assessment and Plan (1) Pneumonia Current Visit: Yes Status: Acute Code(s): J18.9 - PNEUMONIA, UNSPECIFIED ORGANISM SNOMED Code(s): 759753312 Plan: 1patient with sepsis in this patient who did have a fever elevated white count with evidence of bibasilar infiltrate with a sputum showing Staph aureus, the blood culture with gram-positive cocci likely Staph aureus pneumonia, both blood and sputum has been finalized with MSSA and the patient was initially treated with cefazolin however the patient did have persistent fever and worsening of the white count, patient fever seemed to have some response to adjustment of antibiotic therapy to vancomycin and Unasyn which will be continued and monitor his clinical course closely
--- NOTE | 2022-01-21 21:48 | P.PN ---
Subjective Progress Note Date: 01/21/22 Principal diagnosis: Bacteremia Patient is a 66-year-old male presented to the hospital with mental status changes in this patient did have a follow-up patient did have evidence of right MCA stroke respiratory failure requiring intubation and patient also have evidence of MSSA bacteremia with a sputum positive for MSSA concerning for possible pneumonia to be the source on today's evaluation that is 01/20/2022, the patient did have a low-grade fever 100.7 degrees Fahrenheit, the patient remains to be intubated on the vent however the patient sedation is being weaned off with a plan for extubation, the patient seemed to be awake provider on his eyeballs but no other purposeful movement noticed no diarrhea reported Objective - Vital Signs Vital signs: Vital Signs Temp 98.2 F 01/21/22 12:00 Pulse 103 H 01/21/22 15:00 Resp 32 H 01/21/22 15:00 BP 116/67 01/20/22 22:00 Pulse Ox 97 01/21/22 15:00 Intake & Output 01/20/22 01/21/22 01/21/22 18:59 06:59 18:59 Intake Total 3042.120 2759.717 1747.810 Output Total 1385 1525 1120 Balance 1584.972 5983.717 627.810 Weight 120 kg 122.7 kg Intake: IV 1841 976 757 0.9@ 20mls/hr 240 240 180 Ampicillin-Sulbactam 3 gm 100 100 100 In Sodium Chloride 0.9% 100 ml @ 200 mls/hr IVPB Q6HR [facility] Rx#:[id number] Dextrose 5% in Water 1, 750 000 ml @ 100 mls/hr IV . Q10H [facility] Rx#:[id number] Dextrose 5% in Water 1, 200 600 450 000 ml @ 50 mls/hr IV . Q20H [facility] Rx#:[id number] Diltiazem 125 mg In 15 Sodium Chloride 0.9% 100 ml @ 15 MG/HR 15 mls/hr IV .Q8H20M [facility] Rx#: [id number] Pressure bag 36 36 27 Vancomycin 2,250 mg In 500 Sodium Chloride 0.9% 500 ml 500 ml @ 167 mls/hr IVPB Q12H [facility] Rx#: [id number] Intake, IV Titration 261.120 335.717 104.810 Amount Dexmedetomidine/0.9% NaCl 108.870 67.184 55.534 (Pmx) 400 mcg In Empty Bag 1 bag @ 0.2 MCG/KG/HR 5.73 mls/hr IV .[id number] [facility] Rx#:[id number] Diltiazem 125 mg In 152.250 13.083 39.750 Sodium Chloride 0.9% 100 ml @ 15 MG/HR 15 mls/hr IV .Q8H20M [facility] Rx#: [id number] Norepinephrine 4 mg In 255.450 9.526 Sodium Chloride 0.9% 250 ml @ 0.05 MCG/KG/MIN 20. 707 mls/hr IV .[id number] [facility] Rx#:[id number] Tube Feeding 540 648 486 Other 400 800 400 Output: Urine 1385 1525 1120 Other: Voiding Method Indwelling Catheter Indwelling Catheter Indwelling Catheter ABP, PAP, CO, CI - Last Documented Arterial Blood Pressure 116/52 - Exam GENERAL DESCRIPTION: An elderly male intubated on the vent RESPIRATORY SYSTEM: Unlabored breathing , decreased breath sounds at bases HEART: S1 S2 regular rate and rhythm , ABDOMEN: Soft , no tenderness EXTREMITIES: No edema feet - Labs CBC & Chem 7: 01/21/22 04:02 01/21/22 04:02 Labs: Abnormal Lab Results - Last 24 Hours (Table) 01/20/22 01/20/22 01/21/22 Range/Units 17:32 23:23 04:02 WBC (3.8-10.6) k/uL RBC (4.30-5.90) m/uL Hgb (13.0-17.5) gm/dL Hct (39.0-53.0) % MCHC (31.0-37.0) g/dL Plt Count (150-450) k/uL ABG pCO2 (35-45) mmHg ABG pO2 (83-108) mmHg ABG HCO3 (21-25) mmol/L ABG Total CO2 (19-24) mmol/L Sodium 146 H (137-145) mmol/L Chloride 114 H (98-107) mmol/L Carbon Dioxide 36 H (22-30) mmol/L BUN 40 H (9-20) mg/dL Glucose 156 H (74-99) mg/dL POC Glucose (mg/dL) 291 H 231 H (75-99) mg/dL Calcium 8.1 L (8.4-10.2) mg/dL Magnesium 2.5 H (1.6-2.3) mg/dL AST 71 H (17-59) U/L ALT 63 H (4-49) U/L Total Protein 4.7 L (6.3-8.2) g/dL Albumin 1.9 L (3.5-5.0) g/dL 01/21/22 01/21/22 01/21/22 Range/Units 04:02 05:50 06:00 WBC 11.2 H (3.8-10.6) k/uL RBC 2.60 L (4.30-5.90) m/uL Hgb 7.7 L (13.0-17.5) gm/dL Hct 25.2 L (39.0-53.0) % MCHC 30.5 L (31.0-37.0) g/dL Plt Count 130 L (150-450) k/uL ABG pCO2 51 H (35-45) mmHg ABG pO2 80 L (83-108) mmHg ABG HCO3 35 H (21-25) mmol/L ABG Total CO2 36 H (19-24) mmol/L Sodium (137-145) mmol/L Chloride (98-107) mmol/L Carbon Dioxide (22-30) mmol/L BUN (9-20) mg/dL Glucose (74-99) mg/dL POC Glucose (mg/dL) 174 H (75-99) mg/dL Calcium (8.4-10.2) mg/dL Magnesium (1.6-2.3) mg/dL AST (17-59) U/L ALT (4-49) U/L Total Protein (6.3-8.2) g/dL Albumin (3.5-5.0) g/dL 01/21/22 Range/Units 11:46 WBC (3.8-10.6) k/uL RBC (4.30-5.90) m/uL Hgb (13.0-17.5) gm/dL Hct (39.0-53.0) % MCHC (31.0-37.0) g/dL Plt Count (150-450) k/uL ABG pCO2 (35-45) mmHg ABG pO2 (83-108) mmHg ABG HCO3 (21-25) mmol/L ABG Total CO2 (19-24) mmol/L Sodium (137-145) mmol/L Chloride (98-107) mmol/L Carbon Dioxide (22-30) mmol/L BUN (9-20) mg/dL Glucose (74-99) mg/dL POC Glucose (mg/dL) 186 H (75-99) mg/dL Calcium (8.4-10.2) mg/dL Magnesium (1.6-2.3) mg/dL AST (17-59) U/L ALT (4-49) U/L Total Protein (6.3-8.2) g/dL Albumin (3.5-5.0) g/dL Microbiology - Last 24 Hours (Table) 01/17/22 17:51 Blood Culture - Preliminary Blood No Growth after 72 hours Assessment and Plan (1) Pneumonia Current Visit: Yes Status: Acute Code(s): J18.9 - PNEUMONIA, UNSPECIFIED ORGANISM SNOMED Code(s): 157706493 Plan: 1patient with sepsis in this patient who did have a fever elevated white count with evidence of bibasilar infiltrate with a sputum showing Staph aureus, the blood culture with gram-positive cocci likely Staph aureus pneumonia, both blood and sputum has been finalized with MSSA and the patient was initially treated with cefazolin however the patient did have persistent fever and worsening of the white count, patient overall fever pattern has improved repeat cultures remains to be negative patient is currently covered with vancomycin and Unasyn to continue while waiting for his clinical condition to stabilize family the bedside questions were answered Time with Patient: Less than 30
[2022-01-22 01:02] VITALS: PULSE 110; RESP 9
--- NOTE | 2022-01-22 21:09 | P.DS ---
Providers Date of admission: 01/12/22 18:11 Expected date of discharge: 01/22/22 Attending physician: Marcela Freed DO Consults: 01/15/22 04:57 Consult Physician Routine Consulting Provider: Gale Olivas Consult Reason/Comments: positive blood cultures Do you want consulting provider notified?: Yes, Notify in am 01/16/22 15:09 Consult to Palliative Care Routine Consulting Provider: Karis Gomez Consult Reason/Comments: Goals of care, CVA vented Do you want consulting provider notified?: Yes 01/17/22 16:43 Consult Physician Routine Consulting Provider: Art Irwin Consult Reason/Comments: cva Do you want consulting provider notified?: Already Contacted 01/17/22 16:44 Consult Physician Routine Consulting Provider: Crow Cho Consult Reason/Comments: icu/vent management Do you want consulting provider notified?: Already Contacted Primary care physician: [facility] Hospital Course: Discharge Diagnosis: Subacute right CVA of the MCA, ischemic Cytotoxic cerebral edema with mass effect Metabolic encephalopathy Acute hypoxic respiratory failure MSSA right lower lobe pneumonia A. fib with RVR Carotid stenosis Systolic cardiomyopathy Hypertension Dyslipidemia Hyponatremia Hyperchloremic hypernatremia Sleep apnea Poor adherence to medication regimen Hospital Course: I did not participate in care of this patient but only provided a summary of his care for discharge. Patient is a 66-year-old male past medical history of coronary artery disease, A. fib, systolic congestive heart failure with ejection fraction 20-25%, diabetes, hypertension, and dyslipidemia who initially presented to the ER for altered mentation. In the emergency room he underwent an extensive evaluation. CT of the head and neck showed a right MCA infarct and bilateral carotid stenosis. CT brain revealed a right MCA subacute infarct with mass effect and possible left posterior parietal subacute infarct secondary to embolic phenomenon. Urine drug screen was positive for cocaine, white blood cell count was 20.7, patient was noted to be in A. fib with RVR and EKG in the 145 bpm. Neurology was consulted and the patient was admitted. Cardiology, pulmonary, neurology, vascular surgery, infectious disease, and palliative care were involved. Patient was admitted to the ICU. He was minimally responsive he continued to have decreased responsiveness requiring intubation. Despite being maintained off sedation for several days the patient continued to have suboptimal response was following some commands with squeezing the right side of his hand. He was extubated but was unable to maintain off the ventilator. He was subsequently transitioned to comfort measures. He peacefully on January 22 at 01:19 Imaging: CT head: Right middle cerebral artery subacute infarct with mass effect, left posterior parietal subacute infarct consider embolic phenomenon. CTA head and neck: Right MCA M1 segment abrupt cutoff filling defect from thrombus, bilateral calcified and noncalcified plaque at the carotid bifurcation resulting in 80% stenosis on the right and near occlusion on the left, multinodular thyroid gland Chest x-ray: Possible cardiomegaly, possible tracheal narrowing Carotid Doppler: Right internal carotid artery occlusion Echocardiogram: EF 20%, severe pulmonary hypertension, moderate to severe MR, moderate to severe aortic stenosis, moderate to severe TR Repeat CT brain: Large right hemisphere hypodensity with edema that could be subacute infarct with increasing mass effect, no hemorrhage, low density in the middle left occipital lobe consistent with old infarct. Third CT brain: Large right-sided cerebrovascular accident with evidence of progressive infarct with loss of dasilva-white matter junction, effacement of salt I, slight midline shift with mass effect on the right lateral ventricle. Plan - Discharge Summary Discharge Rx Participant: Yes New Discharge Prescriptions: No Action No Known Home Medications Discharge Medication List No Known Home Medications 01/12/22 [History] Follow up Appointment(s)/Referral(s): Nita Chavez DO [STAFF PHYSICIAN] - [address] [facility]Clinic [Primary Care Provider] - 1-2 days Patient Instructions/Handouts: Comfort Measures (GEN) Discharge Disposition: - Preliminary Cause of Preliminary Cause of : MCA CVA
== END 2022-01-22 03:25 | disposition expired | DRG 64 ==
LOC: EC 15:14 → 2SICU 18:11
PROVIDERS: ADMIT Internal Medicine; ATTEND Internal Medicine
PROC: 0D9670Z Drainage of Stomach with Drainage Device, Via Natural or Artificial Opening (ICD-10-PCS; 2022-01-12)
PROC: 5A1955Z Respiratory Ventilation, Greater than 96 Consecutive Hours (ICD-10-PCS; principal; 2022-01-14)
PROC: 02HV33Z Insertion of Infusion Device into Superior Vena Cava, Percutaneous Approach (ICD-10-PCS; 2022-01-14)
PROC: 03HY32Z Insertion of Monitoring Device into Upper Artery, Percutaneous Approach (ICD-10-PCS; 2022-01-14)
PROC: 4A133B1 Monitoring of Arterial Pressure, Peripheral, Percutaneous Approach (ICD-10-PCS; 2022-01-14)
PROC: 4A133J1 Monitoring of Arterial Pulse, Peripheral, Percutaneous Approach (ICD-10-PCS; 2022-01-14)
PROC: 3E033XZ Introduction of Vasopressor into Peripheral Vein, Percutaneous Approach (ICD-10-PCS; 2022-01-14)
PROC: 0BH17EZ Insertion of Endotracheal Airway into Trachea, Via Natural or Artificial Opening (ICD-10-PCS; 2022-01-14)
PROC: 5A0935A Assistance with Respiratory Ventilation, Less than 24 Consecutive Hours, High Flow/Velocity Cannula (ICD-10-PCS; 2022-01-21)
DX: I63.411 Cerebral infarction due to embolism of right middle cerebral artery (principal); A41.9 Sepsis, unspecified organism; G93.41 Metabolic encephalopathy; G93.6 Cerebral edema; J96.01 Acute respiratory failure with hypoxia; J15.211 Pneumonia due to Methicillin susceptible Staphylococcus aureus; I50.22 Chronic systolic (congestive) heart failure; I42.8 Other cardiomyopathies; I48.20 Chronic atrial fibrillation, unspecified; G81.94 Hemiplegia, unspecified affecting left nondominant side; R41.4 Neurologic neglect syndrome; E87.0 Hyperosmolality and hypernatremia; Z51.5 Encounter for palliative care; Z66 Do not resuscitate; B95.61 Methicillin susceptible Staphylococcus aureus infection as the cause of diseases classified elsewhere; E04.2 Nontoxic multinodular goiter; E78.5 Hyperlipidemia, unspecified; E87.8 Other disorders of electrolyte and fluid balance, not elsewhere classified; F14.10 Cocaine abuse, uncomplicated; F17.200 Nicotine dependence, unspecified, uncomplicated; G47.30 Sleep apnea, unspecified; I08.3 Combined rheumatic disorders of mitral, aortic and tricuspid valves; I11.0 Hypertensive heart disease with heart failure; I25.10 Atherosclerotic heart disease of native coronary artery without angina pectoris; I27.20 Pulmonary hypertension, unspecified; I65.23 Occlusion and stenosis of bilateral carotid arteries; I77.1 Stricture of artery; R13.10 Dysphagia, unspecified; R29.810 Facial weakness; E11.9 Type 2 diabetes mellitus without complications; Z63.8 Other specified problems related to primary support group; Z79.01 Long term (current) use of anticoagulants; Z79.02 Long term (current) use of antithrombotics/antiplatelets; Z79.82 Long term (current) use of aspirin; Z79.899 Other long term (current) drug therapy; Z83.3 Family history of diabetes mellitus; Z86.73 Personal history of transient ischemic attack (TIA), and cerebral infarction without residual deficits; Z91.14 Patient's other noncompliance with medication regimen
CPT/HCPCS: 36415; 36600; 70450; 70496; 70498; 71045; 71046; 80053; 80061; 80143; 80179; 80202; 80306; 80320; 81001; 81003; 82140; 82805; 83036; 83735; 83930; 84145; 84439; 84443; 84484; 85025; 85027; 85610; 85730; 87040; 87070; 87077; 87186; 87205; 93005; 93306; 93880; 94002; 94003; 94640; 95816; 96365; 96366; 99291